=== PATIENT | female | born 1980 | race Caucasian/White ===

== ENCOUNTER → 2018-09-10 10:24 | Outpatient (CLI) | payer OTHER, SELFPAY ==
[2018-09-10 14:08] LABS: Basophils % 0.5 % (0.1-2.0); Eosinophils # 0.4 K/mm3 (0.0-0.4); Eosinophils % 4.1 % (0.1-12.0); Hematocrit 43.1 % (37.0-47.0); Hemoglobin 14.2 g/dL (12.2-16.2); Lymphocytes % 35.4 % (10-50); Mean Corpuscular Hemoglobin 29.2 pg (27.0-31.2); Mean Corpuscular Volume 88.3 fl (81-99); Mean Platelet Volume 8.9 fl (7.4-10.4); Monocytes # 0.5 K/mm3 (0.1-1.0); Neutrophils # 4.7 K/mm3 (1.8-7.8); Neutrophils % 54.1 % (37.0-80.0); Platelet Count 208 K/mm3 (142-424); Red Blood Count 4.88 M/mm3 (4.20-5.40); Red Cell Distribution Width 13.2 % (11.5-17.5); White Blood Count 8.6 K/mm3 (4.8-10.8)
[2018-09-10 14:33] LABS: Alanine Aminotransferase 47 U/L (12-78); Albumin Level 3.5 gm/dL (3.4-5.0); Alkaline Phosphatase 84 U/L (46-116); Anion Gap 13.3 mEq/L (5-15); Aspartate Amino Transferase 14 U/L (15-37); Bilirubin,Total 0.4 mg/dL (0.2-1.0); Blood Urea Nitrogen 12 mg/dL (7-18); Calcium 8.3 mg/dL (8.5-10.1); Carbon Dioxide 25 mmol/L (21.0-32.0); Chloride 105 mmol/L (98-107); Chol/HDL Ratio 3.5 (1-3.5); Cholesterol 181 mg/dL (140-200); Creatinine,Serum 0.66 mg/dL (0.55-1.02); Estimated Glomerular Filt Rate 100 ml/min (>60); GFR (African American) 121 ML/MIN (>60); Globulin 3.4 gm/dl (1.3-3.2); Glucose 101 mg/dL (74-106); HDL Cholesterol 52 mg/dL (29-89); LDL Cholesterol 108 mg/dL (0-130); Potassium 4.3 mmoL/L (3.5-5.1); Sodium 139 mmol/L (136-145); Thyroid Stimulating Hormone 3.19 uIU/ml (0.358-3.740); Total Protein,Serum 6.9 gm/dL (6.4-8.2); Triglycerides 103 mg/dL (30-200); VLDL Cholesterol 21 mg/dL (0-40)
[2018-09-10 15:50] LABS: Hemoglobin A1C 5.4 % (0.0-7.0)
[2018-09-13 18:56] LABS: Lamotrigine (Lamictal) None Detected ug/mL (2.0-20.0)
== END ==
PROVIDERS: Visit Provider Nurse Practitioner Family
DX: I10 Essential (primary) hypertension (principal)
CPT/HCPCS: 36415; 80053; 80061; 80168; 83036; 84443; 85025

== ENCOUNTER → 2018-11-04 11:13 | Outpatient (CLI) | payer OTHER, SELFPAY ==
[2018-11-04 11:16] LABS: Adenovirus,PCR Not Detected (NotDetected); Bordetella Pertussis Not Detected (NotDetected); Chlamydophila Pneumoniae, PCR Not Detected (NotDetected); Coronavirus 229E Not Detected (NotDetected); Coronavirus NL63 Not Detected (NotDetected); Coronovirus HKU1,PCR Not Detected (NotDetected); Human Metapneumovirus Not Detected (NotDetected); Influenza A, PCR Not Detected (NotDetected); Influenza AH1, 2009 Not Detected (NotDetected); Influenza AH1, PCR Not Detected (NotDetected); Influenza AH3,PCR Not Detected (NotDetected); Influenza B, PCR Not Detected (NotDetected); Mycoplasma Pneumoniae, PCR Not Detected (NotDetected); Parainfluenza 1, PCR Not Detected (NotDetected); Parainfluenza 2, PCR Not Detected (NotDetected); Parainfluenza 3, PCR Not Detected (NotDetected); Parainfluenza 4, PCR Not Detected (NotDetected); Respiratory Syncytial Virus Not Detected (NotDetected); Rhinovirus/Enterovirus Not Detected (NotDetected)
[2018-11-04 15:13] LABS: Coronavirus OC43 Detected (NotDetected)
== END ==
PROVIDERS: PCP Nurse Practitioner Family; Visit Provider Nurse Practitioner Family
DX: R50.9 Fever, unspecified (principal); R05 Cough
CPT/HCPCS: 87486; 87581; 87633; 87798

== ENCOUNTER 2018-12-05 13:00 | Outpatient (RCR) | payer OTHER, SELFPAY | END 2019-01-02 15:00 | disposition home or self-care (01) | LOC: PT.CARL 13:00 | PROVIDERS: Visit Provider Nurse Practitioner Family | DX: M54.5 Low back pain (principal); M54.6 Pain in thoracic spine | CPT/HCPCS: 97033; 97110; 97140; 97163 ==

== ENCOUNTER → 2019-05-19 09:00 | Outpatient (CLI) | payer OTHER, SELFPAY ==
--- NOTE | 2019-05-19 09:03 | XR_ITS ---
XR knee RT 4V HISTORY: ITS.REASON: knee pain ORDERING PHYSICIAN: Dacia Landaverde MD PATIENT AGE: 39 years COMPARISON: 04/23/2019 FINDINGS: There are mild osteoarthritic changes of all 3 compartments with slight decrease in the joint spaces and mild osteophyte formation. There is a small loose body in the anterior aspect of the joint medially measuring 3 mm. No fracture or dislocation. No lytic or blastic change. IMPRESSION: Mild tricompartmental osteoarthritis
== END ==
PROVIDERS: PCP Family Medicine; Visit Provider Orthopaedic Surgery
DX: M25.561 Pain in right knee (principal)
CPT/HCPCS: 73564

== ENCOUNTER → 2019-05-23 14:38 | Outpatient (CLI) | payer OTHER, SELFPAY ==
--- NOTE | 2019-05-23 14:40 | MR_ITS ---
MR knee RT wo con HISTORY: Right knee pain with grinding and swelling ITS.REASON: Rt knee pain ORDERING PHYSICIAN: Dacia Landaverde MD PATIENT AGE: 39 years Comparison: 05/19/2019 TECHNIQUE: Standard multiplanar multiecho sequences are performed without contrast. FINDINGS: The cruciate ligaments are intact. Collateral ligaments, patellar tendon, and quadriceps tendon are intact. No evidence of meniscal tear. There is mild thinning of the menisci but no evidence of meniscal tear There is irregularity with thinning of the posterior patellar cartilage consistent with chondromalacia patella. There are mild osteoarthritic changes involving all 3 compartments with small knee joint effusion. No fracture or dislocation. No bone bruise or bone marrow edema. IMPRESSION: 1. No internal derangement 2. Mild osteoarthritis of all 3 compartments with small knee joint effusion 3. Chondromalacia patella
== END ==
PROVIDERS: PCP Nurse Practitioner Family; Visit Provider Orthopaedic Surgery
DX: M25.461 Effusion, right knee (principal)
CPT/HCPCS: 73721

== ENCOUNTER 2021-07-11 15:23 | Emergency (ER) | payer OTHER, SELFPAY ==
[2021-07-11 15:33] VITALS: BP 170/98; PULSE 108; RESP 18; TEMP 36.9; O2SAT 95; BMI 36.3
--- NOTE | 2021-07-11 16:27 | HMH.EDUTC ---
[facility] Disposition Clinical Impression: Exposure to COVID-19 virus Pneumonia Qualifiers: Pneumonia type: due to unspecified organism Laterality: right Lung location: middle lobe of lung Qualified Code(s): J18.9 - Pneumonia, unspecified organism Disposition: Home, Self-Care Condition on Discharge: Good Instructions: DI for COVID-19 (Suspected or Confirmed ), Preventing the Spread of Coronavirus Discharge Instructions Additional Instructions: Keep the affected area clean and dry. Follow up with your regular doctor. Take the antibiotics as directed and apply the topical antibiotics as directed. Apply warm wet compresses to the affected area three or four times per day. GO TO THE ER FOR ANY WORSENING SYMPTOMS Prescriptions: Albuterol Sulfate [Albuterol Sulfate Hfa] 2 puffs IH Q6HP PRN 30 Days #1 each PRN Reason: Shortness Of Breath Transmission Status: Received by [facility] Promethazine/Dextromethorphan [Promethazine-Dm Syrup] 5 ml PO Q6HP PRN #240 ml PRN Reason: Cough Transmission Status: Received by [facility] Amoxicillin/Potassium Clav [Augmentin 875-125 Tablet] 1 tab PO Q12H 10 Days #20 tab Transmission Status: Received by [facility] methylPREDNISolone [Medrol] 4 mg PO DIRECTED 6 Days #21 packet Transmission Status: Received by [facility] Referrals: Adela Paul APRN [Primary Care Provider] - Forms: Work/School Release Time of Disposition: 17:26 Medical Decision Making - Medical Records Medical records reviewed: No: I reviewed the patient's medical records. - Raymundo Inquiry Pt receiving controlled substance: No Vital Signs: 07/11/21 15:33 07/11/21 17:51 Temperature 98.4 F 98.4 F Temperature Source Oral Oral Pulse Rate 108 H Pulse Rate [Apical] 108 H Respiratory Rate 18 18 Blood Pressure 170/98 H Blood Pressure [Right Arm] 170/98 H Blood Pressure Mean [Right Arm] 122 Blood Pressure Source Automatic Cuff Blood Pressure Source [Right Arm] Automatic Cuff Blood Pressure Position Sitting Blood Pressure Position [Right Arm] Sitting 02 Sat by Pulse Oximetry 95 Oxygen Delivery Method Room Air Room Air - Lab Data Lab Results 07/12/21 09:32: Strep Scn Rapid Clinic Negative Orders (Tests/Meds): ED MEDICATIONS Discontinued Medications Generic Name Dose Route Start Last Admin Trade Name Iker PRN Reason Stop Dose Admin Ceftriaxone Sodium 1 gm 07/11/21 17:13 07/11/21 17:25 Ceftriaxone 1gm Vial IM 07/11/21 17:14 1 gm ONCE ONE Administration Lidocaine HCl 0 ml 07/11/21 17:13 07/11/21 17:25 Lidocaine 1% 5ml Pf Vial IM 07/11/21 17:14 5 ml ONCE ONE Administration Methylprednisolone Sodium Succinate 125 mg 07/11/21 17:13 07/11/21 17:25 Methylprednisolone Sod Succ 125mg Vial IM 07/11/21 17:14 125 mg ONCE ONE Administration ORDERS Category Date Time Status Strep Screen Confirmation Stat Micro 07/12/21 09:32 Received - Radiology Data #1 Image(s): Chest Image Reviewed: Yes I reviewed the patient's radiology image, Yes I have reviewed radiologist's interpretation [facility] HPI - General Stated complaint: covid symptoms and test Time Seen by Provider: 07/11/21 16:27 Mode of Arrival: Ambulatory Source of Information: Patient Limitations: No Limitations Description of Symptoms (Recalled from Triage Doc. by RN): fever, cough, nausea, vomitting, chills HEENT Symptoms (Recalled from RN notes): No Resp Symptoms (Recalled from RN notes): Yes Skin Symptoms (Recalled from RN notes): No MS Symptoms (Recalled from RN notes): No Functional Status (Recalled from RN notes): na - History of Present Illness Provider Complaint: She states that for the past 1 day she has been having chest congstion, feeling bad. She has a history of asthma. - Related Data Home Medications Medication Instructions Recorded Confirmed Benzonatate [Benzonatate 100mg 1 tab * DIRECTED 11/15/1805/22
--- NOTE | 2021-07-11 16:32 | XR_ITS ---
PROCEDURE: XR CHEST 2V CLINICAL HISTORY: cough, congestion COMPARISON: CR CXR CHEST(2 VIEWS-NOT PORTABLE) from 06/06/2014 FINDINGS: The cardiomediastinal silhouette and pulmonary vascularity are within normal limits. Patchy infiltrate is present in the right middle lobe. The remaining lungs are clear. No effusions. No acute bony abnormalities. IMPRESSION: Right middle lobe infiltrate Dictated by: Floyd Segovia MD 07/11/2021 17:28 Floyd Segovia MD in [place] 07/11/2021 17:28
[2021-07-11 17:51] VITALS: BP 170/98; PULSE 108; RESP 18; TEMP 36.9; O2SAT 95
[2021-07-12 10:36] LABS: UTC Strep Screen (Rapid) Negative (Negative)
== END 2021-07-11 17:55 | disposition home or self-care (01) ==
PROVIDERS: Emergency Provider Nurse Practitioner Family; PCP Nurse Practitioner Family
DX: J18.9 Pneumonia, unspecified organism (principal); I10 Essential (primary) hypertension; F17.210 Nicotine dependence, cigarettes, uncomplicated
CPT/HCPCS: 71046; 87880; 96372; 99202; C9803; G0463; U0003; U0005

== ENCOUNTER 2021-09-04 14:54 | Emergency (ER) | payer OTHER, SELFPAY ==
[2021-09-04 15:00] VITALS: BP 148/93; PULSE 83; RESP 18; TEMP 36.8; O2SAT 96; BMI 35.5
--- NOTE | 2021-09-04 15:13 | XR_ITS ---
PROCEDURE INFORMATION: Exam: XR Left Hand Exam date and time: 09/04/2021 3:13 PM Age: 41 years old Clinical indication: Injury or trauma; Other: Smashed left hand between weights; Blunt trauma (contusions or hematomas); Additional info: Smashed it TECHNIQUE: Imaging protocol: XR Left hand. Views: 3 or more views. COMPARISON: No relevant prior studies available. FINDINGS: Bones/joints: There is no evidence of acute fracture. There is no evidence of joint malalignment or dislocation. Soft tissues: No focal soft tissue swelling. IMPRESSION: 1. No evidence of acute fracture. 2. No evidence of acute dislocation.
--- NOTE | 2021-09-04 15:46 | HMH.EDUTC ---
[place] Disposition Clinical Impression: Fingertip contusion Qualifiers: Encounter type: initial encounter Qualified Code(s): S60.00XA - Contusion of unspecified finger without damage to nail, initial encounter Disposition: Home, Self-Care Condition on Discharge: Good Instructions: How To Perform RICE (Rest, Ice, Compress, Elevate), How to Edgar Tape Additional Instructions: *RICE, Rest the extremity, Ice 15-20 minutes 3-4 times daily, Compress- wear the bhupinder wrap as discussed as much as possible to help reduce swelling and pain, Elevate the extremity when at rest *finger splint is for support and help control swelling, use it except in the shower. Be sure that is not to tight but not to loose either *Elevate when resting *Ibuprofen every 6-8 hours as needed for pain an inflammation as directed on package. If need something more can take Tylenol in between doses of Ibuprofen to help Immediately follow up with your family doctor for new or worsening of symptoms, or no noticeable improvement over the next 3-5 days Return if needed Straight to ER if any life threatening symptoms Referrals: Elizabeth Kerr PA [Primary Care Provider] - As needed Time of Disposition: 15:49 Medical Decision Making - Raymundo Inquiry Pt receiving controlled substance: No Raymundo was queried for this patient: No Vital Signs: 09/04/21 15:00 Temperature 98.2 F Temperature Source Oral Pulse Rate [Right Brachial] 83 Respiratory Rate 18 Blood Pressure [Right Arm] 148/93 H Blood Pressure Mean [Right Arm] 111 Blood Pressure Source [Right Arm] Automatic Cuff Blood Pressure Position [Right Arm] Sitting 02 Sat by Pulse Oximetry 96 Oxygen Delivery Method Room Air - Radiology Data #1 Image(s): Hand Image Reviewed: Yes I have reviewed radiologist's interpretation IMPRESSION: 1. No evidence of acute fracture. 2. No evidence of acute dislocation. [place] HPI - General Stated complaint: AO Left hand caught btwn weights Time Seen by Provider: 09/04/21 15:46 Mode of Arrival: Ambulatory Source of Information: Patient Limitations: No Limitations Description of Symptoms (Recalled from Triage Doc. by RN): PATIENT C/O PAIN AND BRUSING TO LEFT RING FINGER. REPORTS SHE SMASHED HER LEFT HAND BETWEEN WEIGHTS LAST NIGHT HEENT Symptoms (Recalled from RN notes): No Resp Symptoms (Recalled from RN notes): No Skin Symptoms (Recalled from RN notes): No MS Symptoms (Recalled from RN notes): Yes Functional Status (Recalled from RN notes): WNL - History of Present Illness Provider Complaint: Patient states that she was moving some weights last night when she accidently smashed the tips of her fingers between the weights Statse that she is having bruising and pain to the tip of her left ring finger and today was still having pain with movement and bruising so she came in to get it checked - Related Data Home Medications Medication Instructions Recorded Confirmed lisinopriL [Lisinopril 20mg Tab] 1 tab PO DIRECTED 11/15/18 09/04/21 Allergies Allergy/AdvReac Type Severity Reaction Status Date / Time carbamazepine [From Tegretol] Allergy Verified 09/04/21 15:37 quetiapine [From Seroquel] Allergy Verified 09/04/21 15:37 venlafaxine [From Effexor] Allergy Verified 09/04/21 15:37 ziprasidone [From Geodon] Allergy Verified 09/04/21 15:37 - Worker's Comp Is this a Worker's Comp case?: No [facility] History - Hepatitis A Screen Drug use history?: No High risk sexual behaviors?: No History of sexually transmitted infection?: No Currently employed?: No Childcare worker?: No Do you have indoor plumbing?: Yes Do you have electricity?: Yes Attestation statement:: This patient has been screened for Hepatitis A risk factors. I have reviewed the patient's past medical history: Yes Medical History: Reports:: Hypertension, Seizures Laterality Cases: Bilateral: Carpal Tunnel Release Other Surgeries: Yes: Appendectomy, Cholecystectomy - Social His
[2021-09-04 15:58] VITALS: BP 148/93; PULSE 83; RESP 18; TEMP 36.8; O2SAT 96
== END 2021-09-04 16:04 | disposition home or self-care (01) ==
PROVIDERS: Emergency Provider Nurse Practitioner; PCP Nurse Practitioner Family
DX: S60.042A Contusion of left ring finger without damage to nail, initial encounter (principal); W23.0XXA Caught, crushed, jammed, or pinched between moving objects, initial encounter; I10 Essential (primary) hypertension; F17.210 Nicotine dependence, cigarettes, uncomplicated
CPT/HCPCS: 73130; 99202; G0463

== ENCOUNTER → 2021-11-08 10:14 | Outpatient (CLI) | payer OTHER, SELFPAY | PROVIDERS: Visit Provider Nurse Practitioner | DX: Z20.822 Contact with and (suspected) exposure to COVID-19 (principal) | CPT/HCPCS: C9803; U0003; U0005 ==

== ENCOUNTER 2022-05-31 20:31 | Emergency (ER) | payer OTHER, SELFPAY ==
[2022-05-31 20:34] VITALS: BP 158/105; PULSE 79; RESP 16; TEMP 37.2; O2SAT 99; BMI 34.7
--- NOTE | 2022-05-31 20:54 | XR_ITS ---
PROCEDURE INFORMATION: Exam: XR Right Shoulder Exam date and time: 05/31/2022 8:50 PM Age: 42 years old Clinical indication: Patient HX: Pain in right shoulder. ; Additional info: Fall TECHNIQUE: Imaging protocol: Radiologic exam of the Right shoulder. Views: 2 or more views. COMPARISON: No relevant prior studies available. FINDINGS: Bones/joints: No acute fracture. No dislocation. Soft tissues: Unremarkable. IMPRESSION: No fracture. If pain persists, consider nonemergent MRI for further evaluation.
--- NOTE | 2022-05-31 21:02 | HMH.EDFALL ---
ED Disposition Clinical Impression: Shoulder injury Qualifiers: Encounter type: initial encounter Laterality: right Qualified Code(s): S49.91XA - Unspecified injury of right shoulder and upper arm, initial encounter Acromioclavicular joint injury Qualifiers: Encounter type: initial encounter Laterality: right Qualified Code(s): S49.91XA - Unspecified injury of right shoulder and upper arm, initial encounter Disposition: Home, Self-Care Condition on Discharge: Good Instructions: DI for Shoulder Pain, DI for AC Joint Separation Additional Instructions: use meds as needed - nsaif also and see orhto and wear sling as needed Referrals: John Hamilton [Primary Care Provider] - Raphael Owens MD [Staff Physician] - - Critical Care Critical Care Time: No Attestation: On 05/31/22, the high probability of a clinically significant, sudden or life threatening deterioration of the following system(s) required my full and direct attention, intervention and personal management. The time I documented below is in addition to time spent performing reported procedures but includes the following listed in this critical care notation. Medical Decision Making - Medical Records Medical records reviewed: Yes: I reviewed the patient's medical records. - Raymundo Inquiry Pt receiving controlled substance: No Vital Signs: 05/31/22 20:34 Temperature 98.9 F Temperature Source Oral Pulse Rate [Left Radial] 79 Respiratory Rate 16 Blood Pressure [Right Arm] 158/105 H Blood Pressure Mean [Right Arm] 122 Blood Pressure Source [Right Arm] Automatic Cuff Blood Pressure Position [Right Arm] Sitting 02 Sat by Pulse Oximetry 99 Oxygen Delivery Method Room Air - Lab Data Lab Results 05/31/22 20:11: Urine HCG, Qual Negative Orders (Tests/Meds): ED MEDICATIONS Discontinued Medications Generic Name Dose Route Start Last Admin Trade Name Freq PRN Reason Stop Dose Admin Acetaminophen 1,000 mg 05/31/22 20:55 05/31/22 20:58 Acetaminophen 500mg Tab PO 05/31/22 20:56 1,000 mg ONCE ONE Administration Ibuprofen 600 mg 05/31/22 20:55 05/31/22 20:58 Ibuprofen 600 Mg Tablet PO 05/31/22 20:56 600 mg ONCE ONE Administration - Radiology Data #1 Image(s): Shoulder Image Reviewed: Yes I have reviewed radiologist's interpretation Preliminary Findings: Abnormal, No Fracture Seen (possible ac jt ) Medical Decision Narrative: pt with acute rt shoulder injury with possible ac jt Fall HPI - General Chief Complaint: Fall Stated Complaint: AO 05/31 FELL pain R SHOULDER Time Seen by Provider: 05/31/22 21:03 Mode of Arrival: Ambulatory Source of Information: Patient, Medical Record Limitations: No Limitations Description of Symptoms (Recalled from ER Triage Doc. by RN): PT TRIPPED LEAVING GAS STATION AND FELL WITH RIGHT SHOULDER INTO HER CAR. PT REPORTS RIGHT SHOULDER PAIN AT THIS TIME - DULL ACHE- AND LIMITED MOVEMENT. - History of Present Illness HPI Narrative: tripped and fell into car with rt shoulder injury MD complaint: fall Onset (ago): hour(s) Fall from: other (slipped ) Place fall occurred: street Loss of consciousness: none Prolonged down time: no Symptoms prior to fall: none Context: tripped/slipped Location of injury - extremities: Right: shoulder Severity: moderate Quality: sharp Associated symptoms (after fall): other (dec rom ) - Related Data Home Medications Medication Instructions Recorded Confirmed lisinopriL [Lisinopril 20mg Tab] 1 tab PO DIRECTED 11/15/18 09/04/21 Allergies Allergy/AdvReac Type Severity Reaction Status Date / Time carbamazepine [From Tegretol] Allergy Verified 09/04/21 15:37 quetiapine [From Seroquel] Allergy Verified 09/04/21 15:37 venlafaxine [From Effexor] Allergy Verified 09/04/21 15:37 ziprasidone [From Geodon] Allergy Verified 09/04/21 15:37 [facility] History - Hepatitis A Screen Attestation statement:: This patie
[2022-05-31 21:03] LABS: Urine Pregnancy, HCG Qual. Negative (Negative)
[2022-05-31 21:43] VITALS: BP 155/89; PULSE 77; RESP 18; TEMP 36.6; O2SAT 99
== END 2022-05-31 21:55 | disposition home or self-care (01) ==
PROVIDERS: Emergency Provider Emergency Medicine; PCP Family Medicine
DX: S49.91XA Unspecified injury of right shoulder and upper arm, initial encounter (principal); M25.511 Pain in right shoulder; W01.0XXA Fall on same level from slipping, tripping and stumbling without subsequent striking against object, initial encounter
CPT/HCPCS: 73030; 81025; 99283

== ENCOUNTER 2022-10-26 16:00 | Outpatient (RCR) | payer OTHER, SELFPAY ==
--- NOTE | 2022-08-23 10:47 | HMH.PTOPEV ---
PT Outpatient Evaluation Rehab PT Outpatient Evaluation Start: 08/23/22 10:06 Freq: Status: Active Protocol: Document 08/23/22 10:08 SATYA (Rec: 08/23/22 10:47 SATYA [id number]) E-signed By Mayur Rich PT Outpatient Therapy Subjective History Subjective History This is the inital Physical Therapy evaluationfor Adriana Tran. Pt is a 42 y/o female referred to PT s/p fall . Pt reports she fell/slipped at a gas station. Pt reports as she fell she hit her shoulder on a car door, then the ground. Pt reports this happened on May 29. Pt went to ER and had Xray - no fx - dx of AC separation. Pt placed in sling and has been in sling since. Chief Complaint Pain,Stiff Symptom Type Ache,Sharp Symptoms Relieved By Rest/Positioning Symptoms Aggravated By Lifting Prior Functional Limitations None Current Functional Limitations Reaching,Lifting,Housework, Driving,Sleeping,Recreation Activity Symptom Description Intermittent Level of pain today (0-10) 0 Pain scale - at its best (0-10) 0 Pain scale - at its worst (0-10) 8 Shoulder/Elbow Eval Shoulder Objective Measurements Palpation Tenderness tenderness shoulder exam standard right tenderness over the bicipital tendon right shoulder exam standard Shoulder Palpation Findings Tenderness,Muscle Guarding Shoulder ROM Right Shoulder ROM Limitations Pain Shoulder Abduction Active Range of 90 Motion (degrees) Shoulder Flexion Active Range of Motion 135 (degrees) Query Text: pain with active ROM shoulder exam right standard pain with passive ROM shoulder exam right standard decreased ROM shoulder exam standard right full ROM shoulder exam standard left Shoulder Special Tests impingement sign present shoulder exam right standard Shoulder Cross-Over Impingement Test Positive Right Acromioclavicular Joint Compression Test Positive Right Acromioclavicular Joint Distraction Test Positive Right Shoulder Anterior Apprehension Test Negative Right Shoulder Posterior Apprehension Test Negative Right Shoulder Empty Can (Supraspinatus) Test Positive Right Shoulder Grind Test Positive Right Shoulder Gamble-Roderick Impingement Positive Right Test Shou
--- NOTE | 2022-10-18 11:00 | HMH.RHREAS ---
Rehab Reassessment Rehab OP Re-assessment Start: 09/21/22 11:08 Freq: Status: Active Protocol: Document 10/18/22 09:50 HERMINIALatosha (Rec: 10/18/22 10:59 SOLA [id number]) E-signed By Helena Joe PT Rehab Re-assessment Subjective Subjective Pt reports her shoulder feels a lot better since starting PT ; however, still has pain and difficulty with scaption/ abduction movements. Pt reports she is able to perform flexion without issues. Pt states even lifting a pot is difficult due to weakness. Pt reports pain at worse as 4/10 located at the lateral right shoulder and continues to notice swelling. Pt reports functionally she has trouble donning/doffing bra due to pain. Pt reports she had an EMG/NCV study without significant findings but has not had an MRI. Objective Objective Notes R seated shoulder AROM: 170 flex, 95 abd, ER 80, IR 70 R supine shoulder AROM: 120 abd R shoulder PROM: 180 flex, 180 abd (p!) RUE MMT: shoulder flex 4/5, shoulder abd 4/5, shoulder ER 4+/5, shoulder IR 4+/5, elbow flex 5/5, elbow ext 5/5 Special tests(R shoulder): - drop arm test, -weems matthias, -cross body, + empty can Assessment Progress Assessment Slower Than Expected Assessment Notes Pt has attended 11 PT visits consisting of aerobic exercise , UE stretching/strengthening, manual therapy and modalities with good tolerance. Pt demonstrated improved shoulder P/AROM this date compared to initial evaluation and responded well to shoulder mobilizations this date. Pt would continue to benefit from skilled PT to further improve
== END 2022-10-26 16:05 | disposition home or self-care (01) ==
LOC: PT 16:00
PROVIDERS: PCP Family Medicine; Visit Provider Orthopaedic Surgery
DX: M25.511 Pain in right shoulder (principal)
CPT/HCPCS: 97010; 97014; 97016; 97033; 97035; 97110; 97140; 97163; 97164; 97530; G0283

== ENCOUNTER → 2022-11-03 14:04 | Outpatient (CLI) | payer OTHER, SELFPAY ==
--- NOTE | 2022-11-03 15:23 | MR_ITS ---
PROCEDURE INFORMATION: Exam: MR Right Upper Extremity Joint Without Contrast; Shoulder Exam date and time: 11/03/2022 3:42 PM Age: 42 years old Clinical indication: Pain; Shoulder; Right; Additional info: Right shoulder pain TECHNIQUE: Imaging protocol: Magnetic resonance imaging of the Right upper extremity without contrast. Exam focused on the shoulder. COMPARISON: CR XR SHOULDER RT MIN 2V 05/31/2022 8:50 PM FINDINGS: Bones and cartilage: Acromioclavicular arthropathy is identified, with effacement of the underlying tissue planes. No dislocation of the glenohumeral joint. Joint spaces: Small glenohumeral joint effusion. A small effusion is identified within the acromioclavicular joint. Osseous cystic/edematous changes identified adjacent this joint, secondary to arthropathy. Glenoid labrum: Mild increased PD signal intensity is seen within the posterosuperior aspect of the labrum, suggestive of degenerative change or labral tear. Supraspinatus tendon: Full-thickness tear of the anterior fibers of the supraspinatus tendon. A small amount of fluid is seen within this defect. Minimal fluid is visualized within the subdeltoid/subacromial bursa. Infraspinatus tendon: Tendinosis of the infraspinatus tendon. No visualized tear. Subscapularis tendon: No evidence of tear. Teres minor tendon: No evidence of tear. Tendon of biceps brachii: Unremarkable. No evidence of tear. Glenohumeral ligaments: No evidence of tear of the inferior glenohumeral ligament. Muscles: No visualized acute abnormality. Soft tissues: Unremarkable. Lymph nodes: Nonspecific axillary lymph nodes are identified, a few which are enlarged. One of these lymph nodes measures 2.9 cm in length with a prominent fatty hilum. IMPRESSION: 1. Full-thickness tear of the anterior fibers of the supraspinatus tendon. A small amount of fluid is seen within this defect. Minimal fluid is visualized within the subdeltoid/subacromial bursa. 2. Tendinosis of the infraspinatus tendon. 3. 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 4. Small glenohumeral joint effusion. 5. Mild increased PD signal intensity is seen within the posterosuperior aspect of the labrum, suggestive of degenerative change or labral tear. 6. Additional findings described above.
== END ==
PROVIDERS: PCP Family Medicine; Visit Provider Orthopaedic Surgery
DX: M25.511 Pain in right shoulder (principal)
CPT/HCPCS: 73221

== ENCOUNTER → 2022-11-13 18:33 | Outpatient (CLI) | payer OTHER, SELFPAY ==
--- NOTE | 2022-11-13 18:49 | XR_ITS ---
PROCEDURE INFORMATION: Exam: XR Chest Exam date and time: 11/13/2022 6:48 PM Age: 42 years old Clinical indication: Screening exam; Other screening; Additional info: Covid testing TECHNIQUE: Imaging protocol: Radiologic exam of the chest. Views: 2 views. COMPARISON: CR XR CHEST 2V 07/11/2021 4:31 PM FINDINGS: Lungs: No other airspace consolidation or nodules are seen. Pleural spaces: No pleural effusion. No pneumothorax. Heart/Mediastinum: No abnormalities. No cardiomegaly. No pulmonary vascular congestion. Bones/joints: No fractures or bone lesions. Soft tissues: Ill-defined opacities present in the right middle lobe similar to previous chest x-ray. IMPRESSION: Ill-defined hazy opacity in the right middle lobe is similar to 07/11/2021 chest x-ray and may represent pneumonia or chronic scarring.
[2022-11-13 19:31] LABS: Chloride 106 mmol/L (98-107)
[2022-11-13 19:32] LABS: Potassium 3.6 mmoL/L (3.5-5.1); Sodium 140 mmol/L (136-145)
[2022-11-13 19:35] LABS: Anion Gap 10.6 mEq/L (5-15); Blood Urea Nitrogen 18 mg/dl (7-17); Calcium 8.7 mg/dl (8.4-10.2); Carbon Dioxide 27 mmol/L (22.0-30.0); Estimated Glomerular Filt Rate 91 ml/min (>60); GFR (African American) 111 ML/MIN (>60); Glucose 119 mg/dl (74-100)
[2022-11-13 20:20] LABS: Basophils # 0.2 K/mm3 (0-0.2); Basophils % 1.4 % (0.1-2.0); Eosinophils # 0.4 K/mm3 (0.0-0.4); Eosinophils % 3.4 % (0.1-12.0); Hematocrit 41.6 % (37.0-47.0); Hemoglobin 14.2 g/dL (12.2-16.2); Lymphocytes # 3.7 K/mm3 (0.7-4.5); Lymphocytes % 33.2 % (10-50); Mean Corpuscular HGB Conc 34.1 g/dL (31.8-35.4); Mean Corpuscular Hemoglobin 30.6 pg (27.0-31.2); Mean Corpuscular Volume 89.8 fl (81-99); Mean Platelet Volume 8.5 fl (7.4-10.4); Monocytes # 0.6 K/mm3 (0.1-1.0); Neutrophils # 6.3 K/mm3 (1.8-7.8); Neutrophils % 56.9 % (37.0-80.0); Platelet Count 269 K/mm3 (142-424); Red Blood Count 4.64 M/mm3 (4.20-5.40)
[2022-11-13 21:07] LABS: Hemoglobin A1C 5.3 % (4.0-6.0)
== END ==
PROVIDERS: PCP Nurse Practitioner Family; Visit Provider Orthopaedic Surgery
DX: Z01.818 Encounter for other preprocedural examination (principal); Z87.898 Personal history of other specified conditions; R73.09 Other abnormal glucose
CPT/HCPCS: 36415; 71046; 80048; 83036; 85025

== ENCOUNTER → 2022-11-14 11:00 | Outpatient (CLI) | payer OTHER, SELFPAY ==
--- NOTE | 2022-11-14 11:10 | ECG_ITS ---
APPROVED REPORT Exam: Resting ECG HR:82 bpm ECG Measurements Heart Rate 82 AXES SC 162 P 69 QRSd 97 QRS 57 QT 375 T 50 QTc 413 Conclusion SINUS RHYTHM POSSIBLE LEFT ATRIAL ENLARGEMENT [-0.1mV P-WAVE IN V1/V2] POSSIBLE RIGHT VENTRICULAR CONDUCTION DELAY [RSR (QR) IN V1/V2] BORDERLINE ECG UNCONFIRMED REPORT Electronically signed by : Masood Damon MD 11/14/2022 21:23:50
== END ==
PROVIDERS: PCP Nurse Practitioner Family; Visit Provider Orthopaedic Surgery
DX: Z01.810 Encounter for preprocedural cardiovascular examination (principal)
CPT/HCPCS: 93005

== ENCOUNTER → 2022-12-13 09:24 | Outpatient (CLI) | payer OTHER, SELFPAY ==
--- NOTE | 2022-12-13 09:25 | CA_ITS ---
APPROVED REPORT EXAM: Comprehensive 2D, Doppler, and color-flow Echocardiogram [employer] Instructor: Kika Mcclain RVT Ht: 5 ft 6 in Wt: 246lbs BSA: 2.18 BP: 144/85 mmHg Indications: PALPS,ABN EKG,SMOKER 2D Dimensions LVOT 2.08 cm (M/F) 1.5-2.5 LA Volume 22.60 mL LA Volume Index 10.32 mL/m2 (M/F) 16-34 M-Mode Dimensions RVDd 2.36 cm (0.9-2.6) LA Diam 3.92 cm (1.9-4.0) LVDd 4.52 cm (3.5-5.7) Ao Diam 2.86 cm (2.0-3.7) LVDs 2.74 cm (3.5-5.7) IVSd 0.80 cm (0.6-1.1) PWd 0.57 cm (0.6-1.1) EF (Teich) 70.00% FS 39.40% EDV (Teich) 93.40 mL TAPSE 2.91 (<1.7) ESV (Teich) 28.00 mL LV Diastology E Decel Time 150.00 (160-240 msec) E/A Ratio 1.4 MED E' 10.50 (< 7 cm/sec) E'/MED E' Ratio 11.30 (>14) LAT E' 11.50 (<10 cm/sec) E/LAT E' Ratio 10.32 (>14) Aortic Valve LVOT Max 138.00 (70-110 cm/s) LVOT VTI 28.94 cm AoV Peak Yang. 183.00 (50-130 cm/s) AO Peak GR. 13.50 mmHg AO Mean GR. 6.80 (<5 mmHg) AO VTI 37.95 (18-25 cm) CARLTON (VTI) 2.59 (2.5-4.5 cm2) Mitral Valve MV E Max Yang. 119.00 (40-130 cm/s) MV A Velocity 85.00 (40-130 cm/s) E/A Ratio 1.39 MV Decel. Time 150.00 (160-240 ms) MV PHT 44.00 ms Pulmonary Valve PV Peak Velocity 94.00 (50-150 cm/s) Tricuspid Valve TR P. Velocity 149.00 cm/s RAP Estimate 10.00 mmHg RVSP 18.90 mmHg Left Ventricle Left atrium is normal size left ventricle is normal size, estimated ejection fraction 55% with no regional wall motion abnormality, diastolic parameters are within normal range. Right Ventricle Right atrium and right ventricular normal size and contractility. Aortic Valve Aortic valve is grossly normal there is no aortic stenosis aortic insufficiency. Mitral Valve Mitral valve is grossly normal, there is trace mitral regurgitation. Tricuspid Valve Tricuspid valve grossly normal, there is trace tricuspid regurgitation, tricuspid regurgitation jet plasty is inadequate for calculation of the right ventricular systolic pressure. Pulmonic Valve Pulmonic valve is poorly visualized. Great Vessels Aortic root is normal size. Inferior vena cava is normal size with normal inspiratory collapse. Pericardium No significant pericardial effusion noted. Conclusion 1. Normal left ventricular size preserved left ventricular systolic function, estimated ejection fraction 55% with no regional wall motion abnormality, diastolic parameters are within normal range. 2. Trace mitral and tricuspid regurgitation. 3. No significant pericardial effusion noted. 4. Inferior vena cava is normal size with normal inspiratory collapse. Electronically signed by : Ankur Flor MD 12/14/2022 06:13:09
== END ==
PROVIDERS: PCP Nurse Practitioner Family; Visit Provider Physician Assistant
DX: Z01.810 Encounter for preprocedural cardiovascular examination (principal); R00.2 Palpitations; R07.89 Other chest pain
CPT/HCPCS: 93306

== ENCOUNTER 2022-12-25 08:26 | Day surgery (SDC) | payer OTHER, SELFPAY ==
[2022-12-22 11:13] VITALS: BMI 39.5
[2022-12-25] VITALS (10 sets, daily range): BP systolic 105–169; BP diastolic 44–89; PULSE 65–89; RESP 12–18; TEMP 36.6–36.9; O2SAT 92–97
--- NOTE | 2022-12-25 09:15 | SUR.PREOP ---
Pt assisted to BR and back to stretcher.
--- NOTE | 2022-12-25 09:28 | EXP.ANES.CKL ---
[facility] Disclaimer: The information contained in this section may have been updated after the patient was seen, as this information can be updated by other users. Medical History Asthma Dyspnea on exertion Endobronchial mass HTN (hypertension) Multiple lung nodules on CT Seizure Smoking greater than 30 pack years Solid nodule of lung greater than 8 mm in diameter Surgical History History of appendectomy History of carpal tunnel release of both wrists History of cholecystectomy History of rotator cuff surgery History of surgery of uterus History of tubal ligation Family History Other COPD (chronic obstructive pulmonary disease) Cancer Hypertension Social History Smoking Status: Current every day smoker tobacco type: cigarettes packs per day: 1 alcohol intake: former substance use type: marijuana current occupational status: employed Travel in the last 8 weeks: None [facility] Anesthesia Checklist Patient Identification Patient Identification: Arm Band and Verbal (Name & ) Structural Data Admitted From: Home Planned Operative Procedure/s: Bronchoscopy Consent for Planned Operative Procedure(s) Verified: Yes Verified Documents: Surgical Consent NPO Status Verified Time NPO: 00:00 Additional verifications Anesthesia Reactions: No Hx Blood Transfusions: No Blood Transfusion Reaction: No Airway Assessment C-Spine Mobility Assessed: Yes TMJ Mobility Assessed: Yes Dentition: Poor Dentition Neurological Assessment Level of Consciousness: Awake, Alert and Appropriate Anesthesia Plan ASA Class: III Anesthesia Type: General
--- NOTE | 2022-12-25 11:25 | XR_ITS ---
FINAL REPORT CLINICAL HISTORY: BRONCH IN OR, ft 3:45 FINDINGS: FLUORO TIME PROCEDURE: Fluoroscopy in the operating room. FINDINGS: Fluoroscopy time was provided by the radiology department for the clinical service. One image was obtained. Fluoroscopy exposure time: 3.45 minutes IMPRESSION: See operative report. Reviewed, Interpreted and Dictated by Silvestre Bashir III, MD Transcribed by Abiola Lyn Authenticated and [facility]
--- NOTE | 2022-12-25 11:38 | XR_ITS ---
FINAL REPORT CLINICAL HISTORY: Post bronchoscopy COMPARISON: 09/13/2023 FINDINGS: A single portable view of the chest was obtained. The heart size and pulmonary vascularity are within normal limits. The mediastinum is within normal limits. No acute pulmonary abnormality is identified. The bony thorax is intact. IMPRESSION: No pneumothorax post bronchoscopy. Reviewed, Interpreted and Dictated by Silvestre Bashir III, MD Transcribed by Abiola Lyn Authenticated and [facility]
--- NOTE | 2022-12-25 11:39 | P.PNANES_ITS ---
[facility] Anesthesia Record Part I Anesthesia Record I Intake, IV Amount: 1,400 Estimated blood loss (mL): 0 Urine output (mL): 0 Blood Pressure: 105/76 SaO2: 96 Pulse Rate: 89 Respiratory Rate: 12 Temperature: 97.8 F Patient is:: Awake and Stable Stable to PACU at:: 11:35
--- NOTE | 2022-12-25 11:39 | P.PCN_ITS ---
Procedure: Date: 12/25/22 Patient Date of :: 1980 Procedure Performed:: Bronchoscopy with airway examination, bronchoalveolar lavage, transbronchial endobronchial lung biopsy Indications:: Endobronchial lesion, lung nodule Performing Provider:: Fina Mejia MD Referring Provider:: Dr:Todd Griffin APRN Sedation:: General anesthesia Procedure:: Bronchoscopy airway examination, bronchoalveolar lavage, endobronchial biopsy and transbronchial lung biopsy: A clean DIAGNOSTIC bronchoscopy was advanced through the ET tube and airways were examined up to subsegmental bronchi. Airways appeared grossly normal, except for a small likely endobronchial noted in the right lower lobe lateral bronchi. A total of 4 endobronchial biopsies were performed and sent in formalin for cytopathologic examination. Rest of the airways appeared grossly normal. No evidence of mucoid secretions, mucous plugging active bleeding/old blood clots noted. Bronchoalveolar lavage was performed in the RIGHT LOWER LOBE with instillation of 60 cc normal saline with return of 25 cc back. BAL fluid was sent for cell count and differential along with cell count differential, bacterial culture a long with cytopathologic examination. Lavage fluid was not sent for AFB and fungal stain cultures. Transbronchial biopsy was performed in the RIGHT LOWER LOBEwith a total of 5 biopsies performed and were sent in formalin for cytopathologic examination. Special request was also made for the pathologist to evaluate for AFB and fungal organisms on the cytopathologic examination. Patient tolerated the procedure with no immediate acute complications. We will follow the patient in pulmonary clinic in 7 to 10 days. Findings:: Please see the procedure note Recommendations:: Follow in pulmonary clinic in 5 to 7 days Complications:: No acute immediate complications. Chest x-ray pending. Estimated blood obtained (mL): 10
--- NOTE | 2022-12-29 16:14 | EXP.ANES.II ---
[facility] Anesthesia Record Part II Anesthesia Record Part II Discharge Time: 11:55 Destination: Surgical Day Care (OP Surgery) PACU nurse assessment reviewed?: Yes Patient Condition:: Good Anesthesia Complications:: None Swallowing reflex intact?: Yes Cyanosis?: No Blood Pressure: 115/44 Pulse Rate: 89 Temperature: 97.8 F Mental Status: Alert & Oriented Pain level:: 0 Nausea and/or vomitting:: None Intake, IV Amount: 0
[2022-12-29 16:15] VITALS: BP 115/44; PULSE 89; TEMP 36.6
== END 2022-12-25 13:00 | disposition home or self-care (01) ==
PROVIDERS: PCP Nurse Practitioner Family; Visit Provider Internal Medicine Pulmonary Disease
PROC: (CPT 31628; principal; 2022-12-25 10:00)
DX: R06.02 Shortness of breath (principal); F17.210 Nicotine dependence, cigarettes, uncomplicated; I10 Essential (primary) hypertension; R91.1 Solitary pulmonary nodule; J45.909 Unspecified asthma, uncomplicated; Z79.899 Other long term (current) drug therapy
CPT/HCPCS: 31628; 31624; 71045; 76000; J2405

== ENCOUNTER 2023-03-27 14:00 | Outpatient (RCR) | payer OTHER, SELFPAY | END 2023-03-27 14:05 | disposition home or self-care (01) | LOC: OT 14:00 | PROVIDERS: PCP Nurse Practitioner Family; Visit Provider Orthopaedic Surgery | DX: M75.101 Unspecified rotator cuff tear or rupture of right shoulder, not specified as traumatic (principal) | CPT/HCPCS: 97010; 97014; 97110; 97140; 97164; 97165; 97530; G0283 ==

== ENCOUNTER → 2023-07-05 08:01 | Outpatient (CLI) | payer OTHER, SELFPAY ==
--- NOTE | 2023-07-05 08:56 | CT_ITS ---
FINAL REPORT TECHNIQUE: Axial CT images were performed from the lung apices through the upper abdomen. Coronal reformats were submitted. This study was performed with techniques to keep radiation doses as low as reasonably achievable (ALARA). Individualized dose reduction techniques using automated exposure control or adjustment of mA and/or kV according to the patient's size were employed. CLINICAL HISTORY: F/u lung nodule COMPARISON: 11/23/2021 FINDINGS: There is no axillary adenopathy. There are small mediastinal nodes without evidence of adenopathy. Heart size is normal. There is no pericardial or pleural effusion. There are multiple nodules in the right lower lobe, largest measures 13 mm, previously measured 13 mm. Multiple other smaller nodules are visually stable. Limited images of the upper abdomen show a 3 mm nonobstructing right renal stone. The patient is status post cholecystectomy. IMPRESSION: Stable nodules as detailed above. Recommend chest CT in 12 months to evaluate for continued stability. Reviewed, Interpreted and Dictated by Silvestre Bashir III, MD Transcribed by Yamilex Reese Authenticated and [facility]
== END ==
PROVIDERS: PCP Nurse Practitioner Family; Visit Provider Internal Medicine Pulmonary Disease
DX: R06.02 Shortness of breath (principal); R91.8 Other nonspecific abnormal finding of lung field
CPT/HCPCS: 71250; 94060; 94618; 94726; 94729

== ENCOUNTER 2024-04-25 08:00 | Outpatient (RCR) | payer OTHER, SELFPAY | END 2024-04-25 09:00 | disposition home or self-care (01) | LOC: OT 08:00 | PROVIDERS: Visit Provider Orthopaedic Surgery | DX: M25.511 Pain in right shoulder (principal); M75.101 Unspecified rotator cuff tear or rupture of right shoulder, not specified as traumatic; Z98.890 Other specified postprocedural states | CPT/HCPCS: 97010; 97014; 97110; 97140; 97164; 97166; G0283 ==

== ENCOUNTER 2024-04-27 13:30 | Emergency (ER) | payer OTHER, SELFPAY ==
--- NOTE | 2024-04-27 13:36 | XR_ITS ---
PROCEDURE INFORMATION: Exam: XR Right Foot Exam date and time: 04/27/2024 1:32 PM Age: 43 years old Clinical indication: Pain; Toes; Right; Additional info: Stubbed big toe, foot pain TECHNIQUE: Imaging protocol: Radiologic exam of the right foot. Views: 3 or more views. COMPARISON: FINDINGS: Bones/joints: No acute fracture. No dislocation. Soft tissues: Normal. IMPRESSION: No acute findings.
[2024-04-27 13:45] VITALS: BP 136/79; PULSE 88; RESP 18; TEMP 37.2; O2SAT 97; BMI 37.3
--- NOTE | 2024-04-27 13:57 | EXP.UTC ---
Discharge Plan Disposition Patient Disposition: Home, Self-Care Condition: Good Prescriptions Prescriptions: New cephalexin 500 mg capsule 500 mg PO QID 10 Days Qty: 40 0RF mupirocin 2 % ointment 1 applic topical TID 7 Days Qty: 15 0RF ibuprofen [IBU] 800 mg tablet 800 mg PO Q8HP PRN (Reason: Moderate Pain) Qty: 30 0RF No Action montelukast [Singulair] 10 mg tablet 10 mg PO DAILY Qty: 90 2RF meloxicam 15 mg tablet 15 mg PO DAILY omeprazole 20 mg capsule,delayed release(DR/EC) 20 mg PO DAILY lamotrigine 100 mg tablet 100 mg PO DAILY albuterol sulfate 90 mcg/actuation HFA aerosol inhaler 2 inh inhalation Q6H PRN (Reason: shortness of breath or wheezing) 90 Days Qty: 8.5 1RF losartan 50 mg tablet 50 mg PO DAILY celecoxib 200 mg capsule 200 mg PO DAILY cetirizine 10 mg tablet 10 mg PO DAILY fexofenadine 180 mg tablet 180 mg PO DAILY Referrals Follow up/Referrals: Nirali Fong DPM [Staff Physician] - See instructions Todd Kruse APRN [Primary Care Provider] - See instructions Activity Restrictions/Add. Instructions Additional Instructions/Restrictions: Rest the extremity, Elevate the extremity as tolerated while you are resting. Take ibuprofen for pain. I sent in a prescription to your pharmacy. Follow up with Dr. Fong (podiatry). I put in a referral but you need to call her office and schedule an appointment. Follow up with your regular doctor. GO TO THE ER FOR ANY WORSENING SYMPTOMS Clinical Impressions Clinical Impression: Contusion of great toe of right foot, Nail bed injury Stand Alone Forms Stand Alone Forms: Work/School Release Instructions Patient Instructions: DI for Nail Bed Injury Discharge ED Provider: Ford Stanford [facility] General Stated complaint: AO Right big toe damaged toenail/bleeding Time Seen by Provider: 04/27/24 13:56 History of Present Illness Provider Complaint: She states that (last night) she stubbed her right great toe on something. This caused the nail to partially pull of its bed. She has had right great toe pain since then. She denies any other injury or complaints. Related Data Home Medications Medication Instructions Recorded Confirmed lamotrigine 100 mg tablet 100 mg PO DAILY seizures 12/06/22 04/27/24 meloxicam 15 mg tablet 15 mg PO DAILY Pain 12/06/22 04/27/24 omeprazole 20 mg capsule,delayed 20 mg PO DAILY stomach 12/06/22 04/27/24 release celecoxib 200 mg capsule 200 mg PO DAILY 04/27/24 04/27/24 cetirizine 10 mg tablet 10 mg PO DAILY 04/27/24 04/27/24 fexofenadine 180 mg tablet 180 mg PO DAILY 04/27/24 04/27/24 losartan 50 mg tablet 50 mg PO DAILY 04/27/24 04/27/24 Previous Rx's Medication Instructions Recorded albuterol sulfate 90 mcg/actuation 2 inh inhalation Q6H PRN shortness 12/06/22 aerosol inhaler of breath or wheezing 90 days #8.5 grams montelukast 10 mg tablet 10 mg PO DAILY #90 tabs 07/10/23 (Singulair) cephalexin 500 mg capsule 500 mg PO QID 10 days #40 caps 04/27/24 ibuprofen 800 mg tablet (IBU) 800 mg PO Q8HP PRN Moderate Pain 04/27/24 #30 tabs mupirocin 2 % topical ointment 1 applic topical TID 7 days #15 04/27/24 grams Allergies Allergy/AdvReac Type Severity Reaction Status Date / Time carbamazepine [From Tegretol] Allergy Hives Verified 04/27/24 14:03 levofloxacin [From Levaquin] Allergy Other Verified 04/27/24 14:03 quetiapine [From Seroquel] Allergy Hives Verified 04/27/24 14:03 venlafaxine [From Effexor] Allergy Seizure Verified 04/27/24 14:03 ziprasidone [From Geodon] Allergy Other Verified 04/27/24 14:03 PFSH PFS Disclaimer: The information contained in this section may have been updated after the patient was seen, as this information can be updated by other users. Medical History (Updated 04/27/24 @ 14:28 by Ford Stanford APRN) Allergic rhinitis Seizure HTN (hypertension) Endobronchial mass Solid nodule of lung greater than 8 mm in diameter Multiple lung nodules on CT Smoking greater than 30 pack years Asthma Dyspnea on exertion Surgical History History of bronchoscopy History of surgery of uterus History of rotator cuff surgery History of carpal tunnel release of both wrists History of tubal ligation History of cholecystectomy History of appendectomy Family History Other COPD (chronic obstructive pulmonary disease) Cancer Hypertension Social History Smoking Status: Current every day smoker tobacco type: cigarettes packs per day: 1 alcohol intake: former substance use type: marijuana current occupational status: employed Travel in the last 8 weeks: None ROS Obtained: Yes All systems reviewed & no additional complaints except as documented Constitutional Constitutional: Denies chills and Denies fever(s) Eyes Eyes: Denies eye discharge ENT Ears, Nose, Mouth, and Throat: Denies dizziness, Denies otalgia and Denies sore throat Cardiovascular Cardiovascular: Denies chest pain Respiratory Respiratory: Denies shortness of breath, Denies chest congestion, Denies cough, Denies stridor and Denies wheezing Gastrointestinal Gastrointestingal: Denies nausea or vomiting Musculoskeletal Musculoskeletal: Reports as per HPI Integumentary/Breasts Skin/Breast: Reports as per HPI and Reports wounds Neurologic Neurologic: Denies dizziness and Denies paresthesias Allergic/Immunologic Allergic/Immunologic: Denies wheezing Physical Exam General General appearance: alert and in no apparent distress Head Head exam: atraumatic, normocephalic and normal inspection Eye Eye exam: Present normal appearance, PERRL and EOMI ENT ENT exam: Present normal exam, normal oropharynx, mucous membranes moist, TM's normal bilaterally and normal external ear exam Neck Neck exam: Present normal inspection, full ROM and trachea midline; Absent meningismus or lymphadenopathy Chest Chest inspection: Present normal inspection and symmetric chest wall rise; Absent tenderness Respiratory Respiratory exam: Present normal lung sounds bilaterally; Absent respiratory distress Cardiovascular Cardiovascular exam: Present regular rate and normal rhythm; Absent JVD Abdominal Exam Abdominal exam: Present soft and normal bowel sounds; Absent distention, tenderness or guarding Extremities Exam Extremities exam: Present normal capillary refill; Absent calf tenderness Expanded Lower Extremity Exam Right: Knee exam: Present normal inspection, full ROM and knee extension intact; Absent tenderness Lower leg exam: Present normal inspection, full ROM and Achilles tendon intact; Absent tenderness or Homans' sign Ankle exam: Present normal inspection and full ROM; Absent tenderness, tenderness over talofibular lig or anterior draw sign Foot/toe exam: Present full ROM, tenderness, swelling and nail avulsion; Absent abrasion, laceration, ecchymosis, deformity, crepitus, dislocation, erythema, amputation, puncture wound, foreign body, calcaneal tenderness, tenderness at base of 5th metatarsal or subungual hematoma Neurovascular/Tendon exam: Present normal capillary refill, pulse deficit, motor deficit, sensory deficit, tendon deficit, extremity cold to touch, normal 2-point discrimination and normal fine/light touch; Absent pallor Gait: observed and normal Back Exam Back exam: Present normal inspection; Absent tenderness Neurological Exam Neurological exam: Present alert and oriented X3 Psychiatric Psychiatric exam: Present normal affect and normal mood Skin Skin exam: Present warm, dry, intact and normal color Lymphatic Lymphatic Findings: no adenopathy Medical Decision Making Raymundo Inquiry Pt receiving controlled substance: No Orders (Tests/Meds): ORDERS Category Date Time Status Foot XR right minimum 3 views [XR foot RT min 3V] Stat Exams 04/27/24 13:36 Taken
[2024-04-27 14:31] VITALS: BP 136/79; PULSE 88; RESP 18; TEMP 37.2; O2SAT 97
--- NOTE | 2024-04-27 14:35 | PC.NURSE ---
POST-OP SHOE APPLIED TO RIGHT FOOT AT THIS TIME
== END 2024-04-27 14:37 | disposition home or self-care (01) ==
PROVIDERS: Emergency Provider Nurse Practitioner Family; PCP Nurse Practitioner Family
DX: S90.211A Contusion of right great toe with damage to nail, initial encounter (principal); M79.674 Pain in right toe(s); W22.8XXA Striking against or struck by other objects, initial encounter
CPT/HCPCS: 73630; 99212; 99214; G0463

== ENCOUNTER 2024-06-19 23:19 | Emergency (ER) | payer OTHER, SELFPAY ==
--- NOTE | 2024-06-19 23:20 | ECG_ITS ---
APPROVED REPORT Exam: Resting ECG HR:93 bpm ECG Measurements Heart Rate 93 AXES SC 177 P 63 QRSd 100 QRS 30 QT 348 T 55 QTc 398 Conclusion SINUS RHYTHM POSSIBLE LEFT ATRIAL ENLARGEMENT [-0.1mV P-WAVE IN V1/V2] POSSIBLE RIGHT VENTRICULAR CONDUCTION DELAY [RSR (QR) IN V1/V2] BORDERLINE ECG UNCONFIRMED REPORT Electronically signed by : IVAN YUSUF, 06/20/2024 06:55:32
--- NOTE | 2024-06-19 23:21 | XR_ITS ---
PROCEDURE INFORMATION: Exam: XR Chest Exam date and time: 06/19/2024 11:51 PM Age: 44 years old Clinical indication: Pain; Chest pressure; Additional info: Cp, SOA TECHNIQUE: Imaging protocol: Radiologic exam of the chest. Views: 1 view. COMPARISON: CT CHEST WO CON 07/05/2023 9:17 AM FINDINGS: Lungs: No evidence of acute pulmonary disease or infiltrates Pleural spaces: No large effusion or pneumothorax. Heart/Mediastinum: No evidence of mediastinal widening or cardiac silhouette enlargement; the mediastinum and heart appear within normal limits for contour and size. Bones/joints: No evidence of acute osseous abnormalities within the visualized portions of the thoracic spine and ribs. Osseous structures appear appropriate for patient age. IMPRESSION: No dense parenchymal consolidation, pleural effusion, or pneumothorax.
[2024-06-19 23:22] VITALS: BP 154/94; PULSE 95; RESP 20; TEMP 36.8; O2SAT 97; BMI 39.5
--- NOTE | 2024-06-19 23:23 | ED_ITS ---
Discharge Plan Disposition Patient Disposition: Home, Self-Care Prescriptions Prescriptions: No Action montelukast [Singulair] 10 mg tablet 10 mg PO DAILY Qty: 90 2RF meloxicam 15 mg tablet 15 mg PO DAILY omeprazole 20 mg capsule,delayed release(DR/EC) 20 mg PO DAILY lamotrigine 100 mg tablet 100 mg PO DAILY albuterol sulfate 90 mcg/actuation HFA aerosol inhaler 2 inh inhalation Q6H PRN (Reason: shortness of breath or wheezing) 90 Days Qty: 8.5 1RF losartan 50 mg tablet 50 mg PO DAILY celecoxib 200 mg capsule 200 mg PO DAILY cetirizine 10 mg tablet 10 mg PO DAILY fexofenadine 180 mg tablet 180 mg PO DAILY cephalexin 500 mg capsule 500 mg PO QID 10 Days Qty: 40 0RF mupirocin 2 % ointment 1 applic topical TID 7 Days Qty: 15 0RF ibuprofen [IBU] 800 mg tablet 800 mg PO Q8HP PRN (Reason: Moderate Pain) Qty: 30 0RF Referrals Follow up/Referrals: Provider,Referral, MD [Primary Care Provider] - See instructions Activity Restrictions/Add. Instructions Additional Instructions/Restrictions: Please follow-up with your primary care provider. Please return to the emergency department if you develop any new or worsening symptoms or become concerned for your health. Clinical Impressions Clinical Impression: Chest pain Qualifiers: Chest pain type: unspecified Qualified Code(s): R07.9 - Chest pain, unspecified Stand Alone Forms Stand Alone Forms: Work/School Release Print Language Print Language: [place] Discharge ED Provider: Duy Le General Adult HPI General Chief complaint: Chest Pain Stated complaint: Chest Pain Time Seen by Provider: 06/19/24 23:21 History of Present Illness HPI narrative: 44-year-old female with history of of seizures controlled on medications, history of smoking, hypertension presents for chest pain. She reports that she was getting ready for bed and watching of a bacteria when she had relatively sudden onset shortness of breath and chest tightness. She checked her blood pressure and it was 180/110. EMS reports that her blood pressure was approximate 170 systolic on their arrival as well as tachycardic to 125. Patient was mildly diaphoretic and uncomfortable appearing. They gave the patient full dose aspirin and 3 nitro's with resolution of patient's symptoms. They report no ischemic changes on their twelve-lead. Patient reports not having this happen before. She reports that she still has mild tightness in her chest but otherwise feels very well. Related Data Home Medications ?Medication ?Instructions ?Recorded ?Confirmed lamotrigine 100 mg tablet 100 mg PO DAILY seizures 12/06/22 04/27/24 meloxicam 15 mg tablet 15 mg PO DAILY Pain 12/06/22 04/27/24 omeprazole 20 mg capsule,delayed 20 mg PO DAILY stomach 12/06/22 04/27/24 release celecoxib 200 mg capsule 200 mg PO DAILY 04/27/24 04/27/24 cetirizine 10 mg tablet 10 mg PO DAILY 04/27/24 04/27/24 fexofenadine 180 mg tablet 180 mg PO DAILY 04/27/24 04/27/24 losartan 50 mg tablet 50 mg PO DAILY 04/27/24 04/27/24 Previous Rx's ?Medication ?Instructions ?Recorded albuterol sulfate 90 mcg/actuation 2 inh inhalation Q6H PRN shortness 12/06/22 aerosol inhaler of breath or wheezing 90 days #8.5 grams montelukast 10 mg tablet 10 mg PO DAILY #90 tabs 07/10/23 (Singulair) cephalexin 500 mg capsule 500 mg PO QID 10 days #40 caps 04/27/24 ibuprofen 800 mg tablet (IBU) 800 mg PO Q8HP PRN Moderate Pain 04/27/24 #30 tabs mupirocin 2 % topical ointment 1 applic topical TID 7 days #15 04/27/24 grams Allergies Allergy/AdvReac Type Severity Reaction Status Date / Time carbamazepine [From Tegretol] Allergy Hives Verified 04/27/24 14:03 levofloxacin [From Levaquin] Allergy Other Verified 04/27/24 14:03 quetiapine [From Seroquel] Allergy Hives Verified 04/27/24 14:03 venlafaxine [From Effexor] Allergy Seizure Verified 04/27/24 14:03 ziprasidone [From Geodon] Allergy Other Verified 04/27/24 14:03 [facility] Disclaimer: The information contained in this section may have been updated after the patient was seen, as this information can be updated by other users. Medical History (Updated 06/20/24 @ 03:16 by Duy Le MD) Allergic rhinitis Seizure HTN (hypertension) Endobronchial mass Solid nodule of lung greater than 8 mm in diameter Multiple lung nodules on CT Smoking greater than 30 pack years Asthma Dyspnea on exertion Surgical History History of bronchoscopy History of surgery of uterus History of rotator cuff surgery History of carpal tunnel release of both wrists History of tubal ligation History of cholecystectomy History of appendectomy Family History Other COPD (chronic obstructive pulmonary disease) Cancer Hypertension Social History Smoking Status: Current every day smoker tobacco type: cigarettes packs per day: 1 alcohol intake: former substance use type: marijuana current occupational status: employed Travel in the last 8 weeks: None ROS Obtained: Yes All systems reviewed & no additional complaints except as documented Physical Exam General General appearance: alert and in no apparent distress Head Head exam: atraumatic and normocephalic Eye Eye exam: Present normal appearance, PERRL and EOMI ENT ENT exam: Present normal oropharynx and normal external ear exam Neck Neck exam: Present normal inspection and full ROM Chest Chest inspection: Present normal inspection and symmetric chest wall rise; Absent tenderness Respiratory Respiratory exam: Present normal lung sounds bilaterally; Absent respiratory distress Cardiovascular Cardiovascular exam: Present regular rate and normal rhythm Abdominal Exam Abdominal exam: Present soft; Absent distention, tenderness or guarding Extremities Exam Extremities exam: Present normal inspection; Absent edema or joint swelling Back Exam Back exam: Present normal inspection; Absent tenderness Neurological Exam Neurological exam: Present alert and oriented X3; Absent motor sensory deficit Psychiatric Psychiatric exam: Present normal affect and normal mood Skin Skin exam: Present warm, dry and normal color Lymphatic Lymphatic Findings: no adenopathy Medical Decision Making Medical Records Medical records reviewed: Yes I reviewed the patient's medical records. Raymundo Inquiry Pt receiving controlled substance: No Raymundo was queried for this patient: No Vital Signs: 06/19/24 23:22 06/19/24 23:28 06/20/24 03:41 Temperature 98.2 F 98.2 F Temperature Source Oral Oral Pulse Rate 95 H 68 Pulse Rate [Right] 95 H Respiratory Rate 20 18 Blood Pressure 137/83 Blood Pressure [Right Arm] 154/94 H Blood Pressure Mean [Right Arm] 114 Blood Pressure Source Automatic Cuff Blood Pressure Source [Right Arm] Automatic Cuff Blood Pressure Position Sitting Blood Pressure Position [Right Arm] Sitting 02 Sat by Pulse Oximetry 97 Oxygen Delivery Method Room Air Room Air Lab Data Lab results reviewed: Yes I reviewed the patient's lab results. Lab Results 06/19/24 23:30: WBC 12.2 H, RBC 4.81, Hgb 14.9, Hct 45.0, MCV 93.6, MCH 31.0, MCHC 33.1, RDW 13.4, Plt Count 208, MPV 8.5, Neut % (Auto) 66.8, Lymph % (Auto) 25.9, [place] % (Auto) 6.2, Eos % (Auto) 0.8, Baso % (Auto) 0.4, Neut # (Auto) 8.1 H, Lymph # (Auto) 3.2, [place] # (Auto) 0.8, Eos # (Auto) 0.1, Baso # (Auto) 0.1, D-Dimer 0.32, Sodium 139, Potassium 3.4 L, Chloride 107, Carbon Dioxide 29, Anion Gap 6.4, BUN 19 H, Creatinine 0.60, Estimated Creat Clear 208, Estimated GFR 108, Est GFR ( Amer) 131, Glucose 136 H, Calcium 9.0, Total Bilirubin 0.5, AST 34, ALT 45, Alkaline Phosphatase 71, Troponin I < 0.01, Total Protein 7.5, Albumin 4.1, Globulin 3.4 H, Albumin/Globulin Ratio 1.2, Serum HCG, Qual Negative 06/20/24 02:15: Troponin I < 0.01 06/19/24 23:30 06/19/24 23:30 Orders (Tests/Meds): ORDERS Category Date Time Status CXR --portable [XR chest portable] Stat Exams 06/19/24 23:21 Completed CBC w/Auto Diff [Complete Blood Count Auto Diff] Stat Lab 06/19/24 23:30 Completed CMP [Comprehensive Metabolic Panel] Stat Lab 06/19/24 23:30 Completed D-Dimer Stat Lab 06/19/24 23:30 Completed HCG Qualitative, Serum Stat Lab 06/19/24 23:30 Completed Troponin I Q3H Lab 06/19/24 23:30 Completed Troponin I Q3H Lab 06/20/24 02:15 Completed ECG Data Tracing #1: I reviewed this ECG and interpreted as documented below: ECG initial impression date: 06/19/24 ECG initial impression time: 23:23 ECG normal with no acute: arrhythmias, ischemia, conduction abnormalities, chamber hypertrophy Normal Sinus Rhythm: Yes HEART Score History (anamnesis): Moderately suspicious ECG: Normal Age: 45-65 years Risk factors: 1-2 risk factors Troponin: </= normal limit HEART Score: 3 Medical Decision Narrative: 44-year-old female with history of hypertension, obesity, smoking, seizures presents for palpitations, chest pain and chest tightness. History was obtained via interactive discussion with patient, EMS, chart review. On arrival, patient is [afebrile, hemodynamically stable, satting appropriately, alert, oriented x4, GCS 15], moving all extremities spontaneously. Full physical exam performed and significant for no significant physical exam abnormalities. Patient given aspirin and nitro prior to arrival. Differential includes but is not limited to ACS, PE, arrhythmia, musculoskeletal chest pain, acute aortic syndrome, esophageal pathology, pneumothorax, anxiety, hypertensive emergency Workup initiated including CBC CMP EKG chest x-ray D-dimer troponin. On re-evaluation, patient [remains afebrile, HD stable.] Continues to be symptom-free. Laboratory workup independently interpreted by me and significant for negative D-dimer, negative initial troponin, unremarkable electrolytes. Imaging independently interpreted by me and significant for clear lungs bilaterally without focal opacity. See radiology read for full review of final results. Patient was placed in ED observation for cardiac monitoring and serial troponins. 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 Remains symptom-free. Repeat troponin returned undetectably low. Given this, the patient does not appear to be having acute cardiac pathology and was deemed appropriate for discharge with outpatient management. Interactive discussion was had with patient regarding her presentation and workup. Less than 30 minutes was utilized in preparing her discharge. Procedures Risk/Benefits of Procedure(s) Were Explained: Yes Critical Care Critical Care Time Critical Care Time: No
[2024-06-19 23:28] VITALS: PULSE 95
[2024-06-19 23:45] LABS: Alanine Aminotransferase 45 U/L (12-78); Albumin Level 4.1 g/dl (3.5-5.0); Albumin/Globulin Ratio 1.2 (1.1-1.8); Alkaline Phosphatase 71 U/L (38-126); Anion Gap 6.4 mEq/L (5-15); Aspartate Amino Transferase 34 U/L (14-36); Bilirubin,Total 0.5 mg/dl (0.2-1.3); Blood Urea Nitrogen 19 mg/dl (7-17); Carbon Dioxide 29 mmol/L (22.0-30.0); Chloride 107 mmol/L (98-107); Creatinine Clearance Estimated 208 mL/min (50-200); Estimated Glomerular Filt Rate 108 ml/min (>60); GFR (African American) 131 ML/MIN (>60); Globulin 3.4 g/dL (1.3-3.2); Glucose 136 mg/dl (74-100); Potassium 3.4 mmoL/L (3.5-5.1); Sodium 139 mmol/L (136-145); Total Protein,Serum 7.5 g/dl (6.3-8.2)
[2024-06-19 23:53] LABS: D-Dimer 0.32 ug/mL (0.0-0.5)
[2024-06-19 23:54] LABS: HCG Qualitative, Serum Negative (Negative)
[2024-06-19 23:55] LABS: Basophils # 0.1 K/mm3 (0-0.2); Basophils % 0.4 % (0.1-2.0); Eosinophils # 0.1 K/mm3 (0.0-0.4); Eosinophils % 0.8 % (0.1-12.0); Hemoglobin 14.9 g/dL (12.2-16.2); Lymphocytes # 3.2 K/mm3 (0.7-4.5); Lymphocytes % 25.9 % (10-50); Mean Corpuscular HGB Conc 33.1 g/dL (31.8-35.4); Mean Corpuscular Volume 93.6 fl (81-99); Mean Platelet Volume 8.5 fl (7.4-10.4); Monocytes # 0.8 K/mm3 (0.1-1.0); Monocytes % 6.2 % (1.7-9.3); Neutrophils # 8.1 K/mm3 (1.8-7.8); Neutrophils % 66.8 % (37.0-80.0); Platelet Count 208 K/mm3 (142-424); Red Blood Count 4.81 M/mm3 (4.20-5.40); Red Cell Distribution Width 13.4 % (11.5-17.5); White Blood Count 12.2 K/mm3 (4.8-10.8)
[2024-06-20 00:01] LABS: Troponin I < 0.01 ng/ml (0.00-0.034)
--- NOTE | 2024-06-20 00:43 | PC.NURSE ---
rounded on pt at this time. pt voices no needs.
[2024-06-20 02:59] LABS: Troponin I < 0.01 ng/ml (0.00-0.034)
[2024-06-20 03:41] VITALS: BP 137/83; PULSE 68; RESP 18; TEMP 36.8; O2SAT 98
== END 2024-06-20 03:42 | disposition home or self-care (01) ==
PROVIDERS: Emergency Provider Emergency Medicine
DX: R07.9 Chest pain, unspecified (principal); R06.02 Shortness of breath; I10 Essential (primary) hypertension; J45.909 Unspecified asthma, uncomplicated; F17.210 Nicotine dependence, cigarettes, uncomplicated
CPT/HCPCS: 71045; 80053; 84484; 84703; 85025; 85378; 93005; 99285

== ENCOUNTER 2024-06-26 09:01 | Outpatient (CLI) | payer OTHER, SELFPAY | END 2024-06-26 23:59 | disposition home or self-care (01) | LOC: RT 09:03 | PROVIDERS: PCP Nurse Practitioner Family; Visit Provider Nurse Practitioner Family | DX: R00.2 Palpitations (principal); I10 Essential (primary) hypertension; R07.9 Chest pain, unspecified; R94.31 Abnormal electrocardiogram [ECG] [EKG] | CPT/HCPCS: 93270 ==

== ENCOUNTER 2024-07-07 11:39 | Outpatient (CLI) | payer OTHER, SELFPAY ==
--- NOTE | 2024-07-07 | CA_ITS ---
APPROVED REPORT Exam: Exercise Treadmill Technologist: Sherin Tam, Ht: 5 ft 6 in Wt: 232 lbs BSA: 2.13 m2 HR: 90 bpm BP: 161/91 mmHg Rhythm: NSR Medical History Medications: Losartan,,,,, Albuterol,,,,, Montelukast,,,,, MeLOXICAM,,,,, Celecoxib,,,,, LaMotrigine,,,,, CetIRIZINE,,,,, Fexofenadine,,,,, Cardiac Risk Factors: HTN, Smoking Stress Test Details Test: Susan HR Resting HR: 102 bpm Max Heart Rate (APMHR): 175 bpm Max HR Achieved: 164 bpm Target HR (85% APMHR): 149 bpm % of APMHR: 94 Recovery HR: 135 bpm HR response to stress: Normal HR response to stress BP Resting BP: 145.0/86.0 mmHg Max BP: 212.0/95.0 mmHg Recovery BP: 212.0/95.0 mmHg BP response to stress: Abnormal hypertensive response to stress. ECG Resting ECG: NSR Stress EC.[address] depression Arrhythmia: PVCs Recovery ECG: Return to baseline within 3 minutes of recovery Recovery Arrhythmia: None Clinical Exercise duration: 06:31 min Highest Stage Achieved: Exercise capacity: 7.0 METs Overall Exercise Capacity for Age: Fair Stress ECG Conclusion The patient was able to exercise for a total of 6 minutes, 31 seconds. She achieved a total of 7.0 METS. She has fair exercise capacity compared to age and sex matched peers. She has normal HR, but exaggerated hypertensive BP, response to exercise. During susan protocol pt experinced SOA with exertion, stopped due to SOA. Dizziness at peak exercise. Ectopy: PVC noted at peak exercise. ST changes: 0.[address] depression Conclusion: Fair exercise capacity. Hypertensive BP response to exercise. BP control is recommended. No ischemic ECG changes at peak stress. GXT only (no Myoview). Test Summary REST . . . . . . . Sitting REST . . . . . . . Standing REST . . . . . . . Standing REST 20:16 0.0 0.0 102 . 145/ 86 . . Stage 1 01:00 10.0 1.7 112 . . . . Stage 1 02:00 10.0 1.7 120 . . . . Stage 1 03:00 10.0 1.7 128 . 161/ 84 . . Stage 2 01:00 12.0 2.5 134 . . . . Stage 2 02:00 12.0 2.5 145 . 176/ 98 . . Stage 2 03:00 12.0 2.5 150 . 176/ 98 . . Stage 3 00:31 14.0 3.4 163 . . . Stop exercise at 06:31 RECOVERY 01:00 0.0 0.0 136 . . . . RECOVERY 02:00 0.0 0.0 123 . 212/ 95 . . RECOVERY 03:00 0.0 0.0 109 . 174/ 84 . . RECOVERY 04:00 0.0 0.0 104 . 176/ 86 . . RECOVERY 04:30 0.0 0.0 108 . 163/ 82 . . Electronically signed by : Libra Singletary MD 07/10/2024 13:50:18
--- NOTE | 2024-07-07 11:41 | CA_ITS ---
APPROVED REPORT EXAM: Comprehensive 2D, Doppler, and color-flow Echocardiogram Loader: Missy Christensen RT(R) Ht: 5 ft 6 in Wt: 247lbs BSA: 2.19 BP: 152/88 mmHg Indications: CP, smoker, palpitations, fatigue, HTN, SOB, PEAR[place], family history of HD. 2D Dimensions LVEF (Kwong's) 66.20 % F: 54 - 74 LV Volume 100.90 mL F: 46 - 106 LV Volume Index 46.1 mL/m2 F: 29 - 61 LA Volume 25.60 mL LA Volume Index 11.69 mL/m2 (M/F) 16-34 EF AP4 65.30 % EF AP2 71.9 % EF BP 66.2 % GL Strain -24.0 % M-Mode Dimensions RVDd 1.89 cm (0.9-2.6) LA Diam 3.31 cm (1.9-4.0) LVDd 4.83 cm (3.5-5.7) LVDs 3.50 cm (3.5-5.7) IVSd 0.84 cm (0.6-1.1) PWd 0.84 cm (0.6-1.1) EF (Teich) 53.30% FS 27.50% EDV (Teich) 109.10 mL ESV (Teich) 50.90 mL LV Diastology E Decel Time 147 (160-240 msec) E/A Ratio 1.2 Mitral Valve MV E Max Yang. 104.0 (40-130 cm/s) MV A Velocity 90.0 (40-130 cm/s) E/A Ratio 1.15 MV PHT 43.0 ms Left Ventricle The left ventricle is normal size. The left ventricular systolic function is normal. The left ventricular ejection fraction is within the normal range. There is normal left ventricular wall thickness. There is normal LV segmental wall motion. The left ventricular diastolic function is normal. LVEF is 55%. Right Ventricle The right ventricle is normal size. The right ventricular systolic function is normal. Atria The left atrium size is normal. The right atrium size is normal. There is no Doppler evidence of interatrial shunt. Aortic Valve The aortic valve opens well. There is no aortic valvular stenosis. No aortic regurgitation is present. Mitral Valve The mitral valve is normal in structure. No evidence of mitral valve stenosis. There is no mitral valve regurgitation noted. Tricuspid Valve The tricuspid valve leaflets are thin and pliable. Trace tricuspid regurgitation. There is insufficient TR jet to estimate RVSP. Pulmonic Valve The pulmonary valve is normal in structure. Trace pulmonic regurgitation. Great Vessels The aortic root is normal in size. The ascending aorta is normal in size. IVC is normal in size and collapses >50% with inspiration. Pericardium There is no pericardial effusion. Other Information Study Quality: Fair Conclusion Normal biventricular systolic function. No significant valvular stenosis or regurgitation. Electronically signed by : Libra Singletary MD 07/11/2024 01:56:30
--- NOTE | 2024-07-07 12:28 | CT_ITS ---
FINAL REPORT TECHNIQUE: Thin section axial images were obtained from the lung apices through the upper abdomen without contrast. This study was performed with techniques to keep radiation doses as low as reasonably achievable (ALARA). Individualized dose reduction techniques using automated exposure control or adjustment of mA and/or kV according to the patient's size were employed. CLINICAL HISTORY: 1 year F/U nodules COMPARISON: 07/05/2023 FINDINGS: There is no mediastinal, hilar, or axillary lymphadenopathy. No pleural or pericardial effusion. There are multiple right lower lobe nodules, the largest measuring 13 mm in size, stable. There is a suggestion of a feeding vessel and a draining vessel originating from the largest nodule, that may represent an arteriovenous malformation.. A small nonobstructing left renal stone is unchanged in appearance, stable since November 2022.. There is no acute osseous abnormality. IMPRESSION: Multiple right lower lobe nodules, the largest measuring 13 mm in size, stable. There is the suggestion of a feeding vessel and draining vessel from the larger nodule, which may represent an arteriovenous malformation. Reviewed, Interpreted and Dictated by Meghana Leal MD Transcribed by Erika Grossman Authenticated and [facility]
== END 2024-07-07 23:59 | disposition home or self-care (01) ==
PROVIDERS: PCP Nurse Practitioner Family; Visit Provider Internal Medicine Pulmonary Disease
DX: I10 Essential (primary) hypertension (principal); R07.9 Chest pain, unspecified; R94.31 Abnormal electrocardiogram [ECG] [EKG]; R00.2 Palpitations; R91.8 Other nonspecific abnormal finding of lung field
CPT/HCPCS: 71250; 93017; 93018; 93306

== ENCOUNTER 2024-07-10 10:31 | Emergency (ER) | payer OTHER, SELFPAY ==
[2024-07-10] VITALS (10 sets, daily range): BP systolic 131–165; BP diastolic 74–98; PULSE 65–82; RESP 17–23; TEMP 36.7–36.8; O2SAT 95–98; BMI 37.3
--- NOTE | 2024-07-10 10:29 | ECG_ITS ---
APPROVED REPORT Exam: Resting ECG HR:85 bpm ECG Measurements Heart Rate 85 AXES AK 164 P 149 QRSd 95 QRS 120 QT 357 T 120 QTc 399 Conclusion SINUS RHYTHM ARM LEADS REVERSED [INVERTED P AND QRS IN I] NORMAL ECG UNCONFIRMED REPORT Electronically signed by : IVAN YUSUF, 07/11/2024 06:38:45
--- NOTE | 2024-07-10 10:34 | ED_ITS ---
Discharge Plan Disposition Patient Disposition: Home, Self-Care Condition: Good Prescriptions Prescriptions: No Action montelukast [Singulair] 10 mg tablet 10 mg PO DAILY Qty: 90 2RF losartan 100 mg tablet 100 mg PO DAILY Qty: 30 2RF meloxicam 15 mg tablet 15 mg PO DAILY omeprazole 20 mg capsule,delayed release(DR/EC) 20 mg PO DAILY lamotrigine 100 mg tablet 100 mg PO DAILY albuterol sulfate 90 mcg/actuation HFA aerosol inhaler 2 inh inhalation Q6H PRN (Reason: shortness of breath or wheezing) 90 Days Qty: 8.5 1RF celecoxib 200 mg capsule 200 mg PO DAILY cetirizine 10 mg tablet 10 mg PO DAILY fexofenadine 180 mg tablet 180 mg PO DAILY Referrals Follow up/Referrals: Todd Kruse APRN [Primary Care Provider] - See instructions Activity Restrictions/Add. Instructions Additional Instructions/Restrictions: As we discussed, it appeared on your chest x-ray that you have a pneumonia. Please take the previously prescribed antibiotics as directed. Please return with any new or worsening symptoms. Clinical Impressions Clinical Impression: Pneumonia Print Language Print Language: Iranian Discharge ED Provider: Jonathan Cardona General Adult HPI General Chief complaint: Recheck/Abnormal Lab/Rx Stated complaint: chest pain Time Seen by Provider: 07/10/24 10:34 History of Present Illness HPI narrative: The patient presents with a chief complaint of chest pain since yesterday, which gradually developed. The patient reports having been diagnosed with pneumonia last night at [facility] ED after experiencing shortness of breath. The patient has a history of recurrent pneumonia, with approximately 15 previous episodes, but does not feel like they currently have it. They report coughing up snot but no fever. The patient has been experiencing symptoms off and on for a month, including palpitations and a high resting heart rate. They recently had an echocardiogram and stress test done on Sunday. The patient also reports ringing in the ears for three days and a headache for two days. They received an alert from their blood pressure monitor, prompting them to seek medical attention. The patient describes feeling weak and not making sense at work, with difficulty remembering tasks and directions. This has been ongoing for about twelve hours, starting yesterday and continuing today. The patient reports constant chest pain that does not improve or worsen with deep breaths or with changes in position such as laying down, sitting up, or stretching. They also experience shortness of breath but feel like they can breathe, though they can't take a deep breath. The patient has a history of lung nodules, asthma, and high blood pressure. They report no leg pain but mention occasional leg swelling, particularly in the morning. The patient's heart rate has reached up to 136 bpm while sitting, and they have not had a blood clot in their lungs before. A recent CAT scan showed no growth in the lung nodules, with the largest measuring 13 millimeters. The patient mentions that the nodules possibly have a feeding vessel and a drainage vessel now. Please note that above description of symptoms, in this electronic medical record under categorization of recalled from ER triage doctor by RN are reflective of an initial nursing assessment, however, is not reflective of my full history and physical exam that was personally taken and clarified. Consequentially, this preceding description of symptoms, which may include the patient's categorized chief complaint in the EMR, do not reflect my personal clinical impression, and the ultimate description of history of present illness and patient stated complaints should be deferred to this section of the note. Unless stated otherwise or congruent with this section of the note, additional signs, symptoms, or incongruence should be interpreted as inaccurate with my clinical impression. Related Data Home Medications ?Medication ?Instructions ?Recorded ?Confirmed lamotrigine 100 mg tablet 100 mg PO DAILY seizures 12/06/22 07/10/24 meloxicam 15 mg tablet 15 mg PO DAILY Pain 12/06/22 07/10/24 omeprazole 20 mg capsule,delayed 20 mg PO DAILY stomach 12/06/22 07/10/24 release celecoxib 200 mg capsule 200 mg PO DAILY 04/27/24 07/10/24 cetirizine 10 mg tablet 10 mg PO DAILY 04/27/24 07/10/24 fexofenadine 180 mg tablet 180 mg PO DAILY 04/27/24 07/10/24 Previous Rx's ?Medication ?Instructions ?Recorded albuterol sulfate 90 mcg/actuation 2 inh inhalation Q6H PRN shortness 12/06/22 aerosol inhaler of breath or wheezing 90 days #8.5 grams montelukast 10 mg tablet 10 mg PO DAILY #90 tabs 07/10/23 (Singulair) losartan 100 mg tablet 100 mg PO DAILY #30 tabs 06/26/24 Allergies Allergy/AdvReac Type Severity Reaction Status Date / Time carbamazepine [From Tegretol] Allergy Hives Verified 07/10/24 08:51 levofloxacin [From Levaquin] Allergy Other Verified 07/10/24 08:51 quetiapine [From Seroquel] Allergy Hives Verified 07/10/24 08:51 venlafaxine [From Effexor] Allergy Seizure Verified 07/10/24 08:51 ziprasidone [From Geodon] Allergy Other Verified 07/10/24 08:51 PFSH [facility] Disclaimer: The information contained in this section may have been updated after the patient was seen, as this information can be updated by other users. Medical History Allergic rhinitis Seizure HTN (hypertension) Endobronchial mass Solid nodule of lung greater than 8 mm in diameter Multiple lung nodules on CT Smoking greater than 30 pack years Asthma Dyspnea on exertion Surgical History History of bronchoscopy History of surgery of uterus History of rotator cuff surgery History of carpal tunnel release of both wrists History of tubal ligation History of cholecystectomy History of appendectomy Family History Other COPD (chronic obstructive pulmonary disease) Cancer Hypertension Social History Smoking Status: Current every day smoker tobacco type: cigarettes packs per day: 1 alcohol intake: former substance use type: marijuana current occupational status: employed Travel in the last 8 weeks: None ROS Obtained: Yes other As per HPI Physical Exam General General appearance: alert and in no apparent distress Head Head exam: atraumatic and normocephalic Eye Eye exam: Present normal appearance Neck Neck exam: Present normal inspection Chest Chest inspection: Present normal inspection and symmetric chest wall rise Respiratory Respiratory exam: Present normal lung sounds bilaterally; Absent respiratory distress Cardiovascular Cardiovascular exam: Present regular rate and normal rhythm Abdominal Exam Abdominal exam: Present soft Neurological Exam Neurological exam: Present alert and oriented X3 Psychiatric Psychiatric exam: Present normal affect and normal mood Skin Skin exam: Present warm and dry Medical Decision Making Medical Records Medical records reviewed: Yes I reviewed the patient's medical records. Screening: Per USPSTF and CDC recommendations, given the prevalence of disease in our region, it is our hospital?s policy to screen for HIV and viral Hepatitis for all patients aged 18 and over and those with ongoing risk factors. Raymundo Inquiry Pt receiving controlled substance: No Vital Signs: 07/10/24 10:31 07/10/24 11:00 07/10/24 11:30 Temperature 98.2 F Temperature Source Oral Pulse Rate 82 80 Pulse Rate [Right] 82 Respiratory Rate 18 18 22 Blood Pressure 143/81 H 132/84 Blood Pressure [Right Arm] 165/98 H Blood Pressure Mean [Right Arm] 120 Blood Pressure Source Blood Pressure Position 02 Sat by Pulse Oximetry 98 96 95 Oxygen Delivery Method 07/10/24 12:00 07/10/24 12:30 07/10/24 12:54 Temperature Temperature Source Pulse Rate 76 71 Pulse Rate [Right] 73 Respiratory Rate 21 17 Blood Pressure 137/82 131/97 H Blood Pressure [Right Arm] Blood Pressure Mean [Right Arm] Blood Pressure Source Blood Pressure Position 02 Sat by Pulse Oximetry 96 97 Oxygen Delivery Method Room Air 07/10/24 13:00 07/10/24 13:30 07/10/24 14:00 Temperature Temperature Source Pulse Rate 67 69 65 Pulse Rate [Right] Respiratory Rate 21 23 22 Blood Pressure 136/81 140/74 140/85 Blood Pressure [Right Arm] Blood Pressure Mean [Right Arm] Blood Pressure Source Blood Pressure Position 02 Sat by Pulse Oximetry 96 97 97 Oxygen Delivery Method Room Air 07/10/24 14:24 Temperature 98.1 F Temperature Source Oral Pulse Rate 74 Pulse Rate [Right] Respiratory Rate 17 Blood Pressure 155/91 H Blood Pressure [Right Arm] Blood Pressure Mean [Right Arm] Blood Pressure Source Automatic Cuff Blood Pressure Position Sitting 02 Sat by Pulse Oximetry Oxygen Delivery Method Room Air Lab Data Lab Results 07/10/24 10:40: WBC 12.2 H, RBC 5.07, Hgb 15.7, Hct 46.6, MCV 92.0, MCH 30.9, MCHC 33.6, RDW 13.2, Plt Count 227, MPV 8.5, Neut % (Auto) 73.3, Lymph % (Auto) 18.8, [place] % (Auto) 6.3, Eos % (Auto) 1.0, Baso % (Auto) 0.7, Neut # (Auto) 9.0 H, Lymph # (Auto) 2.3, [place] # (Auto) 0.8, Eos # (Auto) 0.1, Baso # (Auto) 0.1, D-Dimer 0.39, Sodium 140, Potassium 3.6, Chloride 109 H, Carbon Dioxide 24, Anion Gap 10.6, BUN 16, Creatinine 0.60, Estimated Creat Clear 196, Estimated GFR 108, Est GFR ( Amer) 131, Glucose 161 H, Calcium 9.5, Total Bilirubin 0.8, AST 43 H, ALT 59, Alkaline Phosphatase 84, Troponin I < 0.01, NT-Pro-B Natriuret Pep < 20.0, Total Protein 7.8, Albumin 4.7, Globulin 3.1, Albumin/Globulin Ratio 1.5, Procalcitonin < 0.030, Hepatitis C Antibody Non reactive, Hep C Ab Comment Comment, HIV 1&2 Antibody Rapid Nonreactive 07/10/24 13:10: Troponin I < 0.01 07/10/24 10:40 07/10/24 10:40 Orders (Tests/Meds): ORDERS Category Date Time Status XR chest 2V Stat Exams 07/10/24 10:46 Completed BNP [NT Pro Brain Natriuretic Pep.] Stat Lab 07/10/24 10:40 Completed CBC w/Auto Diff [Complete Blood Count Auto Diff] Stat Lab 07/10/24 10:40 Completed CMP [Comprehensive Metabolic Panel] Stat Lab 07/10/24 10:40 Completed D-Dimer Stat Lab 07/10/24 10:40 Completed HIV (1&2) Antibody Rapid Stat Lab 07/10/24 10:40 Completed Hep C Ab with Reflex to RNA Stat Lab 07/10/24 10:40 Completed Procalcitonin Stat Lab 07/10/24 10:40 Completed Troponin I Q3H Lab 07/10/24 10:40 Completed Troponin I Q3H Lab 07/10/24 13:10 Completed HEART Score History (anamnesis): Slightly suspicious ECG: Non-specific disturbance Age: <45 years Risk factors: 1-2 risk factors Troponin: </= normal limit HEART Score: 2 Medical Decision Narrative: Patient with history and exam per above presenting for evaluation of chest pain, shortness of breath Diagnoses considered include ACS, PE, pneumonia, PUD, CHF, among others ED workup and treatment included: ORDERS Category Date Time Status XR chest 2V Stat Exams 07/10/24 10:46 Completed BNP [NT Pro Brain Natriuretic Pep.] Stat Lab 07/10/24 10:40 Completed CBC w/Auto Diff [Complete Blood Count Auto Diff] Stat Lab 07/10/24 10:40 Completed CMP [Comprehensive Metabolic Panel] Stat Lab 07/10/24 10:40 Completed D-Dimer Stat Lab 07/10/24 10:40 Completed HIV (1&2) Antibody Rapid Stat Lab 07/10/24 10:40 Completed Hep C Ab with Reflex to RNA Stat Lab 07/10/24 10:40 Completed Procalcitonin Stat Lab 07/10/24 10:40 Completed Troponin I Q3H Lab 07/10/24 10:40 Completed Troponin I Q3H Lab 07/10/24 13:10 Completed Labs were independently interpreted by me, significant for D-dimer within normal limits, leukocytosis, troponins within normal limits x 2. Imaging was independently visualized and interpreted by me, significant for findings concerning for pneumonia Please refer to radiology report for full details. My clinical impression at this time is most consistent with community-acquired pneumonia. I discussed my clinical impression with patient and answered all questions. At this time, the evidence for any other entities in the differential is insufficient to warrant any further testing or ED observation. This was explained to the patient. The patient was advised that persistent or worsening symptoms require further evaluation. Critical Care Critical Care Time Critical Care Time: No
--- NOTE | 2024-07-10 10:46 | XR_ITS ---
FINAL REPORT TECHNIQUE: Chest PA & Lateral CLINICAL HISTORY: Shortness of breath, chest pain COMPARISON: 06/19/2024 FINDINGS: 2 views of the chest were performed. The heart size is normal. The mediastinum is within normal limits. The lungs are underinflated. There is mild airspace opacity at the lung bases probably due to mild basilar pneumonia. There are no pleural effusions. There is no pneumothorax. The bony thorax appears intact. IMPRESSION: Probable basilar pneumonia. Recommend follow-up with better inflation of the lungs. Reviewed, Interpreted and Dictated by Brando Lala MD Transcribed by Kavitha Wolf Authenticated and [facility]
[2024-07-10 10:54] LABS: Basophils # 0.1 K/mm3 (0-0.2); Basophils % 0.7 % (0.1-2.0); Eosinophils # 0.1 K/mm3 (0.0-0.4); Hematocrit 46.6 % (37.0-47.0); Hemoglobin 15.7 g/dL (12.2-16.2); Lymphocytes # 2.3 K/mm3 (0.7-4.5); Lymphocytes % 18.8 % (10-50); Mean Corpuscular HGB Conc 33.6 g/dL (31.8-35.4); Mean Corpuscular Hemoglobin 30.9 pg (27.0-31.2); Mean Platelet Volume 8.5 fl (7.4-10.4); Monocytes # 0.8 K/mm3 (0.1-1.0); Monocytes % 6.3 % (1.7-9.3); Neutrophils % 73.3 % (37.0-80.0); Platelet Count 227 K/mm3 (142-424); Red Blood Count 5.07 M/mm3 (4.20-5.40); Red Cell Distribution Width 13.2 % (11.5-17.5); White Blood Count 12.2 K/mm3 (4.8-10.8)
[2024-07-10 11:06] LABS: D-Dimer 0.39 ug/mL (0.0-0.5)
[2024-07-10 11:15] LABS: NT Pro Brain Natriuretic Pep. < 20.0 pg/mL (0-125)
[2024-07-10 11:21] LABS: Procalcitonin < 0.030 ng/mL (0.0-2.0); Troponin I < 0.01 ng/ml (0.00-0.034)
[2024-07-10 12:14] LABS: Albumin Level 4.7 g/dl (3.5-5.0); Chloride 109 mmol/L (98-107); Sodium 140 mmol/L (136-145)
[2024-07-10 12:15] LABS: Potassium 3.6 mmoL/L (3.5-5.1)
[2024-07-10 12:17] LABS: Alanine Aminotransferase 59 U/L (12-78); Albumin/Globulin Ratio 1.5 (1.1-1.8); Alkaline Phosphatase 84 U/L (38-126); Anion Gap 10.6 mEq/L (5-15); Aspartate Amino Transferase 43 U/L (14-36); Bilirubin,Total 0.8 mg/dl (0.2-1.3); Blood Urea Nitrogen 16 mg/dl (7-17); Carbon Dioxide 24 mmol/L (22.0-30.0); Creatinine Clearance Estimated 196 mL/min (50-200); Estimated Glomerular Filt Rate 108 ml/min (>60); GFR (African American) 131 ML/MIN (>60); Globulin 3.1 g/dL (1.3-3.2); Total Protein,Serum 7.8 g/dl (6.3-8.2)
[2024-07-10 12:18] LABS: Calcium 9.5 mg/dl (8.4-10.2); Glucose 161 mg/dl (74-100)
[2024-07-10 12:39] LABS: HIV (1&2) Antibody Rapid NONREACTIVE (NONREACTIVE)
[2024-07-10 13:41] LABS: Troponin I < 0.01 ng/ml (0.00-0.034)
[2024-07-11 05:13] LABS: HCV Ab Non Reactive (Non Reactive)
== END 2024-07-10 14:25 | disposition home or self-care (01) ==
PROVIDERS: Emergency Provider Emergency Medicine; PCP Nurse Practitioner Family
DX: J18.9 Pneumonia, unspecified organism (principal); R07.9 Chest pain, unspecified; R05.9 Cough, unspecified
CPT/HCPCS: 71046; 80053; 83880; 84145; 84484; 85025; 85378; 86803; 87389; 93005; 99284

== ENCOUNTER 2024-08-29 07:58 | Outpatient (CLI) | payer OTHER, SELFPAY ==
--- NOTE | 2024-08-29 08:04 | CA_ITS ---
FINAL REPORT TECHNIQUE: Grayscale, color Doppler and duplex Doppler ultrasound of the kidneys, aorta and renal arteries was performed. Multiple velocities were measured. CLINICAL HISTORY: HTN,SMOKER,HX KIDNEY STONE COMPARISON: None FINDINGS: Aorta velocity: 138 cm/sec Right kidney: 13.9 cm. No evidence of hydronephrosis or mass. Right intrarenal RI: 0.57 Right renal artery velocity: 232 cm/sec. Right RAR (Renal artery-Aortic Ratio): 1.7 Left Kidney: 12.3 cm. No evidence of hydronephrosis or mass. Left intrarenal RI: 0.6 Left renal artery velocity: 205 cm/sec. Left RAR (Renal Artery-Aortic Ratio): 1.5 IMPRESSION: Less than 60% renal artery stenosis bilaterally. Recommend correlation with CT angiogram or catheter angiography. Reviewed, Interpreted and Dictated by Silvestre Bashir III, MD Transcribed by Erika Grossman Authenticated and [facility]
--- NOTE | 2024-08-29 08:46 | US_ITS ---
FINAL REPORT CLINICAL HISTORY: I15.0 - Renovascular hypertension COMPARISON: None FINDINGS: RENAL ULTRASOUND Ultrasound images of the kidneys were obtained. Incidental note is made of fatty infiltration of the liver. The right kidney measures 11.2 cm in length. It is normal echogenicity. There is no hydronephrosis. The left kidney measures 11.4 cm in length. It is normal echogenicity. There is no hydronephrosis. IMPRESSION: Normal renal ultrasound. Fatty liver. Reviewed, Interpreted and Dictated by Silvestre Bashir III, MD Transcribed by Ping Perdue Authenticated and [facility]
[2024-08-29 09:34] LABS: Alanine Aminotransferase 47 U/L (12-78); Albumin Level 4.4 g/dl (3.5-5.0); Alkaline Phosphatase 64 U/L (38-126); Anion Gap 12.2 mEq/L (5-15); Aspartate Amino Transferase 28 U/L (14-36); Bilirubin,Direct 0.2 mg/dl (0.0-0.4); Bilirubin,Indirect 0.7 mg/dL (0.0-0.9); Bilirubin,Total 0.9 mg/dl (0.2-1.3); Bilirubin,Unconjugated 0.7 mg/dL (0.0-1.1); Blood Urea Nitrogen 20 mg/dl (7-17); Carbon Dioxide 25 mmol/L (22.0-30.0); Chloride 104 mmol/L (98-107); Chol/HDL Ratio 3.7 (1-3.5); Cholesterol 175 mg/dl (140-200); Estimated Glomerular Filt Rate 133 ml/min (>60); GFR (African American) 161 ML/MIN (>60); Glucose 96 mg/dl (74-100); HDL Cholesterol 47 mg/dl (40-60); Potassium 4.2 mmoL/L (3.5-5.1); Sodium 137 mmol/L (136-145); Total Protein,Serum 7.1 g/dl (6.3-8.2); Triglycerides 104 mg/dl (30-150); VLDL Cholesterol 21 mg/dL (0-40)
[2024-08-29 09:45] LABS: Direct LDL Cholesterol 112.69 mg/dL (100-129)
== END 2024-08-29 23:59 | disposition home or self-care (01) ==
LOC: RT 07:59
PROVIDERS: PCP Nurse Practitioner Family; Visit Provider Nurse Practitioner Family
DX: I15.0 Renovascular hypertension (principal)
CPT/HCPCS: 36415; 76770; 80048; 80061; 80076; 93976

== ENCOUNTER 2024-09-26 11:28 | Emergency (ER) | payer OTHER, SELFPAY ==
[2024-09-26 12:25] VITALS: BP 117/80; PULSE 83; RESP 18; TEMP 36.8; O2SAT 97; BMI 41.8
--- NOTE | 2024-09-26 12:26 | ED_ITS ---
Discharge Plan Disposition Patient Disposition: Home, Self-Care Condition: Good Prescriptions Prescriptions: New benzonatate 100 mg capsule 100 mg PO TIDP PRN (Reason: Cough) Qty: 30 0RF methylprednisolone 4 mg Tablets,Dose Pack 4 mg PO DIRECTED 6 Days Qty: 21 0RF Rx Instructions: Take 1 pack as directed for 6 days cefdinir 300 mg capsule 300 mg PO BID Qty: 20 0RF No Action losartan 100 mg tablet 100 mg PO DAILY Qty: 30 2RF doxycycline hyclate 100 mg tablet 100 mg PO DAILY Breztri Aerosphere 160-9-4.8 mcg/actuation HFA aerosol inhaler 2 inh inhalation BID 90 Days Qty: 10.7 3RF nicotine 14 mg/24 hr patch 24 hour 1 patch transdermal DAILY Qty: 28 2RF nicotine (polacrilex) 2 mg mini lozenge 2 mg buccal Q4H PRN (Reason: nicotine cravings) Qty: 81 0RF meloxicam 15 mg tablet 15 mg PO DAILY omeprazole 20 mg capsule,delayed release(DR/EC) 20 mg PO DAILY lamotrigine 100 mg tablet 100 mg PO DAILY albuterol sulfate 90 mcg/actuation HFA aerosol inhaler 2 inh inhalation Q6H PRN (Reason: shortness of breath or wheezing) 90 Days Qty: 8.5 1RF hydrochlorothiazide 25 mg tablet 25 mg PO DAILY Qty: 30 2RF carvedilol 12.5 mg tablet 12.5 mg PO BID Qty: 180 2RF Rx Instructions: must administer with a meal/food montelukast [Singulair] 10 mg tablet 10 mg PO DAILY Qty: 90 2RF celecoxib 200 mg capsule 200 mg PO DAILY cetirizine 10 mg tablet 10 mg PO DAILY fexofenadine 180 mg tablet 180 mg PO DAILY Referrals Follow up/Referrals: Todd Kruse APRN [Primary Care Provider] - See instructions Activity Restrictions/Add. Instructions Additional Instructions/Restrictions: Drink plenty of fluids. Take tylenol or ibuprofen for pain or fever. Take the medications as directed. Follow up with your regular doctor. GO TO THE ER FOR ANY WORSENING SYMPTOMS Clinical Impressions Clinical Impression: Asthma exacerbation, Sinusitis Stand Alone Forms Stand Alone Forms: Work/School Release Instructions Patient Instructions: DI for Sinusitis Print Language Print Language: Mexican Discharge ED Provider: Ford Stanford [facility] General Stated complaint: congestion, soa, cough Time Seen by Provider: 09/26/24 12:26 Related Data Home Medications ?Medication ?Instructions ?Recorded ?Confirmed lamotrigine 100 mg tablet 100 mg PO DAILY seizures 12/06/22 09/26/24 meloxicam 15 mg tablet 15 mg PO DAILY Pain 12/06/22 09/26/24 omeprazole 20 mg capsule,delayed 20 mg PO DAILY stomach 12/06/22 09/26/24 release celecoxib 200 mg capsule 200 mg PO DAILY 04/27/24 09/16/24 cetirizine 10 mg tablet 10 mg PO DAILY 04/27/24 09/26/24 fexofenadine 180 mg tablet 180 mg PO DAILY 04/27/24 09/26/24 doxycycline hyclate 100 mg tablet 100 mg PO DAILY 07/16/24 09/16/24 Previous Rx's ?Medication ?Instructions ?Recorded albuterol sulfate 90 mcg/actuation 2 inh inhalation Q6H PRN shortness 12/06/22 aerosol inhaler of breath or wheezing 90 days #8.5 grams losartan 100 mg tablet 100 mg PO DAILY #30 tabs 06/26/24 budesonide 160 mcg-glycopyr 9 2 inh inhalation BID 90 days #10.7 08/07/24 mcg-formot 4.8 mcg/actuation HFA grams inhaler (Breztri Aerosphere) nicotine (polacrilex) 2 mg buccal 2 mg buccal Q4H PRN nicotine 08/07/24 mini lozenge cravings #81 ea nicotine 14 mg/24 hr daily 1 patch transdermal DAILY #28 ea 08/07/24 transdermal patch hydrochlorothiazide 25 mg tablet 25 mg PO DAILY #30 tabs 08/14/24 montelukast 10 mg tablet 10 mg PO DAILY #90 tabs 08/14/24 (Singulair) carvedilol 12.5 mg tablet 12.5 mg PO BID #180 tabs 09/16/24 benzonatate 100 mg capsule 100 mg PO TIDP PRN Cough #30 caps 09/26/24 cefdinir 300 mg capsule 300 mg PO BID #20 caps 09/26/24 methylprednisolone 4 mg tablets in 4 mg PO DIRECTED 6 days #21 tabs 09/26/24 a dose pack Allergies Allergy/AdvReac Type Severity Reaction Status Date / Time carbamazepine (From Tegretol) Allergy Hives Verified 09/16/24 11:16 levofloxacin (From Levaquin) Allergy Other Verified 09/16/24 11:16 quetiapine (From Seroquel) Allergy Hives Verified 09/16/24 11:16 venlafaxine (From Effexor) Allergy Seizure Verified 09/16/24 11:16 ziprasidone (From Geodon) Allergy Other Verified 09/16/24 11:16 [facility] Disclaimer: The information contained in this section may have been updated after the patient was seen, as this information can be updated by other users. Medical History Allergic rhinitis Seizure HTN (hypertension) Endobronchial mass Solid nodule of lung greater than 8 mm in diameter Multiple lung nodules on CT Smoking greater than 30 pack years Asthma Dyspnea on exertion Surgical History History of bronchoscopy History of surgery of uterus History of rotator cuff surgery History of carpal tunnel release of both wrists History of tubal ligation History of cholecystectomy History of appendectomy Family History Other COPD (chronic obstructive pulmonary disease) Cancer Hypertension Social History Smoking Status: Current every day smoker tobacco type: cigarettes packs per day: 1 alcohol intake: former substance use type: marijuana current occupational status: employed Travel in the last 8 weeks: None ROS Obtained: Yes All systems reviewed & no additional complaints except as documented Constitutional Constitutional: Reports poor appetite Eyes Eyes: Reports system reviewed and no additional complaints, except as documented ENT Ears, Nose, Mouth, and Throat: Reports as per HPI Cardiovascular Cardiovascular: Reports system reviewed and no additional complaints, except as documented and Denies chest pain Respiratory Respiratory: Denies shortness of breath, Reports chest congestion, Reports c ough, Denies stridor and Denies wheezing Gastrointestinal Gastrointestingal: Reports system reviewed and no additional complaints, except as documented; Denies abdominal pain, diarrhea or vomiting Musculoskeletal Musculoskeletal: Reports system reviewed and no additional complaints, except as documented and Denies arthralgias Integumentary/Breasts Skin/Breast: Reports system reviewed and no additional complaints, except as documented and Denies rash Neurologic Neurologic: Denies paresthesias Allergic/Immunologic Allergic/Immunologic: Denies wheezing Physical Exam General General appearance: alert and in no apparent distress Eye Eye exam: Present normal appearance, PERRL and EOMI ENT ENT exam: Present mucous membranes moist and normal external ear exam Expanded ENT Exam External ear exam: Present normal external inspection TM/Canal exam: Bilateral TM: erythema and bulging Nose exam: Absent sinus tenderness Nasal speculum exam: Bilateral: normal Mouth exam: Present normal external inspection; Absent drooling Teeth exam: Present normal inspection Throat exam: Present tonsillar erythema and tonsillomegaly Neck Neck exam: Present normal inspection, full ROM and trachea midline; Absent tenderness, lymphadenopathy or thyromegaly Chest Chest inspection: Present normal inspection and symmetric chest wall rise; Absent tenderness or rash Respiratory Respiratory exam: Present normal lung sounds bilaterally; Absent respiratory distress, wheezes, stridor or accessory muscle use Cardiovascular Cardiovascular exam: Present regular rate, normal rhythm and normal heart sounds Abdominal Exam Abdominal exam: Present soft; Absent distention, tenderness, guarding, rebound or rigidity Extremities Exam Extremities exam: Present normal inspection, full ROM and normal capillary refill; Absent tenderness or calf tenderness Back Exam Back exam: Present normal inspection and full ROM; Absent tenderness Neurological Exam Neurological exam: Present alert and oriented X3 Psychiatric Psychiatric exam: Present normal affect and normal mood Skin Skin exam: Present warm, dry, intact and normal color Lymphatic Lymphatic Findings: no adenopathy Medical Decision Making Medical Records Medical records reviewed: No I reviewed the patient's medical records. Screening: Per USPSTF and CDC recommendations, given the prevalence of disease in our region, it is our hospital?s policy to screen for HIV and viral Hepatitis for all patients aged 18 and over and those with ongoing risk factors. Raymundo Inquiry Pt receiving controlled substance: No
[2024-09-26 13:31] VITALS: BP 117/80; PULSE 83; RESP 18; TEMP 36.8
== END 2024-09-26 13:32 | disposition home or self-care (01) ==
PROVIDERS: Emergency Provider Nurse Practitioner Family; PCP Nurse Practitioner Family
DX: J45.901 Unspecified asthma with (acute) exacerbation (principal); J01.90 Acute sinusitis, unspecified; R05.9 Cough, unspecified; R09.81 Nasal congestion; R63.8 Other symptoms and signs concerning food and fluid intake
CPT/HCPCS: 99212; G0381

== ENCOUNTER 2024-12-17 14:00 | Outpatient (RCR) | payer OTHER, SELFPAY | END 2024-12-17 23:59 | disposition home or self-care (01) | LOC: OT 14:00 | PROVIDERS: Visit Provider Physician Assistant | DX: M25.511 Pain in right shoulder (principal); M75.101 Unspecified rotator cuff tear or rupture of right shoulder, not specified as traumatic | CPT/HCPCS: 97014; 97110; 97140; 97166; G0283 ==

== ENCOUNTER 2025-01-14 15:00 | Outpatient (RCR) | payer OTHER, SELFPAY | END 2025-01-14 23:59 | disposition home or self-care (01) | LOC: OT 15:00 | PROVIDERS: Visit Provider Physician Assistant | DX: M75.101 Unspecified rotator cuff tear or rupture of right shoulder, not specified as traumatic (principal) | CPT/HCPCS: 97014; 97110; 97140; 97168; G0283 ==

== ENCOUNTER 2025-01-21 13:55 | Outpatient (RCR) | payer OTHER, SELFPAY | END 2025-01-21 23:59 | disposition home or self-care (01) | LOC: OT 13:55 | PROVIDERS: Visit Provider Physician Assistant | DX: M75.101 Unspecified rotator cuff tear or rupture of right shoulder, not specified as traumatic (principal) | CPT/HCPCS: 97110; 97140; 97168 ==

== ENCOUNTER 2025-02-24 08:00 | Outpatient (CLI) | payer OTHER, SELFPAY ==
[2025-02-24] MEDS: ALBUTEROL 0.083% 2.5 MG/3 ML NEB IH (08:25)
--- NOTE | 2025-02-24 08:27 | PC.NURSE ---
Pre and Post Spirometry completed without incident. Albuterol 0.083% given via HHN, per written protocol, Pt tolerated tx well.
== END 2025-02-24 23:59 | disposition home or self-care (01) ==
LOC: RT 08:01
PROVIDERS: PCP Nurse Practitioner Family; Visit Provider Internal Medicine Pulmonary Disease
DX: J44.89 Other specified chronic obstructive pulmonary disease (principal)
CPT/HCPCS: 94060

== ENCOUNTER 2025-03-13 11:02 | Outpatient (CLI) | payer OTHER, SELFPAY ==
--- NOTE | 2025-03-13 11:22 | XR_ITS ---
FINAL REPORT CLINICAL HISTORY: Shortness of breath, prediabetic COMPARISON: 07/10/2024 FINDINGS: CHEST 2 VIEWS There is a vague opacity in the right lung base suspicious for mild right middle lobe pneumonia. The left lung is clear. There is no evidence of effusion or other pleural disease. The mediastinum has a normal appearance. The cardiac silhouette is unremarkable. IMPRESSION: Possible developing pneumonia right middle lobe. Reviewed, Interpreted and Dictated by Gifty Otto MD Transcribed by Kavitha Wolf Authenticated and [facility]
[2025-03-13 11:31] LABS: Basophils # 0.1 K/mm3 (0-0.2); Basophils % 0.4 % (0.1-2.0); Eosinophils # 0.1 Kmm3 (0.0-0.4); Hematocrit 41.1 % (37.0-47.0); Hemoglobin 14.7 g/dL (12.2-16.2); Immature Granulocytes # 0.04 10^3uL; Immature Granulocytes % 0.3 %; Lymphocytes # 2.9 K/mm3 (0.7-4.5); Mean Corpuscular HGB Conc 35.8 g/dL (31.8-35.4); Mean Corpuscular Hemoglobin 30.4 pg (27.0-31.2); Mean Corpuscular Volume 84.9 fl (81-99); Mean Platelet Volume 10.5 fl (7.4-10.4); Monocytes # 0.9 K/mm3 (0.1-1.0); Monocytes % 7.6 % (1.7-9.3); Neutrophils # 7.6 K/mm3 (1.8-7.8); Neutrophils % 65.7 % (37.0-80.0); Nucleated Red Blood Cells # 0 10^3/uL; Nucleated Red Blood Cells % 0 %; Platelet Count 238 K/mm3 (142-424); Red Blood Count 4.84 M/mm3 (4.20-5.40); Red Cell Distribution Width 12.1 % (11.5-17.5); Red Cell Distribution Width-SD 37.2 fL; White Blood Count 11.5 K/mm3 (4.8-10.8)
[2025-03-13 11:39] LABS: Chloride 102 mmol/L (98-107); Potassium 3.8 mmoL/L (3.5-5.1); Sodium 135 mmol/L (136-145)
[2025-03-13 11:42] LABS: Anion Gap 7.8 mEq/L (5-15); Blood Urea Nitrogen 18 mg/dl (7-17); Carbon Dioxide 29 mmol/L (22.0-30.0); Estimated Glomerular Filt Rate 108 ml/min (>60); GFR (African American) 131 ML/MIN (>60)
[2025-03-13 11:43] LABS: Calcium 9.3 mg/dl (8.4-10.2); Glucose 118 mg/dl (74-100)
[2025-03-13 11:47] LABS: Hemoglobin A1C 5.3 % (4.0-6.0)
== END 2025-03-13 23:59 | disposition home or self-care (01) ==
PROVIDERS: PCP Nurse Practitioner Family; Visit Provider Orthopaedic Surgery
DX: Z01.818 Encounter for other preprocedural examination (principal); R73.09 Other abnormal glucose; Z87.898 Personal history of other specified conditions
CPT/HCPCS: 36415; 71046; 80048; 83036; 85025

== ENCOUNTER 2025-03-20 13:51 | Outpatient (CLI) | payer OTHER, SELFPAY ==
--- NOTE | 2025-03-20 13:53 | XR_ITS ---
FINAL REPORT TECHNIQUE: Chest PA & Lateral CLINICAL HISTORY: pt stated she had a chest xray last week for pre-op & it showed she had right lower lobe pneumonia but she has had no symptoms of it. stated she has had pneumonia many times throughout her life. smoker x 31 yrs + asthma. COMPARISON: 03/13/2025 FINDINGS: 2 views of the chest were performed. The heart size is normal. The mediastinum is within normal limits. There is persistent mild opacity in the right middle lobe, probably due to scar. The left lung is clear. There are no pleural effusions. There is no pneumothorax. The bony thorax appears intact. IMPRESSION: Mild scar right middle lobe. Reviewed, Interpreted and Dictated by Brando Lala MD Transcribed by Ping Perdue Authenticated and [facility]
== END 2025-03-20 23:59 | disposition home or self-care (01) ==
LOC: RAD 13:52
PROVIDERS: PCP Nurse Practitioner Family; Visit Provider Internal Medicine Pulmonary Disease
DX: J98.4 Other disorders of lung (principal); R06.02 Shortness of breath
CPT/HCPCS: 71046

== ENCOUNTER 2025-03-25 10:20 | Outpatient (CLI) | payer OTHER, SELFPAY ==
--- NOTE | 2025-03-25 10:24 | XR_ITS ---
FINAL REPORT CLINICAL HISTORY: SOB COMPARISON: 03/20/[address] chest 07/07/2024 FINDINGS: PA and lateral views of the chest were obtained. The cardiac and mediastinal silhouettes are within normal limits. Right lower lobe nodular density appears similar to the prior exam and seen on CT of 2023. Otherwise, the lungs are clear. There is no infiltrate. There is no pleural effusion or pneumothorax. No acute osseous abnormality is identified. IMPRESSION: Stable right lower lobe nodular density. Reviewed, Interpreted and Dictated by Meghana Leal MD Transcribed by Ping Perdue Authenticated and [facility]
== END 2025-03-25 23:59 | disposition home or self-care (01) ==
LOC: RAD 10:20
PROVIDERS: PCP Nurse Practitioner Family; Visit Provider Internal Medicine Pulmonary Disease
DX: R91.1 Solitary pulmonary nodule (principal); R06.02 Shortness of breath
CPT/HCPCS: 71046

== ENCOUNTER 2025-03-26 22:52 | Emergency (ER) | payer OTHER, SELFPAY ==
[2025-03-26 22:56] VITALS: BP 162/93; PULSE 103; RESP 16; TEMP 36.9; O2SAT 95; BMI 35.9
--- NOTE | 2025-03-26 23:18 | ECG_ITS ---
APPROVED REPORT Exam: Resting ECG HR:92 bpm ECG Measurements Heart Rate 92 AXES NH 178 P 62 QRSd 95 QRS 25 QT 362 T 47 QTc 412 Conclusion SINUS RHYTHM NORMAL ECG Electronically signed by : FEROZ ANGEL, 03/27/2025 03:53:58
--- NOTE | 2025-03-26 23:30 | XR_ITS ---
PROCEDURE INFORMATION: Exam: XR Chest Exam date and time: 03/26/2025 11:32 PM Age: 44 years old Clinical indication: Shortness of breath; Additional info: SOA post op TECHNIQUE: Imaging protocol: Radiologic exam of the chest. Views: 1 view. Total images: 1 COMPARISON: CR XR CHEST 2V 03/25/2025 10:26 AM FINDINGS: Lungs: Moderate discoid and subsegmental right basilar atelectasis. Left lung is clear. No pulmonary vascular congestion or interstitial edema. Pleural spaces: Unremarkable. No pleural effusion. No pneumothorax. Heart/Mediastinum: Unremarkable. No cardiomegaly. No mediastinal widening or hilar enlargement. Bones/joints: Unremarkable. IMPRESSION: Moderate discoid and subsegmental right basilar atelectasis.
[2025-03-26 23:49] LABS: Basophils % 0.1 % (0.1-2.0); Hematocrit 42.6 % (37.0-47.0); Hemoglobin 14.8 g/dL (12.2-16.2); Immature Granulocytes # 0.08 10^3uL; Immature Granulocytes % 0.5 %; Lymphocytes # 1.1 K/mm3 (0.7-4.5); Lymphocytes % 6.4 % (10-50); Mean Corpuscular HGB Conc 34.7 g/dL (31.8-35.4); Mean Corpuscular Hemoglobin 29.9 pg (27.0-31.2); Mean Corpuscular Volume 86.1 fl (81-99); Mean Platelet Volume 10.7 fl (7.4-10.4); Monocytes # 0.5 K/mm3 (0.1-1.0); Monocytes % 3.1 % (1.7-9.3); Neutrophils # 15.5 K/mm3 (1.8-7.8); Neutrophils % 89.9 % (37.0-80.0); Nucleated Red Blood Cells # 0 10^3/uL; Nucleated Red Blood Cells % 0 %; Platelet Count 259 K/mm3 (142-424); Red Blood Count 4.95 M/mm3 (4.20-5.40); Red Cell Distribution Width 12.2 % (11.5-17.5); Red Cell Distribution Width-SD 38.3 fL; White Blood Count 17.2 K/mm3 (4.8-10.8)
[2025-03-26 23:53] LABS: VBG Base Excess 0.7 mmol/L (-2.4-2.3); VBG HCO3 24.7 mmol/L (23-30); VBG Oxygen Saturation 98.2 % (50-70); VBG PCO2 36.3 mmol/L (35-51); VBG PH 7.45 mmol/L (7.31-7.41); VBG PO2 117.5 mmol/L (28-40); VBG Total CO2 25.8 mmol/L (23-27)
[2025-03-26 23:56] LABS: Lactate Venous 2.2 mmol/L (0.4-2.0)
[2025-03-27 00:01] LABS: Alanine Aminotransferase 38 U/L (12-78); Albumin Level 4.6 g/dl (3.5-5.0); Albumin/Globulin Ratio 1.3 (1.1-1.8); Alkaline Phosphatase 64 U/L (38-126); Anion Gap 10.9 mEq/L (5-15); Aspartate Amino Transferase 32 U/L (14-36); Bilirubin,Total 0.8 mg/dl (0.2-1.3); Blood Urea Nitrogen 18 mg/dl (7-17); Calcium 9.1 mg/dl (8.4-10.2); Carbon Dioxide 27 mmol/L (22.0-30.0); Chloride 104 mmol/L (98-107); Creatinine Clearance Estimated 162 mL/min (50-200); Estimated Glomerular Filt Rate 90 ml/min (>60); GFR (African American) 109 ML/MIN (>60); Globulin 3.6 g/dL (1.3-3.2); Glucose 170 mg/dl (74-100); Potassium 3.9 mmoL/L (3.5-5.1); Sodium 138 mmol/L (136-145); Total Protein,Serum 8.2 g/dl (6.3-8.2)
[2025-03-27 00:07] LABS: D-Dimer 0.77 ug/mL (0.0-0.5)
[2025-03-27 00:16] LABS: NT Pro Brain Natriuretic Pep. 65.4 pg/mL (0-125)
[2025-03-27 00:17] LABS: Troponin I < 0.01 ng/ml (0.00-0.034)
[2025-03-27 00:30] VITALS: BP 125/69; PULSE 82; O2SAT 92
[2025-03-27 00:45] VITALS: PULSE 75; O2SAT 93
--- NOTE | 2025-03-27 00:47 | [facility].EDCP ---
Discharge Plan Disposition Patient Disposition: Home, Self-Care Condition: Good Prescriptions Prescriptions: No Action diclofenac sodium 75 mg tablet,delayed release (DR/EC) 75 mg PO BID PRN Patient Comments: TAKE 1 TABLET BY MOUTH TWICE DAILY NEEDED FOR PAIN carvedilol 12.5 mg tablet 12.5 mg PO BID Qty: 180 2RF Rx Instructions: must administer with a meal/food losartan 100 mg tablet 100 mg PO DAILY Qty: 90 2RF omeprazole 20 mg capsule,delayed release(DR/EC) 20 mg PO DAILY lamotrigine 100 mg tablet 100 mg PO DAILY albuterol sulfate 90 mcg/actuation HFA aerosol inhaler 2 inh inhalation Q6H PRN (Reason: shortness of breath or wheezing) 90 Days Qty: 8.5 1RF meloxicam 15 mg tablet 15 mg PO DAILY Dulera 200-5 mcg/actuation HFA aerosol inhaler 2 puff inhalation BID 90 Days Qty: 13 2RF tiotropium bromide [Spiriva with HandiHaler] 18 mcg capsule, w/inhalation device 1 cap inhalation DAILY Qty: 90 2RF Rx Instructions: puncture 1 cap using device; one dose = 2 inhalations montelukast [Singulair] 10 mg tablet 10 mg PO DAILY Qty: 90 2RF ipratropium-albuterol 0.5 mg-3 mg(2.5 mg base)/3 mL solution for nebulization 3 ml inhalation Q6H PRN (Reason: shortness of breath or wheezing) Qty: 180 3RF cefdinir 300 mg capsule 300 mg PO BID 5 Days Qty: 10 0RF benzonatate 100 mg capsule 100 mg PO TIDP PRN (Reason: Cough) Qty: 30 0RF celecoxib 200 mg capsule 200 mg PO DAILY cetirizine 10 mg tablet 10 mg PO DAILY fexofenadine 180 mg tablet 180 mg PO DAILY Referrals Follow up/Referrals: Todd Kruse APRN [Primary Care Provider, Medical] - See instructions Activity Restrictions/Add. Instructions Additional Instructions/Restrictions: You were evaluated in the ER and are believed to be appropriate for discharge at this time. Take Tylenol and ibuprofen if needed for pain, do not exceed the recommended dose on the bottle. Drink water and eat a small snack each time you take these medications to avoid side effects. Only take the prescribed Percocet if needed for uncontrolled or breakthrough pain. As discussed, be very careful with the Percocet and consider taking a lower dose (half a tablet) since you are concerned about side effects and dependence. You have been provided Narcan nasal spray. If concern for opioid overdose (unresponsive, no breathing, minimal breathing and hypoxia) spray the Narcan up to the nostril and call 911 Make an appointment with your primary care doctor for reevaluation in 2 to 3 days. Call your surgical office in the morning and tell them about the side effects of the medication. Return to the ER with any new, worsening, or otherwise concerning symptoms as discussed. Clinical Impressions Clinical Impression: Shortness of breath, Medication side effect Print Language Print Language: Honduran Discharge ED Provider: [facility] Chief Complaint: Shortness of Breath/Dyspnea Stated Complaint: Surgery [employer],right shoulder surgery,O2 low Time Seen by Provider: 03/26/25 23:08 Mode of Arrival: Ambulatory Source of Information: Patient and Significant Other Description of Symptoms (Recalled from ER Triage Doc. by RN): PT presents for evaluation for SOA and a low O2. PT had rotator cuff surgery at 1200. PT has not had any adverse reactions to previous surgeries. Pt was dx with pneumonia last week and was cleared for surgery on Sunday03/25/2025. Pt stated that when she sleeps she dropped down to 81% on a home pulse ox. History of Present Illness HPI narrative: 44-year-old female presents to the ER for concerns oflow oxygen. Patient had rotator cuff surgery earlier today. She had been previously diagnosed with pneumonia before surgery but was cleared for surgery on 03/25/[address] Mejia with pulmonology. Patient has family at bedside who reports that when she sleeps her pulse ox dropped down to 81% after just a few minutes of sleep. Patient is not stopping breathing but they were worried about her oxygen saturations so they called the surgery office who recommended she come to the ER for evaluation. Patient has been taking Percocet postoperatively, she has taken 2 doses since the operation. Patient reports she does not take any narcotics at baseline and does not have history of IV drug abuse. She came to the ER for further evaluation. She denies any chest pain or difficulty breathing. No fevers, chills, cough, or congestion. No vomiting or diarrhea. No swelling or pain in the legs. No other complaints or concerns. Related Data Home Medications ?Medication ?Instructions ?Recorded ?Confirmed lamotrigine 100 mg tablet 100 mg PO DAILY seizures 12/06/22 03/13/25 omeprazole 20 mg capsule,delayed 20 mg PO DAILY stomach 12/06/22 03/13/25 release celecoxib 200 mg capsule 200 mg PO DAILY 04/27/24 03/13/25 cetirizine 10 mg tablet 10 mg PO DAILY 04/27/24 03/13/25 fexofenadine 180 mg tablet 180 mg PO DAILY 04/27/24 03/13/25 diclofenac sodium 75 mg 75 mg PO BID PRN 11/10/24 03/13/25 tablet,delayed release meloxicam 15 mg tablet 15 mg PO DAILY 03/12/25 03/13/25 Previous Rx's ?Medication ?Instructions ?Recorded albuterol sulfate 90 mcg/actuation 2 inh inhalation Q6H PRN shortness 12/06/22 aerosol inhaler of breath or wheezing 90 days #8.5 grams montelukast 10 mg tablet 10 mg PO DAILY #90 tabs 08/14/24 (Singulair) benzonatate 100 mg capsule 100 mg PO TIDP PRN Cough #30 caps 09/26/24 carvedilol 12.5 mg tablet 12.5 mg PO BID #180 tabs 11/10/24 losartan 100 mg tablet 100 mg PO DAILY #90 tabs 11/10/24 ipratropium 0.5 mg-albuterol 3 mg 3 ml inhalation Q6H PRN shortness 12/05/24 (2.5 mg base)/3 mL nebulization of breath or wheezing #180 mL soln Spiriva with HandiHaler 18 mcg and 1 cap inhalation DAILY #90 puffs 03/13/25 inhalation capsules (tiotropium bromide) mometasone-formoterol HFA 200 2 puff inhalation BID 90 days #13 03/13/25 mcg-5 mcg/actuation aerosol grams inhaler (Dulera) cefdinir 300 mg capsule 300 mg PO BID 5 days #10 caps 03/20/25 Allergies Allergy/AdvReac Type Severity Reaction Status Date / Time carbamazepine (From Tegretol) Allergy Hives Verified 03/13/25 10:29 levofloxacin (From Levaquin) Allergy Other Verified 03/13/25 10:29 quetiapine (From Seroquel) Allergy Hives Verified 03/13/25 10:29 venlafaxine (From Effexor) Allergy Seizure Verified 03/13/25 10:29 ziprasidone (From Geodon) Allergy Other Verified 03/13/25 10:29 [facility] Disclaimer: The information contained in this section may have been updated after the patient was seen, as this information can be updated by other users. Medical History Allergic rhinitis Seizure HTN (hypertension) Endobronchial mass Solid nodule of lung greater than 8 mm in diameter Multiple lung nodules on CT Smoking greater than 30 pack years Asthma Dyspnea on exertion Surgical History History of bronchoscopy History of surgery of uterus History of rotator cuff surgery History of carpal tunnel release of both wrists History of tubal ligation History of cholecystectomy History of appendectomy Family History Other COPD (chronic obstructive pulmonary disease) Cancer Hypertension Social History Smoking Status: Current every day smoker tobacco type: cigarettes packs per day: 1 alcohol intake: former substance use type: marijuana current occupational status: employed Travel in the last 8 weeks?: None Have you lived/traveled outside [place] in past 30 days?: No Contact w/someone who lives/traveled outside US past 30 days?: No Exposure to someone with infectious disease in past 14 days?: No Do you have a fever (greater than 100.4 F or 38 C)?: No Have you tested positive for COVID-19?: No Exposed to someone with COVID-19 in past 14 days?: No Do you have a sore throat?: No Do you have a cough?: No Do you have any weakness?: No Do you have any diarrhea?: No Are you experiencing any unusual bleeding?: No Do you have any muscle aches/pain?: No Do you have any abdominal pain?: No Are you experiencing loss of taste or smell?: No Other Medical History Have you received the Flu Vaccine for this season: No Have you received the Pneumonia Vaccine: No ROS Obtained: Yes Systems reviewed as appropriate & no additional complaints except as documented Per HPI Physical Exam General General appearance: alert and in no apparent distress Head Head exam: atraumatic and normocephalic Eye Eye exam: Present PERRL and EOMI ENT ENT exam: Present mucous membranes moist Neck Neck exam: Present normal inspection and full ROM Chest Chest inspection: Present symmetric chest wall rise Respiratory Respiratory exam: Present normal lung sounds bilaterally; Absent respiratory distress, wheezes or stridor Cardiovascular Cardiovascular exam: Present regular rate and normal rhythm Abdominal Exam Abdominal exam: Present soft; Absent distention or tenderness Extremities Exam Extremities exam: Present full ROM; Absent edema or calf tenderness Neurological Exam Neurological exam: Present alert and oriented X3; Absent motor sensory deficit Psychiatric Psychiatric exam: Present normal affect and normal mood Skin Skin exam: Present warm and dry HEART Score HEART Score HEART Score assessment performed?: Yes History (anamnesis): Slightly suspicious ECG: Normal Age: 45-65 years Risk factors: 1-2 risk factors Troponin: </= normal limit HEART Score: 2 Critical Care Critical Care Time Critical Care Time: No Medical Decision Making Medical Records Medical records reviewed: Yes I reviewed the patient's medical records. Raymundo Inquiry Pt receiving controlled substance: No Vital Signs Vital Signs: 03/26/25 22:56 Temperature 98.5 F Temperature Source Oral Pulse Rate [Left] 103 H Respiratory Rate 16 Blood Pressure [Left Arm] 162/93 H Blood Pressure Mean [Left Arm] 116 02 Sat by Pulse Oximetry 95 Oxygen Delivery Method Room Air Lab Data Labs: Lab Results 03/26/25 23:42: WBC 17.2 H, RBC 4.95, Hgb 14.8, Hct 42.6, MCV 86.1, MCH 29.9, MCHC 34.7, RDW 12.2, Plt Count 259, MPV 10.7 H, Neut % (Auto) 89.9 H, Lymph % (Auto) 6.4 L, Russell % (Auto) 3.1, Eos % (Auto) 0.0 L, Baso % (Auto) 0.1, Neut # (Auto) 15.5 H, Lymph # (Auto) 1.1, Russell # (Auto) 0.5, Eos # (Auto) 0.0, Baso # (Auto) 0.0, D-Dimer 0.77 H, VBG pH 7.45 H, VBG pCO2 36.3, VBG pO2 117.5 H, VBG HCO3 24.7, VBG Total CO2 25.8, VBG O2 Saturation 98.2 H, VBG Base Excess 0.7, VBG Lactic Acid 2.2 H, Sodium 138, Potassium 3.9, Chloride 104, Carbon Dioxide 27, Anion Gap 10.9, BUN 18 H, Creatinine 0.70, Estimated Creat Clear 162, Estimated GFR 90, Est GFR ( Amer) 109, Glucose 170 H, Calcium 9.1, Total Bilirubin 0.8, AST 32, ALT 38, Alkaline Phosphatase 64, Troponin I < 0.01, NT-Pro-B Natriuret Pep 65.4, Total Protein 8.2, Albumin 4.6, Globulin 3.6 H, Albumin/Globulin Ratio 1.3 03/26/25 23:42 03/26/25 23:42 Response Orders (Tests/Meds): ORDERS Category Date Time Status CXR --portable [XR chest portable] Stat Exams 03/26/25 23:30 Completed BNP [NT Pro Brain Natriuretic Pep.] Stat Lab 03/26/25 23:42 Completed CBC w/Auto Diff [Complete Blood Count Auto Diff] Stat Lab 03/26/25 23:42 Completed CMP [Comprehensive Metabolic Panel] Stat Lab 03/26/25 23:42 Completed D-Dimer Stat Lab 03/26/25 23:42 Completed Trop I [Troponin I] Stat Lab 03/26/25 23:42 Completed Troponin I Q3H Lab 03/27/25 02:15 Ordered Troponin I Q3H Lab 03/27/25 05:15 Ordered VBG [Venous Blood Gas] Stat RT 03/26/25 23:42 Completed MDM Narrative Medical Decision Narrative: In summary, this 44-year-old female with comorbidities described in the HPI including history of atrial fibrillation not on blood thinners presents to the emergency department today with concerns of low oxygen when asleep postoperatively. On initial evaluation patient is hemodynamically stable, afebrile, GCS 15, saturating in the mid 90s on room air with normal cardiopulmonary exam, no peripheral edema, no calf pain, tenderness, or swelling, no clinical evidence of DVT. Differential diagnosis includes but is not limited to ACS, PE, arrhythmia, aspiration, pneumonia, I also considered the possibility of adverse effect of anesthesia, medication side effect from opioid narcotics. I believe this is most likely a result of commendation of recent anesthesia and opioid narcotics since patient does not typically take any sort of pain medication and is likely highly sensitive to it. Based on these concerns, I ordered serum labs, cardiac workup, D-dimer, chest x-ray. ECG personally interpreted demonstrates normal sinus rhythm, rate 92, normal axis, normal UT and QTc, no STEMI. Labs personally reviewed demonstrate leukocytosis WBC 17.2 but no anemia, leukocytosis could be from surgery today, platelets normal, VBG with pH 7.45, no hypercarbia, mild lactic acidosis, CMP with mild prerenal azotemia but patient is tolerating oral intake, I do not believe IV fluids are indicated at this time. Undetectably low troponin significantly reassuring since patient is not describing any chest pain or actual feelings of shortness of breath and has a nonischemic ECG. D-dimer 0.77, by years criteria PE is excluded, CTA PE not indicated. Chest x-ray personally interpreted demonstrates areas of atelectasis but no lobar infiltrate or other acute abnormalities, see radiology read for final interpretation. Patient has been on the pulse ox throughout her time in the ER. She has dozed off and falling asleep a few times without desaturation. She and family at bedside are comfortable with the workup and reassured by the findings. I spent extensive time counseling and educating on opioid side effects and potential risks. They would feel better going home if they had Narcan in case there is overdose or evidence of respiratory distress or apnea. Take-home naloxone kit was provided to the patient with instructions on use. I counseled the patient on careful use of medication as well as use of [id number] medications for pain management and only using narcotics if needed for severe or breakthrough pain, and to consider using lower doses. Patient is adamant she is not going to take any more Percocet at all. I told her if she needs to take it for pain management to do so only as discussed. She and family at bedside understand. Patient was given instructions on symptomatic monitoring and management, follow up instructions, and return precautions for the emergency department. Patient indicated understanding and was discharged in stable condition.
[2025-03-27] MEDS: NALOXONE HCL 4MG SPRAY 4 MG NS (00:50)
[2025-03-27 00:58] VITALS: BP 128/72; PULSE 74; RESP 16; TEMP 36.6; O2SAT 94
[2025-03-27 03:55] LABS: Reflex Lactic Add Lactic Reflex
== END 2025-03-27 00:59 | disposition home or self-care (01) ==
PROVIDERS: Emergency Provider Emergency Medicine; PCP Nurse Practitioner Family
DX: R06.02 Shortness of breath (principal)
CPT/HCPCS: 71045; 80053; 82803; 83880; 84484; 85025; 85378; 93005; 99284

== ENCOUNTER 2025-04-15 07:52 | Outpatient (RCR) | payer OTHER, SELFPAY | END 2025-04-15 23:59 | disposition home or self-care (01) | LOC: OT 07:52 | PROVIDERS: PCP Nurse Practitioner Family; Visit Provider Physician Assistant | DX: M75.101 Unspecified rotator cuff tear or rupture of right shoulder, not specified as traumatic (principal) | CPT/HCPCS: 97110; 97166 ==

== ENCOUNTER 2025-05-12 09:24 | Outpatient (CLI) | payer OTHER, SELFPAY ==
--- OUTSIDE RECORDS SUMMARY | 2025-04-29 01:11 | XMS_ITS | Encounter Summary ---
Author Organization [place] [address] Care Team Providers Care Wash Driller Name Role Phone Anh Kruse APRN Primary [...] EDT - 04/29/2025 2:34 AM EDT Emergency [facility] [place] [address] Alli Arana MD [address] [place] [address] [place] [address] Acute pain of right shoulder (Primary [...] 1:25 AM EDT Isis Tejeda RN * [place] Suicide Severity Rating Scale (Q shift for [...] new or worsening concerns. Tylenol or ibuprofen [id number] as directed. documented in this encounter Medications [...] Means Destination Comment s Home or Self Alf documented in this encounter ED Notes * [...] rotator cuff repair with Dr. Catherine in [place] on 03/26/2025. She denies any complications from [...] are given. Patient verbalizes understanding. I recommended [id number] Tylenol ibuprofen for pain control as directed. [...] EDT) Anatomical Region Laterality Modality Shoulder Radiographic Megna ging 04/29/2025 2:01 AM EDT Impressions 04/29/2025 [...] office of the ordering clinician. Kari Bright GALLERY OR MUSEUM ATTENDANT IMG DIAGNOSTIC IMAGING ORDERA BLES Final Result [...] RN) documented in this encounter Care Teams Wash Driller Relationship Specialty Start Date End Date Anh Kruse APRN [address] [address] PCP - General 07/09/24 documented as of this encounter
[2025-05-12 09:29] LABS: Microscopic, Urine URINE MICROSCOPIC (MICROSCOPIC)
--- OUTSIDE RECORDS SUMMARY | 2025-05-12 09:29 | XMS_ITS | Encounter Summary ---
Author Organization [employer] ([place], [place], [place], [place]) Address [address] [place] [address] Care Team Providers Care Hydration Plant Operator Name Role Phone Unavailable Primary Care Provider Unavailabl e Encounter Details Date Type Department Care Team (Late st Contact Info) Description 09/19/2021 Transcribed Document [facility] Family Medicine [facility] [place] [address] ProviderNaveen MD [facility] [place] [address] Social History Tobacco Use Types Packs/Day Years Used Date Smoking Tobacco: Never Assessed Comments Unknown Sex and Gender Information Value Date Recorded Sex Assigned at Female 04/18/2022 8:59 PM CDT Legal Sex Female 8:59 PM CDT Gender Identity Female 04/18/2022 8:59 PM CDT Sexual Orientation Not on file documented as of this encounter Miscellaneous Notes * [employer] Conversion Note - Historical ProviderMD - 09/19/2021 9:04 PM EDUCATION PROGRAM SPECIALIST ED Discharge Entered On: 09/19/2021 21:04 EST Performed On: 09/19/2021 21:04 EST by Zohra Paulino PARAMEDIC Discharge Process Patient Disposition : Discharge Personal Belongings With Patient : Yes Patient Education Completed : Yes Teaching Evaluation : Verbalizes understanding IV Discontinued : Yes Zohra Paulino PARAMEDIC - 09/19/2021 21:04 EST ED Discharge Discharge To : Home with ambulatory/outpatient follow-up Mode Of Departure : Ambulatory Accompanied By : Friend Discharge Instructions Reviewed With, Opportunity For Questions Given : Patient, Friend Prescriptions Given to Patient : Yes Number of Prescriptions Given : 1 Zohra Paulino PARAMEDIC - 09/19/2021 21:04 EST Electronically signed by [facility] Conversion Product Marketing Intern Cerner at 02/04/2023 10:00 AM CDT documented in this encounter Plan of Treatment Not on file documented as of this encounter Visit Diagnoses Not on filedocumented in this encounter
--- OUTSIDE RECORDS SUMMARY | 2025-05-12 09:29 | XMS_ITS | Encounter Summary ---
Author Organization [employer] ([place], [place], [place], [place]) Address [address] [place] [address] Care Team Providers Care Weight Loss Sales Consultant Name Role Phone Unavailable Primary Care Provider Unavailabl e Encounter Details Date Type Department Care Team (Late st Contact Info) Description 09/19/2021 Transcribed Document [facility] [place] [facility] [place] [address] ProviderNaveen MD [address] [place] [address] Social History Tobacco Use Types [...] Conversion Note - Historical ProviderMD - 09/19/2021 9:01 PM PROSECUTING ATTORNEY Electronically signed by [facility] Conversion Door Builder Cerner at 02/04/2023 9:58 AM CDT documented in this encounter Plan of Treatment Not on file documented as of this encounter Visit Diagnoses Not on filedocumented in this encounter
--- OUTSIDE RECORDS SUMMARY | 2025-05-12 09:29 | XMS_ITS | Clinical Summary ---
Author Organization [facility] Address [address] [facility] [address] [place] [address] Phone Care Team Providers Care Windows Mobile Developer Name Role Phone Anh Kruse APRN Primary Care Provider + Allergies Active Allergy Reactions Criticality Noted Date Comments Ziprasidone Hcl Hives 07/09/2024 Levofloxacin Other (See Comments) 07/09/2024 Ears ringing Medications losartan (COZAAR) 100 mg Oral Tablet Take 100 mg by mouth daily. Active meloxicam (MOBIC) 15 mg Oral Tablet Take 15 mg by mouth daily. Active montelukast (SINGULAIR) 10 mg Oral Tablet Take 10 mg by mouth every evening. Active omeprazole (PRILOSEC) 20 mg Oral Capsule, Delayed Release(E.C.) Take 20 mg by mouth daily. Active lamoTRIgine (LAMICTAL) 100 mg Oral Tablet Take 100 mg by mouth daily. Active fexofenadine (LULU) 180 mg Oral Tablet Take 180 mg by mouth daily. Active cetirizine (ZYRTEC) 10 mg Oral Tablet Take 10 mg by mouth daily. Active albuterol (PROVENTIL HFA;VENTOLIN HFA) 90 mcg/actuation Inhl HFA Aerosol Inhaler Inhale 2 Puffs into the lungs every 6 hours as needed for Wheezing. Active Encounters Date Type Department Care Team Description 04/29/2025 1:11 AM EDT - 04/29/2025 2:34 AM EDT Emergency [facility] [place] [address] Alli Arana MD Acute pain of right shoulder (Primary Dx) Discharge Disposition: Home or Self Care from Last 3 Months Medical History Medical History Date Comments Lung nodules Hypertension Social History Tobacco Use Types Packs/Day Years Used Date Smoking Tobacco: Every Day Cigarettes 2 33.6 Started: 1991 Smokeless Tobacco: Never Tobacco Cessation:Ready to Q uit: No; Counseling Given: Not Answered Alcohol Use Standard Drinks/Week Comments Not Currently 0 (1 standard drink = 0.6 oz pur e alcohol) Comments No Sex and Gender Information Value Date Recorded Sex Assigned at Not on file Legal Sex Female 7:55 PM EDT Gender Identity Not on file Sexual Orientation Not on file Obstetrics History Last Filed Vital Signs Vital Sign Reading [...] Mass Index 39.17 04/29/2025 12:10 AM EDT Plan of Treatment Health Maintenance Due Date Last Done Comments Annual Wellness Exam 1982 DTaP/TDaP/Td (1 - Tdap) 1998 Hepatitis B Vaccine (1 of 3 - 19+ 3-dose series) 1998 Pneumococcal Vaccine 0-49 (1 of 2 - PCV) 1998 Cervical Cancer Screening 2000 Pap Smear 2000 HPV/Pap Cotest 2009 Breast Cancer Screening 2019 Cologuard 2024 Colon Cancer Screening 2024 Colonoscopy 2024 FIT 2024 Sigmoidoscopy 2024 Virtual Colonography 2024 COVID-19 Vaccine ( season) 2024 02/17/2022, 02/27/2021, 01/30/2021 Influenza Vaccine (#1) 2025 3, 08/15/2022, 08/03/2021, Additional history exists Meningococcal B Vaccine Aged Out No l onger eligible based on patient's age to complete this topic Procedures Procedure Name Priority Date/Time Associated Diagnosis Comments XR SHOULDER RIGHT 3 VIEWS GABRIELA 04/29/2025 2:01 AM EDT from Last 3 Months Results * XR SHOULDER RIGHT 3 VIEWS [...] office of the ordering clinician. Kari Bright NP IMG DIAGNOSTIC IMAGING ORDERA BLES Final Result from Last 3 Months Insurance [facility] [id number] Care Teams Windows Mobile Developer Relationship Specialty Start Date End Date Anh Kruse APRN [address] [facility] [address] [place] [id number] PCP - General 07/09/24
--- OUTSIDE RECORDS SUMMARY | 2025-05-12 09:29 | XMS_ITS | Encounter Summary ---
Author Organization [address] [facility] ([place], [place], [place], [place]) Address [address] [place] [address] Care Team Providers Care Expediter Service Order Name Role Phone Unavailable Primary Care Provider Unavailabl e Encounter Details Date Type Department Care Team (Late st Contact Info) Description 09/19/2021 Transcribed Document [facility] [place] [facility] [place] [address] ProviderNaveen MD [address] [place] [id number] Social History Tobacco Use Types Packs/Day Years Used Date Smoking Tobacco: Never Assessed Comments Unknown Sex and Gender Information Value Date Recorded Sex Assigned at Female 04/18/2022 8:59 PM CDT Legal Sex Female 8:59 PM CDT Gender Identity Female 04/18/2022 8:59 PM CDT Sexual Orientation Not on file documented as of this encounter Miscellaneous Notes * Cerner Conversion Note - Naveen ProviderMD - 09/19/2021 6:47 PM 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 History source: Patient. Arrival mode: Private vehicle. History limitation: None. Additional information: Chief Complaint from Nursing Triage Note : Chief Complaint 09/19/2021 13:49 EST Chief Complaint L groin pain x 1 week, saw PCP, sched for US r/t inguinal hernia. Now L lower back pain, seen at [place] - c sciatica. No BM x 3 days, abdominal swelling, straining to pee. States now becoming numb from B/L feet up BLE. PCP advised to come to ED. . History of Present Illness The patient presents with lumbar pain. The onset was 4 days ago. The course/duration of symptoms is constant. Type of injury: none. Location: Left lumbar. Radiating pain: left lower extremity. The degree at onset was moderate. The degree at present is severe. There are exacerbating factors including movement, bending over and walking. There are relieving factors including none and has been taking ultram and toradol without relief . Prior episodes: none. Therapy today: none. Associated symptoms: bladder dysfunction, altered sensation (bilateral, lower extremity, LLE extending from toes to knee; RLE toes only ), denies bowel dysfunction, denies focal weakness, denies saddle numbness, denies abdominal pain, denies fever, denies chills, denies nausea, denies vomiting, denies dysuria and denies hematuria. Patient has known pulmonary nodules that she is following up with about tomorrow with pulmonology in [place], had an outpatient chest CT scan. . Review of Systems Constitutional symptoms: Negative except as documented in HPI. Skin symptoms: Negative except as documented in HPI. Eye symptoms: Negative except as documented in HPI. ENMT symptoms: Negative except as documented in HPI. Respiratory symptoms: Negative except as documented in HPI. Cardiovascular symptoms: Negative except as documented in HPI. Gastrointestinal symptoms: Negative except as documented in HPI. Genitourinary symptoms: Negative except as documented in HPI. Musculoskeletal symptoms: Negative except as documented in HPI. Neurologic symptoms: Negative except as documented in HPI. Health Status Allergies: Allergic Reactions (Selected) Severity Not Documented Effexor- No reactions were documented. Geodon- No reactions were documented. SEROquel- No reactions were documented. TEGretol- No reactions were documented.. Past Medical/ Family/ Social History Surgical history: No active procedure history items have been selected or recorded.. Family history: No family history items have been selected or recorded.. Social history: Social & Psychosocial Habits No Data Available . Problem list: No qualifying data available . Physical Examination Vital Signs Vital Signs/Vital Measures 09/19/2021 13:49 EST Systolic Blood Pressure 161 mmHg HI Diastolic Blood Pressure 83 mmHg Temperature Source Oral Temperature Mode Fahrenheit Temperature, Fahrenheit 98.8 Deg F Clinical Temperature, C 37.1 Deg C Peripheral Pulse Rate 75 bpm Respiratory Rate 16 Breaths/Min Oxygen Saturation 98 % Oxygen Therapy Mode Room air . Measurements 09/19/2021 13:49 EST Height Source Stated Height Entry Format [place] Height/Length, MAURITIAN (ft) 5 ft Height/Length MAURITIAN 6 Inch CLINICALHEIGHT 167.64 cm [place] Body Weight 58.88 kg Weight Source, ED Critical estimated dosing weight Weight Entry Format [place] Weight Japanese lb 225 lb CLINICALWEIGHT 102.27 kg Body Surface Area (BSA) 2.1 m2 Body Mass Index 36.4 kg/m2 HI . Oxygen Saturation 09/19/2021 13:49 EST Oxygen Saturation 98 % . General: Alert, no acute distress. Skin: Warm, dry. Head: Normocephalic. Ears, nose, mouth and throat: Oral mucosa moist. Cardiovascular: Regular rate and rhythm, No murmur. Respiratory: Lungs are clear to auscultation, respirations are non-labored, breath sounds are equal. Gastrointestinal: Soft, Nontender, Non distended, Normal bowel sounds. Back: Nontender, Normal alignment, no step-offs, restriected ROM of lumbar spine due to pain . Neurological: Motor strength: Right lower extremity 5 /5, left lower extremity 5 /5, Sensory: Right lower extremity, left lower extremity, diminished, Speech: Normal, Gait: Normal. Psychiatric: Cooperative, appropriate mood & affect. Medical Decision Making Documents reviewed: Emergency department nurses' notes. Results review: Lab results : Lab Results 09/19/2021 14:42 EST Sodium Level 136 mmol/L Potassium Level 4.4 mmol/L Chloride Level 104 mmol/L Carbon Dioxide Level 29 mmol/L Anion Gap 7 LOW Glucose Level 88 mg/dL Blood Urea Nitrogen 15 mg/dL Creatinine Level 0.70 mg/dL eGFR >60 mL/min/1.73m2 eGFR NonAfrican >60 mL/min/1.73m2 Bun/Creatinine 21.4 HI Calcium Level 9.4 mg/dL Protein Total 7.2 Gram/dL Albumin Level 3.7 Gram/dL Globulin 3.5 Gram/dL A/G Ratio 1.1 Bilirubin Total 0.5 mg/dL Alk Phos 61 Units/Liter AST 14 Units/Liter ALT 27 Units/Liter Lipase Level 43 Units/Liter LOW WBC 11.3 K/uL HI RBC 4.58 Million/uL Hgb 13.9 g/dL Hct 40.5 % MCV 88.4 fL MCH 30.3 pg MCHC 34.3 Gram/dL Platelet Count 255 K/uL MPV 10.4 fL RDW 11.9 % Neut % 62.0 % Neut # 7.02 K/uL HI Lymph % 27.9 % Lymph # 3.15 x10(3)/uL [place] % 7.5 % [place] # 0.85 K/uL Eos % 1.5 % Eos # 0.17 x10(3)/uL Baso % 0.7 % Baso # 0.08 x10(3)/uL Slide Review No IG# 0.04 x10(3)/uL IG% 0.40 % Urine Type. U CleanCatch Urine Color Yellow Urine Appearance Cloudy Urine Specific [place] 1.011 Urine pH Dipstick *8.0 Urine Leukocyte Esterase Negative Urine Nitrite Negative Urine Protein Dipstick Negative Urine Glucose Dipstick Negative Urine Ketones Dipstick Negative Urine Urobilinogen Dipstick 0.2 EU/dL Urine Bilirubin Dipstick Negative Urine Blood Dipstick Negative Ur WBC None Seen /HPF Ur Squamous Epithelial Cells 0-2 /HPF Urine Culture if Indicated Not Indicated HCG Urine Qualitative Negative , Interpretation Labs unremarkable. Radiology results: Radiology Results (Last 48 hours) [id number] -- 09/19/2021 13:11 CT Abdomen Pelvis W (09/19/2021 16:19) Result: CT SCAN OF THE ABDOMEN AND PELVIS WITH CONTRAST 09/19/2021 2:59 PM HISTORY:Low back pain, constipation, nausea.PROCEDURE:Axial CT images were obtained from the lung bases to the pubic symphysisfollowing IV contrast administration. Coronal and sagittal reformattedimages were generated from the axial data set and provided forinterpretation. This study was performed with techniques to keepradiation doses as low as reasonably achievable, (ALARA). Individualizeddose reduction techniques using automated exposure control or adjustmentof mA and/or kV according to the patient size were employed.COMPARISON:None.FINDINGS:LOWER CHEST:The heart is normal in size.Multiple right lower lobe solid noncalcified pulmonary nodules and righthilar/infrahilar lymph nodes.There is 12 mm right infrahilar lymph node (series 2, image 11) andadditional 12 mm right hilar lymph node medial to the previous one.These infarcts are showing central area of hypodensity withoutenhancement, concerning for necrosis. There is surrounding groundglassopacity (series 2, image 10). Additional view solid noncalcifiedpulmonary nodules. The largest one measuring up to 11 mm (series 2,image 16ABDOMEN/PELVIS:Liver, gallbladder and bile ducts:The liver enhances homogenously without suspicious focal hepatic lesion.Prior cholecystectomy. No significant biliary ductal dilatation. Adrenal glands:The adrenal glands are morphologically unremarkable without suspiciouslesion.Kidneys, ureters and urinary bladder:No suspicious renal lesions. No hydronephrosis. Unremarkable urinarybladder. Tiny nonobstructing renal stone in the left renal superiorpole.Spleen:The spleen is normal in size.Pancreas:The pancreas is unremarkable. Gastrointestinal system and mesentery:There is no evidence of bowel obstruction. The appendix is notwell-visualized but there is no significant inflammation in the rightlower quadrant. No significant mesenteric inflammation. Rectosigmoiddiverticulosis without evidence of acute diverticulitis.Lymph nodes:No pathologically enlarged abdominal or pelvic lymph nodes are present.Vessels:The abdominal aorta is normal in caliber. The celiac trunk, superiormesenteric artery, inferior mesenteric artery and their branch vesselsappear grossly patent. The superior mesenteric vein, splenic vein andmain portal veins are patent. The inferior vena cava and hepatic veinsare unremarkable.Peritoneum:No free intraperitoneal fluid or pneumoperitoneum.Pelvic viscera:No acute findings.Body wall:No acute findings. No significant body wall hernias.Bones:No acute fracture.IMPRESSION: Tiny left renal stone. No stones in the ureters or urinary bladder. Nohydronephrosis. Rectosigmoid diverticula without evidence of acutediverticulitis.Multiple right lower lobe pulmonary nodules. There is 12 mm rightinfrahilar pulmonary nodule surrounding groundglass opacity, and righthilar lymphadenopathy, which are partially imaged on this exam. Findingsare concerning for infectious/neoplastic process (primary pulmonaryversus metastatic disease). Recommended dedicated CT chest with contrastfor further evaluation.Images personally reviewed, interpreted and dictated by JOANA Cruz. MRI Spine Lumbar WO W (09/19/2021 19:45) Result: MRI LUMBAR SPINE WITHOUT AND WITH IV CONTRASTHISTORY: Low back pain.TECHNIQUE: Multiplanar and multisequence imaging of the lumbar spine was obtainedbefore and following IV gadolinium contrast administration. COMPARISON: Correlation made with CT of the abdomen and pelvis 09/19/2021.FINDINGS: There is normal alignment of the lumbar vertebral bodies. Vertebral bodyheights are preserved. The conus medullaris ends at the level of L1. There is normal signal intensity within the substance of the distalspinal cord. Bone marrow signal intensity is normal. No acute paraspinalabnormality is identified. No pathologic enhancement.Degenerative changes detailed below:T12-L1: The intervertebral disc is relatively preserved at this level.No significant spinal canal or neural foraminal stenosis.L1-L2: The intervertebral disc is relatively preserved at this level. Nosignificant spinal canal or neural foraminal stenosis.L2-L3: Disc desiccation with mild height loss. Shallow disc bulge. Nosignificant spinal canal or neural foraminal stenosis.L3-L4: Disc desiccation with mild height loss. Shallow disc bulge. Nosignificant spinal canal or neural foraminal stenosis.L4-L5: Disc desiccation with mild height loss. Shallow disc bulge. Mildfacet joint arthrosis. No significant spinal canal and neural foraminalstenosis.L5-S1: The intervertebral disc is relatively preserved at this level.Mild facet joint arthrosis. No significant spinal canal or neuralforaminal stenosis.IMPRESSION:Mild multilevel spondylosis and mild facet joint arthrosis withoutsignificant spinal canal or neural foraminal stenosis. No pathologicenhancement. No evidence of discitis osteomyelitis. No MRI findings toexplain cauda equina syndrome symptoms.Images personally reviewed, interpreted and dictated by Dodie Garcia.Richmond TaylorB.R. musculoskeletal radiologist . Impression and Plan Diagnosis Lumbar radiculopathy - Discharge, Emergency medicine, Medical Pulmonary nodule - Discharge, Emergency medicine, Medical Plan Condition: Stable. Disposition: Discharged Admit/Transfer/Discharge: Discharge (Order): Start: 09/19/2021 21:02 EST, Discharge to: Home. Prescriptions: Prescription Claim Agent Pharmacy: cyclobenzaprine 10 mg oral tablet (Prescribe): 1 Tab, Oral, TID, for 5 Day(s), PRN: as needed for spasm, 15 Tab, 0 Refill(s). Patient was given the following educational materials: Radicular Pain. Follow up with: UNKNOWN PHY Within 2 to 3 days Follow up with your workers' compensation claims supervisor as scheduled tomorrow. Take medications as prescribed along with your pain medication at home. Return to ED if symptoms worsen., UNKNOWN PHY Within 2 to 3 days Follow up with your workers' compensation claims supervisor as scheduled tomorrow. Take medications as prescribed along with your pain medication at home. Return to ED if symptoms worsen.. Counseled: Patient, Regarding diagnosis, Regarding diagnostic results, Regarding treatment plan, Patient indicated understanding of instructions. Notes: I certify that the Physician Marketing Communications Specialist performed the services as delegated. I agree with the assessment, treatment plan and disposition of the patient as recorded by the Physician Marketing Communications Specialist. This document was created with HAM-ITation software and unidentified bookkeeping machine operator errors may be present.. . documented in this encounter Plan of Treatment Not on file documented as of this encounter Visit Diagnoses Not on filedocumented in this encounter
--- OUTSIDE RECORDS SUMMARY | 2025-05-12 09:29 | XMS_ITS | Encounter Summary ---
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 Now L lower back pain, seen at [place] - dx c sciatica. No BM x 3 days, abdominal swelling, straining to pee. States now becoming numb from B/L feet up BLE. PCP advised to come to ED. Triage Date/Time : 09/19/2021 13:49 EST India Betancur RN - 09/19/2021 13:49 EST DCP GENERIC CODE Tracking Acuity : 3 - Urgent Tracking Group : [facility] ED India Betancur RN - 09/19/2021 13:49 EST Mode of Arrival : Ambulatory Transported to ED by : Private vehicle To Room Via : Ambulate Accompanied By : Friend ED Vital Signs : Document Height & Weight : Document ED Allergies : Document ED Reason for Visit : Document India Betancur RN - 09/19/2021 13:49 EST Infectious Disease History Does patient have symptoms of COVID-19? : No Has the Patient Been Tested for COVID-19 in the last 14 days? : No, Patient stated Does the Patient state known exposure to a COVID-19 positive case in the last 14 days? : No Patient Vaccinated for COVID-19 : Fully vaccinated India Betancur RN - 09/19/2021 13:49 EST Infectious Disease Risk Screening Grid Cough < 2 wks of unknown origin : NO Cough > 2 weeks : NO Blood in Sputum : NO Fever or self-reported Fever : NO Rash of unknown origin : NO Headache : NO Stiff neck : NO Night Sweats : NO Unexplained Weight Loss : NO Diarrhea (3 episode per day) : NO India Betancur RN - 09/19/2021 13:49 EST Physical contact outside [place] in the last 30 days : No Hospitalized in Foreign Country : No Infectious Disease History : Chicken pox/Shingles, Measles INF Disease TB Screening Calc : 0 INF Disease Recent Travel Calc : 0 India Betancur RN - 09/19/2021 13:49 EST Vital Signs ED Temperature Source : Oral Temperature Mode : Fahrenheit Temperature, Fahrenheit : 98.8 Deg F ED Pain : Yes Clinical Temperature, C : 37.1 Deg C Oxygen Therapy Mode : Room air Peripheral Pulse Rate : 75 bpm Respiratory Rate : 16 Breaths/Min Systolic Blood Pressure : 161 mmHg (HI) Diastolic Blood Pressure : 83 mmHg Oxygen Saturation : 98 % India Betancur RN - 09/19/2021 13:49 EST Allergy (As Of: 09/19/2021 13:55:40 EST) Allergies (Active) Effexor Estimated Onset Date: Unspecified ; Created By: India Betancur RN; Reaction Status: Active ; Category: Drug ; Substance: Effexor ; Type: Allergy ; Updated By: India Betancur RN; Reviewed Date: 09/19/2021 13:51 EST Geodon Estimated Onset Date: Unspecified ; Created By: India Betancur RN; Reaction Status: Active ; Category: Drug ; Substance: Geodon ; Type: Allergy ; Updated By: India Betancur RN; Reviewed Date: 09/19/2021 13:49 EST SEROquel Estimated Onset Date: Unspecified ; Created By: India Betancur RN; Reaction Status: Active ; Category: Drug ; Substance: SEROquel ; Type: Allergy ; Updated By: India Betancur RN; Reviewed Date: 09/19/2021 13:51 EST TEGretol Estimated Onset Date: Unspecified ; Created By: India Betancur RN; Reaction Status: Active ; Category: Drug ; Substance: TEGretol ; Type: Allergy ; Updated By: India Betancur RN; Reviewed Date: 09/19/2021 13:51 EST Diagnosis Control ED (As Of: 09/19/2021 13:55:40 EST) Diagnoses(Active) Back pain Date: 09/19/2021 ; Diagnosis Type: Reason For Visit ; Confirmation: Complaint of ; Clinical Dx: Back pain ; Classification: Medical ; Clinical Service: Non-Specified ; Code: PNED ; Probability: 0 ; Diagnosis Code: [id number] Dysuria Date: 09/19/2021 ; Diagnosis Type: Reason For Visit ; Confirmation: Complaint of ; Clinical Dx: Dysuria ; Classification: Medical ; Clinical Service: Non-Specified ; Code: PNED ; Probability: 0 ; Diagnosis Code: [id number] ED Height and Weight Height Source : Stated Height Entry Format : [place] Height, Feet : 5 ft(Converted to: 152 cm, 60 Inch) Height, Inches : 6 Inch(Converted to: 0 ft 6 Inch, 15.24 cm) Clinical Height : 167.64 cm Weight Source, ED : Critical estimated dosing weight Weight Entry Format : [place] Weight, Pounds : 225 lb Clinical Dosing Weight : 102.27 kg Body Surface Area (BSA) : 2.1 m2 Body Mass Index : 36.4 kg/m2 (HI) [place] Body Weight (IBW) : 58.88 kg India Betancur RN - 09/19/2021 13:49 EST Pain Assessment Pain Assessment : Initial assessment Pain Scale Used : 0-10 Scale India Betancur RN - 09/19/2021 13:49 EST Pain Scale Intensity : 10 India Betancur RN - 09/19/2021 13:49 EST Image 4 - Images currently included in the form version of this document have not been included in the text rendition version of the form. documented in this encounter Plan of Treatment Not on file documented as of this encounter Visit Diagnoses Not on filedocumented in this encounter
--- OUTSIDE RECORDS SUMMARY | 2025-05-12 09:29 | XMS_ITS | Clinical Summary ---
Author Organization [employer] ([place], [place], [place], [place]) Address [address] [place] [address] Care Team Providers Care Enterprise Engineer Name Role Phone Unavailable Primary Care Provider Unavailabl e Social History Tobacco Use Types Packs/Day Years Used Date Smoking Tobacco: Never Assessed Food Insecurity Answer Date Recorded Food run out past 12 months Not on file 10/22 Food did not last past 12 months Not on file 11/09/2023 Employment Answer Date Recorded Help finding and keeping a job Not on file 0 11/09/2023 Family and Community Support Answer Jalil e Recorded Help with Day to Day Activities Not on file 11/09/2023 Feeling Lonely or Isolated Not on file 11/09 Educational Attainment Answer Date Raymond rded Speak language other than [place] at home Not on file 11/09/2023 Want help with school or training Not on file 11/09/2023 Substance Use Answer Date Recorded Used prescription meds for non-medical reasons N ot on file 11/09/2023 Used illegal drugs past 12 months Not on file 11/09/2023 Comments Unknown Sex and Gender Information Value Date Recorded Sex Assigned at Female 04/18/2022 8:59 PM CDT Legal Sex Female 8:59 PM CDT Gender Identity Female 04/18/2022 8:59 PM CDT Sexual Orientation Not on file Plan of Treatment Health Maintenance Due Date Last Done Comments CT Colonography 1979 Colonoscopy 1979 Colorectal Cancer Screening 1979 FOBT/FIT 1979 Fit-DNA (Cologuard) 1979 Sigmoidoscopy 1979 Depression Screening (12+) 1991 Tobacco Cessation Counseling and Screening (12+) 1991 HIV Screening 1994 Hepatitis C Screening 1997 DTAP/TDAP/TD VACCINES (1 - Tdap) 1998 Pap Smear 2000 Breast Cancer Screening 2019 Lipid Panel 2024 COVID-19 VACCINE (4 - 2023-2 5 season) 2024 02/17/2022, 02/27/2021, 01/30/2021 Influenza Vaccine (#1) 2025 Pneumococcal Vaccine: 0-49 Years Aged Out No longer eligible b ased on patient's age to complete this topic
--- OUTSIDE RECORDS SUMMARY | 2025-05-12 09:29 | XMS_ITS | Encounter Summary ---
Author Organization [employer] ([place], [place], [place], [place]) Address [address] [place] [address] Care Team Providers Care Utility Clerk Name Role Phone Unavailable Primary Care Provider Unavailabl e Encounter Details Date Type Department Care Team (Late st Contact Info) Description 09/19/2021 Transcribed Document [facility] [address] [place] [address] ProviderNaveen MD [address] [place] [address] Social History Tobacco Use Types [...] - Historical ProviderMD - 09/19/2021 1:11 PM TARIFF PUBLISHING AGENT ED Assessment Entered On: 09/19/2021 16:17 EST Performed On: 09/19/2021 15:00 EST by India Betancur RN ED Quick Look Assessment Level of Consciousness : Alert, Awake Affect/Behavior : Appropriate, Calm, Cooperative Orientation : Oriented x 4 India Betancur RN - 09/19/2021 16:15 EST ED General-Functional Assess Communication Barrier : None Primary Language : Iraqi Any Spiritual/Cultural Needs or Requests : No Currently in Unsafe Situation : No India Betancur RN - 09/19/2021 16:15 EST Social Habits Smoking Status : Never (less than 100 in lifetime; none in last 30 days) Smokeless Tobacco Status : Never Desires Tobacco Cessation Calc : 0 Inida Betancur RN - 09/19/2021 16:15 EST Social History (As Of: 09/19/2021 16:17:18 EST) Cardiovascular ASMT, ED Cardiovascular Assessment WDL : WDL India Betancur RN - 09/19/2021 16:15 EST Respiratory Respiratory Assessment WDL : WDL India Betancur RN - 09/19/2021 16:15 EST Gastrointestinal ED Gastrointestinal Assessment WDL : WDL with exceptions (Comment: c/o abdominal swelling and L groin pain. States PMD to schedule US to r/o inguinal hernia. Denies n/v/d [India Betancur RN - 09/19/2021 16:15 EST] ) India Betancur RN 09/19/2021 16:15 EST Genitourinary Assessment, ED Genitourinary Assessment WDL : WDL with exceptions (Comment: L flank pain, dysuria. States straining to pee. [India Betancur RN - 09/19/2021 16:15 EST] ) India Betancur RN - 09/19/2021 16:15 EST Musculoskeletal Musculoskeletal Assessment WDL : WDL with exceptions Musculoskeletal Assessment Comment : L lower back pain - dx c sciatica previously. States not improving India Betancur RN - 09/19/2021 16:15 EST Neurologic ASMT, ED Neurologic Assessment WDL : WDL with exceptions (Comment: c/o numbness to BLE beginning in feet this a.m. and progressing upward to knees [India Betancur RN - 09/19/2021 16:15 EST] ) India Betancur RN - 09/19/2021 16:15 EST documented in this encounter Plan of Treatment Not on file documented as of this encounter Visit Diagnoses Not on filedocumented in this encounter
--- OUTSIDE RECORDS SUMMARY | 2025-05-12 09:29 | XMS_ITS | Referral Summary ---
Author Organization [employer] ([place], [place], [place], [place]) Address [address] [place] [address] Care Team Providers Care Security Operations Manager Name Role Phone Unavailable Primary Care Provider [...] Date Raymond rded Speak language other than Lao at home Not on file 11/09/2023 Want [...] Orientation Not on file Plan of Treatment Not on file
--- OUTSIDE RECORDS SUMMARY | 2025-05-12 09:30 | XMS_ITS | Encounter Summary ---
Author Organization [employer] ([place], [place], [place], [place]) Address [address] [place] [address] Care Team Providers Care Shift Mechanic Name Role Phone Unavailable Primary Care Provider Unavailabl e Encounter Details Date Type Department Care Team (Late st Contact Info) Description 09/19/2021 Transcribed Document [facility] [place] Family Medicine Formerly [facility] [place] [address] ProviderNaveen MD [address] [place] [address] Social History Tobacco Use Types Packs/Day Years Used Date Smoking Tobacco: Never Assessed Comments Unknown Sex and Gender Information Value Date Recorded Sex Assigned at Female 04/18/2022 8:59 PM CDT Legal Sex Female 8:59 PM CDT Gender Identity Female 04/18/2022 8:59 PM CDT Sexual Orientation Not on file documented as of this encounter Miscellaneous Notes * Cerner Conversion Note - Naveen Nixon MD - 09/19/2021 9:05 PM ANIMAL CONTROL OFFICER [facility] [place] [address] TRICE BARAHONA :1980 Visit Time:09/19/2021 Your Visit Summary Your Care Team Primary Provider: DARWIN ARVIZU PA-C Secondary Provider: Your Diagnosis Back pain, Back pain Dysuria Lumbar radiculopathy Pulmonary nodule Medical Information You may obtain a copy of your Emergency Department visit from Medical Records by calling the hospital phone number listed above and asking to be directed to the Medical Records Department. If you had special tests, such as EKG???s or X-rays, the interpretation of your tests given to you by the Emergency Department Physician is a preliminary report. Some fractures and illnesses fail to show up on preliminary tests. These will be reviewed again and we will call you if there are any new suggestions. If your symptoms continue notify your physician. After you leave, you should follow the instructions provided. What to do next Follow-Up Appointments Follow Up with UNKNOWN PHY When Within 2 to 3 days Comments Follow up with your director export as scheduled tomorrow. Take medications as prescribed along with your pain medication at home. Return to ED if symptoms worsen. Allergies Effexor Geodon SEROquel TEGretol Immunizations This Visit No Immunizations Found Medications What How Much When Instructions Next Dose cyclobenzaprine (cyclobenzaprine 10 mg oral tablet) 1 Tablet(s) Oral Three Times A Day as needed for as needed for spasm Duration: 5 Day(s) Pickup at [facility] Pharmacy Information [facility]: [address] [place] [address] [phone] The home medications listed are only as accurate as the information you provided. Please continue taking all of your medications prescribed by your Primary Care Provider unless specifically told to change or discontinue the medication. Please direct any questions regarding your home medications to your Primary Care Provider. Take your medications faithfully. Do NOT skip medication. Do NOT stop taking medications without the direction of a physician. Carry a list of your medications with you at all times, and take this medication list with you to your first follow up visit. Report any side effects. Avoid herbal remedies unless discussed with your physician. As part of your treatment plan, your physician may have prescribed a limited course of a controlled substance. This medication may be given to help people with moderate or severe pain or for other medical conditions, but there are risks involved with treatment. Common side effects may include nausea, constipation, drowsiness, sweating, itching, dry mouth, and rash. More serious side effects may include cognitive and motor impairment, like problems with thinking, concentrating, alertness, and movement (e.g. slowed reflexes), and driving and operating heavy machinery can be dangerous. It is important for you to talk to your physician if you have these side effects or questions. These controlled substances can produce physical dependence and be habit-forming if taken for an extended period of time, which means that the body has gotten used to them and may experience withdrawal symptoms if they are abruptly stopped. Withdrawal symptoms can include runny nose, sweating, goose bumps, diarrhea, abdominal cramping, rapid heartbeat, difficulty sleeping, and nervousness. Please dispose of unused and medications per pharmacy guidance. Test Results Laboratory or Other Results This Visit (last charted value for your 09/19/2021 visit) Hematology 09/19/2021 2:42 PM WBC: 11.3 K/uL -- Normal range between ( 4.5 and 10.5 ) RBC: 4.58 Million/uL -- Normal range between ( 3.93 and 5.22 ) Hct: 40.5 % -- Normal range between ( 34.1 and 44.9 ) Hgb: 13.9 g/dL -- Normal range between ( 11.2 and 15.7 ) Platelet Count: 255 K/uL -- Normal range between ( 163 and 369 ) MCH: 30.3 pg -- Normal range between ( 25.6 and 32.2 ) MCHC: 34.3 Gram/dL -- Normal range between ( 32.2 and 36.5 ) MCV: 88.4 fL -- Normal range between ( 79.0 and 94.8 ) Slide Review: No Eos %: 1.5 % -- Normal range between ( 0.0 and 7.0 ) Polk #: 0.85 K/uL -- Normal range between ( 0.16 and 1.00 ) Eos #: 0.17 x10(3)/uL -- Normal range between ( 0.00 and 0.80 ) Polk %: 7.5 % -- Normal range between ( 3.0 and 9.0 ) Baso %: 0.7 % -- Normal range between ( 0.0 and 1.5 ) Baso #: 0.08 x10(3)/uL -- Normal range between ( 0.00 and 0.20 ) RDW: 11.9 % -- Normal range between ( 11.7 and 14.9 ) Neut %: 62.0 % -- Normal range between ( 34.0 and 71.0 ) Neut #: 7.02 K/uL -- Normal range between ( 1.56 and 6.13 ) Lymph %: 27.9 % -- Normal range between ( 19.3 and 53.1 ) Lymph #: 3.15 x10(3)/uL -- Normal range between ( 1.00 and 3.90 ) MPV: 10.4 fL -- Normal range between ( 9.4 and 12.4 ) IG#: 0.04 x10(3)/uL -- Normal range between ( 0.00 and 0.05 ) IG%: 0.40 % -- Normal range between ( 0.00 and 0.60 ) Urinalysis 09/19/2021 2:42 PM Urine Nitrite: Negative Urine Leukocyte Esterase: Negative Urine Appearance: Cloudy Urine Glucose Dipstick: Negative Urine Blood Dipstick: Negative Urine Urobilinogen Dipstick: 0.2 EU/dL Urine Protein Dipstick: Negative Ur Squamous Epithelial Cells: 0-2 /HPF Urine Color: Yellow Ur WBC: None Seen /HPF Urine Ketones Dipstick: Negative Urine pH Dipstick: *8.0 -- Normal range between ( 6.0 and 8.0 ) Urine Bilirubin Dipstick: Negative Urine Specific [place]: 1.011 -- Normal range between ( 1.005 and 1.030 ) Urine Type.: U CleanCatch Urine Culture if Indicated: Not Indicated General Chemistry 09/19/2021 2:42 PM Creatinine Level: 0.70 mg/dL -- Normal range between ( 0.55 and 1.02 ) Sodium Level: 136 mmol/L -- Normal range between ( 136 and 146 ) Potassium Level: 4.4 mmol/L -- Normal range between ( 3.5 and 5.1 ) Chloride Level: 104 mmol/L -- Normal range between ( 102 and 112 ) Carbon Dioxide Level: 29 mmol/L -- Normal range between ( 21 and 32 ) Anion Gap: 7 -- Normal range between ( 9 and 20 ) Bilirubin Total: 0.5 mg/dL -- Normal range between ( 0.2 and 1.2 ) A/G Ratio: 1.1 -- Normal range between ( 1.1 and 2.5 ) ALT: 27 Units/Liter -- Normal range between ( 13 and 56 ) AST: 14 Units/Liter -- Normal range between ( 5 and 37 ) Globulin: 3.5 Gram/dL -- Normal range between ( 1.5 and 4.5 ) Alk Phos: 61 Units/Liter -- Normal range between ( 27 and 136 ) Bun/Creatinine: 21.4 -- Normal range between ( 8.0 and 20.0 ) Calcium Level: 9.4 mg/dL -- Normal range between ( 8.4 and 10.1 ) eGFR : >60 mL/min/1.73m2 eGFR NonAfrican: >60 mL/min/1.73m2 Glucose Level: 88 mg/dL -- Normal range between ( 74 and 106 ) Blood Urea Nitrogen: 15 mg/dL -- Normal range between ( 7 and 22 ) Protein Total: 7.2 Gram/dL -- Normal range between ( 6.4 and 8.2 ) Albumin Level: 3.7 Gram/dL -- Normal range between ( 3.4 and 5.0 ) Lipase Level: 43 Units/Liter -- Normal range between ( 73 and 393 ) Endocrinology 09/19/2021 2:42 PM HCG Urine Qualitative: Negative Computed Tomography 09/19/2021 4:[address] Abdomen Pelvis W: CT Abdomen Pelvis W Magnetic Resonance Imaging 09/19/2021 7:45 PM MRI Spine Lumbar WO W: MRI Spine Lumbar WO W Education Materials Radicular Pain Radicular pain is a type of pain that spreads from your back or neck along a spinal nerve. Spinal nerves are nerves that leave the spinal cord and go to the muscles. Radicular pain is sometimes called radiculopathy, radiculitis, or a pinched nerve. When you have this type of pain, you may also have weakness, numbness, or tingling in the area of your body that is supplied by the nerve. The pain may feel sharp and burning. Depending on which spinal nerve is affected, the pain may occur in the: ??? Neck area (cervical radicular pain). You may also feel pain, numbness, weakness, or tingling in the arms. ??? Mid-spine area (thoracic radicular pain). You would feel this pain in the back and chest. This type is rare. ??? Lower back area (lumbar radicular pain). You would feel this pain as low back pain. You may feel pain, numbness, weakness, or tingling in the buttocks or legs. Sciatica is a type of lumbar radicular pain that shoots down the back of the leg. Radicular pain occurs when one of the spinal nerves becomes irritated or squeezed (compressed). It is often caused by something pushing on a spinal nerve, such as one of the bones of the spine (vertebrae) or one of the round cushions between vertebrae (intervertebral disks). This can result from: ??? An injury. ??? Wear and tear or aging of a disk. ??? The growth of a bone spur that pushes on the nerve. Radicular pain often goes away when you follow instructions from your health care provider for relieving pain at home. Follow these instructions at home: Managing pain ??? If directed, put ice on the affected area: ? Put ice in a plastic bag. ? Place a towel between your skin and the bag. ? Leave the ice on for 20 minutes, 2???3 times a day. ??? If directed, apply heat to the affected area as often as told by your health care provider. Use the heat source that your health care provider recommends, such as a moist heat pack or a heating pad. ? Place a towel between your skin and the heat source. ? Leave the heat on for 20???30 minutes. ? Remove the heat if your skin turns bright red. This is especially important if you are unable to feel pain, heat, or cold. You may have a greater risk of getting burned. Activity ??? Do not sit or rest in bed for long periods of time. ??? Try to stay as active as possible. Ask your health care provider what type of exercise or activity is best for you. ??? Avoid activities that make your pain worse, such as bending and lifting. ??? Do not lift anything that is heavier than 10 lb (4.5 kg), or the limit that you are told, until your health care provider says that it is safe. ??? Practice using proper technique when lifting items. Proper lifting technique involves bending your knees and rising up. ??? Do strength and [id number] exercises only as told by your health care provider or physical therapist. General instructions ??? Take [id number] and prescription medicines only as told by your health care provider. ??? Pay attention to any changes in your symptoms. ??? Keep all follow-up visits as told by your health care provider. This is important. ? Your health care provider may send you to a physical therapist to help with this pain. Contact a health care provider if: ??? Your pain and other symptoms get worse. ??? Your pain medicine is not helping. ??? Your pain has not improved after a few weeks of home care. ??? You have a fever. Get help right away if: ??? You have severe pain, weakness, or numbness. ??? You have difficulty with bladder or bowel control. Summary ??? Radicular pain is a type of pain that spreads from your back or neck along a spinal nerve. ??? When you have radicular pain, you may also have weakness, numbness, or tingling in the area of your body that is supplied by the nerve. ??? The pain may feel sharp or burning. ??? Radicular pain may be treated with ice, heat, medicines, or physical therapy. This information is not intended to replace advice given to you by your health care provider. Make sure you discuss any questions you have with your health care provider. Document Revised: 04/22/2019 Document Reviewed: 04/22/2019 Secure Outcomes Patient Education ?? 2020 [employer]. Emergency Awareness and Preventative Care STROKE is an EMERGENCY Every Minute Counts Act FAST and Check for these signs: FACE Does the face look uneven? ARM Does one arm drift down? SPEECH Does their speech sound strange? TIME Call at any sign of stroke Stroke Risk Factors Atrial Fibrillation (irregular heartbeat) Diabetes Family history of stroke Heart Disease Heavy alcohol use High Blood Pressure High Cholesterol Physical inactivity and obesity Smoking Cigarette Smoking The facts are clear, cigarette smoking will shorten your life. Smoking can cause many illnesses along the way. As a healthcare provider, we recommend that you stop smoking. Assistance with quitting is available by contacting 8-599-PLCU-NOW. This is a free resource providing counseling, support, and referral. Or you may contact your personal physician. National Suicide Prevention Lifeline: The National Suicide Prevention Lifeline is a national network of local crisis centers that provides free and confidential emotional support to people in suicidal crisis or emotional distress 24 hours a day, 7 days a week. Don't Wait! Stop a Heart Attack Before it Starts What is a heart attack? A heart attack is damage or to a part of the heart from severely decreased or lack of blood flow to the heart. Over time, arteries can become narrow from the buildup of fat and cholesterol, which is called plaque. The plaque can rupture causing a blood clot to form. When the blood clot forms, the artery can become severely narrowed or completely blocked, causing a heart attack. Heart attack is the leading cause of in the [place]. 85% of muscle damage occurs within the first 2 hours. Delay in the recognition of heart attack symptoms increases the chances of . Know the early symptoms of a heart attack: Nausea Feeling of fullness in chest Jaw Pain Pain that travels down one or both arms Fatigue/being tired Anxiety Back Pain Chest pressure, squeezing, or discomfort Shortness of breath Sweating, or a cold sweat Feeling of impending doom There are unusual signs of a heart attack, too! Women, the elderly, and diabetics may present with atypical symptoms: Fainting/dizziness Weakness Confusion Risk Factors for a Heart Attack Some heart disease risk factors, such as age and family history, cannot be changed. Others, like smoking and lack of exercise, can be changed. Smoking High Cholesterol High Blood Pressure Family History Obesity Age Gender (Males are at higher risk) Lack of Exercise Diabetes Diet Stress Excessive Alcohol Intake If you or someone you know is experiencing the signs and symptoms of a heart attack, DON???T DELAY. Call immediately and seek help. If someone collapses, perform CPR! Do not attempt to drive if you are having symptoms of heart attack. Hands-Only CPR Why Hands-Only CPR? Hands-Only CPR has been shown to be as effective as conventional CPR for cardiac arrests that occur outside of a hospital. Survival depends on immediately receiving CPR from someone nearby. How do you perform Hands-Only CPR? There are two easy steps: Call if you see a teen or adult collapse Push hard and fast in the center of the chest at a beat of 100 beats per minute. Save a life! 4 WAYS TO GET AHEAD OF SEPSIS SEPSIS is a MEDICAL EMERGENCY. Time matters! Infections put you and your family at risk for a life-threatening condition called sepsis. Sepsis is the body's extreme response to an infection. It is life-threatening, and without timely treatment, sepsis can rapidly lead to tissue damage, organ failure, and . Sepsis happens when an infection you already have-in your skin, lungs, urinary tract or somewhere else-triggers a chain reaction throughout your body. 1 PREVENT INFECTIONS Take good care of chronic conditions. Talk to your doctor about getting the recommended vaccines. 2 PRACTICE GOOD HYGIENE Wash your hands frequently. Keep cuts or open sores clean and covered until they are healed. 3 KNOW THE SYMPTOMS Confusion or disorientation Shortness of breath High heart rate Fever, shivering, or feeling very cold Extreme pain or discomfort Clammy or sweaty skin 4 ACT FAST Get medical care IMMEDIATELY if you suspect sepsis or if you have an infection that is not getting better or is getting worse. To learn more about sepsis and how to prevent infections, visit www.cdc.gov/sepsis. The examination and treatment you have received in the Emergency Department has been done to provide an appropriate evaluation and stabilizing treatment on an emergency basis only. Given the limited resources, it is not meant to be a substitute for complete medical care. The follow-up doctor you named will receive a copy of your records and all test reports. IT IS IMPORTANT THAT YOU SCHEDULE A FOLLOW-UP APPOINTMENT AND ARE RE-EVALUATED. You should report any new complaints, symptoms, or remaining problems at that time. IT IS IMPOSSIBLE FOR THE EMERGENCY DEPARTMENT TO RECOGNIZE AND TREAT ALL ELEMENTS OF INJURY OR ILLNESS IN A SINGLE VISIT. If you have been referred to a specialist physician, it means that we believe you may have a condition that requires the expertise of a specialist. These physicians work in partnership with the hospital and have agreed to see referred patients in their office for further evaluation. KEEP IN MIND THAT THE SPECIALIST HAS HIS/HER OWN OFFICE POLICIES WHICH MAY REQUIRE PROPER INSURANCE OR PAYMENT UP FRONT BEFORE THE SPECIALIST WILL SEE YOU. It is your responsibility to call the specialist physician to make an appointment. We do not have the ability to refer patients to specialists/physicians that work with specific insurance companies. Please be advised that all financial charges or billing practices are determined by that practice, not the hospital. If your insurance company requires that you see a specialist from their approved list, it is your responsibility to contact your insurance company to make those arrangements. It is also your responsibility to follow any other requirements of your insurance company necessary to obtain coverage for claims submitted. We will bill your insurance; however, you are responsible today for any co-pay amounts. You will receive a separate bill for any services you may have received including: emergency, radiology, or pathology physicians. Patient Name:JUNTRICE I have received this information and was given the opportunity to ask questions. Patient/Port Cdl A Driver Name: Patient/Port Cdl A Driver Signature: Relationship to Patient: Clinician/Hospital Port Cdl A Driver Signature: Please Provide a Telephone Number Where You Can Be Reached: Is it Permissible To Leave a Message? Date: Electronically signed by Interface, [facility] Conversion Prop Attendant Ebenezer at 02/04/2023 9:44 AM CDT documented in this encounter Plan of Treatment Not on file documented as of this encounter Visit Diagnoses Not on filedocumented in this encounter
--- OUTSIDE RECORDS SUMMARY | 2025-05-12 09:30 | XMS_ITS | Encounter Summary ---
Author Organization [employer] ([place], [place], [place], [place]) Address [address] [place] [address] Care Team Providers Care Embalmer Assistant Name Role Phone Unavailable Primary Care Provider Unavailabl e Encounter Details Date Type Department Care Team (Late st Contact Info) Description 09/19/2021 Transcribed Document [facility] [place] [address] [place] [address] ProviderNaveen MD [address] [place] [address] Social History Tobacco Use Types [...] Conversion Note - Historical ProviderMD - 09/19/2021 2:59 PM BUNG REMOVER Pain Assessment Entered On: 09/19/2021 16:02 EST Performed On: 09/19/2021 16:01 EST by Zohra Paulino PARAMEDIC Intervention Information: morphine Performed by Zohra Paulino PARAMEDIC on 09/19/2021 15:30:00 EST morphine,4mg IV Push,Peripheral Line 1 Pain Assessment Pain Assessment : Follow-up assessment Pain Scale Used : 0-10 Scale Zohra Paulino PARAMEDIC - 09/19/2021 16:01 EST Pain Scale Intensity : 4 Zohra Paulino PARAMEDIC - 09/19/2021 16:01 EST Image 4 - Images currently included in the form version of this document have not been included in the text rendition version of the form. Electronically signed by Jordan, [facility] Conversion Network Professional Cerner at 02/04/2023 9:36 AM CDT documented in this encounter Plan of Treatment Not on file documented as of this encounter Visit Diagnoses Not on filedocumented in this encounter
--- OUTSIDE RECORDS SUMMARY | 2025-05-12 09:30 | XMS_ITS | Clinical Summary ---
Author Organization 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 Active lisinopril (PRINIVIL,ZESTR IL) 10 MG tablet Take 1 tablet by mouth Every Night. Active meloxicam (MOBIC) 15 MG tablet Take 1 tablet by mouth Every Night. Active omeprazole (priLOSEC) 20 MG capsule Take 1 capsule by mouth Every Night. Active albuterol sulfate HFA 108 (90 Base) MCG/ACT inhaler Inhale 2 puffs Every 4 (Four) Hours As Needed for Wheezing. Active mometasone-form oterol (DULERA 100) 100-5 MCG/ACT inhaler Inhale 2 puffs 2 (Two) Times a Day. Active ondansetron (Zofran) 4 MG tablet Take 1 tablet by mouth Every 8 (Eight) Hours As Needed for Nausea or Vomiting. 12 tablet 11/27/2023 9:44 AM EST 11/27/2023 Active docusate sodium (COLACE) 100 MG capsule Take 1 capsule by mouth 2 (Two) Times a Day. 20 capsule 11/27/2023 9:44 AM EST 11/27/2023 Active HYDROcodone-bhupinder taminophen (NORCO) 7.5-325 MG per tabletIndicatio ns:Incomplete rotator cuff tear or rupture of right shoulder, not specified as traumatic Take 1 tablet by mouth Every 4 (Four) Hours As Needed for Moderate Pain. 24 tablet 11/27/2023 9:44 AM EST 11/27/2023 Active docusate sodium (Colace) 100 MG capsule Take 1 capsule by mouth 2 (Two) Times a Day. 20 capsule 03/26/2025 2:57 PM EDT 03/26/2025 Active ondansetron (Zofran) 4 MG tablet Take 1 tablet by mouth Every 8 (Eight) Hours As Needed for Nausea or Vomiting. 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 24 tablet 03/26/2025 2:57 PM EDT 03/26/2025 Active Immunizations Immunization Administration Dates Next Due COVID-19 (MODERNA) 1st,2nd,3rd Dose Monovalent 0 02/27/2021,01/30/2021 COVID-19 (MODERNA) Monovalent Original Booster 0 02/17/2022 Fluzone (or Fluarix & Flulaval for VFC) >6mos ,08/09/2018 Social History Tobacco Use Types Packs/Day Years Used Date Smoking Tobacco: Every Day Cigarettes 2 32 Smokeless Tobacco: Never Alcohol Use Standard Drinks/Week Comments Not Currently 0 (1 standard drink = 0.6 oz pur e alcohol) Abuse Screen Answer Date Recorded Feels Unsafe at Home or Work/School no 11/27/2023 Feels Threatened by Someone no 03/2024 Does Anyone Try to Keep You From Having Contact with Others or Doing Things Outside Your Home? no 11/27/2023 Physical Signs of Abuse Present no 11/27/2023 Housing Stability Answer Date Recorded Current Living Arrangements home 03/2024 Potentially Unsafe Housing Conditions Not on dina e 11/27/2023 Family and Community Support Answer Jalil e Recorded Help with Day-to-Day Activities Not on file 11/15/2023 Lonely or Isolated Not on file 11/15/2023 Employment Answer Date Recorded Do you want help finding or keeping work or a ayo b? Not on file 11/15/2023 Disabilities Answer Date Recorded Difficulty Concentrating, Remembering or Making Decisions no 11/27/2023 Difficulty Managing Errands Independently no 11/27/2023 Education Answer Date Recorded Help with school or training? Not on file Preferred Language Maori 11/20/2023 Comments No Sex and Gender Information Value Date Recorded Sex Assigned at Not on file Legal Sex Female 2:50 PM EST Gender Identity Not on file Sexual Orientation Not on file Last Filed Vital Signs Vital Sign Reading Time Taken Comments Blood Pressure 125/68 11/27/2023 10:15 AM EST Pulse 76 11/27/2023 10:15 AM EST Temperature 36.6 C (97.8 F) 11/27/2023 10:15 AM EST Respiratory Rate 18 11/27/2023 10:15 AM EST Oxygen Saturation 96% 11/27/2023 10:15 AM EST Inhaled Oxygen Concentration - - Weight 107 kg (236 lb 15.9 oz) 11/20/2023 2:39 P M EST Height 167.6 cm (5' 6 ) 11/20/2023 2:39 PM EST Body Mass Index 38.25 11/20/2023 2:39 PM EST Plan of Treatment Health Maintenance Due Date Last Done Comments Annual Gynecologic Pelvic an d Breast Exam 1979 Pneumococcal Vaccine 0-49 (1 of 2 - PCV) 1998 TDAP/TD VACCINES (1 - Tdap) 1998 MAMMOGRAM 2019 ANNUAL PHYSICAL 11/20/2023 HEPATITIS C SCREENING 11/20/2023 COLOGUARD 2024 COLON CANCER SCREENING 5 YEA R SIGMOIDOSCOPY 2024 COLONOSCOPY 2024 COLORECTAL CANCER SCREENING [address]24 CT COLONOGRAPHY 2024 FECAL OCCULT BLOOD TEST 2024 FIT Testing (1 year) 2024 COVID-19 Vaccine (4 - 2023-2 5 season) 2024 02/17/2022, 02/27/2021, 01/30/2021 INFLUENZA VACCINE 07/22/2025 07/10/2023, , 08/03/2021, Additional history exists Medical Devices Implanted Type Area Brick Paver Device Identifier Shelf Expiration Date Model / Serial / Lot Anchr Tndn Regeneten Tiss/Sft Ea/8 - [id number] Implanted:Qty: 1 on 11/27/2023 by Clyde Galaviz Jr., MD at [facility] Implant Right: Shoulder SPENCER AND NEPHEW 03/01/2026 [id number] / / [id number] Sut/Anch Healixadvance Br Dynatape 4.5mm Blk - [id number] Implanted:Qty: 1 on 11/27/2023 by Clyde Galaviz Jr., MD at [facility] Implant Right: Shoulder DEPUY MITEK 11/21/2025 [id number] / / [id number] Tiss Synth Regeneten Bioinductive W/Del Dev Md - [id number] Implanted:Qty: 1 on 11/27/2023 by Clyde Galaviz Jr., MD at [facility] Implant Right: Shoulder SPENCER AND NEPHEW 04/21/2026 [id number] / / [id number] Anchr Bone Regeneten Adv W/Del Sys Ea/3 - [id number] Implanted:Qty: 1 on 11/27/2023 by Clyde Galaviz Jr., MD at [facility] Implant Right: Shoulder SPENCER AND NEPHEW 05/04/2026 [id number] / / [id number] Sut/Anch Knotlss Healicoil Regenesorb 5.5mm - [id number] Implanted:Qty: 1 on 11/27/2023 by Clyde Galaviz Jr., MD at [facility] Implant Right: Shoulder SPENCER AND NEPHEW 04/25/2026 [id number] / / [id number] Insurance [facility] Care Teams Training Generalist Relationship Specialty Start Date End Date Provider, No Known [facility] [place] [address] PCP - General 11/20/23
--- NOTE | 2025-05-12 09:34 | XR_ITS ---
FINAL REPORT CLINICAL HISTORY: SOB FINDINGS: There is a nodular density in the right lung base measuring 15 mm. There is no evidence of pneumonia or edema. There is no evidence of effusion or other pleural disease. The mediastinum has a normal appearance. The cardiac silhouette is unremarkable. IMPRESSION: No definite pneumonia. Probable right lung base nodular density. Correlation with chest CT is recommended. Reviewed, Interpreted and Dictated by Gifty Otto MD Transcribed by Yamilex Reese Authenticated and [facility] [place]
[2025-05-12 10:00] LABS: Bilirubin,Urine Negative (Negative); Color,Urine YELLOW (Yellow); Glucose,Urine (UA) Negative (Negative); Ketones,Urine Negative (Negative); Leukocyte Esterase,Urine Negative (Negative); PH,Urine 6.5 (5.0-8.5); Protein,Urine Negative (Negative); Specific Gravity, Urine <= 1.005 (1.005-1.030); Urobilinogen,Urine 0.2 EU/dl (0.2)
[2025-05-12 10:25] LABS: Bacteria,Urine Trace /lpf
== END 2025-05-12 23:59 | disposition home or self-care (01) ==
LOC: LAB 09:25
PROVIDERS: PCP Nurse Practitioner Family; Visit Provider Physician Assistant
DX: R82.998 Other abnormal findings in urine (principal); R94.31 Abnormal electrocardiogram [ECG] [EKG]; R60.0 Localized edema; R06.09 Other forms of dyspnea; I15.0 Renovascular hypertension
CPT/HCPCS: 71046; 81001

== ENCOUNTER 2025-05-19 08:58 | Outpatient (CLI) | payer OTHER, SELFPAY ==
--- OUTSIDE RECORDS SUMMARY | 2025-04-29 01:11 | XMS_ITS | Encounter Summary ---
Author Organization [place] [address] Care Team Providers Care Handbag Operator Name Role Phone Anh Kruse APRN Primary Care Provider + Reason for Visit * Reason Comments Shoulder Pain Pt had rotator cuff surgery on 03/26, was told by PT that she could start doing pendulum exercises tried it tonight and pt is now having increased pain. CPTA: none Encounter Details Date Type Department Care Team (Late st Contact Info) Description 04/29/2025 1:11 AM EDT - 04/29/2025 2:34 AM EDT Emergency [facility] [address] Alli Arana MD [address] [place] [address] [place] [address] Acute pain of right shoulder (Primary Dx) Discharge Disposition: Home or Self Care Social History Tobacco Use Types Packs/Day Years Used Date Smoking Tobacco: Every Day Cigarettes 2 33.6 Started: 1991 Smokeless Tobacco: Never Alcohol Use Standard Drinks/Week Comments Not Currently 0 (1 standard drink = 0.6 oz pur e alcohol) Comments No Sex and Gender Information Value Date Recorded Sex Assigned at Not on file Legal Sex Female 7:55 PM EDT Gender Identity Not on file Sexual Orientation Not on file documented as of this encounter Last Filed Vital Signs Vital Sign Reading Time Taken Comments Blood Pressure 136/73 04/29/2025 12:10 AM EDT Pulse 82 04/29/2025 12:10 AM EDT Temperature 36.6 C (97.8 F) 04/29/2025 12:10 AM EDT Respiratory Rate 20 04/29/2025 12:0 8 AM EDT Oxygen Saturation 96% 04/29/2025 12: 10 AM EDT Inhaled Oxygen Concentration - - Weight 110.1 kg (242 lb 11.2 oz) 2024 12:10 AM EDT Height 167.6 cm (5' 6 ) 04/29/2025 12:1 0 AM EDT Body Mass Index 39.17 04/29/2025 12:10 AM EDT documented in this encounter Functional Status * Suicide Severity Rating Answer Date of Assessment Author No Risk 04/29/2025 1:25 AM EDT Isis Tejeda RN * [place] Suicide Severity Rating Scale (Q shift for moderate and high) Question Answer Date of Assessment Author 1. In the past month, have y ou wished you were or wished you could go to sleep and not wake up? 0 04/29/2025 1:25 AM EDT Shan Alvarado RN 2. In the past month, have y ou actually had any thoughts of killing yourself? (If no, skip to question 6) 0 04/29/2025 1:25 AM EDT Shan Tejeda RN 6. Have you ever done anythi ng, started to do anything, or prepared to do anything to end your life? 0 04/29/2025 1:25 AM EDT Shan Herrera RN documented as of this encounter Discharge Instructions * Discharge Instructions* Kari Bright NP - 04/29/2025 2:27 AM EDT Follow-up with your orthopedic surgeon in the morning as previously arranged. Return for new or worsening concerns. Tylenol or ibuprofen [id number] as directed. documented in this encounter Medications at Time of Discharge albuterol (PROVENTIL HFA;VENTOLIN HFA) 90 mcg/actuation Inhl HFA Aerosol Inhaler Inhale 2 Puffs into the lungs every 6 hours as needed for Wheezing. cetirizine (ZYRTEC) 10 mg Oral Tablet Take 10 mg by mouth daily. fexofenadine (LULU) 180 mg Oral Tablet Take 180 mg by mouth daily. lamoTRIgine (LAMICTAL) 100 mg Oral Tablet Take 100 mg by mouth daily. losartan (COZAAR) 100 mg Oral Tablet Take 100 mg by mouth daily. meloxicam (MOBIC) 15 mg Oral Tablet Take 15 mg by mouth daily. montelukast (SINGULAIR) 10 mg Oral Tablet Take 10 mg by mouth every evening. omeprazole (PRILOSEC) 20 mg Oral Capsule, Delayed Release(E.C.) Take 20 mg by mouth daily. documented as of this encounter Discharge Disposition Disposition Code Departure Means Destination Comment s Home or Self Half-Way documented in this encounter ED Notes * Kari Bright, ELIAS - 04/29/2025 12:06 AM EDT Chief Complaint Patient presents with Shoulder Pain Pt had rotator cuff surgery on 03/26, was told by PT that she could start doing pendulum exercises tried it tonight and pt is now having increased pain. CPTA: none Adriana Tran is a 44 y.o. female with history of hypertension who presents emergency department for evaluation of shoulder pain. Patient underwent right rotator cuff repair with Dr. Catherine in [place] on 03/26/2025. She denies any complications from the surgery. States she has been healing well. She recently started physical therapy. At her appointment with physical therapy on 04/22/2025 she was told she could start doing pendulums. She attempted to do the pendulums at home and immediately felt a pull in her right shoulder. She has had another PT session since that time and they backed off on her exercise regimen secondaryto her pain. She has a follow-up appointment with her surgeon in the morning. She states tonight she was getting into the shower and after taking her arm out of her sling she tried to put her arm down and again had severe pulling pain in her right shoulder. She states her pain is currently a 10 outof 10. Any movement at all exacerbates her pain. She denies alleviating factors. She has tried ice with no relief. She has not taken any medications prior to arrival. She has had no fever. She deniesany significant mechanism of injury. Patient History Allergies Allergen Reactions Geodon [Ziprasidone Hcl] Hives Levaquin [Levofloxacin] Other (See Comments) Ears ringing Home Medications: Prior to Admission medications Medication Sig Start Date End Date Last Dose Authorizing Provider albuterol (PROVENTIL HFA;VENTOLIN HFA) 90 mcg/actuation Inhl HFA Aerosol Inhaler Inhale 2 Puffs into the lungs every 6 hours as needed for Wheezing. Provider, Historical cetirizine (ZYRTEC) 10 mg Oral Tablet Take 10 mg by mouth daily. Provider, Historical fexofenadine (LULU) 180 mg Oral Tablet Take 180 mg by mouth daily. Provider, Historical lamoTRIgine (LAMICTAL) 100 mg Oral Tablet Take 100 mg by mouth daily. Provider, Historical losartan (COZAAR) 100 mg Oral Tablet Take 100 mg by mouth daily. Provider, Historical meloxicam (MOBIC) 15 mg Oral Tablet Take 15 mg by mouth daily. Provider, Historical montelukast (SINGULAIR) 10 mg Oral Tablet Take 10 mg by mouth every evening. Provider, Historical omeprazole (PRILOSEC) 20 mg Oral Capsule, Delayed Release(E.C.) Take 20 mg by mouth daily. Provider, Historical Past Medical History: Past Medical History: Diagnosis Date Hypertension Lung nodules Social History: reports that she has been smoking cigarettes. She started smoking about 33 years ago. She has a 67 pack-year smoking history. She has never used smokeless tobacco. She reports that she does not currently use alcohol. She reports current drug use. Frequency: 42.00 times per week. Drug: Marijuana. E-Cigarettes (such as Vapes or Juul) E-Cigarette Use Current Some Day User Family History: No family history on file. Surgical History: History reviewed. No pertinent surgical history. Review of Systems Review of Systems Constitutional: Negative for chills and fever. HENT: Negative. Eyes: Negative. Respiratory: Negative for cough and shortness of breath. Cardiovascular: Negative for chest pain, palpitations and leg swelling. Gastrointestinal: Negative for abdominal pain, diarrhea, nausea and vomiting. Genitourinary: Negative for dysuria and frequency. Musculoskeletal: Positive for arthralgias. Skin: Negative for rash. Neurological: Negative. Psychiatric/Behavioral: Negative. All other systems reviewed and are negative. Physical Exam Blood pressure 136/73, pulse 82, temperature 97.8 ??F (36.6 ??C), temperature source Oral, resp. rate 20, height 5' 6 (1.676 m), weight 242 lb 11.2 oz (110.1 kg), SpO2 96%. Physical Exam Vitals and nursing note reviewed. Constitutional: General: She is not in acute distress. Appearance: Normal appearance. She is well-developed. She is not ill-appearing, toxic-appearing or diaphoretic. HENT: Head: Normocephalic and atraumatic. Eyes: Conjunctiva/sclera: Conjunctivae normal. Pupils: Pupils are equal, round, and reactive to light. Cardiovascular: Rate and Rhythm: Normal rate and regular rhythm. Pulses: Normal pulses. Heart sounds: Normal heart sounds. No murmur heard. No friction rub. No gallop. Pulmonary: Effort: Pulmonary effort is normal. No respiratory distress. Breath sounds: Normal breath sounds. No stridor. No wheezing, rhonchi or rales. Abdominal: General: Bowel sounds are normal. There is no distension. Palpations: Abdomen is soft. Tenderness: There is no abdominal tenderness. Musculoskeletal: Cervical back: Normal range of motion and neck supple. Comments: The right upper extremity is in a sling. Radial pulse 2+. Brisk capillary refill. Full sensation. All compartments are soft. No ecchymosis or edema. No erythema. Surgical incisions are healed. Tenderness to palpation to the entire shoulder joint. No deformity. Range of motion not tested due to postoperative state and pain. Lymphadenopathy: Cervical: No cervical adenopathy. Skin: General: Skin is warm and dry. Capillary Refill: Capillary refill takes less than 2 seconds. Findings: No rash. Neurological: Mental Status: She is alert and oriented to person, place, and time. Procedures Radiology/EKG/Labs: Results for orders placed or performed during the hospital encounter of 04/29/25 XR SHOULDER RIGHT 3 VIEWS Narrative XR SHOULDER RIGHT 3 VIEWS, 04/29/2025 2:01 AM CLINICAL HISTORY: -shoulder pain COMPARISON: None. PROCEDURE COMMENTS: Routine views. FINDINGS: The glenohumeral and acromioclavicular joints are congruent. There is no fracture. Joint spaces overall well-maintained for age. No periostitis. Impression No acute bony abnormality of the shoulder. - Note: Radiology results need to be interpreted within a comprehensive clinical context. If you have questions about the radiology report, please contact the office of the ordering clinician. ED Course: Appropriate laboratory and radiology studies reviewed Patient is well-appearing and in no distress upon arrival to the emergency department. She is hemodynamically stable and afebrile. Patient presents for evaluation of the above complaint. She has reproducible pain on exam. The right upper extremity is otherwise reassuring in appearance with soft compartments. No evidence of any infectious process. Given reproducibility of pain I have no concern for thromboembolic event. An x-ray is obtained and shows no acute osseous abnormality. Patient is given injection of Toradol, morphine, Zofran for symptomatic control. Patient has follow-up appointment with her orthopedic surgeon in the morning. At this time I have no concern for any emergent or life-threatening process. She is stable for discharge with outpatient management. Return precautions are given. Patient verbalizes understanding. I recommended [id number] Tylenol ibuprofen for pain control as directed. ED Clinical Impression: 1. Acute pain of right shoulder Critical Care time MDM Medical Decision Making Condition at Discharge/Transfer from Department: Stable This chart was completed using voice recognition technology and may contain unintended errors Kari Bright NP 04/29/25 0228 Cosigned by Alli Arana MD at 2025 5:34 AM EDT Associated attestation - Alli Arana MD - 2025 5:34 AM EDT Alli Arana MD Agree and Attest with JANEEN note I have provided medical decision making guidance while the patient was in the emergency department.I have reviewed [facility] diagnostic studies including lab data and imaging obtained while patient in theemergency department. I have discussed the treatment holliday with the JANEEN. I have been an active participant in the medical decision making of this patient. I have been present and available at all times while the patient was being evaluated in the ER his patient was seen in coordination with the JANEEN. No orders to display XR SHOULDER RIGHT 3 VIEWS Final Result XR SHOULDER RIGHT 3 VIEWS, 04/29/2025 2:01 AM CLINICAL HISTORY: -shoulder pain COMPARISON: None. PROCEDURE COMMENTS: Routine views. FINDINGS: The glenohumeral and acromioclavicular joints are congruent. There is no fracture. Joint spaces overall well-maintained for age. No periostitis. IMPRESSION: No acute bony abnormality of the shoulder. - Note: Radiology results need to be interpreted within a comprehensive clinical context. If you have questions about the radiology report, please contact the office of the ordering clinician. Labs Reviewed - No data to display Impression: 1. Acute pain of right shoulder This chart was completed using voice recognition technology and may contain unintended errors documented in this encounter Plan of Treatment Not on file documented as of this encounter Procedures Procedure Name Priority Date/Time Associated Diagnosis Comments XR SHOULDER RIGHT 3 VIEWS GABRIELA 04/29/2025 2:01 AM EDT documented in this encounter Results * XR SHOULDER RIGHT 3 VIEWS (04/29/2025 2:01 AM EDT) Anatomical Region Laterality Modality Shoulder Radiographic Megan ging 04/29/2025 2:01 AM EDT Impressions 04/29/2025 2:07 AM EDT No acute bony abnormality of the shoulder. - Note: Radiology results need to be interpreted within a comprehensive clinical context. If you have questions about the radiology report, please contact the office of the ordering clinician. Narrative 04/29/2025 2:07 AM EDT XR SHOULDER RIGHT 3 VIEWS, 04/29/2025 2:01 AM CLINICAL HISTORY: -shoulder pain COMPARISON: None. PROCEDURE COMMENTS: Routine views. FINDINGS: The glenohumeral and acromioclavicular joints are congruent. There is no fracture. Joint spaces overall well-maintained for age. No periostitis. Procedure Note Ti Davis MD - 04/29/2025 XR SHOULDER RIGHT 3 VIEWS, 04/29/2025 2:01 AM CLINICAL HISTORY: -shoulder pain COMPARISON: None. PROCEDURE COMMENTS: Routine views. FINDINGS: The glenohumeral and acromioclavicular joints are congruent.There is no fracture. Joint spaces overall well-maintained for age. No periostitis. IMPRESSION: No acute bony abnormality of the shoulder. - Note: Radiology results need to be interpreted within a comprehensiveclinical context. If you have questions about the radiology report, please contactthe office of the ordering clinician. Kari Bright CLIENT ACCOUNT REPRESENTATIVE IMG DIAGNOSTIC IMAGING ORDERA BLES Final Result documented in this encounter Visit Diagnoses Diagnosis Acute pain of right shoulder- Primary documented in this encounter Administered Medications Inactive Administered Medications - up to 1 most recent administrations Medication Order MAR Action Action Date Dose Rate Site ketorolac (TORADOL) injection 60 mg 60 mg, Intramuscular, ONCE, 1 dose, On Sun04/29/25 at 0200, For IM Administration: Give undiluted, slowly and deeply into the muscle. Given 04/29/2025 2:02 AM EDT 60 mg Left upper gluteus morphine injection 8 mg 8 mg, Intramuscular, ONCE, 1 dose, On Sun04/29/25 at 0200 Given 04/29/2025 2:01 AM EDT 8 mg Left Arm ondansetron (ZOFRAN) injection 4 mg 4 mg, Intramuscular, ONCE, 1 dose, On Sun04/29/25 at 0200 Given 04/29/2025 2:02 AM EDT 4 mg Right upper gluteus documented in this encounter Active and Recently Administered Medications Times are shown in EDT. Scheduled Medication Order 04/27/2025 04/28/2025 04/29/2025 ketorolac (TORADOL) injection 60 mg (COMPLETED) 60 mg, Intramuscular, ONCE, 1 dose, On Sun04/29/25 at 0200, For IM Administration: Give undiluted, slowly and deeply into the muscle. 020 (Given - Provid er: Shan Tejeda RN) morphine injection 8 mg (COMPLETED) 8 mg, Intramuscular, ONCE, 1 dose, On Sun04/29/25 at 0200 0201 (Given - Provid er: Shan Tejeda RN) ondansetron (ZOFRAN) injection 4 mg (COMPLETED) 4 mg, Intramuscular, ONCE, 1 dose, On Sun04/29/25 at 0200 0202 (Given - Provid er: Shan Tejeda RN) documented in this encounter Care Teams Handbag Operator Relationship Specialty Start Date End Date Anh Kruse APRN [address] [address] PCP - General 07/09/24 documented as of this encounter
--- OUTSIDE RECORDS SUMMARY | 2025-05-19 09:01 | XMS_ITS | Encounter Summary ---
Author Organization [employer] ([place], [place], [place], [place]) Address [address] [place] [address] Care Team Providers Care Steel Hanger Name Role Phone Unavailable Primary Care Provider Unavailabl e Encounter Details Date Type Department Care Team (Late st Contact Info) Description 09/19/2021 Transcribed Document [facility] [place] Medicine [facility] [place] [address] ProviderNaveen MD [address] [place] [address] Social History Tobacco Use Types [...] - Historical ProviderMD - 09/19/2021 1:11 PM MECHANICAL ENGINEERING INTERN ED Triage Entered On: 09/19/2021 13:55 EST Performed On: 09/19/2021 13:49 EST by India Betancur RN ED Triage Across the Room Chief Complaint : L groin pain x 1 week, saw PCP, sched for US r/t inguinal hernia. Now L lower back pain, seen at [place] - dx c sciatica. No BM x 3 days, abdominal swelling, straining to pee. States now becoming numb from B/L feet up BLE. PCP advised to come to ED. Triage Date/Time : 09/19/2021 13:49 EST India Betancur RN - 09/19/2021 13:49 EST DCP GENERIC CODE Tracking Acuity : 3 - Urgent Tracking Group : [facility] ED India Betancur RN - 09/19/2021 13:49 [...] PNED ; Probability: 0 ; Diagnosis Code: [id number] Dysuria Date: 09/19/2021 ; Diagnosis Type: Reason For Visit ; Confirmation: Complaint of ; Clinical Dx: Dysuria ; Classification: Medical ; Clinical Service: Non-Specified ; Code: PNED ; Probability: 0 ; Diagnosis Code: [id number] ED Height and Weight Height Source : Stated Height Entry Format : [place] Height, Feet : 5 ft(Converted to: 152 cm, 60 Inch) Height, Inches : 6 Inch(Converted to: 0 ft 6 Inch, 15.24 cm) Clinical Height : 167.64 cm Weight Source, ED : Critical estimated dosing weight Weight Entry Format : [place] Weight, Pounds : 225 lb Clinical Dosing Weight : 102.27 kg Body Surface Area (BSA) : 2.1 m2 Body Mass Index : 36.4 kg/m2 (HI) [place] Body Weight (IBW) : 58.88 kg [place] [...] version of the form. Electronically signed by Bettie Ortega Conversion Robotics Application Engineer Cerner at 02/04/2023 9:51 AM CDT documented in this encounter Plan of Treatment Not on file documented as of this encounter Visit Diagnoses Not on filedocumented in this encounter
--- OUTSIDE RECORDS SUMMARY | 2025-05-19 09:01 | XMS_ITS | Encounter Summary ---
Author Organization [employer] ([place], [place], [place], [place]) Address [address] [place] [address] Care Team Providers Care Addiction Specialist Name Role Phone Unavailable Primary Care Provider Unavailabl e Encounter Details Date Type Department Care Team (Late st Contact Info) Description 09/19/2021 Transcribed Document [facility] [place] [facility] [place] [address] ProviderNaveen MD [address] [place] [address] Social History Tobacco Use Types Packs/Day [...] - Naveen ProviderMD - 09/19/2021 6:47 PM CLAIMS SUPPORT SPECIALIST Patient: TRICE TRAN Age: 41 years Sex: [...] Now L lower back pain, seen at [place] - c sciatica. No BM x 3 [...] up with about tomorrow with pulmonology in [place], had an outpatient chest CT scan. . [...] EST Height Source Stated Height Entry Format [place] Height/Length, WALLISIAN (ft) 5 ft Height/Length WALLISIAN 6 Inch CLINICALHEIGHT 167.64 cm [place] Body Weight 58.88 kg Weight Source, ED Critical estimated dosing weight Weight Entry Format [place] Weight Nigerian lb 225 lb CLINICALWEIGHT 102.27 kg Body [...] % 27.9 % Lymph # 3.15 x10(3)/uL [place] % 7.5 % [place] # 0.85 K/uL Eos % 1.5 % Eos # 0.17 x10(3)/uL Baso % 0.7 % Baso # 0.08 x10(3)/uL Slide Review No IG# 0.04 x10(3)/uL IG% 0.40 % Urine Type. U CleanCatch Urine Color Yellow Urine Appearance Cloudy Urine Specific [place] 1.011 Urine pH Dipstick *8.0 Urine Leukocyte [...] Radiology results: Radiology Results (Last 48 hours) [id number] -- 09/19/2021 13:11 CT Abdomen Pelvis W [...] 21:02 EST, Discharge to: Home. Prescriptions: Prescription [facility]: cyclobenzaprine 10 mg oral tablet (Prescribe): 1 Tab, Oral, TID, for 5 Day(s), PRN: as needed for spasm, 15 Tab, 0 Refill(s). Patient was given the following educational materials: Radicular Pain. Follow up with: UNKNOWN PHY Within 2 to 3 days Follow up with your branch billing payroll clerk as scheduled tomorrow. Take medications as prescribed along with your pain medication at home. Return to ED if symptoms worsen., UNKNOWN PHY Within 2 to 3 days Follow up with your branch billing payroll clerk as scheduled tomorrow. Take medications as prescribed along with your pain medication at home. Return to ED if symptoms worsen.. Counseled: Patient, Regarding diagnosis, Regarding diagnostic results, Regarding treatment plan, Patient indicated understanding of instructions. Notes: I certify that the Physician Print Line Operator performed the services as delegated. I agree with the assessment, treatment plan and disposition of the patient as recorded by the Physician Print Line Operator. This document was created with arGEN-Xation software and unidentified licensing court magistrate errors may be present.. . documented in this encounter Plan of Treatment Not on file documented as of this encounter Visit Diagnoses Not on filedocumented in this encounter
--- OUTSIDE RECORDS SUMMARY | 2025-05-19 09:01 | XMS_ITS | Encounter Summary ---
Author Organization [facility] ([place], [place], [place], [place]) Address [address] [place] [address] Care Team Providers Care Head Of English Name Role Phone Unavailable Primary Care Provider Unavailabl e Encounter Details Date Type Department Care Team (Late st Contact Info) Description 09/19/2021 Transcribed Document [facility] [place] [address] [place] [address] ProviderNaveen MD [address] [place] [address] Social History Tobacco Use Types [...] - Historical ProviderMD - 09/19/2021 1:11 PM PRODUCT ARCHITECT ED Assessment Entered On: 09/19/2021 16:17 EST Performed On: 09/19/2021 15:00 EST by India Betancur RN ED Quick Look Assessment Level of Consciousness : Alert, Awake Affect/Behavior : Appropriate, Calm, Cooperative Orientation : Oriented x 4 India Betancur RN - 09/19/2021 16:15 EST ED General-Functional Assess Communication Barrier : None Primary Language : Mexican Any Spiritual/Cultural Needs or Requests : No Currently in Unsafe Situation : No India Betancur RN - 09/19/2021 16:15 EST Social Habits Smoking Status : Never (less than 100 in lifetime; none in last 30 days) Smokeless Tobacco Status : Never Desires Tobacco Cessation Calc : 0 India Betancur RN - 09/19/2021 16:15 EST [...] Betancur RN - 09/19/2021 16:15 EST] ) Indai Betancur RN - 09/19/2021 16:15 EST Musculoskeletal [...]
--- OUTSIDE RECORDS SUMMARY | 2025-05-19 09:01 | XMS_ITS | Encounter Summary ---
Author Organization [employer] ([place], [place], [place], [place]) Address [address] [place] [address] Care Team Providers Care Hand Molder Name Role Phone Unavailable Primary Care Provider Unavailabl e Encounter Details Date Type Department Care Team (Late st Contact Info) Description 09/19/2021 Transcribed Document [facility] [facility] [place] [facility] [place] [address] ProviderNaveen MD [facility] [place] [address] Social History Tobacco Use Types [...] - Historical ProviderMD - 09/19/2021 9:04 PM TECHNICAL PROGRAMS MANAGER ED Discharge Entered On: 09/19/2021 21:04 EST [...] - 09/19/2021 21:04 EST Electronically signed by [facility] Conversion Ship Joiner Cerner at 02/04/2023 10:00 AM CDT documented in this encounter Plan of Treatment Not on file documented as of this encounter Visit Diagnoses Not on filedocumented in this encounter
--- OUTSIDE RECORDS SUMMARY | 2025-05-19 09:01 | XMS_ITS | Encounter Summary ---
Author Organization [employer] ([place], [place], [place], [place]) Address [address] [place] [address] Care Team Providers Care Professor Of Early Childhood Education Name Role Phone Unavailable Primary Care Provider Unavailabl e Encounter Details Date Type Department Care Team (Late st Contact Info) Description 09/19/2021 Transcribed Document [facility] [place] [facility] [place] [address] ProviderNaveen MD [address] [place] [address] Social History Tobacco Use Types [...] - Historical ProviderMD - 09/19/2021 9:01 PM CREDIT COUNSELOR Electronically signed by [facility] Conversion Family Readiness Support Assistant Cerner at 02/04/2023 9:58 AM CDT documented in this encounter Plan of Treatment Not on file documented as of this encounter Visit Diagnoses Not on filedocumented in this encounter
--- OUTSIDE RECORDS SUMMARY | 2025-05-19 09:02 | XMS_ITS | Clinical Summary ---
Author Organization [employer] ([place], [place], [place], [place]) Address [address] [place] [address] Care Team Providers Care Vice President Payment Name Role Phone Unavailable Primary Care Provider [...] Date Raymond rded Speak language other than Congolese at home Not on file 11/09/2023 Want [...]
--- OUTSIDE RECORDS SUMMARY | 2025-05-19 09:02 | XMS_ITS | Clinical Summary ---
Author Organization [facility] Address [address] [facility] [address] [place] [address] Phone Care Team Providers Care Counter Manager Name Role Phone Anh Kruse APRN Primary [...] EDT - 04/29/2025 2:34 AM EDT Emergency [place] [facility] [place] [address] Alli Arana MD Acute pain of [...] Final Result from Last 3 Months Insurance [facility] [id number] Care Teams Counter Manager Relationship Specialty Start Date End Date Anh Kruse APRN [address] [facility] [address] [place] [phone] PCP - General 07/09/24
--- OUTSIDE RECORDS SUMMARY | 2025-05-19 09:02 | XMS_ITS | Referral Summary ---
Author Organization [employer] ([place], [place], [place], [place]) Address [address] [place] [address] Care Team Providers Care Business Trainer Name Role Phone Unavailable Primary Care Provider [...] Date Raymond rded Speak language other than Hungarian at home Not on file 11/09/2023 Want [...]
--- OUTSIDE RECORDS SUMMARY | 2025-05-19 09:02 | XMS_ITS | Data Portability ---
Author Organization [place] [facility] [place] [facility] ADMIN Address [address] [place] [id number] Care Team Providers Care Home Appliance Technician Name Role Phone SANDRINE DILLARD Primary Care Provider Assessment Encounter Date Assessment Date Assessment LastModified by Organization Details LastModified Time 05/05/2024 05/05/2024 Ms. Tran was referred by Dr. Dillard for management of chronic low back pain. The patient denies DM, history of infection, or anti-coagulant use. The patient has history of alcohol/drug abuse. Based on the patient's history and physical exam, it appears her pain is likely associated with lumbar stenosis/DDD and myofascial pain. I discussed performing a LEI L5-S1, but the patient wishes to hold off as her pain is manageable at this time and has resolved other than persistent muscle spasms. I have reviewed the patient's lumbar x-ray showing mild diffuse DDD with endplate spurring. As the patient's pain is manageable at this time, I will hold off on LEI. In the meantime, I will start the patient on Cyclobenzaprine 10mg once daily for 2 weeks. I advised the patient that if her pain is to return, she can make an appointment to discuss treatment. The plan will be to proceed with LEI L5-S1 at that time. -- I have discussed in great detail our potential treatment options which would include a rehabilitative approach to care. This program would include medication management, Physical Therapy, consideration for interventional procedures as appropriate, and lifestyle modification (diet, weight loss, exercise, smoking/tobacco cessation, holistic approach including meditation and yoga). The patient understands and agrees prior to proceeding with this plan. _ __ __ __ __ __ __ __ __ __ __ __ __ __ __ __ __ __ __ __ __ __ __ __ __ __ __ __ _ RECORDS REVIEW: As per clinic policy, we will have the patient sign a release to obtain previous imaging and clinical notes. - PROCEDURE: I counseled the patient extensively and informed of the risks of the procedure, including the risk of paralysis, nerve damage, respiratory arrest, arrhythmias, stroke, weakness, and infection, which although very low, could result in or disability. The patient acknowledged to me that they understand and accept these risks. RN EDUCATION Extensive coordination of care provided by RN to educate patient on upcoming procedure and to coordinate obtaining extensive incoming medical records. _ __ __ __ __ __ __ __ __ __ __ __ __ __ __ __ __ __ __ __ __ __ __ __ __ __ __ __ _ PSYCH: Pain affecting Neuro-psych behavior was discussed. Discussed about pain psychological counseling as a part of the multimodal approach to pain treatment. _ __ __ __ __ __ __ __ __ __ __ __ __ __ __ __ __ __ __ __ __ __ __ __ __ __ __ __ _ REHABILITATION: Discussed with the patient the importance of diet, daily physical activity and PT. Discussed with the patient the need to be scheduled for physical therapy since physical therapy will prolong the benefits of the procedure and interventions. _ __ __ __ __ __ __ __ __ __ __ __ __ __ __ __ __ __ __ __ __ __ __ __ __ __ __ __ _ FABI: [id number] I have reviewed patient's FABI report prior to prescribing Schedule II, III, and IV medications that require review by law. [email or web address] Not available 05/06/2024 07:48:15 Plan of Treatment Reminders Order Date Submit Date Provider Last Modified By Organization Details Last Modified Time Details Appointments None maya adams Lab TSH + free T4, serum [email or web address] (Laboratory), [address], [place], [address], 5 07:43:34 noninva sive colorec rubin cancer DNA + occult blood screeni ng, QL, stool 2024 025 [email or web address] (Cologuard Orders Only), [address], [address], [place], [address], 5 07:43:34 hemoglo bin A1c + average glucose , QN, blood 2024 025 [facility] (Laboratory), [address], [place], [address], 5 07:48:04 CBC w/ auto diff 2024 025 [facility] (Laboratory), [address], [place], [address], 5 16:31:28 rf (rheuma toid factor) + anti-cc p abs, serum 2024 025 [facility] (Laboratory), [address] [place], [address], 5 07:48:04 MARYANN (antinu clear antibod ies) titer + pattern , ifa, serum 2024 [facility] (Laboratory), [address] [place], [address], 5 07:48:04 uric acid, serum or plasma 2024 025 [facility] (Laboratory), [address] [place], [address], 5 16:44:38 ESR (erythr ocyte sedimen tation rate), blood 2024 025 [facility] (Laboratory), [address] [place], [address], 5 17:28:09 C reactiv e protein , QN, serum or plasma 2024 025 [facility] (Laboratory), [address] [place], [address], 5 07:48:04 CBC w/ auto diff 2024 025 [facility] (Laboratory), [address] [place], [address], 5 13:52:27 C-react maddie protein , quantit ative, serum or plasma 2024 025 [facility] (Laboratory), [address] [place], [address], 5 14:22:38 ESR (erythr ocyte sedimen tation rate), blood 2024 025 [facility] (Laboratory), [address] [place], [address], 5 15:13:23 CMP, serum or plasma 2024 025 [facility] (Laboratory), [address] [place], [address], 5 14:22:36 lactic acid, venous [email or web address] [place] [address] (Laboratory), [address] [place], [address], 5 07:48:40 D-dimer , quant, plasma 2024 025 [facility] (Laboratory), [address] [place], [address], 5 14:03:39 Referral pain managem ent referra l 2023 024 LOUISE Adriel Hsu, [address], [place], [address], 4 08:37:32 Procedures None recorde d. Surgeries None recorde d. Imaging MAMMO, screeni ng, digital , bilater al 2024 025 [facility] (Scheduling), [address] [place], [address], 5 11:19:17 CT, angiogr am, chest, w/ contras t 2024 025 [id number] [facility] (Scheduling), [address] [place], [address], 5 13:48:39 CT, chest, w/ contras t [email or web address] [place] [address] (Scheduling), [address] [place], [address], 5 08:31:54 home sleep study 2024 025 [facility] (Scheduling), [address] , [place], [address], 5 13:51:19 XR, lumbar spine 2023 024 [email or web address] [facility] (Scheduling), [address] [place], [address], 4 11:13:22 Medication Orders Trelegy Ellipta 100 mcg-62. 5 mcg-25 mcg powder for inhalat ion 2024 025 [facility], [address], [address], 5 14:33:39 Wegovy 0.25 mg/0.5 mL subcuta neous pen injecto r 2024 025 [facility], [address], [address], 5 14:33:39 cyclobe nzaprin e 10 mg tablet 2023 025 [facility], [address], [address], 5 11:39:08 dexamet hasone sodium phospha te 4 mg/mL injecti on solutio n 2023 024 [email or web address] Not available 5 11:31:41 triamci nolone acetoni de 40 mg/mL suspens ion for injecti on 2023 024 [email or web address] Not available 5 11:32:26 meloxic am 15 mg tablet 2023 [facility] [address], [address], 4 12:41:47 Patient TargetsNo targets recorded. Patient InstructionsNo instructions recorded. Reason for Referral Pain Management Referral for Lumbar radiculopathy Referring Physician: Sandrine Dillard, Family Medicine, Encounter Date: 04/21/2024 Results Created Date Observation Date Name Description Value Unit Range Abnormal Flag Note LastModifiedBy Organization Detail LastModifiedTime 04/01/2004/01/2025 LACTI C ACID lactic acid 1.3 mmole /L 0.4-2. 0 SPECI MEN WAS NOT DELIV ERED ON ICE Not Available [facility] (Lab Registration) [address], [place], [address], 04/01/2025 13:41:39 04/01/20 25 04/01/2025 LACTI C ACID note Unles s other perez noted testi ng perfo rmed at: [facility] [address] [place] [place] [address] [phone] 00 Todd red MD CLIA: [id number] Not Available [facility] (Lab Registration) [address], [place], [address], 04/01/2025 13:41:39 04/01/20 25 04/01/2025 CBC AUTO W DIFF WBC 14.7 10 4.5-11 .5 high Not Available [facility] (Lab Registration) [address] [place], [address], 04/01/2025 13:52:27 04/01/20 25 04/01/2025 CBC AUTO W DIFF RBC 5.06 10 4.25-5 .57 Not Available [facility] (Lab Registration) [address] [place], [address], 04/01/2025 13:52:27 04/01/20 25 04/01/2025 CBC AUTO W DIFF HGB 15.4 g/dL 12.0-1 5.7 Not Available [facility] (Lab Registration) [address] [place], [address], 04/01/2025 13:52:27 04/01/20 25 04/01/2025 CBC AUTO W DIFF HCT 43.6 % 36.0-4 7.0 Not Available [facility] (Lab Registration) [address] [place], [address], 04/01/2025 13:52:27 04/01/20 25 04/01/2025 CBC AUTO W DIFF MCV 86.2 fL 80-95 Not Available [facility] (Lab Registration) [address] [place], [address], 04/01/2025 13:52:27 04/01/20 25 04/01/2025 CBC AUTO W DIFF MCH 30.4 pg 27.0-3 4.0 Not Available [facility] (Lab Registration) [address] [place], [address], 04/01/2025 13:52:27 04/01/20 25 04/01/2025 CBC AUTO W DIFF MCHC 35.3 g/dL 32.0-3 6.0 Not Available [facility] (Lab Registration) [address] [place], [address], 04/01/2025 13:52:27 04/01/20 25 04/01/2025 CBC AUTO W DIFF platelet count 235 10 150-45 0 Not Available [facility] (Lab Registration) [address] [place], [address], 04/01/2025 13:52:27 04/01/20 25 04/01/2025 CBC AUTO W DIFF RDW 12.2 % 12.3-1 5.1 low Not Available [facility] (Lab Registration) [address] [place], [address], 04/01/2025 13:52:27 04/01/20 25 04/01/2025 CBC AUTO W DIFF MPV 11.0 fL 7.4-10 .4 high Not Available [facility] (Lab Registration) [address] [place], [address], 04/01/2025 13:52:27 04/01/20 25 04/01/2025 CBC AUTO W DIFF granulocyte% 68.0 % 40-75 Not Available [facility] (Lab Registration) [address] [place], [address], 04/01/2025 13:52:27 04/01/20 25 04/01/2025 CBC AUTO W DIFF lymphocyte% 22.0 % 15-57 Not Available [facility] (Lab Registration) [address] [place], [address], 04/01/2025 13:52:27 04/01/20 25 04/01/2025 CBC AUTO W DIFF monocyte% 8.3 % 4.0-12 .0 Not Available [facility] (Lab Registration) [address] [place], [address], 04/01/2025 13:52:27 04/01/20 25 04/01/2025 CBC AUTO W DIFF eosinophil% 1.2 % 0.0-4. 0 Not Available [facility] (Lab Registration) [address] [place], [address], 04/01/2025 13:52:27 04/01/20 25 04/01/2025 CBC AUTO W DIFF basophil% 0.4 % 0.0-1. 0 Not Available [facility] (Lab Registration) [address] [place], [address], 04/01/2025 13:52:27 04/01/20 25 04/01/2025 CBC AUTO W DIFF immature granulocytes % 0.1 % 0.0-0. 8 Not Available [facility] (Lab Registration) [address] [place], [address], 04/01/2025 13:52:27 04/01/20 25 04/01/2025 CBC AUTO W DIFF granulocyte# 9.96 10 Not Available [facility] (Lab Registration) [address] [place], [address], 04/01/2025 13:52:27 04/01/20 25 04/01/2025 CBC AUTO W DIFF lymphocyte# 3.23 10 Not Available [facility] (Lab Registration) [address], [place], [address], 04/01/2025 13:52:27 04/01/20 25 04/01/2025 CBC AUTO W DIFF monocyte# 1.22 10 Not Available [facility] (Lab Registration) [address] [place], [address], 04/01/2025 13:52:27 04/01/20 25 04/01/2025 CBC AUTO W DIFF eosinophil# 0.17 10 Not Available [facility] (Lab Registration) [address] [place], [address], 04/01/2025 13:52:27 04/01/20 25 04/01/2025 CBC AUTO W DIFF basophil# 0.06 10 Not Available [facility] (Lab Registration) [address], [place], [address], 04/01/2025 13:52:27 04/01/20 25 04/01/2025 CBC AUTO W DIFF immature granulocytes # 0.01 10 Not Available [facility] (Lab Registration) [address], [place], [address], 04/01/2025 13:52:27 04/01/20 25 04/01/2025 CBC AUTO W DIFF manual differential NO Not Available [facility] (Lab Registration) [address] [place], [address], 04/01/2025 13:52:27 04/01/20 25 04/01/2025 CBC AUTO W DIFF note Unles s other perez noted testi ng perfo rmed at: [facility] [address] [place] [address] [phone] 00 Todd red MD CLIA: [id number] Not Available [facility] (Lab Registration) [address] [place], [address], 04/01/2025 13:52:27 04/01/20 25 04/01/2025 D-DIM ER QUANT ITATI VE D-dimer quantitative 443 NG/mL 0-500 Not Available [facility] (Lab Registration) [address] [place], [address], 04/01/2025 14:03:38 04/01/20 25 04/01/2025 D-DIM ER QUANT ITATI VE note Unles s other perez noted testi ng perfo rmed at: [facility] [address] [place] [address] [phone] 00 Todd red MD CLIA: [id number] Not Available [facility] (Lab Registration) [address] [place], [address], 04/01/2025 14:03:38 04/01/20 25 04/01/2025 COMP METAB OLIC PANEL sodium 138 mmol/ L 136-14 5 Not Available [facility] (Lab Registration) [address] [place], [address], 04/01/2025 14:22:36 04/01/20 25 04/01/2025 COMP METAB OLIC PANEL potassium 4.3 mmol/ L 3.5-5. 1 Not Available [facility] (Lab Registration) [address] [place], [address], 04/01/2025 14:22:36 04/01/20 25 04/01/2025 COMP METAB OLIC PANEL chloride 101 mmol/ L 98-107 Not Available [facility] (Lab Registration) [address] [place], [address], 04/01/2025 14:22:36 04/01/20 25 04/01/2025 COMP METAB OLIC PANEL carbon dioxide 29 mmol/ L 21-32 Not Available [facility] (Lab Registration) [address] [place], [address], 04/01/2025 14:22:36 04/01/20 25 04/01/2025 COMP METAB OLIC PANEL anion gap 8.0 Not Available [facility] (Lab Registration) [address], [place], [address], 04/01/2025 14:22:36 04/01/20 25 04/01/2025 COMP METAB OLIC PANEL glucose 123 mg/dL 70-110 high Not Available [facility] (Lab Registration) [address], [place], [address], 04/01/2025 14:22:36 04/01/20 25 04/01/2025 COMP METAB OLIC PANEL blood urea nitrogen 14 mg/dL 7-18 Not Available [facility] (Lab Registration) [address], [place], [address], 04/01/2025 14:22:36 04/01/20 25 04/01/2025 COMP METAB OLIC PANEL creatinine 0.6 mg/dL 0.6-1. 0 Not Available [facility] (Lab Registration) [address], [place], [address], 04/01/2025 14:22:36 04/01/20 25 04/01/2025 COMP METAB OLIC PANEL BUN/creatini ne ratio 23.3 9-21 high Not Available [facility] (Lab Registration) [address], [place], [address], 04/01/2025 14:22:36 04/01/20 25 04/01/2025 COMP METAB OLIC PANEL estimated glom filtration rate 113 mL/mi n >60- GFR LIMIT ATION : The eGFR equat ion CKD-E PI 2020 is not appli cable for pedia tric patie nts or great er than 90 years of age. The follo wing condi tions may alter the GFR resul t: extre mes in body size, malnu triti on or obesi ty, skele rubin muscl e disea se, parap legia or quadr ipleg ia, veget bryce diet or rapid ly greenwood ing kiney funct ion. Not Available [facility] (Lab Registration) [address], [place], [address], 04/01/2025 14:22:36 04/01/20 25 04/01/2025 COMP METAB OLIC PANEL osmolality (calculated) 289 mOsm/ kg 275-30 1 OSMOL ALITY IS A CALCU LATIO N UTILI ZING THE SERUM /PLAS MA SODIU M, GLUCO SE AND UREA NITRO GEN (BUN) LEVEL S. FOR THE MOST ACCUR ATE RESUL T A MEASU RED SERUM OSMOL ALITY IS SUGGE STED. Not Available [facility] (Lab Registration) [address], [place], [address], 04/01/2025 14:22:36 04/01/20 25 04/01/2025 COMP METAB OLIC PANEL total protein 7.8 g/dL 6.4-8. 2 Not Available [facility] (Lab Registration) [address], [place], [address], 04/01/2025 14:22:36 04/01/20 25 04/01/2025 COMP METAB OLIC PANEL albumin 3.9 g/dL 3.4-5. 0 Not Available [facility] (Lab Registration) [address], [place], [address], 04/01/2025 14:22:36 04/01/20 25 04/01/2025 COMP METAB OLIC PANEL calcium 9.4 mg/dL 8.5-10 .1 Not Available [facility] (Lab Registration) [address] [place], [address], 04/01/2025 14:22:36 04/01/20 25 04/01/2025 COMP METAB OLIC PANEL corrected calcium 9.5 mg/dL 8.5-10 .1 Not Available [facility] (Lab Registration) [address] [place], [address], 04/01/2025 14:22:36 04/01/20 25 04/01/2025 COMP METAB OLIC PANEL bilirubin total 0.5 mg/dL 0.4-1. 5 Not Available [facility] (Lab Registration) [address] [place], [address], 04/01/2025 14:22:36 04/01/20 25 04/01/2025 COMP METAB OLIC PANEL AST (SGOT) 22 U/L 15-37 Not Available [facility] (Lab Registration) [address] [place], [address], 04/01/2025 14:22:36 04/01/20 25 04/01/2025 COMP METAB OLIC PANEL ALT (SGPT) 26 U/L 12-78 Not Available [facility] (Lab Registration) [address] [place], [address], 04/01/2025 14:22:36 04/01/20 25 04/01/2025 COMP METAB OLIC PANEL alk phosphatase 94 U/L 50-120 Not Available [facility] (Lab Registration) [address] [place], [address], 04/01/2025 14:22:36 04/01/20 25 04/01/2025 COMP METAB OLIC PANEL note Unles s other perez noted testi ng perfo rmed at: [facility] [address] [place] [address] [phone] 00 Todd red MD CLIA: [id number] Not Available [facility] (Lab Registration) [address] [place], [address], 04/01/2025 14:22:36 04/01/20 25 04/01/2025 C-CONNIE CTIVE PROTE IN C-reactive protein, quant 2.40 mg/dL 0.05-0 .300 high Not Available [facility] (Lab Registration) [address] [place], [address], 04/01/2025 14:22:38 04/01/20 25 04/01/2025 C-CONNIE CTIVE PROTE IN note Unles s other perez noted testi ng perfo rmed at: [facility] [address] [place] [address] [phone] 00 Todd red MD CLIA: [id number] Not Available [facility] (Lab Registration) [address] [place], [address], 04/01/2025 14:22:38 04/01/20 25 04/01/2025 SEDIM ENTAT ION RATE sedimentatio n rate 23 mm/HR 0-20 high Not Available [facility] (Lab Registration) [address] [place], [address], 04/01/2025 15:13:23 04/01/20 25 04/01/2025 SEDIM ENTAT ION RATE note Unles s other perez noted testi ng perfo rmed at: [facility] [address] [place] [address] [phone] 00 Todd red MD CLIA: [id number] Not Available [facility] (Lab Registration) [address] [place], [address], 04/01/2025 15:13:23 04/06/20 25 04/06/2025 CBC AUTO W DIFF WBC 11.1 10 4.5-11 .5 Not Available [facility] (Lab Registration) [address] [place], [address], 04/06/2025 16:31:28 04/06/20 25 04/06/2025 CBC AUTO W DIFF RBC 4.91 10 4.25-5 .57 Not Available [facility] (Lab Registration) [address] [place], [address], 04/06/2025 16:31:28 04/06/20 25 04/06/2025 CBC AUTO W DIFF HGB 15.0 g/dL 12.0-1 5.7 Not Available [facility] (Lab Registration) [address] [place], [address], 04/06/2025 16:31:28 04/06/20 25 04/06/2025 CBC AUTO W DIFF HCT 42.1 % 36.0-4 7.0 Not Available [facility] (Lab Registration) [address] [place], [address], 04/06/2025 16:31:28 04/06/20 25 04/06/2025 CBC AUTO W DIFF MCV 85.7 fL 80-95 Not Available [facility] (Lab Registration) [address] [place], [address], 04/06/2025 16:31:28 04/06/20 25 04/06/2025 CBC AUTO W DIFF MCH 30.5 pg 27.0-3 4.0 Not Available [facility] (Lab Registration) [address] [place], [address], 04/06/2025 16:31:28 04/06/20 25 04/06/2025 CBC AUTO W DIFF MCHC 35.6 g/dL 32.0-3 6.0 Not Available [facility] (Lab Registration) [address] [place], [address], 04/06/2025 16:31:28 04/06/20 25 04/06/2025 CBC AUTO W DIFF platelet count 240 10 150-45 0 Not Available [facility] (Lab Registration) [address] [place], [address], 04/06/2025 16:31:28 04/06/20 25 04/06/2025 CBC AUTO W DIFF RDW 12.4 % 12.3-1 5.1 Not Available [facility] (Lab Registration) [address] [place], [address], 04/06/2025 16:31:28 04/06/20 25 04/06/2025 CBC AUTO W DIFF MPV 10.8 fL 7.4-10 .4 high Not Available [facility] (Lab Registration) [address] [place], [address], 04/06/2025 16:31:28 04/06/20 25 04/06/2025 CBC AUTO W DIFF granulocyte% 66.1 % 40-75 Not Available [facility] (Lab Registration) [address] [place], [address], 04/06/2025 16:31:28 04/06/20 25 04/06/2025 CBC AUTO W DIFF lymphocyte% 24.1 % 15-57 Not Available [facility] (Lab Registration) [address] [place], [address], 04/06/2025 16:31:28 04/06/20 25 04/06/2025 CBC AUTO W DIFF monocyte% 7.6 % 4.0-12 .0 Not Available [facility] (Lab Registration) [address] [place], [address], 04/06/2025 16:31:28 04/06/20 25 04/06/2025 CBC AUTO W DIFF eosinophil% 1.6 % 0.0-4. 0 Not Available [facility] (Lab Registration) [address] [place], [address], 04/06/2025 16:31:28 04/06/20 25 04/06/2025 CBC AUTO W DIFF basophil% 0.5 % 0.0-1. 0 Not Available [facility] (Lab Registration) [address] [place], [address], 04/06/2025 16:31:28 04/06/20 25 04/06/2025 CBC AUTO W DIFF immature granulocytes % 0.1 % 0.0-0. 8 Not Available [facility] (Lab Registration) [address] [place], [address], 04/06/2025 16:31:28 04/06/20 25 04/06/2025 CBC AUTO W DIFF granulocyte# 7.35 10 Not Available [facility] (Lab Registration) [address] [place], [address], 04/06/2025 16:31:28 04/06/20 25 04/06/2025 CBC AUTO W DIFF lymphocyte# 2.68 10 Not Available [facility] (Lab Registration) [address] [place], [address], 04/06/2025 16:31:28 04/06/20 25 04/06/2025 CBC AUTO W DIFF monocyte# 0.84 10 Not Available [facility] (Lab Registration) [address] [place], [address], 04/06/2025 16:31:28 04/06/20 25 04/06/2025 CBC AUTO W DIFF eosinophil# 0.18 10 Not Available [facility] (Lab Registration) [address] [place], [address], 04/06/2025 16:31:28 04/06/20 25 04/06/2025 CBC AUTO W DIFF basophil# 0.05 10 Not Available [facility] (Lab Registration) [address] [place], [address], 04/06/2025 16:31:28 04/06/20 25 04/06/2025 CBC AUTO W DIFF immature granulocytes # 0.01 10 Not Available [facility] (Lab Registration) [address] [place], [address], 04/06/2025 16:31:28 04/06/20 25 04/06/2025 CBC AUTO W DIFF manual differential NO Not Available [facility] (Lab Registration) [address] [place], [address], 04/06/2025 16:31:28 04/06/20 25 04/06/2025 CBC AUTO W DIFF note Unles s other perez noted testi ng perfo rmed at: [facility] [address] [place] [address] [phone] 00 Todd red MD CLIA: [id number] Not Available [facility] (Lab Registration) [address], [place], [address], 04/06/2025 16:31:28 04/06/20 25 04/06/2025 C-CONNIE CTIVE PROTE IN C-reactive protein, quant 0.40 mg/dL 0.05-0 .300 high Not Available [facility] (Lab Registration) [address], [place], [address], 04/06/2025 16:44:37 04/06/20 25 04/06/2025 C-CONNIE CTIVE PROTE IN note Unles s other perez noted testi ng perfo rmed at: [facility] [address] [place] [address] [phone] Todd red MD CLIA: [id number] Not Available [facility] (Lab Registration) [address], [place], [address], 04/06/2025 16:44:37 04/06/20 25 04/06/2025 URIC ACID uric acid 4.3 mg/dL 2.2-7. 7 Not Available [facility] (Lab Registration) [address] [place], [address], 04/06/2025 16:44:38 04/06/20 25 04/06/2025 URIC ACID note Unles s other perez noted testi ng perfo rmed at: [facility] [address] [place] [address] [phone] Todd red MD CLIA: [id number] Not Available [facility] (Lab Registration) [address] [place], [address], 04/06/2025 16:44:38 04/06/20 25 04/06/2025 SEDIM ENTAT ION RATE sedimentatio n rate 14 mm/HR 0-20 Not Available [facility] (Lab Registration) [address] [place], [address], 04/06/2025 17:28:09 04/06/20 25 04/06/2025 SEDIM ENTAT ION RATE note Unles s other perez noted testi ng perfo rmed at: [facility] [place] [address] [phone] Todd red MD CLIA: [id number] Not Available [facility] (Lab Registration) [address] [place], [address], 04/06/2025 17:28:09 04/06/20 25 04/06/2025 HEMOG LOBIN A1C glycosylated hemoglobin A1C 5.5 % 4.5-6. 2 Not Available [facility] (Lab Registration) [address] [place], [address], 04/06/2025 17:38:13 04/06/20 25 04/06/2025 HEMOG LOBIN A1C estimated average glucose 111 mg/dL 82-131 Not Available [facility] (Lab Registration) [address] [place], [address], 04/06/2025 17:38:13 04/06/20 25 04/06/2025 HEMOG LOBIN A1C note Unles s other perez noted testi ng perfo rmed at: [facility] [place] [address] [phone] Todd red MD CLIA: [id number] Not Available [facility] (Lab Registration) [address] [place], [address], 04/06/2025 17:38:13 04/06/20 25 04/06/2025 RHEUM ATOID FACTO R QUAL note Unles s other perez noted testi ng perfo rmed at: [facility] [place] [address] [phone] Todd red MD CLIA: [id number] Not Available [facility] (Lab Registration) [address] [place], [address], 04/07/2025 12:11:58 04/06/20 25 04/07/2025 RHEUM ATOID FACTO R QUAL RA latex turbid. <10.0 IU/mL -<14.0 Perfo rmed at: [facility] [address] [employer] [facility], [place], [place] [id number] Lab Direc tor: Eugene dempsey PhD, Phone : [phone] Not Available [facility] (Lab Registration) [address] [place], [address], 04/07/2025 12:11:58 04/06/20 25 04/06/2025 CCP AB note Unles s other perez noted testi ng perfo rmed at: [facility] [address] [place] [address] [phone] Todd red MD CLIA: [id number] Not Available [facility] (Lab Registration) [address] [place], [address], 04/07/2025 15:11:39 04/06/20 25 04/07/2025 CCP AB ccp antibodies IgG/IgA 13 units 0-19 Negat maddie <20 Weak posit maddie 20 - 39 Moder ate posit maddie 40 - 59 Stron g posit maddie >59 Perfo rmed at: [facility] [address], [place] [address] Lab Direc tor: Eugene dempsey PhD, Phone : [phone] Not Available [facility] (Lab Registration) [address] [place], [address], 04/07/2025 15:11:39 04/06/20 04/06/2025 MARYANN TITER BY IFA note Unles s other perez noted testi ng perfo rmed at: [facility] [place], [place] [id number] [phone] Todd red MD CLIA: [id number] Not Available [facility] (Lab Registration) [address] [place], [address], 04/08/2025 12:13:44 04/06/20 25 04/08/2025 MARYANN TITER BY IFA MARYANN titer Negati ve Negat maddie <1:80 Borde rline 1:80 Posit maddie >1:80 ICAP nomen karen re: AC-0 For more infor ashvin patterson about Hep-2 cell patte rns use ANApa ttern s.org , the offic ial websi te for the Inter natio nal Conse nsus on Antin uclea r Antib derrick (MARYANN) Patte rns (ICAP ). Perfo rmed at: [facility] [address] [id number] Lab Direc tor: Eugene dempsey PhD, Phone : [phone] Not Available [facility] (Lab Registration) [address] [place], [address], 04/08/2025 12:13:44 04/21/20 25 04/21/2025 THYRO ID STIMU LATIN G HORMO NE thyroid stimulating hormone 1.82 mIU/m L 0.34-4 .80 Not Available [facility] (Lab Registration) [address] [place], [address], 04/21/2025 16:59:23 04/21/20 25 04/21/2025 THYRO ID STIMU LATIN G HORMO NE note Unles s other perez noted testi ng perfo rmed at: [facility] [place], [place] [address] [phone] Todd red MD CLIA: [id number] Not Available [facility] (Lab Registration) [address] [place], [address], 04/21/2025 16:59:23 04/21/20 25 04/21/2025 T4 FREE T4,free 1.20 NG/dL 0.76-1 .46 Effec tive today 013 new Refer ence Range . Not Available [facility] (Lab Registration) [address] [place], [address], 04/21/2025 16:59:24 04/21/20 25 04/21/2025 T4 FREE note Unles s other perez noted testi ng perfo rmed at: [facility] [address] [place] [address] [phone] Todd red MD CLIA: [id number] Not Available [facility] (Lab Registration) [address] [place], [address], 04/21/2025 16:59:24 04/21/20 24 04/21/2024 XR, lumbo sacra l spine , 2 or 3 view [facility] 9 [facility] [place] [address] Phone: Fax: Name: TRICE GRAYSON Exam Date: 04/21/20 : [birth year] Age 43 years Gender : F Access ion: [id number] Physic bradly: AMBURG EY, TAFFAN Y Facili ty: [facility] Facili ty HSV: Outpat ient Exam: LUMBAR 2 TO 3V LUMBAR SPINE, 3 views HISTOR Y: Back pain FINDIN GS: No fractu re is identi fied. Mild diffus e degene rative disc diseas e with endpla te spurri ng is presen t. Alignm ent is normal . IMPRES SHANNON: Mild degene rative change s Dictat ed By: JOSH PINEDO Transc ribed By: JOSH PINEDO Transc ribed On: 7/1/20 24 4:37 PM Electr onical ly signed by: JOSH PINEDO 04/21/20 [facility] Legall y authen ticate d by KHRIS REYNA MD 04-21 16:37: 15 CC'ed Logic: Orderi ng Provid er: AMBURG EY TAFFAN Y CC Provid er: AMBURG EY TAFFAN Y Attend ing Provid er: AMBURG EY TAFFAN Y Referr ing Provid er: AMBURG EY TAFFAN Y Admitt ing Provid er: AMBURG EY TAFFAN Y [email or web address] [facility] (Radiology) [address] , [place], [address], 04/22/2024 11:47:40 04/27/20 24 04/27/2024 XR, foot No observ ation record ed. [facility] [address], [place], [address], 04/29/2024 12:09:15 07/10/20 24 07/10/2024 imagi ng inter preta tion No observ ation record ed. [address], [place], [place], [address], 07/11/2024 08:11:35 07/10/20 24 07/07/2024 imagi ng inter preta tion No observ ation record ed. [address], [place], [place], [address], 07/11/2024 08:11:27 07/11/20 24 07/07/2024 imagi ng inter preta tion No observ ation record ed. [address], [place], [address], 07/11/2024 08:11:11 07/11/20 24 07/10/2024 imagi ng inter preta tion No observ ation record ed. [address], [place], [address], 07/11/2024 08:11:07 08/29/20 24 08/29/2024 US, abdom en No observ ation record ed. [facility] [address], [place], [address], 08/29/2024 13:03:39 08/29/20 24 08/29/2024 imagi ng inter preta tion No observ ation record ed. [facility] [address], [place], [address], 09/01/2024 09:00:54 03/13/20 25 03/13/2025 XR, chest , 2 view No observ ation record ed. [facility] [address], [place], [address], 03/13/2025 16:17:57 03/20/20 25 03/20/2025 XR, chest , 2 view No observ ation record ed. [facility] [address], [place], [address], 03/22/2025 20:20:21 03/25/20 25 03/25/2025 XR, chest , 2 view No observ ation record ed. [facility] [address], [place], [address], 03/25/2025 14:08:15 03/27/20 25 03/26/2025 imagi ng inter preta tion No observ ation record ed. [address], [place], [address], 03/27/2025 10:59:48 03/27/20 25 03/26/2025 imagi ng inter preta tion No observ ation record ed. [email or web address], [place], [address], 03/27/2025 10:59:28 04/07/20 25 04/06/2025 XR, chest , 2 view [facility] [address] [place], [place] [address] Phone: Fax: Name: DONNIE SAINI TRICE Exam Date: : [birth year] Age 44 years Gender : F Access ion: [id number] Physic bradly: AMBURG EY, TAFFAN Y [facility]ili [facility] Facili ty HSV: Outpat ient Exam: CHEST PA ^ LAT EXAM DESCRI PTION: XR CHEST 2 VIEWS CLINIC AL INDICA TION: SOA COMPAR BERYL: February 07, 2021 Radiog raph Chest 2 Views. TECHNI QUE: Two view radiog raph of the chest was obtain ed. FINDIN GS: The heart size is normal . The pulmon wes vascul ature is normal . Right basila r infilt rate. No pneumo thorax or pleura l effusi on. No acute osseou s or soft tissue abnorm ality. IMPRES SHANNON: Right basila r infilt rate concer heriberto for pneumo renay. Electr onical ly signed by: Ross prado MD 2024 02:46 PM EDT RP Workst ation: [id number] Dictat ed By: Ross Pat Transc ribed By: Transc ribed On: 3:35 PM Electr onical ly signed by: Ross Pat Thank you for referr ing TRICE GRAYSON to [facility]. Legall y authen ticate d by NANCY REILLY MD 2024-04-06 15:35: 14 CC'ed Logic: Orderi ng Provid er: AMBURG EY TAFFAN Y CC Provid er: AMBURG EY TAFFAN Y Attend ing Provid er: AMBURG EY TAFFAN Y Referr ing Provid er: AMBURG EY TAFFAN Y Admitt ing Provid er: AMBURG EY TAFFAN Y [email or web address] [facility] (Radiology) [address] [place], [address], 04/08/2025 10:36:29 04/20/20 25 04/13/2025 CT, chest , w/ contr ast [facility] 9 [facility] [place] [address] Phone: Fax: Name: TRICE GRAYSON Exam Date: 025 : [birth year] Age 44 years Gender : F Access ion: [id number] Physic bradly: CESAR GARRISON Facili ty: [facility] Facili ty HSV: Outpat ient Exam: CT CHEST WITH CONTRA ST CT examin ation of the chest perfor med obtain ed transa xially from the thorac ic inlet throug h to the upper abdome n follow ing the admini strati on of intrav enous contra st. Automa omid exposu re contro l, adjust ment of the mA and/or kV accord ing to patien t size, and/or iterat maddie recons tructi on. Unless otherw ise specif ied, incide ntal findin gs do not requir e dedica omid imagin g follow -up. [id number] . CLINIC AL INDICA TION: Female , 44 years old. Shortn ess of breat COMPAR BERYL: Chest x-ray dated April 06, 2025, CT chest dated ry 2022 and Octobe r 2020 Findin gs: Thorac ic inlet: Intact . Medias tinum, prisca, and axilla : There is no signif icant adenop athy. Aorta: There is no aneury sm or dissec tion. Pulmon wes arteri es: There is no centra l pulmon wes embolu s. Heart: Normal size. There is no perica rdial effusi on. There are no sizabl e yarbrough ry calcif icatio ns identi fied. Pleura : There is no pleura l effusi on. Lung parenc hyma: There are severa l stable scatte red nodule s includ ing a 1.3 cm partia lly calcif ied subple ural right lower lung nodule . Other smalle r stable right lower lung nodule s are also presen t. There is no new lung nodule . Osseou s struct ures: There is no visibl e lytic or blasti c lesion . Visual ized portio ns of the upper abdome n: Unrema rkable . Impres shannon: No acute cardio pulmon wes proces s. Stable benign pulmon wes nodule s. No furthe r workup is requir ed. Electr onical ly signed by: Nancy Thompson MD 2024 02:20 PM EDT RP Workst ation: [id number] Dictat ed By: NANCY THOMPSON Transc ribed By: Transc ribed On: 025 11:08 AM Electr onical ly signed by: NANCY THOMPSNO Y 025 Thank you [facility] Legall y authen ticate d by SAHARA Mcfadden MD 2024-04-13 11:08: 00 CC'ed Logic: Orderi ng Provid er: AMBURG EY TAFMORENA Y CC Provid er: AMBURG DYLON GREEN Y Attend ing Provid er: AMBURG EY TAFFAN Y Referr ing Provid er: YESSENIA Rutledge Admitt ing Provid er: AMBURG DYLON GREEN Y [email or web address] [facility] (Radiology) [address] [place], [address], 04/21/2025 10:40:34 04/28/20 25 04/13/2025 home sleep study No observ ation record ed. [facility] (Sleep Lab) [address] [place], [address], 04/30/2025 09:25:02 05/06/20 25 05/06/2025 MAMMO pamela, neno al, bilat eral [facility] 9 [facility] [place] [address] Phone: Fax: Name: TRICE GRAYSON Exam Date: 025 : [birth year] Age 45 years Gender : F Access ion: [id number] Physic bradly: MAGGY EY, TAFMORENA Y Facili ty: [place] Facili ty HSV: Outpat ient Exam: NATIVIDAD SCREEN MAMMO W CAD BILAT Exam: 3-D screen ing mammog praveen includ ing tomosy nthesi s and CAD (Compu ter Assist ed Detect ion). Clinic al indica tion: Asympt omatic screen ing exam Compar beryl: Exams to 2019 TECHNI QUE: Routin e bilate ral 2D screen ing mammog raman with CC and MLO views obtain ed. 3-D tomosy nthesi s and Comput er assist ed detect ion were utiliz ed for this exam. BREAST DENSIT Y: There are scatte red areas of fibrog landul ar densit y FINDIN GS: No suspic ious mass, mckenna ectura l distor tion, or suspic ious calcif icatio ns are presen t. IMPRES SHANNON: No eviden ce of malign scooby in either breast Recomm endati on: Annual screen ing mammog praveen recomm ended in one year The result s of this report will be commun icated to the patien t by letter in layman 's terms. ACR BI-RAD S: BI-RAD S assess ment catego ry 1: Negati ve mammog raman Mammog praveen does not detect approx imatel y 10-15% of breast cancer s. A normal mammog raman does not exclud e breast cancer in a patien t with palpab le mass or abnorm al findin gs on physic al examin ation. These patien ts may need biopsi es and when clinic ally indica omid a biopsy should not be postpo sidney becaus e of a normal mammog raman. If the patien t has breast surger y or biopsy , FDA/MQ SA Regula tory Guidel virgie mandat e that this facili ty receiv e pathol ogic result s for follow -up correl ation. Electr onical ly signed by: Gee Fry MD 2024 11:13 AM EDT RP Workst ation: [id number] Dictat ed By: Gee Fry Transc ribed By: Transc ribed On: 025 11:02 AM Electr onical ly signed by: Gee Fry 025 Thank you for referr TRICE Mcgee to [facility]. Legall y authen ticate d by AIME SAL MD 05-06 11:02: 10 CC'ed Logic: Orderi ng Provid er: AMBURG EY TAFFAN Y CC Provid er: AMBURG EY TAFFAN Y Attend ing Provid er: AMBURG EY TAFFAN Y Referr ing Provid er: AMBURG EY TAFFAN Y Admitt ing Provid er: AMBURG EY TAFFAN Y [email or web address] [facility] (Radiology) [address] [place] [address] [place], [address], 05/07/2025 12:12:31 05/12/20 25 05/12/2025 XR, chest , 2 view No observ ation record ed. [facility] [address], [place], [address], 05/12/2025 17:00:06 Result Notes Documentation Provider Name and Address Organization Details Recorded Time Xr, Lumbosacral Spine, 2 Or 3 View : [address] [place] [address] Name: TRICE TRAN Exam Date: 04/21/2024 : 1980 Age 43 years Gender: F Physician: SANDRINE DILLARD Facility: [facility] Facility HSV: Outpatient Exam: LUMBAR 2 TO 3V LUMBAR SPINE, 3 views HISTORY: Back pain FINDINGS: No fracture is identified. Mild diffuse degenerative disc disease with endplate spurring is present. Alignment is normal . IMPRESSION: Mild degenerative changes Dictated By: JOSH PINEDO Transcribed By: JOSH PINEDO Transcribed On: 04/21/2024 4:37 PM Electronically signed by: JOSH PINEDO 04/21/2024 Thank you for referring TRICE TRAN to [facility]. Legally authenticated by KHRIS REYNA MD 2024-04-21 16:37:15 CC'ed Logic: Ordering Provider: GILMA DELUCA CC Provider: GILMA DELUCA Attending Provider: GILMA DELUCA Referring Provider: GILMA DELUCA Admitting Provider: DASHA Tang [facility] [place] 04/22/2024 11:47:40 Xr, Chest, 2 View : [address] [place] [address] Name: TRICE TRAN Exam Date: 04/06/2025 : 1980 Age 44 years Gender: F Physician: SANDRINE DILLARD Facility: [facility] Facility HSV: Outpatient Exam: CHEST PA ^ LAT EXAM DESCRIPTION: XR CHEST 2 VIEWS CLINICAL INDICATION: SOA COMPARISON: February 07, 2021 Radiograph Chest 2 Views. TECHNIQUE: Two view radiograph of the chest was obtained. FINDINGS: The heart size is normal. The pulmonary vasculature is normal. Right basilar infiltrate. No pneumothorax or pleural effusion. No acute osseous or soft tissue abnormality. IMPRESSION: Right basilar infiltrate concerning for pneumonia. Electronically signed by: Ross Rendon MD 04/07/2025 02:46 PM EDT Dictated By: Ross Rendon Transcribed By: Transcribed On: 04/06/2025 3:35 PM Electronically signed by: Ross Rendon 04/06/2025 Thank you for referring TRICE TRAN to [facility]. Legally authenticated by YELITZA REILLY MD 2025-04-06 15:35:14 CC'ed Logic: Ordering Provider: GILMA DELUCA CC Provider: GILMA DELUCA Attending Provider: GILMA DELUCA Referring Provider: GILMA DELUCA Admitting Provider: DASHA Tang [facility] [place] 04/08/2025 10:36:29 Ct, Chest, W/ Contrast : [address] [place] [address] Name: TRICE TRAN Exam Date: 04/13/2025 : 1980 Age 44 years Gender: F Physician: MONICA WHITTEN Facility: [facility] Facility HSV: Outpatient Exam: CT CHEST WITH CONTRAST CT examination of the chest performed obtained transaxially from the thoracic inlet through to the upper abdomen following the administration of intravenous contrast. Automated exposure control, adjustment of the mA and/or kV according to patient size, and/or iterative reconstruction. Unless otherwise specified, incidental findings do not require dedicated imaging follow-up. [id number]. CLINICAL INDICATION: Female, 44 years old. Shortness of breat COMPARISON: Chest x-ray dated April 06, 2025, CT chest dated November 23, 2022 and August 11, 2021 Findings: Thoracic inlet: Intact. Mediastinum, prisca, and axilla: There is no significant adenopathy. Aorta: There is no aneurysm or dissection. Pulmonary arteries: There is no central pulmonary embolus. Heart: Normal size. There is no pericardial effusion. There are no sizable coronary calcifications identified. Pleura: There is no pleural effusion. Lung parenchyma: There are several stable scattered nodules including a 1.3 cm partially calcified subpleural right lower lung nodule. Other smaller stable right lower lung nodules are also present. There is no new lung nodule. Osseous structures: There is no visible lytic or blastic lesion. Visualized portions of the upper abdomen: Unremarkable. Impression: No acute cardiopulmonary process. Stable benign pulmonary nodules. No further workup is required. Electronically signed by: Mitra Thompson MD 04/20/2025 02:20 PM EDT RP Dictated By: MITRA THOMPSON Transcribed By: Transcribed On: 04/13/2025 11:08 AM Electronically signed by: MITRA THOMPSON 04/13/2025 Thank you for referring TRICE TRAN to [facility]. Legally authenticated by SAHARA CHI MD 2025-04-13 11:08:00 CC'ed Logic: Ordering Provider: GILMA DELUCA CC Provider: GILMA DELUCA Attending Provider: GILMA DELUCA Referring Provider: MARIA DOLORES ANDERSON Admitting Provider: GILMA Mock [facility] 04/21/2025 10:40:34 Mammo, Screening, Digital, Bilateral : [address] [place] [address] Name: TRICE TRAN Exam Date: 05/06/2025 : 1980 Age 45 years Gender: F Physician: SANDRINE DILLARD Facility: [facility] Facility HSV: Outpatient Exam: NATIVIDAD SCREEN MAMMO W CAD BILAT Exam: 3-D screening mammography including tomosynthesis and CAD (Computer Assisted Detection). Clinical indication: Asymptomatic screening exam Comparison: Exams to 2018 TECHNIQUE: Routine bilateral 2D screening mammogram with CC and MLO views obtained. 3-D tomosynthesis and Computer assisted detection were utilized for this exam. BREAST DENSITY: There are scattered areas of fibroglandular density FINDINGS: No suspicious mass, architectural distortion, or suspicious calcifications are present. IMPRESSION: No evidence of malignancy in either breast Recommendation: Annual screening mammography recommended in one year The results of this report will be communicated to the patient by letter in layman's terms. ACR BI-RADS: BI-RADS assessment category 1: Negative mammogram Mammography does not detect approximately 10-15% of breast cancers. A normal mammogram does not exclude breast cancer in a patient with palpable mass or abnormal findings on physical examination. These patients may need biopsies and when clinically indicated a biopsy should not be postponed because of a normal mammogram. If the patient has breast surgery or biopsy, FDA/MQSA Regulatory Guidelines mandate that this facility receive pathologic results for follow-up correlation. Electronically signed by: Zain Fry MD 05/06/2025 11:13 AM EDT Dictated By: Zain Fry Transcribed By: Transcribed On: 05/06/2025 11:02 AM Electronically signed by: Zain Fry 05/06/2025 Thank you for referring TRICE TRAN to [facility]. Legally authenticated by AIME MARION MD 2025-05-06 11:02:10 CC'ed Logic: Ordering Provider: GILMA DELUCA CC Provider: GILMA DELUCA Attending Provider: GILMA DELUCA Referring Provider: GILMA DELUCA Admitting Provider: GILMA DELUCA Sriram Mock null, [place] - [facility] - [facility] [place] 05/07/2025 12:12:31 Problems Name Problem SNOMED Code Status Onset Date Resolution Date Notes Provider Name and Address Organization Details Recorded Time Obesity 385276756 Active Sriram Mock null, [place] - [facility] - [facility] [place] 5 11:34:03 Excessive thirst 76661234 Active Sriram Mock null, [place] - [facility] - [facility] [place] 5 11:34:11 Infection of skin and/or subcutaneou s tissue 35965876 Active Sriram Mock null, [place] - [facility] - [facility] [place] 5 11:33:23 Sialoadenit is 28091596 Active Sriram Mock null, [place] - [facility] - [facility] [place] 5 11:32:44 Chronic pain 20705239 Active Sriram Mock null, [place] - [facility] - [facility] [place] 5 11:34:56 Generalized epilepsy 29047105 Active Sriram Mock null, [place] - [facility] - [facility] [place] 5 11:33:28 Dizziness 833393720 Active Sriram Mock null, [place] - [facility] - [facility] [place] 5 11:34:24 Allergic rhinitis caused by pollen 11321530 Active Sriram Mock null, [place] - [facility] - [facility] [place] 5 11:34:47 Disorder of skin and/or subcutaneou s tissue 60227982 Active Sriram Mock null, [place] - [facility] - [facility] [place] 5 11:34:28 Acute back pain with sciatica 850089192 Active Sriram Mock null, [place] - [facility] - [facility] [place] 5 11:34:54 Dysplastic nevus of trunk 3651471969478 08 Active Sriram Mock null, [place] - [facility] - [facility] [place] 5 11:34:22 Diarrhea of presumed infectious origin 26366280 Active Sriram Mock null, [place] Corrigan [facility] - [facility] & [place] 5 11:34:31 Postoperati ve visit 906452797 Active Sriram Mock null, [place] Corrigan [facility] - [facility] & [place] 5 11:32:58 Lumbar spondylolis thesis 2452932605605 02 Active Sriram Mock null, [place] - [facility] - & [place] 5 11:33:16 Loss of taste 17649527 Active Sriram Mock null, DASHA - [facility] - [facility] & [place] 5 11:33:42 Moderate asthma 703648131 Active Sriram Mock null, [place] - [place] - & [place] 5 11:33:11 Liver enzymes level above reference range 421255359 Active Sriram Mock null, [place]AS[place] - [facility] - & [place] 5 11:33:20 Nicotine dependence 45940917 Active Sriram Mock null, [place] - [facility] - & [place] 5 11:33:04 Lumbago with sciatica 371545998 Active Sriram Mock null, [place] - [place] - & [place] 5 11:33:45 Submandibul ar sialolithia sis 496172316 Active Sriram Mock null, [place] - [facility] - & [place] 5 11:32:39 Essential hypertensio n 26471141 Active SANDRINE DILLARD NP [address] [place] [address], [phone] [facility] [place] - [facility] - [facility] & [place] 5 14:34:25 Moderate persistent asthma 151495029 Active Sriram Mock null, [place] - [facility] - [facility] & [place] 5 11:33:09 Allergic rhinitis 62899557 Active Sriram Mock null, [place] - [facility] - [facility] & [place] 5 11:34:49 Surgical follow-up 254052750 Active Sriram Mock null, [place] - [facility] & [place] 5 11:32:37 Acute exacerbatio n of moderate persistent asthma Active DASHA Monterroso [facility] & [place] 5 11:34:51 Non-alcohol ic fatty liver 933597226 Active Sriram Abdullahiles nullDASHA [facility] & [place] 5 11:34:00 Seizure disorder 512321179 Active Sriram Mock nullDASHA [facility] & [place] 5 11:32:47 Chronic obstructive pulmonary disease 89146649 Active Sriram Abdullahiles nullDASHA [facility] & [place] 5 11:34:44 Cauda equina syndrome 611967882 Active Sriram Abdullahiles nullDASHA [facility] & [place] 5 11:34:37 History of endocrine disorder 044070060 Active DASHA Monterroso [facility] & [place] 5 11:33:36 Fatigue 21312669 Active Sriram Abdullahiles DASHA anthony [facility] & [place] 5 11:34:09 Gastroesoph ageal reflux disease 771671786 Active Sriram Abdullahiles nullDASHA RITESH [facility] & [place] 5 11:35:14 Loss of sense of smell 67671162 Active Sriram Abdullahiles nullDASHA [facility] & [place] 5 11:33:39 Plantar wart of left foot 8128229207959 9102 Active Sriram Abdullahiles nullDASHA [facility] & [place] 5 11:33:00 Cobalamin deficiency 664002102 Active Sriram Abdullahiles nullDASHA [facility] & [place] 5 11:35:05 Sebaceous cyst of skin 209607698 Active Sriram Abdullahiles nullDASHA [facility] & [place] 5 11:32:50 Mild intermitten t asthma 144736011 Active Sriram Mock nullDASHA [facility] & [place] 5 11:33:13 Constipatio n 02358497 Active Sriram Mock null, [place] - [place] - [place] & [place] 5 11:35:01 Dyspnea on exertion 78869392 Active 2021 Sriram Mock null[place] - [place] & [place] 5 11:35:11 Nicotine dependence with current use 331247978 Active 2021 Sriram Mock null[place] & [place] 5 11:33:55 Nodule of lung 934091442 Active 2021 Sriram Mock null, [place] & [place] 5 11:33:58 Overweight 401004345 Active 2021 Sriram Mock null, [place] & [place] 5 11:34:07 Asthma 751484441 Active 2023 Sriram Mock null[place] & [place] 5 11:34:39 Heart disease 00148113 Active 2023 Sriram Mock null[place] & [place] 5 11:33:30 Spinal cord disease 67937266 Active 2023 Sriram Mock null, [place] - [place] & [place] 5 11:32:41 Lumbar discogenic pain 256983227 Active 2023 Sriram Mock null[place] - [place] & [place] 5 11:33:49 Degeneratio n of lumbar interverteb ral disc 91737446 Active 2023 Sriram Mock null[place] & [place] 5 11:35:08 Myofascial pain 948429665 Active 2023 Sriram Mock null[place] & [place] 5 11:33:07 Radicular pain 76989450 Active 2023 Sriram Mock null, [place] - [place] & [place] 5 11:32:52 Severe persistent asthma 791286187 Active 2024 SANDRINE DILLARD NP [address] [facility] [place], [address], [place] - [place] - [place] & [place] 14:34:23 Body mass index 30+ - obesity 539244825 Active 2024 SANDRINE DILLARD NP [address] [facility] [place], [address], [place] - [place] & [place] 14:36:49 At increased risk of cardiovascu lar disease 0344176127328 9108 Active 2024 SANDRINE DILLARD NP [address] [facility] [place], [address], [place] - [place] & [place] 14:36:51 Notes:Some problems listed i n Document: #[id number] could not be added to this patient's chart. Please review this document and add these problems to the patient's chart manually as needed. Problem Notes None recorded. Procedures Surgical History Date Name Laterality Status Provider Name and Address Organization Details Recorded Time 10/22/19 24 Other completed Carmen Ramos [place] - [place] - [place] & [place] 04/08/2024 10:14:33 10/22/19 23 Other completed Juju Mckeon [place] - [place] & [place] 03/02/2023 11:03:02 06/22/20 20 removal of foreign body completed Patricia Gonzalez [place] - [place] - [place] & [place] 08/15/2022 08:30:49 07/22/20 18 excision of submandibular gland completed Patricia Gonzalez [place] - [place] & [place] 08/15/2022 08:29:56 10/22/18 95 Appendectomy completed Juju Mckeon [place] - [place] & [place] 03/02/2023 11:03:02 cholecystectomy completed Henrietta Liang [place] - [place] - [place] & [place] 07/24/2024 10:33:32 Cholecystectomy completed Patricia Gonzalez [place] - [place] - [place] & [place] 08/15/2022 08:28:49 Carpal tunnel surgery completed Patricia LOU - [facility] - [place] & [place] 08/15/2022 08:28:58 [place] [facility] [place] 08/15/2022 08:29:05 ligation of fallopian tube completed [facility] [place] 08/15/2022 08:29:15 operation on uterus completed [facility] [place] 08/15/2022 08:29:26 Exc excessive skin arm completed [facility] [place] 08/15/2022 08:30:28 Imaging Results None recorded. Procedure Notes None recorded. Medical Equipment None Reported. Allergies Allergen ID Allergen Name Allergen Category Reaction Reaction Severity Criticality Documentation Date Start Date Code Code System Note Provider Name and Address Organization Details Recorded Time 328403 Effexor medicatio n seizure Not available Not available 07/24/2024 51270 2 RxNorm Henrietta Garth null, [facility] & [place] 4 10:09:50 101053 Levaquin medicatio n dizziness Not available Not available 07/24/2024 22526 2 RxNorm Ears ringi ng Bailey Colon null, [facility] & [place] 5 16:49:41 386279 venlafaxi ne medicatio n Not available Not available Not available 04/07/2025 64948 RxNorm Other react ions and sever ities : 'Adve rse react ion to subst ance' . SANDRINE DILLARD NP [address] [place] [address], [phone] & [place] 5 19:23:34 182997 levofloxa chris medicatio n Not available Not available Not available 04/07/2025 88382 RxNorm Other react ions and sever ities : 'Adve rse react ion to subst ance' . As[facility] & [place] 5 14:09:12 021687 Geodon medicatio n Not available Not available Not available 04/15/2025 88518 4 RxNorm Bailey Colon null, [facility] & [place] 5 10:45:27 985645 Seroquel medicatio n other Not available Not available 04/15/2025 61663 RxNorm Depre ssion Bailey Colon null, [place] - [facility] & [place] 5 10:45:53 675503 Tegretol medicatio n hives Not available Not available 04/15/2025 46825 9 RxNorm Bailey Colon null, [place] - [place] [facility] & [place] 5 10:46:10 9947 carbamaze pine medicatio n hives Not available Not available 07/03/20222001 RxNorm Gerard Troncoso null, [place] - [place] [facility] & [place] 2 14:47:51 9948 ziprasido ne Not available hives Not available Not available 07/03/2022 53608 8 RxNorm Gerard Troncoso null, [place] - [place] [facility] & [place] 2 14:47:51 9949 quetiapin e medicatio n Not available Not available Not available 07/03/2022 99341 RxNorm Other react ions and sever ities : 'Adve rse react ion to subst ance' . SANDRINE DILLARD NP [address] [place] [address], [phone] [place] [address] & [place] 5 19:23:34 Medications Name Sig Start Date Stop Date Status Note LastModified by Organization Details LastModified Time losartan 50 mg tablet Take 1 tablet every day by oral route for 90 days. 04/01 completed Not Available Not Available Not Available celecoxib 200 mg capsule 04/01 completed Not Available Not Available Not Available cyclobenzap rine 10 mg tablet Take 1 tablet every day by oral route as needed for 15 days. 04/01 completed Not Available Not Available Not Available promethazin e-DM 6.25 mg-15 mg/5 mL oral syrup TAKE 5 ML BY MOUTH EVERY 4 TO 6 HOURS NEEDED FOR COUGH 01/01 completed Not Available Not Available Not Available carvedilol 6.25 mg tablet 04/01 completed Not Available Not Available Not Available prednisone 10 mg tablet 04/21 completed Not Available Not Available Not Available doxycycline hyclate 100 mg capsule TAKE 1 CAPSULE BY MOUTH TWICE DAILY FOR 10 DAYS 04/21 completed Not Available Not Available Not Available carvedilol 12.5 mg tablet TAKE 1 TABLET BY MOUTH TWICE DAILY WITH MEALS active Not Available Not Available No t Available nicotine 14 mg/24 hr daily transdermal patch 04/01 completed Not Available Not Available Not Available ipratropium 0.5 mg-albutero l 3 mg (2.5 mg base)/3 mL nebulizatio n soln USE 1 AMPULE IN NEBULIZER EVERY 6 HOURS NEEDED FOR SHORTNESS OF BREATH active Not Available Not Available No t Available albuterol sulfate 2.5 mg/3 mL (0.083 %) solution for nebulizatio n Inhale 3 {ml_as_ne eded}s 4 times a day by inhalatio n route. 11/20 completed Not Available Not Available Not Available cetirizine 10 mg tablet 04/01 completed Not Available Not Available Not Available azithromyci n 250 mg tablet 12/04 completed Not Available Not Available Not Available ibuprofen 800 mg tablet 04/01 completed Not Available Not Available Not Available nicotine (polacrilex ) 2 mg gum WEEKS 1-6: CHEW 1 PIECE EVERY 2 HOURS NEEDED. WEEKS 7-9: CHEW 1 PIECE EVERY 4 HOURS NEEDED. WEEKS 10-12: CHEW 1 PIECE EVERY 8 HOURS NEEDED 04/01 completed Not Available Not Available Not Available tizanidine 4 mg tablet TAKE 1 TABLET BY MOUTH TWICE DAILY NEEDED 11/18 completed Not Available Not Available Not Available clarithromy chris 500 mg tablet TAKE 1 TABLET BY MOUTH TWICE DAILY 12/04 completed Not Available Not Available Not Available meloxicam 15 mg tablet TAKE 1 TABLET BY MOUTH ONCE DAILY active Not Available Not Available No t Available lisinopril 20 mg tablet 04/21 completed Not Available Not Available Not Available ondansetron HCl 4 mg tablet 01/01 completed Not Available Not Available Not Available prednisone 20 mg tablet 04/07 completed Not Available Not Available Not Available fexofenadin e 180 mg tablet TAKE 1 TABLET BY MOUTH ONCE DAILY active Not Available Not Available No t Available sulfamethox azole 800 mg-trimetho prim 160 mg tablet Take 1 tablet every 12 hours by oral route for 10 days. 01/01 completed Not Available Not Available Not Available tramadol 50 mg tablet TAKE 1 TABLET BY MOUTH EVERY 6 HOURS NEEDED 11/18 completed Not Available Not Available Not Available triamcinolo ne acetonide 0.1 % topical cream 04/01 completed Not Available Not Available Not Available famotidine 20 mg tablet TAKE 1 TABLET BY MOUTH TWICE DAILY 12/03 completed Not Available Not Available Not Available methocarbam ol 750 mg tablet 1 {tablet} by oral route. 11/18 completed Not Available Not Available Not Available benzonatate 100 mg capsule TAKE 1 CAPSULE BY MOUTH THREE TIMES DAILY NEEDED FOR COUGH 04/01 completed Not Available Not Available Not Available triamcinolo ne acetonide 40 mg/mL suspension for injection Take 1 mL by injection route. 04/01 completed Not Available Not Available Not Available hydrocodone 7.5 mg-acetamin ophen 325 mg tablet 04/03 completed Not Available Not Available Not Available cephalexin 500 mg capsule 04/01 completed Not Available Not Available Not Available lisinopril 10 mg tablet TAKE 1 TABLET BY MOUTH ONCE DAILY FOR 90 DAYS 08/15 completed Not Available Not Available Not Available nicotine 21 mg/24 hr daily transdermal patch Apply 1 patch every day by transderm al route for 30 days. 02/05 completed Not Available Not Available Not Available docusate sodium 100 mg capsule TAKE 1 CAPSULE BY MOUTH TWICE A DAY 12/03 completed Not Available Not Available Not Available omeprazole 20 mg capsule,del ayed release TAKE 1 CAPSULE BY MOUTH ONCE DAILY 30 MINUTES BEFORE MORNING MEAL active Not Available Not Available No t Available diclofenac sodium 75 mg tablet,josephine yed release TAKE 1 TABLET BY MOUTH TWICE DAILY NEEDED FOR PAIN 04/01 completed Not Available Not Available Not Available montelukast 10 mg tablet TAKE 1 TABLET BY MOUTH ONCE DAILY active Not Available Not Available No t Available hydroxyzine HCl 25 mg tablet 04/01 completed Not Available Not Available Not Available hydrochloro thiazide 25 mg tablet TAKE 1 TABLET BY MOUTH ONCE DAILY active Not Available Not Available No t Available mupirocin 2 % topical ointment 04/21 completed Not Available Not Available Not Available dexamethaso ne sodium phosphate 4 mg/mL injection solution Inject 1 mL by intramusc ular route. 04/01 completed Not Available Not Available Not Available azelastine 137 mcg (0.1 %) nasal spray USE 2 SPRAY(S) IN EACH NOSTRIL AT BEDTIME NIGHTLY 04/01 completed Not Available Not Available Not Available cefuroxime axetil 500 mg tablet TAKE 1 TABLET BY MOUTH TWICE DAILY 12/04 completed Not Available Not Available Not Available methylpredn isolone 4 mg tablets in a dose pack TAKE BY MOUTH DIRECTED ON INSIDE OF PACKAGE active Not Available Not Available No t Available ondansetron 4 mg disintegrat ing tablet 04/21 completed Not Available Not Available Not Available cefdinir 300 mg capsule TAKE 1 CAPSULE BY MOUTH TWICE DAILY FOR 5 DAYS 04/01 completed Not Available Not Available Not Available losartan 100 mg tablet TAKE 1 TABLET BY MOUTH ONCE DAILY active Not Available Not Available No t Available fluticasone propionate 50 mcg/actuati on nasal spray,suspe nsion USE 2 SPRAY(S) IN EACH NOSTRIL ONCE DAILY 12/03 completed Not Available Not Available Not Available doxycycline hyclate 100 mg tablet 04/01 completed Not Available Not Available Not Available lamotrigine 100 mg tablet Take 1 tablet by mouth twice daily 2024 active Not Available Not Available Not Avai lable loratadine 10 mg tablet TAKE 1 TABLET BY MOUTH TWICE DAILY 12/03 completed Not Available Not Available Not Available amoxicillin 875 mg-potassiu m clavulanate 125 mg tablet Take 1 {tablet} twice a day by oral route. 04/01 completed Not Available Not Available Not Available Ventolin HFA 90 mcg/actuati on aerosol inhaler INHALE 2 PUFFS BY MOUTH 4 TIMES DAILY NEEDED 2024 active Not Available Not Available Not Avai lable oxycodone 5 mg tablet TAKE 1 TABLET BY MOUTH EVERY 6 HOURS NEEDED . DO NOT EXCEED 4 PER 24 HOURS active Not Available Not Available No t Available Mucinex 600 mg tablet, extended release 1 {tablet_a s_needed} twice a day by oral route. 11/18 completed Not Available Not Available Not Available Spiriva with HandiHaler 18 mcg and inhalation capsules USE DEVICE TO PUNCTURE 1 CAPSULE AND INHALE 1 DOSE (2 PUFFS) BY MOUTH ONCE DAILY 04/21 completed Not Available Not Available Not Available Dulera 200 mcg-5 mcg/actuati on HFA aerosol inhaler INHALE 2 PUFFS BY MOUTH TWICE DAILY 04/21 completed Not Available Not Available Not Available Breo Ellipta 100 mcg-25 mcg/dose powder for inhalation Inhale 1 puff every day by inhalatio n route. 11/20 completed Not Available Not Available Not Available Trelegy Ellipta 100 mcg-62.5 mcg-25 mcg powder for inhalation Inhale 1 puff every day by inhalatio n route for 90 days, for rinse mouth after use. 2024 active Not Available Not Available Not Avai lable Wegovy 0.25 mg/0.5 mL subcutaneou s pen injector Inject by subcutane ous route for 28 days. 2024 active Not Available Not Available Not Avai lable Vitals Date Recorded Body height Body mass index (BMI) Body weight Body temperature Oxygen saturation Oxygen saturation in Arterial blood by Pulse oximetry Heart rate Respiratory rate Systolic And Diastolic Provider Name and Address Organization Details Last Updated DateTime 5 167.64 cm 36.6 kg/m2 223416. 47 g 98.6 [degF] 96 % 96 % 84 /min 18 /min 128/87 mm[Hg] Sriram Mock [facility] & [place] 5 11:30:45 Date Recorded Body height Body mass index (BMI) Body weight Body temperature Oxygen saturation Oxygen saturation in Arterial blood by Pulse oximetry Heart rate Systolic And Diastolic Provider Name and Address Organization Details Last Updated DateTime 4 167.64 cm 38.3 kg/m2 275766. 39 g 98.1 [degF] 97 % 97 % 90 /min 139/67 mm[Hg] Asif patterson [facility] & [place] 4 15:42:27 Date Recorded Body height Body mass index (BMI) Body weight Body temperature Oxygen saturation Oxygen saturation in Arterial blood by Pulse oximetry Heart rate Systolic And Diastolic Provider Name and Address Organization Details Last Updated DateTime 5 167.64 cm 38.6 kg/m2 017280. 58 g 98.1 [degF] 95 % 95 % 76 /min 124/78 mm[Hg] Asif patterson [facility] & [place] 5 14:08:59 Date Recorded Body height Body mass index (BMI) Body weight Body temperature Oxygen saturation Oxygen saturation in Arterial blood by Pulse oximetry Heart rate Systolic And Diastolic Provider Name and Address Organization Details Last Updated DateTime 4 167.64 cm 38.2 kg/m2 878796. 24 g 97.8 [degF] 94 % 94 % 73 /min 134/88 mm[Hg] Ela Urena [place] [facility] & [place] 4 12:47:07 Social History Question Answer Notes LastModified by Organizat ion Details LastModified Time Tobacco Smoking Status Current Every Day Smoker Patricia anthony, [facility] & [place] 08/15/2022 08:28:40 Do You Have An Advance Directive? No Information not available 03/02/2023 Do You Wear A Helmet When Biking? Yes Information not available 04/01/2025 Are You Blind Or Do You Have Difficulty Seeing? No Information not available 03/02/2023 What Is Your Level Of Caffeine Consumption? Occasional [email or web address] Information not available 12/04/2023 In The 14 Days Before Symptom Onset, Have You Had Close Contact With A Laboratory-confir med COVID-19 While That Case Was Ill? No [email or web address] Information not available 04/01/2025 In The 14 Days Before Symptom Onset, Have You Had Close Contact With A Person Who Is Under Investigation For COVID-19 While That Person Was Ill? No [email or web address] Information not available 04/01/2025 Have You Been To An Area Known To Be High Risk For COVID-19? No [email or web address] Information not available 04/01/2025 Are You Deaf Or Do You Have Serious Difficulty Hearing? No [email or web address] Information not available 04/01/2025 What Type Of Diet Are You Following? REGULAR [email or web address] Information not available 04/01/2025 Have You Processed Blood Or Body Fluids From An Ebola Virus Disease Patient Without Appropriate PPE? No [email or web address] Information not available 04/01/2025 Do You Reside In Or Have You Traveled To An Area Where Ebola Virus Transmission Is Active? No [email or web address] Information not available 04/01/2025 Have There Been Any Changes To Your Family Or Social Situation? No [email or web address] Information no t available 04/01/2025 What Is The Fluoride Status Of Your Home? Unknown [email or web address] Information not available 04/01/2025 Are There Any Guns Present In Your Home? No [email or web address] Information not available 04/01/2025 Have You Recently Or Are You Planning To Travel To An Area With Zika Virus? No Information not available 04/01/2025 Do You Use Insect Repellent Routinely? Yes [email or web address] Information not available 04/01/2025 Do You Feel Safe At Home? Yes [email or web address] Information not available 04/01/2025 Do You Have A Medical Power Of Crtt? No [email or web address] Information not available 04/01/2025 What Was The Date Of Your Most Recent Tobacco Screening? 04/21/2025 [email or web address] Information not available 04/21/2025 What Is Your Current Pack Years? 30ormorepackye ars [email or web address] Information not available 12/04/2023 Do You Have Any Pets? No [email or web address] Information not available 04/01/2025 Do You Use Your Seat Belt Or Car Seat Routinely? Yes [email or web address] Information not available 04/01/2025 Do You Have Smoke And Carbon Monoxide Detectors In Your Home? Yes [email or web address] Information not available 04/01/2025 At What Age Did You Start Smoking Tobacco? 12 [email or web address] Information not available 12/04/2023 Are You Passively Exposed To Smoke? Yes Information no t available 03/02/2023 How Much Tobacco Do You Smoke? 2 PPD [email or web address] Information not available 08/15/2022 Has Tobacco Cessation Counseling Been Provided? Yes [email or web address] Information not available 04/01/2025 On What Date Was Tobacco Cessation Counseling Provided? 04/21/2025 [email or web address] Information not available 04/21/2025 How Many Years Have You Smoked Tobacco? 30 [email or web address] Information not available 08/15/2022 Do You Have Difficulty Walking Or Climbing Stairs? No [email or web address] Information not available 04/01/2025 Are You Currently In School? No [email or web address] Information not available 04/01/2025 Sex: Unknown Functional Status Question Answer Note LastModified by Organizat ion Details LastModified Time Do you use any illicit or recreational drugs? No [email or web address] Information not available 08/15/2022 Do you or have you ever used any other forms of tobacco or nicotine? No Information not available 04/01/2025 What is your level of alcohol consumption? Moderate Information not available 03/02/2023 Do you or have you ever used smokeless tobacco? [id number] Information n ot available 03/02/2023 Are you currently employed? Yes [email or web address] Information not available 04/01/2025 Are you able to walk? YESWOREST [email or web address] Information not available 04/01/2025 Do you have difficulty doing errands alone? No [email or web address] Information not available 04/01/2025 Are you able to care for yourself independently? Yes [email or web address] Information not available 04/01/2025 Do you have difficulty dressing, bathing, grooming, or toileting? No [email or web address] Information not available 04/01/2025 What is your exercise level? Occasional Information not available 03/02/2023 Mental Status Question Answer Note LastModified by Organizat ion Details LastModified Time Do you feel stressed (tense, restless, nervous, or anxious, or unable to sleep at night)? [id number] Information not available 03/02/2023 Do you have difficulty concentrating, remembering or making decisions? No [email or web address] Information no t available 04/01/2025 Family History Relationship Description Onset Age of this Age Resolved Age Notes LastModified by Organization Details LastModified Time Mother Infectious cirrhosis 55 Not available 2024 14:00:50 Mother Chronic obstructive pulmonary disease 55 [email or web address] Not available 2021 08:27:27 Mother Family member 55 [email or web address] Not available 2024 14:00:50 Mother Disease of liver pt. added direct ly (03/05) [email or web address] Not available 03/05/2023 12:49:48 Mother Malignant neoplasm of prostate [email or web address] Not available 2024 14:00:50 Father Malignant neoplasm of prostate 57 [email or web address] Not available 2024 14:00:50 Father Family member 57 [email or web address] Not available 2024 14:00:50 Sister Malignant tumor of pharynx 3 [email or web address] Not available 2024 14:00:50 Sister Malignant tumor of pharynx 2 [email or web address] Not available 2024 14:00:50 Medical History Condition Response Allergies/Hayfever Y Obesity Y Seizures/Epilepsy Y Acid Reflux (GERD) Y Cancer Y Back Problems Y Hypertension Y Asthma Y Gynecological History Statement/Question Response Menses Monthly N Abnormal Pap N Current Control Method Other Sexually Active? Y Obstetrics History GPAL:G 0 P 0 0 0 0 Immunizations Vaccine Type Date Status Note Provider Nam e and Address Organization Details Recorded Time COVID-19, mRNA, LNP-S, PF, 100 mcg/0.5mL dose or 50 mcg/0.25mL dose 01/30/2021 completed Carmen anthony, [place] - LPNT [facility] & [place] 04/08/2024 10:08:00 COVID-19, mRNA, LNP-S, PF, 100 mcg/0.5mL dose or 50 mcg/0.25mL dose 02/17/2022 completed Carmen anthony, [place] - LPNT [facility] & [place] 04/08/2024 10:08:00 COVID-19, mRNA, LNP-S, PF, 100 mcg/0.5mL dose or 50 mcg/0.25mL dose 02/27/2021 tj anthony, [place] - LPNT [facility] & [place] 04/08/2024 10:08:00 Influenza, split virus, quadrivalent, PF 08/09/2018 completed Carmen anthony, [place] - LPNT - [place] & [place] 04/08/2024 10:08:00 Influenza, split virus, quadrivalent, PF 08/03/2021 completed SANDRINE DILLARD NP [address] [place] [address], [address], [place] - LPNT - [place] & [place] 12/04/2023 15:25:29 Influenza, MDCK, quadrivalent, PF 08/15/2022 completed SANDRINE DILLARD NP [address] [place], [address], [facility] - LPNT [facility] & [place] 12/04/2023 15:25:29 Influenza, split virus, quadrivalent, PF 07/10/2023 completed Carmen anthony [place] - LPNT - [place] & [place] 04/08/2024 10:08:28 Past Encounters Encounter ID Performer Location Encounter Start Date Encounter Closed Date Diagnosis/Indication Diagnosis SNOMED-CT Code Diagnosis ICD10 Code Diagnosis Note [id number] Dolly Tyler MD [facility] [address] [facility] [place] [address] 08/15/2022 14:52:16 08/15/2022 15:21:22 Administration of influenza vaccine 06173379 Z23 Will administer flu vaccine in the office today. Chronic ob structive pulmonary disease 19941511 J44.9 patient instructed to continue with the use of Breo regularly. Patient to use her Bridget on a p.r.n. basis and more liberally. Patient to call if there is any new symptoms. Dyspnea on exertion 6084 5006 R06.09 patient recommende d to exercise regularly and use her Bridget on a p.r.n. basis more liberally. Nicotine d ependence with current use 733523570 F17.200 Patient counseled extensivel y to quit smoking and will continue follow this up.Patient currently more motivated to proceed with that and given informatio n regarding smoking cessation classes. Nodule of lung 893540073 R91.1 Patient had history of lung nodule and will repeat CT of the chest in October to assure stability/ resolution . Overweight 061693848 E66 .3 Patient recommende d to diet and exercise in order to lose weight. [id number] SANDRINE DILLARD NP [facility] [address] [place] [address] 11/20/2022 11:40:33 11/20/2022 12:27:01 Axillary lymphadenopathy 827672113 R59.0 MRI abnormal from shoulderas ymptomatic Screening mammography of bilateral breasts 9013242555 48287 Z12.31 Bipolar disorder 3877279 4 F31.9 denies SI/HImedic ation compliance discussed Essential hypertension 91352833 I10 educated on goal of less than 130/90advi sed low sodium diet, healthy lifestyle including exercise as ablecontin ue current medication regimenER if any symptoms such as chest pain, shortness of breath Arthritis 6331850 M19.90 stay hydratedav oid other nsaids with meloxicam, take with food Gastroesop hageal reflux disease without esophagitis 094861538 K21.9 Avoid spicy foods, carbonated beverages, lying down 30 minutes to 1 hour after eatingEat smaller portion sizesTake medication s as prescribed Weight management Chronic ob structive pulmonary disease 48803626 J44.9 not currently using inhalersel evated WBC tx for exacerbati onreturn to see pulmonary as recommende dsmoking cessationr escue vs maintenanc e inhaler educationu se of inhalers Thyroid nodule 140148471 E04.1 awaiting lab work and US Palpitations 01071646 R0 0.2 return to cardiology for checkin, as has been several yearsER if any urgent signs or symptoms arise Dysuria 40006303 R30.0 [id number] Dolly Tyler MD [facility] [address] [facility] [place] [address] 11/22/2022 09:57:33 11/22/2022 10:19:21 Chronic obstructive pulmonary disease 82661266 J44.9 Given worsening patient's symptoms then will escalate treatment from Breo in to Trelegy 100.Patien t to use her Bridget on a p.r.n. basis and more liberally. Patient to call if there is any new symptoms. Dyspnea on exertion 6084 5006 R06.09 patient recommende d to exercise regularly and use her Bridget on a p.r.n. basis more liberally. Nicotine d ependence with current use 397231216 F17.210 Patient counseled extensivel y to quit smoking and will continue follow this up.Will arrange for her to have nicotine supplement to help her in this process. Nodule of lung 941575762 R91.1 Patient had history of lung nodule and will repeat CT of the chest to assure stability/ resolution . Overweight 479247964 E66 .3 Patient recommende d to diet and exercise in order to lose weight. [id number] SANDRINE DILLARD NP zgR[facility] [address] [place] [address] 02/05/2023 14:58:59 02/10/2023 09:28:48 Hoarse 01564208 R49.0 worsening without improvemen t for the past 4 monthsENT referral placed Goiter 9965484 E04.9 US with unspecific thyromegal yworsening with difficulty swallowing ER if urgent signs or symptoms arise Localized infection of skin AND/OR subcutaneous tissue 063787969 L08.9 right axilla, cyst without drainage; indurated and tenderkeep clean and drywash with antibacter ial soaptake antibiotic s as prescribed Dysphagia 27886744 R13.1 0 discussed chewing food thoroughly ENT referral [id number] SANDRINE DILLARD NP [address] [place] [address] 12/04/2023 15:03:05 12/04/2023 16:41:52 Long-term drug therapy 892156419 Z79.899 awaiting blood level to rule out problem there Acute urticaria 48908880 9 L50.9 keep skin clean and drystop all otc treatments discussed use of hydroxyzin esuspect lisinopril reaction, stop lisinopril and start losartanEr if any changes or urgent signs or symptoms arise Essential hypertension 10033255 I10 suspect lisinopril reaction, stop lisinopril and start losartan [id number] SANDRINE DILLARD NP [address] [place] [address] 04/11/2024 11:04:04 04/14/2024 09:20:58 Essential hypertension 66998195 I10 educated on goal of less than 130/90advi sed low sodium diet, healthy lifestyle including exercise as ablecontin ue current medication regimenER if any symptoms such as chest pain, shortness of breath Acute left otitis media 747757557 H66.92 medication as prescribed f/u if symptoms persist or worsen Acute sero us otitis media of bilateral ears 3292649876 633677 H65.03 medication as prescribed f/u if symptoms persist or worsen [id number] SANDRINE DILLARD NP [address] [place] [address] 04/21/2024 15:34:19 04/21/2024 16:03:45 Lumbar radiculopathy 036069646 M54.16 awaiting MRI4/40 given in clinic todayswitc h back to meloxicam; stop celebrexsy mptomatic managaemen t, massage, heatreferr al to Dr. Spencer Osteoarthritis 888421555 M19.90 [id number] DAYAMI CHAN PA-C [facility] [address] [place] [address] 05/05/2024 12:31:51 05/05/2024 13:18:55 Lumbar discogenic pain 858810046 M51.26 Degenerati on of lumbar intervertebral disc 02446018 M51.36 Radicular pain 62833726 M54.10 Myofascial pain 32641894 9 M79.18 [id number] SANDRINE DILLARD NP [facility] [address] [place], [place] [address] 04/01/2025 11:15:07 04/01/2025 12:40:10 Dyspnea 149107826 R06.02 R79.89 reviewed ER records. X-ray showed moderate right basilar atelectasi svenous blood gas, lactic acidosis was 2.2, elevatedD- dimer was 0.77white blood cell count was 17have given stat records in orders for stat CTs; patient understand s risk versus benefit of completing outpatient workup versus inpatient workup. Vital signs are currently stable oxygen 96%, heart rate 84, blood pressure 128/87, advised to go to ER if any urgent signs or symptoms arise or any changes Leukocytosis 343732715 D 72.829 elevated in ER at 17, could have been related to recent surgery earlier that day but in addition to elevated lactic acidosis and D-dimer needs further workup, repeat, denies any fever, chills, continues to have shortness of breath, denies any cough Lactic aci d level above reference range 9803541 R79.89 D-dimer ab ove reference range 321271216 R79.89 recheck lab work today Hypoxia 943878618 G47.34 oxygen dropping into the 80s with sleeping, needs home sleep study, order placed Plain X-ra y of chest abnormal 8116316015 R93.89 chest x-ray from [facility] shows moderate right basilar atelectasi s [id number] SANDRINE DILLARD NP [address] [place] [address] 04/06/2025 14:41:15 04/08/2025 03:57:33 Leukocytosis 091603689 D72.829 Erythrocyt e sedimentation rate above reference range 087343789 R70.0 C-reactive protein above reference range 7333094847 06430 R79.82 Hyperglycemia 45913844 R 73.9 [id number] SANDRINE DILLARD NP [address] [place] [address] 04/21/2025 14:00:44 04/23/2025 09:17:15 Screening mammography of bilateral breasts 2778173855 59324 Z12.31 Screening for malignant neoplasm of colon 980504725 Z12.11 Thyroid di sorder screening 372047330 Z13.29 Body mass index 30+ - obesity 647014680 Z68.38 At [facility] risk of cardiovascular disease 6713770551 9452039 Z91.89 Z68.38 would greatly benefit from weight loss to help with multiple comorbidit ies, asthma, hypertensi on, denies any family or personal history of thyroid carcinoma, understand s risk versus benefit, importance of daily bowel movements, will titrate up understand s side effects, decrease portion sizes, Mediterran dorene diet Essential hypertension 47553065 I10 educated on goal of less than 130/90advi sed low sodium diet, healthy lifestyle including exercise as ablecontin ue current medication regimen; follow-up with cardiology as advised currently taking losartan, HCTZ, carvedilol ER if any symptoms such as chest pain, shortness of breath Severe per sistent asthma 691605683 J45.50 needs triple therapy, not controlled with current regimen, tried and failed several different regimens, needs new nebulizer machine, given in clinic today hers is no longer working, she does have aperture opium albuterol, continue follow-up with Pulmonary as recommende d, CT shows stable lung nodules Health Concerns Section Related Observation LastModified by Organization Detai ls LastModified Time None Recorded Concern Status LastModified by Organization Details LastModified Time None Recorded Advance Directives Directive N: Payers Insurance Date Sequence Insurance Name Policy Number Policy Rios Covered Member ID Rios Member ID Guarantor Name 04/21/2025 1 [employer] [facility] (MEDICAID HMO) Trice Tran [id number] Trice Tran 04/01/2025 2 [employer] Trice Tran [id number] Trice Tran OBGyn Episode No OBEpisode recorded.
--- OUTSIDE RECORDS SUMMARY | 2025-05-19 09:03 | XMS_ITS | Encounter Summary ---
Author Organization [employer] ([place], [place], [place], [place]) Address [address] [place] [address] Care Team Providers Care Environmental Services Floor Tech Name Role Phone Unavailable Primary Care Provider Unavailabl e Encounter Details Date Type Department Care Team (Late st Contact Info) Description 09/19/2021 Transcribed Document 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 Take medications as prescribed [...] for spasm Duration: 5 Day(s) Pickup at [facility] Pharmacy Information [facility]: [address] [place] [address] [phone] The home medications listed are only as [...] range between ( 0.0 and 7.0 ) Holmes #: 0.85 K/uL -- Normal range between ( 0.16 and 1.00 ) Eos #: 0.17 x10(3)/uL -- Normal range between ( 0.00 and 0.80 ) [place] %: 7.5 % -- Normal range between [...] ) Urine Bilirubin Dipstick: Negative Urine Specific [place]: 1.011 -- Normal range between ( 1.005 [...] and rising up. ??? Do strength and pnglg-bh-gdurhw exercises only as told by your health care provider or physical therapist. General instructions ??? Take jthn-nsi-cjrguzp and prescription medicines only as told by [...] provider. Document Revised: 04/22/2019 Document Reviewed: 04/22/2019 [employer] Patient Education ?? 2020 [employer]. Emergency Awareness and Preventative Care STROKE is [...] Assistance with quitting is available by contacting 6-282-YASD-NOW. This is a free resource providing counseling, [...] was given the opportunity to ask questions. Patient/Head Bellhop Captain Name: Patient/Head Bellhop Captain Signature: Relationship to Patient: Clinician/Hospital Head Bellhop Captain Signature: Please Provide a Telephone Number Where You Can Be Reached: Is it Permissible To Leave a Message? Date: Electronically signed by Interface, [facility] Conversion Water Meter Reader Ebenezer at 02/04/2023 9:44 AM CDT documented in this encounter Plan of Treatment Not on file documented as of this encounter Visit Diagnoses Not on filedocumented in this encounter
--- OUTSIDE RECORDS SUMMARY | 2025-05-19 09:03 | XMS_ITS | Continuity of Care Document ---
Author Organization 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 Plan of Treatment Reminders Order Date Submit Date Provider Last Modified By Organization Details Last Modified Time Details Appointments None recorded. Lab hemoglobin A1c + average glucose, QN, blood 2024 [facility] (Laboratory), [address] [place], [address], 5 07:48:04 CBC w/ auto diff 2024 [facility] (Laboratory), [address] [place], [address], 5 16:31:28 rf (rheumatoid factor) + anti-ccp abs, serum 2024 [facility] (Laboratory), [address] [place], [address], 5 07:48:04 MARYANN (antinuclea r antibodies) titer + pattern, ifa, serum 2024 [facility] (Laboratory), [address] [place], [address], 5 07:48:04 uric acid, serum or plasma 2024 025 [facility] (Laboratory), [address] [place], [address], 5 16:44:38 ESR (erythrocyt e sedimentati on rate), blood 2024 025 [facility] (Laboratory), [address] [place], [address], 5 17:28:09 C reactive protein, QN, serum or plasma 2024 025 [facility] (Laboratory), [address] [place], [address], 5 07:48:04 Referral None recorded. Procedures None recorded. Surgeries None recorded. Imaging None recorded. Medication Orders None recorded. Patient TargetsNo targets recorded. Patient InstructionsNo instructions recorded. Reason for Referral None Reported. Results Created Date Observation Date Name Description Value Unit Range Abnormal Flag Note LastModifiedBy Organization Detail LastModifiedTime 04/01/20 25 04/01/2025 LACTI C ACID lactic acid 1.3 mmole /L 0.4-2. 0 SPECI MEN WAS NOT DELIV ERED ON ICE Not Available [facility] (Lab Registration) [address] [place], [address], 04/01/2025 13:41:39 04/01/20 25 04/01/2025 LACTI C ACID note Unles s other perez noted testi ng perfo rmed at: [facility] [address] [address] [phone] Todd red MD CLIA: [id number] Not Available [facility] (Lab Registration) [place], [address], 04/01/2025 13:41:39 04/01/20 25 04/01/2025 CBC AUTO W DIFF WBC 14.7 10 4.5-11 .5 high Not Available [facility] (Lab Registration) [address] [place], [address], 04/01/2025 13:52:27 04/01/20 25 04/01/2025 CBC AUTO W DIFF RBC 5.06 10 4.25-5 .57 Not Available [facility] (Lab Registration) [address] [place], [address], 04/01/2025 13:52:27 04/01/20 25 04/01/2025 CBC AUTO W DIFF HGB 15.4 g/dL 12.0-1 5.7 Not Available [facility] (Lab Registration) [address] [place], [address], 04/01/2025 13:52:27 04/01/20 25 04/01/2025 CBC AUTO W DIFF HCT 43.6 % 36.0-4 7.0 Not Available [facility] (Lab Registration) [address] [place], [address], 04/01/2025 13:52:27 04/01/20 25 04/01/2025 CBC AUTO W DIFF MCV 86.2 fL 80-95 Not Available [facility] (Lab Registration) [address] [place], [address], 04/01/2025 13:52:27 04/01/20 25 04/01/2025 CBC AUTO W DIFF MCH 30.4 pg 27.0-3 4.0 Not Available [facility] (Lab Registration) [address] [place], [address], 04/01/2025 13:52:27 04/01/20 25 04/01/2025 CBC AUTO W DIFF MCHC 35.3 g/dL 32.0-3 6.0 Not Available [facility] (Lab Registration) [address] [place], [address], 04/01/2025 13:52:27 04/01/20 25 04/01/2025 CBC AUTO W DIFF platelet count 235 10 150-45 0 Not Available [facility] (Lab Registration) [address] [place], [address], 04/01/2025 13:52:27 04/01/20 25 04/01/2025 CBC AUTO W DIFF RDW 12.2 % 12.3-1 5.1 low Not Available [facility] (Lab Registration) [address] [place], [address], 04/01/2025 13:52:27 04/01/20 25 04/01/2025 CBC AUTO W DIFF MPV 11.0 fL 7.4-10 .4 high Not Available [facility] (Lab Registration) [address] [place], [address], 04/01/2025 13:52:27 04/01/20 25 04/01/2025 CBC AUTO W DIFF granulocyte% 68.0 % 40-75 Not Available [facility] (Lab Registration) [address] [place], [address], 04/01/2025 13:52:27 04/01/20 25 04/01/2025 CBC AUTO W DIFF lymphocyte% 22.0 % 15-57 Not Available [facility] (Lab Registration) [address] [place], [address], 04/01/2025 13:52:27 04/01/20 25 04/01/2025 CBC AUTO W DIFF monocyte% 8.3 % 4.0-12 .0 Not Available [facility] (Lab Registration) [address] [place], [address], 04/01/2025 13:52:27 04/01/20 25 04/01/2025 CBC AUTO W DIFF eosinophil% 1.2 % 0.0-4. 0 Not Available [facility] (Lab Registration) [address] [place], [address], 04/01/2025 13:52:27 04/01/20 25 04/01/2025 CBC AUTO W DIFF basophil% 0.4 % 0.0-1. 0 Not Available [facility] (Lab Registration) [address] [place], [address], 04/01/2025 13:52:27 04/01/20 25 04/01/2025 CBC AUTO W DIFF immature granulocytes % 0.1 % 0.0-0. 8 Not Available [facility] (Lab Registration) [address] [place], [address], 04/01/2025 13:52:27 04/01/20 25 04/01/2025 CBC AUTO W DIFF granulocyte# 9.96 10 Not Available [facility] (Lab Registration) [address] [place], [address], 04/01/2025 13:52:27 04/01/20 25 04/01/2025 CBC AUTO W DIFF lymphocyte# 3.23 10 Not Available [facility] (Lab Registration) [address] [place], [address], 04/01/2025 13:52:27 04/01/20 25 04/01/2025 CBC AUTO W DIFF monocyte# 1.22 10 Not Available [facility] (Lab Registration) [address] [place], [address], 04/01/2025 13:52:27 04/01/20 25 04/01/2025 CBC AUTO W DIFF eosinophil# 0.17 10 Not Available [facility] (Lab Registration) [address] [place], [address], 04/01/2025 13:52:27 04/01/20 25 04/01/2025 CBC AUTO W DIFF basophil# 0.06 10 Not Available [facility] (Lab Registration) [address] [place], [address], 04/01/2025 13:52:27 04/01/20 25 04/01/2025 CBC AUTO W DIFF immature granulocytes # 0.01 10 Not Available [facility] (Lab Registration) [address] [place], [address], 04/01/2025 13:52:27 04/01/20 25 04/01/2025 CBC AUTO W DIFF manual differential NO Not Available [facility] (Lab Registration) [address] [place], [address], 04/01/2025 13:52:27 04/01/20 25 04/01/2025 CBC AUTO W DIFF note Unles s other perez noted testi ng perfo rmed at: [facility] [address] [place] [address] [phone] 00 Todd red MD CLIA: [id number] Not Available [facility] (Lab Registration) [address] [place], [address], 04/01/2025 13:52:27 04/01/20 25 04/01/2025 D-DIM ER QUANT ITATI VE D-dimer quantitative 443 NG/mL 0-500 Not Available [facility] (Lab Registration) [address] [place], [address], 04/01/2025 14:03:38 04/01/20 25 04/01/2025 D-DIM ER QUANT ITATI VE note Unles s other perez noted testi ng perfo rmed at: [facility] [address] [place] [address] [phone] 00 Todd red MD CLIA: [id number] Not Available [facility] (Lab Registration) [address] [place], [address], 04/01/2025 14:03:38 04/01/20 25 04/01/2025 COMP METAB OLIC PANEL sodium 138 mmol/ L 136-14 5 Not Available [facility] (Lab Registration) [address] [place], [address], 04/01/2025 14:22:36 04/01/20 25 04/01/2025 COMP METAB OLIC PANEL potassium 4.3 mmol/ L 3.5-5. 1 Not Available [facility] (Lab Registration) [address] [place], [address], 04/01/2025 14:22:36 04/01/20 25 04/01/2025 COMP METAB OLIC PANEL chloride 101 mmol/ L 98-107 Not Available [facility] (Lab Registration) [address] [place], [address], 04/01/2025 14:22:36 04/01/20 25 04/01/2025 COMP METAB OLIC PANEL carbon dioxide 29 mmol/ L 21-32 Not Available [facility] (Lab Registration) [address] [place], [address], 04/01/2025 14:22:36 04/01/20 25 04/01/2025 COMP METAB OLIC PANEL anion gap 8.0 Not Available [facility] (Lab Registration) [address] [place], [address], 04/01/2025 14:22:36 04/01/20 25 04/01/2025 COMP METAB OLIC PANEL glucose 123 mg/dL 70-110 high Not Available [facility] (Lab Registration) [address] [place], [address], 04/01/2025 14:22:36 04/01/20 25 04/01/2025 COMP METAB OLIC PANEL blood urea nitrogen 14 mg/dL 7-18 Not Available [facility] (Lab Registration) [address] [place], [address], 04/01/2025 14:22:36 04/01/20 25 04/01/2025 COMP METAB OLIC PANEL creatinine 0.6 mg/dL 0.6-1. 0 Not Available [facility] (Lab Registration) [address] [place], [address], 04/01/2025 14:22:36 04/01/20 25 04/01/2025 COMP METAB OLIC PANEL BUN/creatini ne ratio 23.3 9-21 high Not Available [facility] (Lab Registration) [address], [place], [address], 04/01/2025 14:22:36 04/01/20 25 04/01/2025 COMP METAB [...] greenwood ing kiney funct ion. Not Available [facility] (Lab Registration) [address] [place], [address], 04/01/2025 14:22:36 04/01/20 25 04/01/2025 COMP METAB OLIC PANEL osmolality (calculated) 289 mOsm/ kg 275-30 1 OSMOL ALITY IS A CALCU LATIO N UTILI ZING THE SERUM /PLAS MA SODIU M, GLUCO SE AND UREA NITRO GEN (BUN) LEVEL S. FOR THE MOST ACCUR ATE RESUL T A MEASU RED SERUM OSMOL ALITY IS SUGGE STED. Not Available [facility] (Lab Registration) [address] [place], [address], 04/01/2025 14:22:36 04/01/20 25 04/01/2025 COMP METAB OLIC PANEL total protein 7.8 g/dL 6.4-8. 2 Not Available [facility] (Lab Registration) [address] [place], [address], 04/01/2025 14:22:36 04/01/20 25 04/01/2025 COMP METAB OLIC PANEL albumin 3.9 g/dL 3.4-5. 0 Not Available [facility] (Lab Registration) [address] [place], [address], 04/01/2025 14:22:36 04/01/20 25 04/01/2025 COMP METAB OLIC PANEL calcium 9.4 mg/dL 8.5-10 .1 Not Available [facility] (Lab Registration) [address] [place], [address], 04/01/2025 14:22:36 04/01/20 25 04/01/2025 COMP METAB OLIC PANEL corrected calcium 9.5 mg/dL 8.5-10 .1 Not Available [facility] (Lab Registration) [address] [place], [address], 04/01/2025 14:22:36 04/01/20 25 04/01/2025 COMP METAB OLIC PANEL bilirubin total 0.5 mg/dL 0.4-1. 5 Not Available [facility] (Lab Registration) [address] [place], [address], 04/01/2025 14:22:36 04/01/20 25 04/01/2025 COMP METAB OLIC PANEL AST (SGOT) 22 U/L 15-37 Not Available [facility] (Lab Registration) [address] [place], [address], 04/01/2025 14:22:36 04/01/20 25 04/01/2025 COMP METAB OLIC PANEL ALT (SGPT) 26 U/L 12-78 Not Available [facility] (Lab Registration) [address] [place], [address], 04/01/2025 14:22:36 04/01/20 25 04/01/2025 COMP METAB OLIC PANEL alk phosphatase 94 U/L 50-120 Not Available [facility] (Lab Registration) [address] [place], [address], 04/01/2025 14:22:36 04/01/20 25 04/01/2025 COMP METAB OLIC PANEL note Unles s other perez noted testi ng perfo rmed at: [facility] [address] [place] [address] [phone] 00 Todd red MD CLIA: [id number] Not Available [facility] (Lab Registration) [address] [place], [address], 04/01/2025 14:22:36 04/01/20 25 04/01/2025 C-CONNIE CTIVE PROTE IN C-reactive protein, quant 2.40 mg/dL 0.05-0 .300 high Not Available [facility] (Lab Registration) [address], [place], [address], 04/01/2025 14:22:38 04/01/20 25 04/01/2025 C-CONNIE CTIVE PROTE IN note Unles s other perez noted testi ng perfo rmed at: [facility] [address] [place] [address] [phone] 00 Todd red MD CLIA: [id number] Not Available [facility] (Lab Registration) [address], [place], [address], 04/01/2025 14:22:38 04/01/20 25 04/01/2025 SEDIM ENTAT ION RATE sedimentatio n rate 23 mm/HR 0-20 high Not Available [facility] (Lab Registration) [address] [place], [address], 04/01/2025 15:13:23 04/01/20 25 04/01/2025 SEDIM ENTAT ION RATE note Unles s other perez noted testi ng perfo rmed at: [facility] [address] [place] [address] [phone] 00 Todd red MD CLIA: [id number] Not Available [facility] (Lab Registration) [address] [place], [address], 04/01/2025 15:13:23 04/06/20 25 04/06/2025 CBC AUTO W DIFF WBC 11.1 10 4.5-11 .5 Not Available [facility] (Lab Registration) [address] [place], [address], 04/06/2025 16:31:28 04/06/20 25 04/06/2025 CBC AUTO W DIFF RBC 4.91 10 4.25-5 .57 Not Available [facility] (Lab Registration) [address] [place], [address], 04/06/2025 16:31:28 04/06/20 25 04/06/2025 CBC AUTO W DIFF HGB 15.0 g/dL 12.0-1 5.7 Not Available [facility] (Lab Registration) [address] [place], [address], 04/06/2025 16:31:28 04/06/20 25 04/06/2025 CBC AUTO W DIFF HCT 42.1 % 36.0-4 7.0 Not Available [facility] (Lab Registration) [address] [place], [address], 04/06/2025 16:31:28 04/06/20 25 04/06/2025 CBC AUTO W DIFF MCV 85.7 fL 80-95 Not Available [facility] (Lab Registration) [address] [place], [address], 04/06/2025 16:31:28 04/06/20 25 04/06/2025 CBC AUTO W DIFF MCH 30.5 pg 27.0-3 4.0 Not Available [facility] (Lab Registration) [address] [place], [address], 04/06/2025 16:31:28 04/06/20 25 04/06/2025 CBC AUTO W DIFF MCHC 35.6 g/dL 32.0-3 6.0 Not Available [facility] (Lab Registration) [address] [place], [address], 04/06/2025 16:31:28 04/06/20 25 04/06/2025 CBC AUTO W DIFF platelet count 240 10 150-45 0 Not Available [facility] (Lab Registration) [address] [place], [address], 04/06/2025 16:31:28 04/06/20 25 04/06/2025 CBC AUTO W DIFF RDW 12.4 % 12.3-1 5.1 Not Available [facility] (Lab Registration) [address] [place], [address], 04/06/2025 16:31:28 04/06/20 25 04/06/2025 CBC AUTO W DIFF MPV 10.8 fL 7.4-10 .4 high Not Available [facility] (Lab Registration) [address] [place], [address], 04/06/2025 16:31:28 04/06/20 25 04/06/2025 CBC AUTO W DIFF granulocyte% 66.1 % 40-75 Not Available [facility] (Lab Registration) [address] [place], [address], 04/06/2025 16:31:28 04/06/20 25 04/06/2025 CBC AUTO W DIFF lymphocyte% 24.1 % 15-57 Not Available [facility] (Lab Registration) [address] [place], [address], 04/06/2025 16:31:28 04/06/20 25 04/06/2025 CBC AUTO W DIFF monocyte% 7.6 % 4.0-12 .0 Not Available [facility] (Lab Registration) [address] [place], [address], 04/06/2025 16:31:28 04/06/20 25 04/06/2025 CBC AUTO W DIFF eosinophil% 1.6 % 0.0-4. 0 Not Available [facility] (Lab Registration) [address] [place], [address], 04/06/2025 16:31:28 04/06/20 25 04/06/2025 CBC AUTO W DIFF basophil% 0.5 % 0.0-1. 0 Not Available [facility] (Lab Registration) [address] [place], [address], 04/06/2025 16:31:28 04/06/20 25 04/06/2025 CBC AUTO W DIFF immature granulocytes % 0.1 % 0.0-0. 8 Not Available [facility] (Lab Registration) [address] [place], [address], 04/06/2025 16:31:28 04/06/20 25 04/06/2025 CBC AUTO W DIFF granulocyte# 7.35 10 Not Available [facility] (Lab Registration) [address] [place], [address], 04/06/2025 16:31:28 04/06/20 25 04/06/2025 CBC AUTO W DIFF lymphocyte# 2.68 10 Not Available [facility] (Lab Registration) [address] [place], [address], 04/06/2025 16:31:28 04/06/20 25 04/06/2025 CBC AUTO W DIFF monocyte# 0.84 10 Not Available [facility] (Lab Registration) [address] [place], [address], 04/06/2025 16:31:28 04/06/20 25 04/06/2025 CBC AUTO W DIFF eosinophil# 0.18 10 Not Available [facility] (Lab Registration) [address] [place], [address], 04/06/2025 16:31:28 04/06/20 25 04/06/2025 CBC AUTO W DIFF basophil# 0.05 10 Not Available [facility] (Lab Registration) [address] [place], [address], 04/06/2025 16:31:28 04/06/20 25 04/06/2025 CBC AUTO W DIFF immature granulocytes # 0.01 10 Not Available [facility] (Lab Registration) [address] [place], [address], 04/06/2025 16:31:28 04/06/20 25 04/06/2025 CBC AUTO W DIFF manual differential NO Not Available [facility] (Lab Registration) [address] [place], [address], 04/06/2025 16:31:28 04/06/20 25 04/06/2025 CBC AUTO W DIFF note Unles s other perez noted testi ng perfo rmed at: [facility] [address] [place] [phone] 87-36 00 Todd red MD CLIA: [id number] Not Available [facility] (Lab Registration) [address] [place], [address], 04/06/2025 16:31:28 04/06/20 25 04/06/2025 C-CONNIE CTIVE PROTE IN C-reactive protein, quant 0.40 mg/dL 0.05-0 .300 high Not Available [facility] (Lab Registration) [address] [place], [address], 04/06/2025 16:44:37 04/06/20 25 04/06/2025 C-CONNIE CTIVE PROTE IN note Unles s other perez noted testi ng perfo rmed at: [facility] [address] [place] [address] 54[address] 87-36 00 Todd red MD CLIA: [id number] Not Available [facility] (Lab Registration) [address] [place], [address], 04/06/2025 16:44:37 04/06/20 25 04/06/2025 URIC ACID uric acid 4.3 mg/dL 2.2-7. 7 Not Available [facility] (Lab Registration) [address] [place], [address], 04/06/2025 16:44:38 04/06/20 25 04/06/2025 URIC ACID note Unles s other perez noted testi ng perfo rmed at: [facility] [address] [place] [address] [phone] 00 Todd red MD CLIA: [id number] Not Available [facility] (Lab Registration) [address] [place], [address], 04/06/2025 16:44:38 04/06/20 25 04/06/2025 SEDIM ENTAT ION RATE sedimentatio n rate 14 mm/HR 0-20 Not Available [facility] (Lab Registration) [address] [place], [address], 04/06/2025 17:28:09 04/06/20 25 04/06/2025 SEDIM ENTAT ION RATE note Unles s other perez noted testi ng perfo rmed at: [facility] [address] [place] [address] [phone] 87-36 00 Todd red MD CLIA: [id number] Not Available [facility] (Lab Registration) [address] [place], [address], 04/06/2025 17:28:09 04/06/20 25 04/06/2025 HEMOG LOBIN A1C glycosylated hemoglobin A1C 5.5 % 4.5-6. 2 Not Available [facility] (Lab Registration) [address] [place], [address], 04/06/2025 17:38:13 04/06/20 25 04/06/2025 HEMOG LOBIN A1C estimated average glucose 111 mg/dL 82-131 Not Available [facility] (Lab Registration) [address] [place], [address], 04/06/2025 17:38:13 04/06/20 25 04/06/2025 HEMOG LOBIN A1C note Unles s other perez noted testi ng perfo rmed at: [facility] [address] [place] [address] 8599 87-36 00 Todd red MD CLIA: [id number] Not Available [facility] (Lab Registration) [address], [place], [address], 04/06/2025 17:38:13 04/06/20 25 04/06/2025 RHEUM ATOID FACTO R QUAL note Unles s other perez noted testi ng perfo rmed at: [facility] [address] [place], [place] [address] [phone] 19-36 00 Todd red MD CLIA: [id number] Not Available [facility] (Lab Registration) [address] [place], [address], 04/07/2025 12:11:58 04/06/20 25 04/07/2025 RHEUM ATOID FACTO R QUAL RA latex turbid. <10.0 IU/mL -<14.0 Perfo rmed at: [facility]3] [address] [place] [address] Lab Direc tor: Eugene dempsey PhD, Phone : [phone] Not Available [facility] (Lab Registration) [address] [place], [address], 04/07/2025 12:11:58 04/06/20 25 04/06/2025 CCP AB note Unles s other perez noted testi ng perfo rmed at: [facility] [address] [place], [place] [address]381 [phone] 00 Todd red MD CLIA: [id number] Not Available [facility] (Lab Registration) [address] [place], [address], 04/07/2025 15:11:39 04/06/20 25 04/07/2025 CCP AB ccp antibodies IgG/IgA 13 units 0-19 Negat maddie <20 Weak posit maddie 20 - 39 Moder ate posit maddie 40 - 59 Stron g posit maddie >59 [facility] [address] [facility], [place] [address] Lab Direc tor: Eugene dempsey PhD, Phone : [phone] Not Available [facility] (Lab Registration) [address] , [place], [address], 04/07/2025 15:11:39 04/06/20 25 04/06/2025 MARYANN TITER BY IFA note Unles s other perez noted testi ng perfo rmed at: [facility] [address] [place] [address] [phone] 00 Todd red MD CLIA: [id number] Not Available [facility] (Lab Registration) [address] , [place], [address], 04/08/2025 12:13:44 04/06/20 25 04/08/2025 MARYANN TITER BY IFA MARYANN titer Negati ve Negat maddie <1:80 Borde rline 1:80 Posit maddie >1:80 ICAP marylin jones re: AC-0 For more infor ashvin patterson about Hep-2 cell patte rns use ANApa ttern s.org , the offic ial geetha te for the Inter natio nal Conse nsus on Antin uclea r Antib derrick (MARYANN) Patte rns (ICAP ). [facility] [address] [facility], [place] [address] Lab Direc tor: Eugene dempsey PhD, Phone : [phone] Not Available [facility] (Lab Registration) [address] , [place], [address], 04/08/2025 12:13:44 03/13/20 25 03/13/2025 XR, chest , 2 view No observ ation record ed. [facility] [address], [place], [address], 03/13/2025 16:17:57 03/20/20 25 03/20/2025 XR, chest , 2 view No observ ation record ed. [facility] [address], [place], [place], [address], 03/22/2025 20:20:21 03/25/20 25 03/25/2025 XR, chest , 2 view No observ ation record ed. [facility] [address], [place], [place], [address], 03/25/2025 14:08:15 03/27/20 25 03/26/2025 imagi ng inter preta tion No observ ation record ed. [address], [place], [place], [address], 03/27/2025 10:59:48 03/27/20 25 03/26/2025 imagi ng inter preta tion No observ ation record ed. [address], [place], [address], 03/27/2025 10:59:28 04/07/20 25 04/06/2025 XR, chest , 2 view [facility] [address] [place] [address] Phone: Fax: Name: TRICE GRAYSON Exam Date: 025 : [birth year] Age 44 years Gender : F Access ion: [id number] Physic bradly: MAGGY EY, PETER Y Facili ty: [facility] Facili ty HSV: Outpat ient Exam: CHEST PA ^ LAT EXAM DESCRI PTION: XR CHEST 2 VIEWS CLINIC AL INDICA TION: SOA COMPAR LEONARDO: February 07, 2021 Radiog raph Chest 2 Views. TECHNI QUE: Two view radiog raph of the chest was obtain ed. FINDIN GS: The heart size is normal . The pulmon wes vascul ature is normal . Right basila r infilt rate. No pneumo thorax or pleura l effusi on. No acute osseou s or soft tissue abnorm ality. IMPRES SANDRITA: Right basila r infilt rate concer heriberto for pneumo renay. Electr onical ly signed by: Ross prado MD 2024 02:46 PM EDT RP Workst ation: [id number] Dictat ed By: Ross Pat Transc ribed By: Transc ribed On: 025 3:35 PM Electr onical ly signed by: Ross Pat 025 Thank you for referr ing TR[facility] to [facility]. Legall y authen ticate d by NANCY REILLY MD 04-06 15:35: 14 CC'ed Logic: Orderi ng Provid er: [facility] EY TAFFAN Y CC Provid er: [facility] Y Attend ing Provid er: [facility] E[facility]FFAN Y Referr ing Provid er: [facility] E[facility] TAFFAN Y Admitt ing Provid er: [facility] EY TAFFAN Y [email or web address] [facility] (Radiology) [address] [place], [address], 04/08/2025 10:36:29 04/20/20 25 04/13/2025 CT, chest , w/ contr ast [facility] [address] [place] [address] Phone: Fax: Name: TRICE GRAYSON Exam Date: 025 : [birth year] Age 44 years Gender : F Access ion: [id number] Physic bradly: ANNANG I, SRINAD H Facili ty: [facility] Facili ty HSV: Outpat ient Exam: CT CHEST WITH CONTRA ST CT examin ation of the chest perfor med obtain ed transa stephane from the thorac ic inlet throug h [...] e dedica omid imagin g follow -up. [id number] . CLINIC AL INDICA TION: Female , 44 years old. Shortn ess of breat COMPAR LEONARDO: Chest x-ray dated April 06, 2025, CT [...] upper abdome n: Unrema rkable . Impres sandrita: No acute cardio pulmon wes proces s. Stable benign pulmon wes nodule s. No furthe r workup is requir ed. Electr onical ly signed by: Nancy Thompson MD 2024 02:20 PM EDT RP Workst ation: ARHWRS 15PRR Dictat ed By: BATH, NANCY Y Transc ribed By: Transc ribed On: 11:08 AM Electr onical ly signed by: NANCY THOMPSON Y Thank you for referr ing TRICE GRAYSON to [facility]. Legall y authen ticate d by SAHARA Mcfadden MD 04-13 11:08: 00 CC'ed Logic: Orderi ng Provid er: AMBURG EY TAFFAN Y CC Provid er: AMBURG EY TAFFAN Y Attend ing Provid er: AMBURG EY TAFFAN Y Referr ing Provid er: YESSENIA GUERRERO H Admitt ing Provid er: AMBURG EY TAFFAN Y [email or web address] [facility] (Radiology) [address] [place], [address], 04/21/2025 10:40:34 04/28/20 25 04/13/2025 home sleep study No observ ation record ed. LOUISE [facility] (Sleep Lab) [address] [place], [address], 04/30/2025 09:25:02 05/06/20 25 05/06/2025 MAMMO , scree heriberto, digit al, bilat eral [facility] [address] [place] [address] Phone: Fax: Name: DONNIE SAINI TRICE Exam Date: : 979 Age 45 years Gender : F Access ion: [id number] Physic bradly: AMBURG EY, TAFFAN Y Facili ty: [facility] Facili ty HSV: Outpat ient Exam: [place] SCREEN MAMMO W CAD BILAT Exam: 3-D screen ing mammog praveen includ ing tomosy nthesi s and CAD (Compu ter Assist ed Detect ion). Clinic al indica tion: Asympt omatic screen ing exam Compar leonardo: Exams to 2019 TECHNI QUE: Routin e [...] calcif icatio ns are presen t. IMPRES SANDRITA: No eviden ce of malign scooby in [...] Gee Fry 025 Thank you for referr ing [facility] Legall y authen ticate d by AIME SAL MD 0 05-06 11:02: 10 CC'ed Logic: Orderi ng Provid er: AMBURG EY TAFFAN Y CC Provid er: AMBURG EY TAFFAN Y Attend ing Provid er: AMBURG EY TAFFAN Y Referr ing Provid er: AMBURG EY TAFFAN Y Admitt ing Provid er: AMBURG EY TAFFAN Y [email or web address] [facility] (Radiology) [address] , [place], [address], 05/07/2025 12:12:31 05/12/20 25 05/12/2025 XR, chest , 2 view No observ ation record ed. [facility] [address], [place], [address], 05/12/2025 17:00:06 Result Notes None recorded. Problems Name Problem SNOMED Code Status Onset Date Resolution Date Notes Provider Name and Address Organization Details Recorded Time Obesity 553812657 Active Sriram Mock null, [place] - [place] - [facility] & [place] 5 11:34:03 Excessive thirst 42187069 Active Sriram Mock null, [place] - [facility] & [place] 5 11:34:11 Infection of skin and/or subcutaneou s tissue 12689535 Active Sriram Mock null, [place] - [facility] & [place] 5 11:33:23 Sialoadenit is 03666303 Active Sriram Mock null, [place] - [facility] & [place] 5 11:32:44 Chronic pain 70153462 Active Sriram Mock null, [place] - [facility] & [place] 5 11:34:56 Generalized epilepsy 62075104 Active Sriram Mock null, [place] - [facility] & [place] 5 11:33:28 Dizziness 094199694 Active Sriram Mock null, [place] - [facility] & [place] 5 11:34:24 Allergic rhinitis caused by pollen 11975492 Active Sriram Mock null, [place] - [facility] & [place] 5 11:34:47 Disorder of skin and/or subcutaneou s tissue 97364616 Active Sriram Mock null, [place] [facility] [facility] & [place] 5 11:34:28 Acute back pain with sciatica 416047618 Active Sriram Mock null, [place] - [facility] & [place] 5 11:34:54 Dysplastic nevus of trunk 1715668136576 08 Active Sriram anthony, [place] LPNT - [facility] & [place] 5 11:34:22 Diarrhea of presumed infectious origin 53708413 Active Sriram anthony, [place] [facility] - [facility] & [place] 5 11:34:31 Postoperati ve visit 320576794 Active Sriram anthony, [place] LPNT [facility] & [place] 5 11:32:58 Lumbar spondylolis thesis 9797112669610 02 Active Sriram Mock null, [place] [facility] - [facility] & [place] 5 11:33:16 Loss of taste 89748101 Active Sriram anthony, [place] Corrigan LPNT - [facility] & 5 11:33:42 Moderate asthma 722803351 Active Sriram anthony, [place] Corr[place] LPNT - [facility] & [place] 5 11:33:11 Liver enzymes level above reference range 049937763 Active Sriram Mock null, [place] LP[facility] - [facility] & [place] 5 11:33:20 Nicotine dependence 40909806 Active Sriram anthony, [place] Corrigan LPNT - [facility] & 5 11:33:04 Lumbago with sciatica 092035008 Active Sriram anthony, [place] Corrigan LPNT - [place] & [place] 5 11:33:45 Submandibul ar sialolithia sis 091317608 Active Sriram anthony, [place] Corrigan LPNT - [facility] & [place] 5 11:32:39 Essential hypertensio n 59066525 Active SANDRINE DILLARD, ELIAS [address] [facility], [place], [address] [facility] [place] - [facility] - [facility] & [place] 5 14:34:25 Moderate persistent asthma 822397335 Active Sriram anthony, [place] Corrigan LPNT - [facility] & [place] 5 11:33:09 Allergic rhinitis 70145335 Active Sriram Mock null, [place] LP[facility] - [facility] & [place] 5 11:34:49 Surgical follow-up 083585117 Active DASHA [place] & [place] 5 11:32:37 Acute exacerbatio n of moderate persistent asthma Active DASHA [place] & [place] 5 11:34:51 Non-alcohol ic fatty liver 432051179 Active DASHA [place] [facility] & [place] 5 11:34:00 Seizure disorder 413322188 Active Sriram Mock nullDASHA [place] & [place] 5 11:32:47 Chronic obstructive pulmonary disease 86133548 Active DASHA [place] & [place] 5 11:34:44 Cauda equina syndrome 208287566 Active DASHA [place] [facility] & [place] 5 11:34:37 History of endocrine disorder 281155574 Active DASHA [place] [facility] & [place] 5 11:33:36 Fatigue 10975956 Active DASHA [place] [facility] & [place] 5 11:34:09 Gastroesoph ageal reflux disease 644978638 Active [place]ASHA [place] [facility] & [place] 5 11:35:14 Loss of sense of smell 75786643 Active Sriram Mock nullDASHA [facility] & [place] 5 11:33:39 Plantar wart of left foot 0593002993127 9102 Active Sriram Mock nullDASHA [place] & [place] 5 11:33:00 Cobalamin deficiency 548762251 Active Sriram Mock nullDASHA [place] & [place] 5 11:35:05 Sebaceous cyst of skin 674190902 Active Sriram Mock nullDASHA [place] & [place] 5 11:32:50 Mild intermitten t asthma 762404569 Active Sriram Mock nullDASHA [place] & [place] 5 11:33:13 Constipatio n 69846594 Active Sriram Mock null, [place] & [place] 5 11:35:01 Dyspnea on exertion 92640137 Active 2021 Sriram Mock [place] & [place] 5 11:35:11 Nicotine dependence with current use 477347012 Active 2021 Sriram Mock [place] & [place] 5 11:33:55 Nodule of lung 461420412 Active 2021 Sriram Mock [place] & [place] 5 11:33:58 Overweight 567710875 Active 2021 Sriram Mock [place] & [place] 5 11:34:07 Asthma 046577164 Active 2023 Sriram Mock null[place] & [place] 5 11:34:39 Heart disease 03467095 Active 2023 Sriram Mock null, [place] & [place] 5 11:33:30 Spinal cord disease 18373854 Active 2023 Sriram Mock [place] & [place] 5 11:32:41 Lumbar discogenic pain 394158516 Active 2023 Sriram Mock null[place] & [place] 5 11:33:49 Degeneratio n of lumbar interverteb ral disc 39431687 Active 2023 Sriram Mock [place] & [place] 5 11:35:08 Myofascial pain 573019057 Active 2023 Sriram Mock [place] & [place] 5 11:33:07 Radicular pain 90212148 Active 2023 Sriram Mock null, [place] & [place] 5 11:32:52 Severe persistent asthma 531844118 Active 2024 SANDRINE DILLARD NP [address], [place], [address], [place] - [place] & [place] 14:34:23 Body mass index 30+ - obesity 590803119 Active 2024 SANDRINE DILLARD NP [address], [place], [address], [place] - [place] - [place] & [place] 14:36:49 At increased risk of cardiovascu lar disease 5897597913853 9108 Active 2024 SANDRINE DILLARD NP [address], [place], [address], [place] - [place] & [place] 14:36:51 Notes:Some problems listed i n Document: #[id number] could not be added to this patient's chart. Please review this document and add these problems to the patient's chart manually as needed. Problem Notes None recorded. Procedures Surgical History Date Name Laterality Status Provider Name and Address Organization Details Recorded Time 10/22/19 24 Other completed Carmen LOU - [place] - [place] & [place] 04/08/2024 10:14:33 10/22/19 23 Other completed Juju Mckeon [place] - [place] - [place] & [place] 03/02/2023 11:03:02 06/22/20 20 removal of foreign body completed Patricia LOU - [facility] - [place] & [place] 08/15/2022 08:30:49 07/22/20 18 excision of submandibular gland completed Patricia LOU - [facility] - [place] & [place] 08/15/2022 08:29:56 10/22/18 95 Appendectomy completed Juju LOU - [facility] - [place] & [place] 03/02/2023 11:03:02 cholecystectomy completed Henrietta LOU - [facility] - [place] & [place] 07/24/2024 10:33:32 Cholecystectomy completed Patricia LOU - [facility] - [place] & [place] 08/15/2022 08:28:49 Carpal tunnel surgery [facility] [place] 08/15/2022 08:28:58 Appendectomy completed Patricia [facility] & [place] 08/15/2022 08:29:05 ligation of fallopian tube completed [facility] & [place] 08/15/2022 08:29:15 operation on uterus completed [facility] [place] 08/15/2022 08:29:26 Exc excessive skin arm completed [facility] & [place] 08/15/2022 08:30:28 Imaging Results None recorded. Procedure Notes None recorded. Medical Equipment None Reported. Allergies Allergen ID Allergen Name Allergen Category Reaction Reaction Severity Criticality Documentation Date Start Date Code Code System Note Provider Name and Address Organization Details Recorded Time 928376 Effexor medicatio n seizure Not available Not available 07/24/2024 73520 2 RxNorm Henrietta Garth null, [facility] & [place] 4 10:09:50 113901 Levaquin medicatio n dizziness Not available Not available 07/24/2024 26335 2 RxNorm Ears ringi ng Bailey Colon null, [facility] & [place] 5 16:49:41 843239 venlafaxi ne medicatio n Not available Not available Not available 04/07/2025 12511 RxNorm Other react ions and sever ities : 'Adve rse react ion to subst ance' . SANDRINE DILLARD NP [address] [place] [address], [address] [place] [address] & [place] 5 19:23:34 318471 levofloxa chris medicatio n Not available Not available Not available 04/07/2025 32481 RxNorm Other react ions and sever ities : 'Adve rse react ion to subst ance' . Asif [facility]erioso n null[facility] & [place] 5 14:09:12 058210 Geodon medicatio n Not available Not available Not available 04/15/2025 13188 4 RxNorm Bailey Colon null, [facility] & [place] 5 10:45:27 641071 Seroquel medicatio n other Not available Not available 04/15/2025 14974 RxNorm Depre ssion Bailey Colon null, [place] - NT [facility] & [place] 5 10:45:53 929377 Tegretol medicatio n hives Not available Not available 04/15/202520292 9 RxNorm Bailey Colon null, [place] - LP[facility] & [place] 5 10:46:10 9947 carbamaze pine medicatio n hives Not available Not available 07/03/20222001 RxNorm Gerard Troncoso null, [place] - [facility] & [place] 2 14:47:51 9948 ziprasido ne Not available hives Not available Not available 07/03/2022 29734 8 RxNorm Gerard Troncoso null, [facility] & [place] 2 14:47:51 9949 quetiapin e medicatio n Not available Not available Not available 07/03/2022 19911 RxNorm Other react ions and sever ities : 'Adve rse react ion to subst ance' . SANDRINE DILLARD NP [address] [place] [address], [address] [place] [address] & [place] 5 19:23:34 Medications Name Sig Start Date [...] Available Not Available Not Avai lable Vitals None Recorded Social History Question Answer Notes LastModified by Organizat ion Details LastModified Time Tobacco Smoking Status Current [facility]22 08:28:40 Do You Have An Advance Directive? No Information not available 03/02/2023 Do You Wear A Helmet When Biking? Yes [email or web address] Information not available 04/01/2025 Are You Blind Or Do You Have Difficulty Seeing? No Information not available 03/02/2023 What Is Your Level Of Caffeine Consumption? Occasional [email or web address] Information not available 12/04/2023 In The 14 Days Before Symptom Onset, Have You Had Close Contact With A Laboratory-confir med COVID-19 While That Case Was Ill? No [email or web address] Information not available 04/01/2025 In The 14 Days Before Symptom Onset, Have You Had Close Contact With A Person Who Is Under Investigation For COVID-19 While That Person Was Ill? No [email or web address] Information not available 04/01/2025 Have You Been To An Area Known To Be High Risk For COVID-19? No [email or web address] Information not available 04/01/2025 Are You Deaf Or Do You Have Serious Difficulty Hearing? No [email or web address] Information not available 04/01/2025 What Type Of Diet Are You Following? REGULAR [email or web address] Information not available 04/01/2025 Have You Processed Blood Or Body Fluids From An Ebola Virus Disease Patient Without Appropriate PPE? No [email or web address] Information not available 04/01/2025 Do You Reside In Or Have You Traveled To An Area Where Ebola Virus Transmission Is Active? No [email or web address] Information not available 04/01/2025 Have There Been Any Changes To Your Family Or Social Situation? No [email or web address] Information no t available 04/01/2025 What Is The Fluoride Status Of Your Home? Unknown [email or web address] Information not available 04/01/2025 Are There Any Guns Present In Your Home? No [email or web address] Information not available 04/01/2025 Have You Recently Or Are You Planning To Travel To An Area With Zika Virus? No [email or web address] Information not available 04/01/2025 Do You Use Insect Repellent Routinely? Yes [email or web address] Information not available 04/01/2025 Do You Feel Safe At Home? Yes [email or web address] Information not available 04/01/2025 Do You Have A Medical Power Of Picking Crew Supervisor? No [email or web address] Information not available 04/01/2025 What Was The Date Of Your Most Recent Tobacco Screening? 04/21/2025 [email or web address] Information not available 04/21/2025 What Is Your Current Pack Years? 30ormorepackye ars qankknu72 Information not available 12/04/2023 Do You Have Any Pets? No Information not available 04/01/2025 Do You Use Your Seat Belt Or Car Seat Routinely? Yes [email or web address] Information not available 04/01/2025 Do You Have Smoke And Carbon Monoxide Detectors In Your Home? Yes [email or web address] Information not available 04/01/2025 At What Age Did You Start Smoking Tobacco? 12 elhkdiu84 Information not available 12/04/2023 Are You Passively Exposed To Smoke? Yes Information no t available 03/02/2023 How Much Tobacco Do You Smoke? 2 PPD dlsjifd26 Information not available 08/15/2022 Has Tobacco Cessation Counseling Been Provided? Yes [email or web address] Information not available 04/01/2025 On What Date Was Tobacco Cessation Counseling Provided? 04/21/2025 [email or web address] Information not available 04/21/2025 How Many Years Have You Smoked Tobacco? 30 glyzcee63 Information not available 08/15/2022 Do You Have Difficulty Walking Or Climbing Stairs? No [email or web address] Information not available 04/01/2025 Are You Currently In School? No [email or web address] Information not available 04/01/2025 Sex: Unknown Functional Status Question Answer Note LastModified by Organizat ion Details LastModified Time Do you use any illicit or recreational drugs? No [email or web address] Information not available 08/15/2022 Do you or have you ever used any other forms of tobacco or nicotine? No Information not available 04/01/2025 What is your level of alcohol consumption? Moderate Information not available 03/02/2023 Do you or have you ever used smokeless tobacco? [id number] Information n ot available 03/02/2023 Are you currently employed? Yes [email or web address] Information not available 04/01/2025 Are you able to walk? YESWOREST szjzdfed72 Information not available 04/01/2025 Do you have difficulty doing errands alone? No qwzefdwk30 Information not available 04/01/2025 Are you able to care for yourself independently? Yes pozjfvin28 Information not available 04/01/2025 Do you have difficulty dressing, bathing, grooming, or toileting? No ivkgstmw39 Information not available 04/01/2025 What is your exercise level? Occasional Information not available 03/02/2023 Mental Status Question Answer Note LastModified by Organizat ion Details LastModified Time Do you feel stressed (tense, restless, nervous, or anxious, or unable to sleep at night)? [email or web address] Information not available 03/02/2023 Do you have difficulty concentrating, remembering or making decisions? No [email or web address] Information no t available 04/01/2025 Family History Relationship Description Onset Age of this Age Resolved Age Notes LastModified by Organization Details LastModified Time Mother Infectious cirrhosis 55 [email or web address] Not available 2024 14:00:50 Mother Chronic obstructive pulmonary disease 55 [email or web address] Not available 2021 08:27:27 Mother Family member 55 Not available 2024 14:00:50 Mother Disease of liver pt. added direct ly (03/05) API-13 Not available 03/05/2023 12:49:48 Mother Malignant neoplasm of prostate dzrxenr83 Not available 2024 14:00:50 Father Malignant neoplasm of prostate 57 ufzjson41 Not available 2024 14:00:50 Father Family member 57 [email or web address] Not available 2024 14:00:50 Sister Malignant tumor of pharynx 3 [email or web address] Not available 2024 14:00:50 Sister Malignant tumor of pharynx 2 [email or web address] Not available 2024 14:00:50 Medical History Condition [...] mcg/0.5mL dose or 50 mcg/0.25mL dose 01/30/2021 tj anthony [place] - [facility] [facility] 04/08/2024 10:08:00 COVID-19, mRNA, LNP-S, PF, 100 mcg/0.5mL dose or 50 mcg/0.25mL dose 02/17/2022 tj anthony [place] - LPNT [facility] & [place] 04/08/2024 10:08:00 COVID-19, mRNA, LNP-S, PF, 100 mcg/0.5mL dose or 50 mcg/0.25mL dose 02/27/2021 tj anthony [place] - [place] [facility] & [place] 04/08/2024 10:08:00 Influenza, split virus, quadrivalent, PF 08/09/2018 tj anthony [place] - [place] [facility] & [place] 04/08/2024 10:08:00 Influenza, split virus, quadrivalent, PF 08/03/2021 completed SANDRINE DILLARD NP [address] [facility], [place], [address], [place] [facility] & [place] 12/04/2023 15:25:29 Influenza, MDCK, quadrivalent, PF 08/15/2022 completed SANDRINE DILLARD NP [address] [facility], [place], [address], [place] - LPNT [facility] & [place] 12/04/2023 15:25:29 Influenza, split virus, quadrivalent, PF 07/10/2023 completed Carmen anthony, [place] - LP[place] [facility] & [place] 04/08/2024 10:08:28 Past Encounters Encounter ID Performer Location Encounter Start Date Encounter Closed Date Diagnosis/Indication Diagnosis SNOMED-CT Code Diagnosis ICD10 Code Diagnosis Note [id number] SANDRINE DILLARD NP [facility] [address] [facility] [place] [address] 04/01/2025 11:15:07 04/01/2025 12:40:10 Dyspnea 182377105 R06.02 R79.89 reviewed ER records. X-ray showed [...] or symptoms arise or any changes Leukocytosis 616757409 D 72.829 elevated in ER at 17, could have been related to recent surgery earlier that day but in addition to elevated lactic acidosis and D-dimer needs further workup, repeat, denies any fever, chills, continues to have shortness of breath, denies any cough Lactic aci d level above reference range 1583107 R79.89 D-dimer ab ove reference range 436587802 R79.89 recheck lab work today Hypoxia 499677796 G47.34 oxygen dropping into the 80s with sleeping, needs home sleep study, order placed Plain X-ra y of chest abnormal 0623780135 R93.89 chest x-ray from [facility] shows moderate right basilar atelectasi s [id number] SANDRINE DILLARD NP [facility] [address] [place] [address] 04/06/2025 14:41:15 04/08/2025 03:57:33 Leukocytosis 903316347 D72.829 Erythrocyt e sedimentation rate above reference range 643834749 R70.0 C-reactive protein above reference range 9641493052 37153 R79.82 Hyperglycemia 50797813 R 73.9 Health Concerns Section Related Observation LastModified by Organization Detai ls LastModified Time None Recorded Concern Status LastModified by Organization Details LastModified Time None Recorded Payers Encounter Date Sequence Insurance Name Policy Number Policy Rios Covered Member ID Rios Member ID Guarantor Name 04/06/2025 1 [employer] [facility] (MEDICAID HMO) Trice Tran [id number] Trice [place] OBG[facility] Episode No OBEpisode recorded.
--- OUTSIDE RECORDS SUMMARY | 2025-05-19 09:03 | XMS_ITS | Encounter Summary ---
Author Organization [employer] ([place], [place], [place], [place]) Address [address] [place] [address] Care Team Providers Care Manager Solution Name Role Phone Unavailable Primary Care Provider Unavailabl e Encounter Details Date Type Department Care Team (Late st Contact Info) Description 09/19/2021 Transcribed Document [facility] Family Medicine [address] [place] [address] ProviderNaveen MD [address] [place] [address] Social History Tobacco Use Types [...] - Historical ProviderMD - 09/19/2021 2:59 PM MARKETING DATABASE ANALYST Pain Assessment Entered On: 09/19/2021 16:02 EST [...] of the form. Electronically signed by Jordan, [facility] Conversion Recycling Worker Cerner at 02/04/2023 9:36 AM CDT documented in this encounter Plan of Treatment Not on file documented as of this encounter Visit Diagnoses Not on filedocumented in this encounter
--- OUTSIDE RECORDS SUMMARY | 2025-05-19 09:03 | XMS_ITS | Continuity of Care Document ---
Author Organization [facility] & 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 Plan of Treatment Reminders Order Date Submit Date Provider Last Modified By Organization Details Last Modified Time Details Appointments None recorded. Lab TSH + free T4, serum 2024 025 [email or web address] 0 [facility] (Laboratory), [address] [place], [address], 5 07:43:34 noninvasive colorectal cancer DNA + occult blood screening, QL, stool 2024 025 [email or web address] 0 [employer] (Cologuard Orders Only), [address], [address], [place], [address], 5 07:43:34 Referral None recorded. Procedures None recorded. Surgeries None recorded. Imaging MAMMO, screening, digital, bilateral 2024 025 [facility] (Scheduling), [address] [place], [address], 5 11:19:17 Medication Orders Trelegy Ellipta 100 mcg-62.5 mcg-25 mcg powder for inhalation 2024 025 [facility] 848, [address], [address], 14:33:39 Wegovy 0.25 mg/0.5 mL subcutaneou s pen injector 2024 025 [facility], [address], [address], 14:33:39 Patient TargetsNo targets recorded. Patient InstructionsNo instructions recorded. Reason for Referral None Reported. Results Created Date Observation Date Name Description Value Unit Range Abnormal Flag Note LastModifiedBy Organization Detail LastModifiedTime 04/01/2004/01/2025 LACTI C ACID lactic acid 1.3 mmole /L 0.4-2. 0 SPECI MEN WAS NOT DELIV ERED ON ICE Not Available [facility] (Lab Registration) [address] , [place], [address], 04/01/2025 13:41:39 04/01/2004/01/2025 LACTI C ACID note Unles s other perez noted testi ng perfo rmed at: [facility] [address] [place] [address] [phone] 00 Todd red MD CLIA: [id number] Not Available [facility] (Lab Registration) [address] , [place], [address], 04/01/2025 13:41:39 04/01/20 25 04/01/2025 CBC AUTO W DIFF WBC 14.7 10 4.5-11 .5 high Not Available [facility] (Lab Registration) [address] [place], [address], 04/01/2025 13:52:27 04/01/20 25 04/01/2025 CBC AUTO W DIFF RBC 5.06 10 4.25-5 .57 Not Available [facility] (Lab Registration) [address], [place], [address], 04/01/2025 13:52:27 04/01/20 25 04/01/2025 CBC AUTO W DIFF HGB 15.4 g/dL 12.0-1 5.7 Not Available [facility] (Lab Registration) [address] [place], [address], 04/01/2025 13:52:27 04/01/20 25 04/01/2025 CBC AUTO W DIFF HCT 43.6 % 36.0-4 7.0 Not Available [facility] (Lab Registration) [address] [place], [address], 04/01/2025 13:52:27 04/01/20 25 04/01/2025 CBC AUTO W DIFF MCV 86.2 fL 80-95 Not Available [facility] (Lab Registration) [address] [place], [address], 04/01/2025 13:52:27 04/01/20 25 04/01/2025 CBC AUTO W DIFF MCH 30.4 pg 27.0-3 4.0 Not Available [facility] (Lab Registration) [address] [place], [address], 04/01/2025 13:52:27 04/01/20 25 04/01/2025 CBC AUTO W DIFF MCHC 35.3 g/dL 32.0-3 6.0 Not Available [facility] (Lab Registration) [address] [place], [address], 04/01/2025 13:52:27 04/01/20 25 04/01/2025 CBC AUTO W DIFF platelet count 235 10 150-45 0 Not Available [facility] (Lab Registration) [address] [place], [address], 04/01/2025 13:52:27 04/01/20 25 04/01/2025 CBC AUTO W DIFF RDW 12.2 % 12.3-1 5.1 low Not Available [facility] (Lab Registration) [address] [place], [address], 04/01/2025 13:52:27 06/11/20 25 04/01/2025 CBC AUTO W DIFF MPV 11.0 fL 7.4-10 .4 high Not Available [facility] (Lab Registration) [address] [place], [address], 04/01/2025 13:52:27 04/01/20 25 04/01/2025 CBC AUTO W DIFF granulocyte% 68.0 % 40-75 Not Available [facility] (Lab Registration) [address] [place], [address], 04/01/2025 13:52:27 04/01/20 25 04/01/2025 CBC AUTO W DIFF lymphocyte% 22.0 % 15-57 Not Available [facility] (Lab Registration) [address] [place], [address], 04/01/2025 13:52:27 04/01/20 25 04/01/2025 CBC AUTO W DIFF monocyte% 8.3 % 4.0-12 .0 Not Available [facility] (Lab Registration) [address] [place], [address], 04/01/2025 13:52:27 04/01/20 25 04/01/2025 CBC AUTO W DIFF eosinophil% 1.2 % 0.0-4. 0 Not Available [facility] (Lab Registration) [address] [place], [address], 04/01/2025 13:52:27 04/01/20 25 04/01/2025 CBC AUTO W DIFF basophil% 0.4 % 0.0-1. 0 Not Available [facility] (Lab Registration) [address] [place], [address], 04/01/2025 13:52:27 04/01/20 25 04/01/2025 CBC AUTO W DIFF immature granulocytes % 0.1 % 0.0-0. 8 Not Available [facility] (Lab Registration) [address] [place], [address], 04/01/2025 13:52:27 04/01/20 25 04/01/2025 CBC AUTO W DIFF granulocyte# 9.96 10 Not Available [facility] (Lab Registration) [address] [place], [address], 04/01/2025 13:52:27 04/01/20 25 04/01/2025 CBC AUTO W DIFF lymphocyte# 3.23 10 Not Available [facility] (Lab Registration) [address] [place], [address], 04/01/2025 13:52:27 04/01/20 25 04/01/2025 CBC AUTO W DIFF monocyte# 1.22 10 Not Available [facility] (Lab Registration) [address] [place], [address], 04/01/2025 13:52:27 04/01/20 25 04/01/2025 CBC AUTO W DIFF eosinophil# 0.17 10 Not Available [facility] (Lab Registration) [address] [place], [address], 04/01/2025 13:52:27 04/01/20 25 04/01/2025 CBC AUTO W DIFF basophil# 0.06 10 Not Available [facility] (Lab Registration) [address] [place], [address], 04/01/2025 13:52:27 04/01/20 25 04/01/2025 CBC AUTO W DIFF immature granulocytes # 0.01 10 Not Available [facility] (Lab Registration) [address] [place], [address], 04/01/2025 13:52:27 04/01/20 25 04/01/2025 CBC AUTO W DIFF manual differential NO Not Available [facility] (Lab Registration) [address] [place], [address], 04/01/2025 13:52:27 04/01/20 25 04/01/2025 CBC AUTO W DIFF note Unles s other perez noted testi ng perfo rmed at: [facility] [address] [place] [address] [phone] 00 Todd red MD CLIA: [id number] Not Available [facility] (Lab Registration) [address] [place], [address], 04/01/2025 13:52:27 04/01/20 25 04/01/2025 D-DIM ER QUANT ITATI VE D-dimer quantitative 443 NG/mL 0-500 Not Available [facility] (Lab Registration) [address] [place], [address], 04/01/2025 14:03:38 04/01/20 25 04/01/2025 D-DIM ER QUANT ITATI VE note Unles s other perez noted testi ng perfo rmed at: [facility] [address] [place] [address] [phone] 00 Todd red MD CLIA: [id number] Not Available [facility] (Lab Registration) [address] [place], [address], 04/01/2025 14:03:38 04/01/20 25 04/01/2025 COMP METAB OLIC PANEL sodium 138 mmol/ L 136-14 5 Not Available [facility] (Lab Registration) [address] [place], [address], 04/01/2025 14:22:36 04/01/20 25 04/01/2025 COMP METAB OLIC PANEL potassium 4.3 mmol/ L 3.5-5. 1 Not Available [facility] (Lab Registration) [address] [place], [address], 04/01/2025 14:22:36 04/01/20 25 04/01/2025 COMP METAB OLIC PANEL chloride 101 mmol/ L 98-107 Not Available [facility] (Lab Registration) [address] [place], [address], 04/01/2025 14:22:36 04/01/20 25 04/01/2025 COMP METAB OLIC PANEL carbon dioxide 29 mmol/ L 21-32 Not Available [facility] (Lab Registration) [address] [place], [address], 04/01/2025 14:22:36 04/01/20 25 04/01/2025 COMP METAB OLIC PANEL anion gap 8.0 Not Available [facility] (Lab Registration) [address] [place], [address], 04/01/2025 14:22:36 04/01/20 25 04/01/2025 COMP METAB OLIC PANEL glucose 123 mg/dL 70-110 high Not Available [facility] (Lab Registration) [address] [place], [address], 04/01/2025 14:22:36 04/01/20 25 04/01/2025 COMP METAB OLIC PANEL blood urea nitrogen 14 mg/dL 7-18 Not Available [facility] (Lab Registration) [address] [place], [address], 04/01/2025 14:22:36 04/01/20 25 04/01/2025 COMP METAB OLIC PANEL creatinine 0.6 mg/dL 0.6-1. 0 Not Available [facility] (Lab Registration) [address] [place], [address], 04/01/2025 14:22:36 04/01/20 25 04/01/2025 COMP METAB OLIC PANEL BUN/creatini ne ratio 23.3 9-21 high Not Available [facility] (Lab Registration) [address] [place], [address], 04/01/2025 14:22:36 04/01/20 25 04/01/2025 COMP METAB [...] greenwood ing kiney funct ion. Not Available [facility] (Lab Registration) [address], [place], [address], 04/01/2025 14:22:36 04/01/20 25 04/01/2025 COMP METAB OLIC PANEL osmolality (calculated) 289 mOsm/ kg 275-30 1 OSMOL ALITY IS A CALCU LATIO N UTILI ZING THE SERUM /PLAS MA SODIU M, GLUCO SE AND UREA NITRO GEN (BUN) LEVEL S. FOR THE MOST ACCUR ATE RESUL T A MEASU RED SERUM OSMOL ALITY IS SUGGE STED. Not Available [facility] (Lab Registration) [address], [place], [address], 04/01/2025 14:22:36 04/01/20 25 04/01/2025 COMP METAB OLIC PANEL total protein 7.8 g/dL 6.4-8. 2 Not Available [facility] (Lab Registration) [address], [place], [address], 04/01/2025 14:22:36 04/01/20 25 04/01/2025 COMP METAB OLIC PANEL albumin 3.9 g/dL 3.4-5. 0 Not Available [facility] (Lab Registration) [address], [place], [address], 04/01/2025 14:22:36 04/01/20 25 04/01/2025 COMP METAB OLIC PANEL calcium 9.4 mg/dL 8.5-10 .1 Not Available [facility] (Lab Registration) [address], [place], [address], 04/01/2025 14:22:36 04/01/20 25 04/01/2025 COMP METAB OLIC PANEL corrected calcium 9.5 mg/dL 8.5-10 .1 Not Available [facility] (Lab Registration) [address] [place], [address], 04/01/2025 14:22:36 04/01/20 25 04/01/2025 COMP METAB OLIC PANEL bilirubin total 0.5 mg/dL 0.4-1. 5 Not Available [facility] (Lab Registration) [address] [place], [address], 04/01/2025 14:22:36 04/01/20 25 04/01/2025 COMP METAB OLIC PANEL AST (SGOT) 22 U/L 15-37 Not Available [facility] (Lab Registration) [address] [place], [address], 04/01/2025 14:22:36 04/01/20 25 04/01/2025 COMP METAB OLIC PANEL ALT (SGPT) 26 U/L 12-78 Not Available [facility] (Lab Registration) [address] [place], [address], 04/01/2025 14:22:36 04/01/20 25 04/01/2025 COMP METAB OLIC PANEL alk phosphatase 94 U/L 50-120 Not Available [facility] (Lab Registration) [address] [place], [address], 04/01/2025 14:22:36 04/01/20 25 04/01/2025 COMP METAB OLIC PANEL note Unles s other perez noted testi ng perfo rmed at: [facility] [address] [place] [address] [phone] 00 Todd red MD CLIA: [id number] Not Available [facility] (Lab Registration) [address] [place], [address], 04/01/2025 14:22:36 04/01/20 25 04/01/2025 C-CONNIE CTIVE PROTE IN C-reactive protein, quant 2.40 mg/dL 0.05-0 .300 high Not Available [facility] (Lab Registration) [address], [place], [address], 04/01/2025 14:22:38 04/01/20 25 04/01/2025 C-CONNIE CTIVE PROTE IN note Unles s other perez noted testi ng perfo rmed at: [facility] [address] [place] [address] [phone] 00 Todd red MD CLIA: [id number] Not Available [facility] (Lab Registration) [address] [place] [place], [address], 04/01/2025 14:22:38 04/01/20 25 04/01/2025 SEDIM ENTAT ION RATE sedimentatio n rate 23 mm/HR 0-20 high Not Available [facility] (Lab Registration) [address] [place], [address], 04/01/2025 15:13:23 04/01/20 25 04/01/2025 SEDIM ENTAT ION RATE note Unles s other perez noted testi ng perfo rmed at: [facility] [address] [place] [address] [phone] 00 Todd red MD CLIA: [id number] Not Available [facility] (Lab Registration) [address] [place], [address], 04/01/2025 15:13:23 04/06/20 25 04/06/2025 CBC AUTO W DIFF WBC 11.1 10 4.5-11 .5 Not Available [facility] (Lab Registration) [address] [place], [address], 04/06/2025 16:31:28 04/06/20 25 04/06/2025 CBC AUTO W DIFF RBC 4.91 10 4.25-5 .57 Not Available [facility] (Lab Registration) [address] [place], [address], 04/06/2025 16:31:28 04/06/20 25 04/06/2025 CBC AUTO W DIFF HGB 15.0 g/dL 12.0-1 5.7 Not Available [facility] (Lab Registration) [address] [place], [address], 04/06/2025 16:31:28 04/06/20 25 04/06/2025 CBC AUTO W DIFF HCT 42.1 % 36.0-4 7.0 Not Available [facility] (Lab Registration) [address] [place], [address], 04/06/2025 16:31:28 04/06/20 25 04/06/2025 CBC AUTO W DIFF MCV 85.7 fL 80-95 Not Available [facility] (Lab Registration) [address] [place], [address], 04/06/2025 16:31:28 04/06/20 25 04/06/2025 CBC AUTO W DIFF MCH 30.5 pg 27.0-3 4.0 Not Available [facility] (Lab Registration) [address] [place], [address], 04/06/2025 16:31:28 04/06/20 25 04/06/2025 CBC AUTO W DIFF MCHC 35.6 g/dL 32.0-3 6.0 Not Available [facility] (Lab Registration) [address] [place], [address], 04/06/2025 16:31:28 04/06/20 25 04/06/2025 CBC AUTO W DIFF platelet count 240 10 150-45 0 Not Available [facility] (Lab Registration) [address] [place], [address], 04/06/2025 16:31:28 04/06/20 25 04/06/2025 CBC AUTO W DIFF RDW 12.4 % 12.3-1 5.1 Not Available [facility] (Lab Registration) [address] [place], [address], 04/06/2025 16:31:28 04/06/20 25 04/06/2025 CBC AUTO W DIFF MPV 10.8 fL 7.4-10 .4 high Not Available [facility] (Lab Registration) [address] [place], [address], 04/06/2025 16:31:28 04/06/20 25 04/06/2025 CBC AUTO W DIFF granulocyte% 66.1 % 40-75 Not Available [facility] (Lab Registration) [address] [place], [address], 04/06/2025 16:31:28 04/06/20 25 04/06/2025 CBC AUTO W DIFF lymphocyte% 24.1 % 15-57 Not Available [facility] (Lab Registration) [address] [place], [address], 04/06/2025 16:31:28 04/06/20 25 04/06/2025 CBC AUTO W DIFF monocyte% 7.6 % 4.0-12 .0 Not Available [facility] (Lab Registration) [address] [place], [address], 04/06/2025 16:31:28 04/06/20 25 04/06/2025 CBC AUTO W DIFF eosinophil% 1.6 % 0.0-4. 0 Not Available [facility] (Lab Registration) [address] [place], [address], 04/06/2025 16:31:28 04/06/20 25 04/06/2025 CBC AUTO W DIFF basophil% 0.5 % 0.0-1. 0 Not Available [facility] (Lab Registration) [address] [place], [address], 04/06/2025 16:31:28 04/06/20 25 04/06/2025 CBC AUTO W DIFF immature granulocytes % 0.1 % 0.0-0. 8 Not Available [facility] (Lab Registration) [address] [place], [address], 04/06/2025 16:31:28 04/06/20 25 04/06/2025 CBC AUTO W DIFF granulocyte# 7.35 10 Not Available [facility] (Lab Registration) [address] [place], [address], 04/06/2025 16:31:28 04/06/20 25 04/06/2025 CBC AUTO W DIFF lymphocyte# 2.68 10 Not Available [facility] (Lab Registration) [address] [place], [address], 04/06/2025 16:31:28 04/06/20 25 04/06/2025 CBC AUTO W DIFF monocyte# 0.84 10 Not Available [facility] (Lab Registration) [address] [place], [address], 04/06/2025 16:31:28 04/06/20 25 04/06/2025 CBC AUTO W DIFF eosinophil# 0.18 10 Not Available [facility] (Lab Registration) [address] [place], [address], 04/06/2025 16:31:28 04/06/20 25 04/06/2025 CBC AUTO W DIFF basophil# 0.05 10 Not Available [facility] (Lab Registration) [address] [place], [address], 04/06/2025 16:31:28 04/06/20 25 04/06/2025 CBC AUTO W DIFF immature granulocytes # 0.01 10 Not Available [facility] (Lab Registration) [address] [place], [address], 04/06/2025 16:31:28 04/06/20 25 04/06/2025 CBC AUTO W DIFF manual differential NO Not Available [facility] (Lab Registration) [address], [place], [address], 04/06/2025 16:31:28 04/06/20 25 04/06/2025 CBC AUTO W DIFF note Unles s other perez noted testi ng perfo rmed at: [facility] [address] [place] [address] [phone] 87-36 00 Todd red MD CLIA: [id number] Not Available [facility] (Lab Registration) [address] [place], [address], 04/06/2025 16:31:28 04/06/20 25 04/06/2025 C-CONNIE CTIVE PROTE IN C-reactive protein, quant 0.40 mg/dL 0.05-0 .300 high Not Available [facility] (Lab Registration) [address] [place], [address], 04/06/2025 16:44:37 04/06/20 25 04/06/2025 C-CONNIE CTIVE PROTE IN note Unles s other perez noted testi ng perfo rmed at: [facility] [address] [place] [address] [phone] [phone] 00 Todd red MD CLIA: [id number] Not Available [facility] (Lab Registration) [address] [place], [address], 04/06/2025 16:44:37 04/06/20 25 04/06/2025 URIC ACID uric acid 4.3 mg/dL 2.2-7. 7 Not Available [facility] (Lab Registration) [address] [place], [address], 04/06/2025 16:44:38 04/06/20 25 04/06/2025 URIC ACID note Unles s other perez noted testi ng perfo rmed at: [facility] [address] [place] [address] [phone] 00 Todd red MD CLIA: [id number] Not Available [facility] (Lab Registration) [address] [place] [place], [address], 04/06/2025 16:44:38 04/06/20 25 04/06/2025 SEDIM ENTAT ION RATE sedimentatio n rate 14 mm/HR 0-20 Not Available [facility] (Lab Registration) [address] [place], [address], 04/06/2025 17:28:09 04/06/20 25 04/06/2025 SEDIM ENTAT ION RATE note Unles teofilo other perez noted testi ng perfo rmed at: [facility] [address] [place] [address] [phone] [phone] 00 Todd red MD CLIA: [id number] Not Available [facility] (Lab Registration) [address] [place], [address], 04/06/2025 17:28:09 04/06/20 25 04/06/2025 HEMOG LOBIN A1C glycosylated hemoglobin A1C 5.5 % 4.5-6. 2 Not Available [facility] (Lab Registration) [address] [place] [place], [address], 04/06/2025 17:38:13 04/06/20 25 04/06/2025 HEMOG LOBIN A1C estimated average glucose 111 mg/dL 82-131 Not Available [facility] (Lab Registration) [address], [address], 04/06/2025 17:38:13 04/06/20 25 04/06/2025 HEMOG LOBIN A1C note Itzeles teofilo other perez noted testi ng perfo rmed at: [facility] [address] [place] [address] 87-36 00 Todd red MD CLIA: [id number] Not Available [facility] (Lab Registration) [address] [place], [address], 04/06/2025 17:38:13 04/06/20 25 04/06/2025 RHEUM ATOID FACTO R QUAL note Unles s other perez noted testi ng perfo rmed at: [facility] [address] [place] [address] [phone] [phone] 00 Todd red MD CLIA: [id number] Not Available [facility] (Lab Registration) [address] [place], [address], 04/07/2025 12:11:58 04/06/2004/07/2025 RHEUM ATOID FACTO R QUAL RA latex turbid. <10.0 IU/mL -<14.0 Perfo rmed at: [facility] [address] [employer] [facility], [place] [address] 12[address] Lab Direc tor: Eugene dempsey PhD, Phone : [phone] Not Available [facility] (Lab Registration) [address] [place], [address], 04/07/2025 12:11:58 04/06/20 25 04/06/2025 CCP AB note Unles s other perez noted testi ng perfo rmed at: [facility] [address] [place] [address] [phone] 87-36 00 Todd red MD CLIA: [id number] Not Available [facility] (Lab Registration) [address] [place], [address], 04/07/2025 15:11:39 04/06/20 25 04/07/2025 CCP AB ccp antibodies IgG/IgA 13 units 0-19 Negat maddie <20 Weak posit maddie 20 - 39 Moder ate posit maddie 40 - 59 Stron g posit maddie >59 Perfo rmed at: [facility] [address] [employer] [facility], [place] [address] Lab Direc tor: Eugene dempsey PhD, Phone : [phone] Not Available [facility] (Lab Registration) [address], [place], [address], 04/07/2025 15:11:39 04/06/20 25 04/06/2025 MARYANN TITER BY IFA note Unles s other perez noted testi ng perfo rmed at: [facility] [address] [facility] [place] [address] [phone] 00 Todd red MD CLIA: [id number] Not Available [facility] (Lab Registration) [address], [place], [address], 04/08/2025 12:13:44 04/06/20 25 04/08/2025 MARYANN TITER [...] Patte rns (ICAP ). Perfo rmed at: [address], [place] [address] Lab Direc tor: Eugene dempsey PhD, Phone : [phone] Not Available [facility] (Lab Registration) [address], [place], [address], 04/08/2025 12:13:44 04/21/20 25 04/21/2025 THYRO ID STIMU LATIN G HORMO NE thyroid stimulating hormone 1.82 mIU/m L 0.34-4 .80 Not Available [facility] (Lab Registration) [address] [place], [address], 04/21/2025 16:59:23 04/21/20 25 04/21/2025 THYRO ID STIMU LATIN G HORMO NE note Samara red other perez noted testi ng perfo rmed at: [facility] [address] [place] [address] [phone] 00 Todd red MD CLIA: [id number] Not Available [facility] (Lab Registration) [address] [place], [address], 04/21/2025 16:59:23 04/21/20 25 04/21/2025 T4 FREE T4,free 1.20 NG/dL 0.76-1 .46 Effec tive today 013 new Refer ence Range . Not Available [facility] (Lab Registration) [address] [place], [address], 04/21/2025 16:59:24 04/21/20 25 04/21/2025 T4 FREE note Samara perez noted testi ng perfo rmed at: [facility] [address] [place] [address] [phone] [phone] 00 Todd red MD CLIA: [id number] Not Available [facility] (Lab Registration) [address] [place], [address], 04/21/2025 16:59:24 03/25/20 25 03/25/2025 XR, chest , 2 view No observ ation record ed. [id number] [facility] [address], [place], [address], 03/25/2025 14:08:15 03/27/20 25 03/26/2025 imagi ng inter preta tion No observ ation record ed. [address], [place], [address], 03/27/2025 10:59:48 03/27/20 25 03/26/2025 imagi ng inter preta tion No observ ation record ed. [address], [place], [place], [address], 03/27/2025 10:59:28 04/07/20 25 04/06/2025 XR, chest , 2 view [facility] [address] [place] [address] Phone: Fax: Name: DONNIE SAINIYASMANILE Exam Date: : [birth year] Age 44 years Gender : F Access ion: [id number] Physic bradly: AMBURG EY, TAFFAN Y Facili ty: [facility] Facili ty HSV: Outpat ient Exam: CHEST [...] you for [facility]err ing [facility] Legall y authen ticate d by NANCY REILLY MD 2024-0 04-06 15:35: 14 CC'ed Logic: Orderi ng Provid er: AMBURG EY TAFFAN Y CC Provid er: AMBURG EY TAFFAN Y Attend ing Provid er: AMBURG EY TAFFAN Y Referr ing Provid er: AMBURG EY TAFFAN Y Admitt ing Provid er: [facility] Y [id number] [facility] (Radiology) [address] [place], [address], 04/08/2025 10:36:29 04/20/20 25 04/13/2025 CT, chest , w/ contr [facility] [address] [place] [address] Phone: Fax: Name: TRICE GRAYSON Exam Date: 025 : 979 Age 44 years Gender : F Access ion: [id number] Physic bradly: CESAR GARRISON Facili ty: [facility] Facili ty HSV: Outpat ient Exam: [...] e dedica omid imagin g follow -up. [id number] . CLINIC AL INDICA TION: Female , 44 years old. Shortn ess of breat COMPAR BERYL: Chest x-ray dated April 06, 2025, CT chest dated 2022 and Octobe r 2020 Findin gs: [...] onical ly signed by: NANCY THOMPSON Y 025 Thank you for referr ing TRICE GRAYSON to [facility]. Legall y authen ticate d by SAHARA Mcfadden MD 2024-0 04-13 11:08: 00 CC'ed Logic: Orderi ng Provid er: AMBURG DYLON GREEN Y CC Provid er: AMBURG DYLON GREEN Y Attend ing Provid er: AMBURG EY TAFMORENA Y Referr ing Provid er: YESSENIA Rutledge Admitt ing Provid er: MAGGY GREEN Y [email or web address] [facility] (Radiology) [address] [place], [address], 04/21/2025 10:40:34 04/28/20 25 04/13/2025 home sleep study No observ ation record ed. [facility] (Sleep Lab) [address] [place], [address], 04/30/2025 09:25:02 05/06/20 25 05/06/2025 MAMMO , scree heriberto, digit al, bilat eral [facility] [address] [place] [address] [address] Phone: Fax: Name: TRICE GRAYSON Exam Date: 025 : 979 Age 45 years Gender : F Access ion: [id number] Physic bradly: GAYEURG EY, TAFFAN Y Facili ty: [facility] Facili ty HSV: Outpat ient Exam: NATIVIDAD [...] has breast surger y or biopsy , FDA/ [place] Regula tory Guidel virgie mandat e [...] you for referr ing TRICE GRAYSON to [facility] Hospit [facility]. Legall y authen ticate d by AIME SAL MD 05-06 11:02: 10 CC'ed Logic: Orderi ng Provid er: AMBURG EY TAFFAN Y CC Provid er: AMBURG EY TAFFAN Y Attend ing Provid er: AMBURG EY TAFFAN Y Referr ing Provid er: AMBURG EY TAFFAN Y Admitt ing Provid er: AMBURG EY TAFFAN Y [email or web address] [facility] (Radiology) [address] , [place], [address], 05/07/2025 12:12:31 05/12/20 25 05/12/2025 XR, chest , 2 view No observ ation record ed. [facility] [address], [place], [address], 05/12/2025 17:00:06 Result Notes None recorded. Problems Name Problem SNOMED Code Status Onset Date Resolution Date Notes Provider Name and Address Organization Details Recorded Time Obesity 339524623 Active Sriram Mock null, [place] [facility] [place] & [place] 11:34:03 Excessive thirst 55500417 Active Sriram Mock [place] [facility] [place] 11:34:11 Infection of skin and/or subcutaneou s tissue 52158756 Active Sriram Mock [place] 11:33:23 Sialoadenit is 60738414 Active Sriram Mock [place] 5 11:32:44 Chronic pain 34659501 Active Sriram Mock null[place] 5 11:34:56 Generalized epilepsy 85511246 Active DASHA Monterroso [place] & [place] 5 11:33:28 Dizziness 848863026 Active DASHA Monterroso [facility] & [place] 5 11:34:24 Allergic rhinitis caused by pollen 73268332 Active DASHA Monterroso [facility] & [place] 5 11:34:47 Disorder of skin and/or subcutaneou s tissue 20817447 Active DASHA Monterroso [facility] & [place] 5 11:34:28 Acute back pain with sciatica 798437995 Active DASHA Monterroso [facility] & [place] 5 11:34:54 Dysplastic nevus of trunk 3054511495281 08 Active DASHA Monterroso [facility] & [place] 5 11:34:22 Diarrhea of presumed infectious origin 96115493 Active DASHA Monterroso [facility] & [place] 5 11:34:31 Postoperati ve visit 245852118 Active DASHA Monterroso [place] & [place] 5 11:32:58 Lumbar spondylolis thesis 6935769193271 02 Active DASHA Monterroso [facility] & [place] 5 11:33:16 Loss of taste 84951310 Active DASHA Monterroso [facility] & [place] 5 11:33:42 Moderate asthma 921458613 Active Sriram Mock nullDASHA [facility] & [place] 5 11:33:11 Liver enzymes level above reference range 785916143 Active DASHA Monterroso [place] & [place] 5 11:33:20 Nicotine dependence 27985160 [facility] [place] 5 11:33:04 Lumbago with sciatica 701058939 Active Sriram Mock nullDASHA [facility] & [place] 5 11:33:45 Submandibul ar sialolithia sis 288417964 Active Sriram anthony, DAS[place] RENE [facility] & [place] 5 11:32:39 Essential hypertensio n 87847681 Active SANDRINE DILLARD NP [address] [facility], [place], [address] [place], [place] [address]RITESH [facility] & [place] 5 14:34:25 Moderate persistent asthma 822365103 Active Sriram Mock null, DAS[place] RENE [facility] & [place] 5 11:33:09 Allergic rhinitis 80709323 Active Sriram Mock null, DAS[place] RENE [facility] & [place] 5 11:34:49 Surgical follow-up 446405563 Active Sriram anthony, DAS[place] RENE [facility] & [place] 5 11:32:37 Acute exacerbatio n of moderate persistent asthma Active Sriram Mock null, DAS[place] RENE [facility] & [place] 5 11:34:51 Non-alcohol ic fatty liver 178843357 Active Sriram Mock null, DAS[place] RENE [facility] & [place] 5 11:34:00 Seizure disorder 298799454 Active Sriram Mock null, DASHA Corrigan RITESH [facility] & [place] 5 11:32:47 Chronic obstructive pulmonary disease 22723501 Active Sriram Mock null, DASHA Corrigan RITESH [facility] & [place] 5 11:34:44 Cauda equina syndrome 865633036 Active Sriram Abdullahiles null, D[place] RENE [facility] & [place] 5 11:34:37 History of endocrine disorder 151707151 Active Sriram Abdullahiles null, DAS[place] RENE [facility] & [place] 5 11:33:36 Fatigue 58061437 Active Sriram Abdullahiles null, D[place] Corr[place] & [place] 5 11:34:09 Gastroesoph ageal reflux disease 696220355 Active Sriram Mock null, DASHA Corrigan LPNT [facility] & [place] 5 11:35:14 Loss of sense of smell 30258065 Active Sriram Mock null, [place] - [facility] - & [place] 5 11:33:39 Plantar wart of left foot 2119556811426 9102 Active Sriram [place] [facility] [place] & [place] 5 11:33:00 Cobalamin deficiency 906814691 Active Sriram [place] 5 11:35:05 Sebaceous cyst of skin 576920229 Active Sr[place] 5 11:32:50 Mild intermitten t asthma 258512072 Active Sr[place] 5 11:33:13 Constipatio n 89757336 Active Sriram Mock null, [place] - [facility] - & [place] 5 11:35:01 Dyspnea on exertion 88234255 Active 2021 Sriram [place] & [place] 5 11:35:11 Nicotine dependence with current use 240228554 Active 2021 Sriram [place] 5 11:33:55 Nodule of lung 954709341 Active 2021 Sriram [place] [facility] & [place] 5 11:33:58 Overweight 612821764 Active 2021 Sr[place]am [place] 5 11:34:07 Asthma 848437195 Active 2023 Sriram Mock null[place] & [place] 5 11:34:39 Heart disease 37944523 Active 2023 Sriram Mock [place] [facility] [facility] & [place] 5 11:33:30 Spinal cord disease 38193356 Active 2023 Sriram Mock [place] & [place] 5 11:32:41 Lumbar discogenic pain 110967022 Active 2023 Sriram Mock null[place] [facility] & [place] 5 11:33:49 Degeneratio n of lumbar interverteb ral disc 61891764 Active 2023 Sriram Mock [place] [facility] & [place] 5 11:35:08 Myofascial pain 839709795 Active 2023 Sriram [place] 5 11:33:07 Radicular pain 78392988 Active 2023 Sr[place]am [place] 5 11:32:52 Severe persistent asthma 211673093 Active 2024 SANDRINE DILLARD NP [address] [place], [address], [place] [facility] [place] & [place] 5 14:34:23 Body mass index 30+ - obesity 883894899 Active 2024 SANDRINE DILLARD NP [address] [place], [address], [place] [facility] [place] & [place] 5 14:36:49 At increased risk of cardiovascu lar disease 2817420449645 9108 Active 2024 SANDRIEN DILLARD NP [address] [place], [address], [place] [facility] [place] & [place] 5 14:36:51 Notes:Some problems listed i n Document: #[id number] could not be added to this patient's chart. Please review this document and add these problems to the patient's chart manually as needed. Problem Notes None recorded. Procedures Surgical History Date Name Laterality Status Provider Name and Address Organization Details Recorded Time 10/22/19 24 Other completed Carmen Ramos [place] [facility] [place] 04/08/2024 10:14:33 10/22/19 23 Other completed Juju Mckeon [place] [facility] [place] 03/02/2023 11:03:02 06/22/20 20 removal of foreign body [facility] & [place] 08/15/2022 08:30:49 07/22/20 18 excision of submandibular gland completed Patricia LOU [facility] & [place] 08/15/2022 08:29:56 10/22/18 95 [facility]end[facility] & [place] 03/02/2023 11:03:02 cholecystectomy completed [facility] & [place] 07/24/2024 10:33:32 Cholecystectomy completed Patricia Corrigan NT [facility] & [place] 08/15/2022 08:28:49 Carpal tunnel surgery completed Patricia LOU [facility] & [place] 08/15/2022 08:28:58 Appendectomy completed Patricia LOU [facility] & [place] 08/15/2022 08:29:05 ligation of fallopian tube completed Patricia LOU [facility] & [place] 08/15/2022 08:29:15 operation on uterus completed Patricia LOU [facility] & [place] 08/15/2022 08:29:26 Exc excessive skin arm completed Patricia LOU [facility] & [place] 08/15/2022 08:30:28 Imaging Results None recorded. Procedure Notes None recorded. Medical Equipment None Reported. Allergies Allergen ID Allergen Name Allergen Category Reaction Reaction Severity Criticality Documentation Date Start Date Code Code System Note Provider Name and Address Organization Details Recorded Time 138214 Effexor medicatio n seizure Not available Not available 07/24/2024 99367 2 RxNorm Henrietta Liang [facility], [facility] & [place] 4 10:09:50 383318 Levaquin medicatio n dizziness Not available Not available 07/24/2024 85474 2 RxNorm Ears ringi ng Bailey anthony, [facility] & [place] 5 16:49:41 835105 venlafaxi ne medicatio n Not available Not available Not available 04/07/2025 25860 RxNorm Other react ions and sever ities : 'Adve rse react ion to subst ance' . SANDRINE DILLARD NP 22 [facility], [place], [address], [place] [facility] [place] & [place] 5 19:23:34 307483 levofloxa chris medicatio n Not available Not available Not available 04/07/2025 87592 RxNorm Other react ions and sever ities : 'Adve rse react ion to subst ance' . Asif Josechinso n null, [place] [facility] [place] & [place] 5 14:09:12 401361 Geodon medicatio n Not available Not available Not available 04/15/2025 14376 4 RxNorm Bailey Colon null, [place] [facility] & [place] 5 10:45:27 964736 Seroquel medicatio n other Not available Not available 04/15/2025 00765 RxNorm Depre ssion Bailey Colon null, [place] [facility] & [place] 5 10:45:53 698189 Tegretol medicatio n hives Not available Not available 04/15/2025 9 RxNorm Bailey Colon null, [place] [facility] & [place] 5 10:46:10 9947 carbamaze pine medicatio n hives Not available Not available 07/03/20222001 RxNorm Gerard Aba null[place] & [place] 2 14:47:51 9948 ziprasido ne Not available hives Not available Not available 07/03/2022 63036 8 RxNorm Gerard Everidge null, [place] [facility] & [place] 2 14:47:51 9949 quetiapin e medicatio n Not available Not available Not available 07/03/2022 58524 RxNorm Other react ions and sever ities : 'Adve rse react ion to subst ance' . SANDRINE DILLARD NP [address], [place], [address], [place] & [place] 5 19:23:34 Medications Name Sig Start Date [...] by transderm al route for 30 days. 04/17 /2023 completed Not Available Not Available Not Available [...] Available Not Available Not Available amoxicillin 875 mg-ana jimenez clavulanate 125 mg tablet Take 1 {tablet} [...] and Address Organization Details Last Updated DateTime 167.64 cm 38.6 kg/m2 597150. 58 g 98.1 [degF] 95 % 95 % 76 /min 124/78 mm[Hg] Asif RENE [facility] & [place] 14:08:59 Social History Question Answer Notes LastModified by Organizat ion Details LastModified Time Tobacco Smoking Status Current Every Day Smoker Patricia Carlos gabrielle, DASHA RENE [facility] & [place] 08/15/2022 08:28:40 Do You Have An Advance Directive? No Information not available 03/02/2023 Do You Wear A Helmet When Biking? Yes [email or web address] Information not available 04/01/2025 Are You Blind Or Do You Have Difficulty Seeing? No Information not available 03/02/2023 What Is Your Level Of Caffeine Consumption? Occasional [email or web address] Information not available 12/04/2023 In The 14 Days Before Symptom Onset, Have You Had Close Contact With A Laboratory-confir med COVID-19 While That Case Was Ill? No [email or web address] Information not available 04/01/2025 In The 14 Days Before Symptom Onset, Have You Had Close Contact With A Person Who Is Under Investigation For COVID-19 While That Person Was Ill? No [email or web address] Information not available 04/01/2025 Have You Been To An Area Known To Be High Risk For COVID-19? No [email or web address] Information not available 04/01/2025 Are You Deaf Or Do You Have Serious Difficulty Hearing? No [email or web address] Information not available 04/01/2025 What Type Of Diet Are You Following? REGULAR Information not available 04/01/2025 Have You Processed Blood Or Body Fluids From An Ebola Virus Disease Patient Without Appropriate PPE? No [email or web address] Information not available 04/01/2025 Do You Reside In Or Have You Traveled To An Area Where Ebola Virus Transmission Is Active? No [email or web address] Information not available 04/01/2025 Have There Been Any Changes To Your Family Or Social Situation? No [email or web address] Information no t available 04/01/2025 What Is The Fluoride Status Of Your Home? Unknown [email or web address] Information not available 04/01/2025 Are There Any Guns Present In Your Home? No [email or web address] Information not available 04/01/2025 Have You Recently Or Are You Planning To Travel To An Area With Zika Virus? No [email or web address] Information not available 04/01/2025 Do You Use Insect Repellent Routinely? Yes [email or web address] Information not available 04/01/2025 Do You Feel Safe At Home? Yes [email or web address] Information not available 04/01/2025 Do You Have A Medical Power Of Power Saw Mechanic? No [email or web address] Information not available 04/01/2025 What Was The Date Of Your Most Recent Tobacco Screening? 04/21/2025 [email or web address] Information not available 04/21/2025 What Is Your Current Pack Years? 30ormorepackye ars [email or web address] Information not available 12/04/2023 Do You Have Any Pets? No [email or web address] Information not available 04/01/2025 Do You Use Your Seat Belt Or Car Seat Routinely? Yes [email or web address] Information not available 04/01/2025 Do You Have Smoke And Carbon Monoxide Detectors In Your Home? Yes [email or web address] Information not available 04/01/2025 At What Age Did You Start Smoking Tobacco? 12 Information not available 12/04/2023 Are You Passively Exposed To Smoke? Yes Information no t available 03/02/2023 How Much Tobacco Do You Smoke? 2 PPD [email or web address] Information not available 08/15/2022 Has Tobacco Cessation Counseling Been Provided? Yes [email or web address] Information not available 04/01/2025 On What Date Was Tobacco Cessation Counseling Provided? 04/21/2025 Information not available 04/21/2025 How Many Years Have You Smoked Tobacco? 30 [email or web address] Information not available 08/15/2022 Do You Have Difficulty Walking Or Climbing Stairs? No [email or web address] Information not available 04/01/2025 Are You Currently In School? No [email or web address] Information not available 04/01/2025 Sex: Unknown Functional Status Question Answer Note LastModified by Organizat ion Details LastModified Time Do you use any illicit or recreational drugs? No [email or web address] Information not available 08/15/2022 Do you or have you ever used any other forms of tobacco or nicotine? No [email or web address] Information not available 04/01/2025 What is your level of alcohol consumption? Moderate Information not available 03/02/2023 Do you or have you ever used smokeless tobacco? [id number] Information n ot available 03/02/2023 Are you currently employed? Yes [email or web address] Information not available 04/01/2025 Are you able to walk? YESWOREST [email or web address] Information not available 04/01/2025 Do you have difficulty doing errands alone? No [email or web address] Information not available 04/01/2025 Are you able to care for yourself independently? Yes [email or web address] Information not available 04/01/2025 Do you have difficulty dressing, bathing, grooming, or toileting? No [email or web address] Information not available 04/01/2025 What is your exercise level? Occasional Information not available 03/02/2023 Mental Status Question Answer Note LastModified by Organizat ion Details LastModified Time Do you feel stressed (tense, restless, nervous, or anxious, or unable to sleep at night)? [id number] Information not available 03/02/2023 Do you have difficulty concentrating, remembering or making decisions? No [email or web address] Information no t available 04/01/2025 Family History Relationship Description Onset Age of this Age Resolved Age Notes LastModified by Organization Details LastModified Time Mother Infectious cirrhosis 55 [email or web address] Not available 2024 14:00:50 Mother Chronic obstructive pulmonary disease 55 [email or web address] Not available 2021 08:27:27 Mother Family member 55 [email or web address] Not available 2024 14:00:50 Mother Disease of liver pt. added direct ly (03/05) API-13 Not available 03/05/2023 12:49:48 Mother Malignant neoplasm of prostate Not available 2024 14:00:50 Father Malignant neoplasm of prostate 57 Not available 2024 14:00:50 Father Family member 57 [email or web address] Not available 2024 14:00:50 Sister Malignant tumor of pharynx 3 [email or web address] Not available 2024 14:00:50 Sister Malignant tumor of pharynx 2 [email or web address] Not available 2024 14:00:50 Medical History Condition [...] or 50 mcg/0.25mL dose 01/30/2021 completed Carmen [place] 04/08/2024 10:08:00 COVID-19, mRNA, LNP-S, PF, 100 mcg/0.5mL dose or 50 mcg/0.25mL dose 02/17/2022 completed Carmen [place] 04/08/2024 10:08:00 COVID-19, mRNA, LNP-S, PF, 100 mcg/0.5mL dose or 50 mcg/0.25mL dose 02/27/2021 completed Carmen anthony[place] 04/08/2024 10:08:00 Influenza, split virus, quadrivalent, PF 08/09/2018 completed Carmen [place]ony[place] 04/08/2024 10:08:00 Influenza, split virus, quadrivalent, PF 08/03/2021 tj DILLARD NP [address] [place] [address], [address], [place] & [place] 12/04/2023 15:25:29 Influenza, MDCK, quadrivalent, PF 08/15/2022 completed SANDRINE DILLARD NP [address] [place] [address], [address], [place] [facility] & [place] 12/04/2023 15:25:29 Influenza, split virus, quadrivalent, PF 07/10/2023 tj anthony, [place] 04/08/2024 10:08:28 Past Encounters Encounter ID Performer Location Encounter Start Date Encounter Closed Date Diagnosis/Indication Diagnosis SNOMED-CT Code Diagnosis ICD10 Code Diagnosis Note [id number] SANDRINE DILLARD NP [address] [place] [address] 04/01/2025 11:15:07 04/01/2025 12:40:10 Dyspnea 366807688 R06.02 R79.89 reviewed ER records. X-ray showed [...] or symptoms arise or any changes Leukocytosis 814924811 D 72.829 elevated in ER at 17, could have been related to recent surgery earlier that day but in addition to elevated lactic acidosis and D-dimer needs further workup, repeat, denies any fever, chills, continues to have shortness of breath, denies any cough Lactic aci d level above reference range 9086577 R79.89 D-dimer ab ove reference range 946684097 R79.89 recheck lab work today Hypoxia 468417497 G47.34 oxygen dropping into the 80s with sleeping, needs home sleep study, order placed Plain X-ra y of chest abnormal 8614019062 R93.89 chest x-ray from [facility] shows moderate right basilar atelectasi s [id number] SANDRINE DILLARD NP [place] [address] [facility] [place] [address] 04/06/2025 14:41:15 04/08/2025 03:57:33 Leukocytosis 547316869 D72.829 Erythrocyt e sedimentation rate above reference range 090270204 R70.0 C-reactive protein above reference range 0823336626 40358 R79.82 Hyperglycemia 49894581 R 73.9 [id number] SANDRINE DILLARD NP [facility] [address] [place] [address] 04/21/2025 14:00:44 04/23/2025 09:17:15 Screening mammography of bilateral breasts 8597230742 34842 Z12.31 Screening for malignant neoplasm of colon 362509456 Z12.11 Thyroid di sorder screening 635137041 Z13.29 Body mass index 30+ - obesity 038657029 Z68.38 At [facility] risk of cardiovascular disease 1229532092 6422879 Z91.89 Z68.38 would greatly benefit from weight loss to help with multiple comorbidit ies, asthma, hypertensi on, denies any family or personal history of thyroid carcinoma, understand s risk versus benefit, importance of daily bowel movements, will titrate up understand s side effects, decrease portion sizes, Mediterran dorene diet Essential hypertension 86404551 I10 educated on goal of less than 130/90advi sed low sodium diet, healthy lifestyle including exercise as ablecontin ue current medication regimen; follow-up with cardiology as advised currently taking losartan, HCTZ, carvedilol ER if any symptoms such as chest pain, shortness of breath Severe per sistent asthma 462730469 J45.50 needs triple therapy, not controlled with [...] Policy Number Policy Rios Covered Member ID Iros Member ID Guarantor Name 04/21/2025 1 [employer] [facility] (MEDICAID HMO) Trice Tran [id number] Trice Tran OBGyn Episode No OBEpisode recorded.
--- OUTSIDE RECORDS SUMMARY | 2025-05-19 09:03 | XMS_ITS | Continuity of Care Document ---
Author Organization [facility] & [facility] Address [address] [address] Care Team Providers Care Epilepsy Physician Name Role Phone SANDRINE DILLARD Primary Care Provider [phone] Assessment No assessment recorded. Plan of Treatment Reminders Order Date Submit Date Provider Last Modified By Organization Details Last Modified Time Details Appointments None recorded. Lab CBC w/ auto diff 2024 025 [facility] (Laboratory), [address] [place], [address], 5 13:52:27 C-reactive protein, quantitativ e, serum or plasma 2024 025 [facility] (Laboratory), [address] [place], [address], 5 14:22:38 ESR (erythrocyt e sedimentati on rate), blood 2024 025 [facility] (Laboratory), [address] [place], [address], 5 15:13:23 CMP, serum or plasma 2024 025 [facility] (Laboratory), [address] [place], [address], 5 14:22:36 lactic acid, venous 2024 025 [email or web address] [facility] (Laboratory), [address] [place], [address], 5 07:48:40 D-dimer, quant, plasma 2024 025 [facility] (Laboratory), [address] [place], [address], 5 14:03:39 Referral None recorded. Procedures None recorded. Surgeries None recorded. Imaging CT, angiogram, chest, w/ contrast 2024 025 [id number] [facility] (Scheduling), [address] [place], [address], 5 13:48:39 CT, chest, w/ contrast 2024 025 [email or web address] [facility] (Scheduling), [address] [place], [address], 5 08:31:54 home sleep study 2024 025 [facility] (Scheduling), [address] [place], [address], 13:51:19 Medication Orders None recorded. Patient TargetsNo targets recorded. Patient InstructionsNo instructions recorded. Reason for Referral None Reported. Results Created Date Observation Date Name Description Value Unit Range Abnormal Flag Note LastModifiedBy Organization Detail LastModifiedTime 04/01/2004/01/2025 LACTI C ACID lactic acid 1.3 mmole /L 0.4-2. 0 SPECI MEN WAS NOT DELIV ERED ON ICE Not Available [facility] (Lab Registration) [address] [place], [address], 04/01/2025 13:41:39 04/01/2004/01/2025 LACTI C ACID note Unles s other perez noted testi ng perfo rmed at: [facility] [address] [place] [address] [phone] 87-36 00 Todd red MD CLIA: [id number] Not Available [facility] (Lab Registration) [address] [place], [address], 04/01/2025 13:41:39 04/01/20 25 04/01/2025 CBC AUTO W DIFF WBC 14.7 10 4.5-11 .5 high Not Available [facility] (Lab Registration) [address] [place], [address], 04/01/2025 13:52:27 04/01/20 25 04/01/2025 CBC AUTO W DIFF RBC 5.06 10 4.25-5 .57 Not Available [facility] (Lab Registration) [address] [place], [address], 04/01/2025 13:52:27 04/01/20 25 04/01/2025 CBC AUTO W DIFF HGB 15.4 g/dL 12.0-1 5.7 Not Available [facility] (Lab Registration) [address] [place], [address], 04/01/2025 13:52:27 04/01/20 25 04/01/2025 CBC AUTO W DIFF HCT 43.6 % 36.0-4 7.0 Not Available [facility] (Lab Registration) [address] [place], [address], 04/01/2025 13:52:27 04/01/20 25 04/01/2025 CBC AUTO W DIFF MCV 86.2 fL 80-95 Not Available [facility] (Lab Registration) [address] [place], [address], 04/01/2025 13:52:27 04/01/20 25 04/01/2025 CBC AUTO W DIFF MCH 30.4 pg 27.0-3 4.0 Not Available [facility] (Lab Registration) [address] [place], [address], 04/01/2025 13:52:27 04/01/20 25 04/01/2025 CBC AUTO W DIFF MCHC 35.3 g/dL 32.0-3 6.0 Not Available [facility] (Lab Registration) [address] [place], [address], 04/01/2025 13:52:27 04/01/20 25 04/01/2025 CBC AUTO W DIFF platelet count 235 10 150-45 0 Not Available [facility] (Lab Registration) [address] [place], [address], 04/01/2025 13:52:27 04/01/20 25 04/01/2025 CBC AUTO W DIFF RDW 12.2 % 12.3-1 5.1 low Not Available [facility] (Lab Registration) [address] [place], [address], 04/01/2025 13:52:27 04/01/20 25 04/01/2025 CBC AUTO W DIFF MPV 11.0 fL 7.4-10 .4 high Not Available [facility] (Lab Registration) [address] [place], [address], 04/01/2025 13:52:27 04/01/20 25 04/01/2025 CBC AUTO W DIFF granulocyte% 68.0 % 40-75 Not Available [facility] (Lab Registration) [address] [place], [address], 04/01/2025 13:52:27 04/01/20 25 04/01/2025 CBC AUTO W DIFF lymphocyte% 22.0 % 15-57 Not Available [facility] (Lab Registration) [address] [place], [address], 04/01/2025 13:52:27 04/01/20 25 04/01/2025 CBC AUTO W DIFF monocyte% 8.3 % 4.0-12 .0 Not Available [facility] (Lab Registration) [address] [place], [address], 04/01/2025 13:52:27 04/01/20 25 04/01/2025 CBC AUTO W DIFF eosinophil% 1.2 % 0.0-4. 0 Not Available [facility] (Lab Registration) [address] [place], [address], 04/01/2025 13:52:27 04/01/20 25 04/01/2025 CBC AUTO W DIFF basophil% 0.4 % 0.0-1. 0 Not Available [facility] (Lab Registration) [address] [place], [address], 04/01/2025 13:52:27 04/01/20 25 04/01/2025 CBC AUTO W DIFF immature granulocytes % 0.1 % 0.0-0. 8 Not Available [facility] (Lab Registration) [address] [place], [address], 04/01/2025 13:52:27 04/01/20 25 04/01/2025 CBC AUTO W DIFF granulocyte# 9.96 10 Not Available [facility] (Lab Registration) [address] [place], [address], 04/01/2025 13:52:27 04/01/20 25 04/01/2025 CBC AUTO W DIFF lymphocyte# 3.23 10 Not Available [facility] (Lab Registration) [address] [place], [address], 04/01/2025 13:52:27 04/01/20 25 04/01/2025 CBC AUTO W DIFF monocyte# 1.22 10 Not Available [facility] (Lab Registration) [address] [place], [address], 04/01/2025 13:52:27 04/01/20 25 04/01/2025 CBC AUTO W DIFF eosinophil# 0.17 10 Not Available [facility] (Lab Registration) [address] [place], [address], 04/01/2025 13:52:27 04/01/20 25 04/01/2025 CBC AUTO W DIFF basophil# 0.06 10 Not Available [facility] (Lab Registration) [address] [place], [address], 04/01/2025 13:52:27 04/01/20 25 04/01/2025 CBC AUTO W DIFF immature granulocytes # 0.01 10 Not Available [facility] (Lab Registration) [address] [place], [address], 04/01/2025 13:52:27 04/01/20 25 04/01/2025 CBC AUTO W DIFF manual differential NO Not Available [facility] (Lab Registration) [address] [place], [address], 04/01/2025 13:52:27 04/01/20 25 04/01/2025 CBC AUTO W DIFF note Unles s other perez noted testi ng perfo rmed at: [facility] [address] [place] [address] [phone] 87-36 00 Todd red MD CLIA: [id number] Not Available [facility] (Lab Registration) [address] [place], [address], 04/01/2025 13:52:27 04/01/20 25 04/01/2025 D-DIM ER QUANT ITATI VE D-dimer quantitative 443 NG/mL 0-500 Not Available [facility] (Lab Registration) [address] [place], [address], 04/01/2025 14:03:38 04/01/20 25 04/01/2025 D-DIM ER QUANT ITATI VE note Unles s other perez noted testi ng perfo rmed at: [facility] [address] [place] [address] [phone] 87-36 00 Todd red MD CLIA: [id number] Not Available [facility] (Lab Registration) [address] [place], [address], 04/01/2025 14:03:38 04/01/20 25 04/01/2025 COMP METAB OLIC PANEL sodium 138 mmol/ L 136-14 5 Not Available [facility] (Lab Registration) [address] [place], [address], 04/01/2025 14:22:36 04/01/20 25 04/01/2025 COMP METAB OLIC PANEL potassium 4.3 mmol/ L 3.5-5. 1 Not Available [facility] (Lab Registration) [address] [place], [address], 04/01/2025 14:22:36 04/01/20 25 04/01/2025 COMP METAB OLIC PANEL chloride 101 mmol/ L 98-107 Not Available [facility] (Lab Registration) [address] [place], [address], 04/01/2025 14:22:36 04/01/20 25 04/01/2025 COMP METAB OLIC PANEL carbon dioxide 29 mmol/ L 21-32 Not Available [facility] (Lab Registration) [address] [place], [address], 04/01/2025 14:22:36 04/01/20 25 04/01/2025 COMP METAB OLIC PANEL anion gap 8.0 Not Available [facility] (Lab Registration) [address] [place], [address], 04/01/2025 14:22:36 04/01/20 25 04/01/2025 COMP METAB OLIC PANEL glucose 123 mg/dL 70-110 high Not Available [facility] (Lab Registration) [address] [place], [address], 04/01/2025 14:22:36 04/01/20 25 04/01/2025 COMP METAB OLIC PANEL blood urea nitrogen 14 mg/dL 7-18 Not Available [facility] (Lab Registration) [address] [place], [address], 04/01/2025 14:22:36 04/01/20 25 04/01/2025 COMP METAB OLIC PANEL creatinine 0.6 mg/dL 0.6-1. 0 Not Available [facility] (Lab Registration) [address], [place], [address], 04/01/2025 14:22:36 04/01/20 25 04/01/2025 COMP METAB OLIC PANEL BUN/creatini ne ratio 23.3 9-21 high Not Available [facility] (Lab Registration) [address], [place], [address], 04/01/2025 14:22:36 04/01/20 25 04/01/2025 COMP METAB [...] greenwood ing kiney funct ion. Not Available [facility] (Lab Registration) [address], [place], [address], 04/01/2025 14:22:36 04/01/20 25 04/01/2025 COMP METAB OLIC PANEL osmolality (calculated) 289 mOsm/ kg 275-30 1 OSMOL ALITY IS A CALCU LATIO N UTILI ZING THE SERUM /PLAS MA SODIU M, GLUCO SE AND UREA NITRO GEN (BUN) LEVEL S. FOR THE MOST ACCUR ATE RESUL T A MEASU RED SERUM OSMOL ALITY IS SUGGE STED. Not Available [facility] (Lab Registration) [address], [place], [address], 04/01/2025 14:22:36 04/01/20 25 04/01/2025 COMP METAB OLIC PANEL total protein 7.8 g/dL 6.4-8. 2 Not Available [facility] (Lab Registration) [address] [place], [address], 04/01/2025 14:22:36 04/01/20 25 04/01/2025 COMP METAB OLIC PANEL albumin 3.9 g/dL 3.4-5. 0 Not Available [facility] (Lab Registration) [address] [place], [address], 04/01/2025 14:22:36 04/01/20 25 04/01/2025 COMP METAB OLIC PANEL calcium 9.4 mg/dL 8.5-10 .1 Not Available [facility] (Lab Registration) [address] [place], [address], 04/01/2025 14:22:36 04/01/20 25 04/01/2025 COMP METAB OLIC PANEL corrected calcium 9.5 mg/dL 8.5-10 .1 Not Available [facility] (Lab Registration) [address] [place], [address], 04/01/2025 14:22:36 04/01/20 25 04/01/2025 COMP METAB OLIC PANEL bilirubin total 0.5 mg/dL 0.4-1. 5 Not Available [facility] (Lab Registration) [address] [place], [address], 04/01/2025 14:22:36 04/01/20 25 04/01/2025 COMP METAB OLIC PANEL AST (SGOT) 22 U/L 15-37 Not Available [facility] (Lab Registration) [address] [place], [address], 04/01/2025 14:22:36 04/01/20 25 04/01/2025 COMP METAB OLIC PANEL ALT (SGPT) 26 U/L 12-78 Not Available [facility] (Lab Registration) [address] [place], [address], 04/01/2025 14:22:36 04/01/20 25 04/01/2025 COMP METAB OLIC PANEL alk phosphatase 94 U/L 50-120 Not Available [facility] (Lab Registration) [address] [place], [address], 04/01/2025 14:22:36 04/01/20 25 04/01/2025 COMP METAB OLIC PANEL note Unles s other perez noted testi ng perfo rmed at: [facility] [address] [place] [address] [phone] 87-36 00 Todd red MD CLIA: [id number] Not Available [facility] (Lab Registration) [address] [place], [address], 04/01/2025 14:22:36 04/01/20 25 04/01/2025 C-CONNIE CTIVE PROTE IN C-reactive protein, quant 2.40 mg/dL 0.05-0 .300 high Not Available [facility] (Lab Registration) [address] [place], [address], 04/01/2025 14:22:38 04/01/20 25 04/01/2025 C-CONNIE CTIVE PROTE IN note Unles teofilo other perez noted testi ng perfo rmed at: [facility] [address] [place] [address] [phone] 87-36 00 Todd red MD CLIA: [id number] Not Available [facility] (Lab Registration) [address] [place], [address], 04/01/2025 14:22:38 04/01/20 25 04/01/2025 SEDIM ENTAT ION RATE sedimentatio n rate 23 mm/HR 0-20 high Not Available [facility] (Lab Registration) [address] [place], [address], 04/01/2025 15:13:23 04/01/20 25 04/01/2025 SEDIM ENTAT ION RATE note Unles s other perez noted testi ng perfo rmed at: [facility] [address] [place] [address] [phone] 87-36 00 Todd red MD CLIA: [id number] Not Available [facility] (Lab Registration) [address], [place], [address], 04/01/2025 15:13:23 03/13/20 25 03/13/2025 XR, chest , 2 view No observ ation record ed. [facility] [address], [place], [place], [address], 03/13/2025 16:17:57 03/20/20 25 03/20/2025 XR, chest , 2 view No observ ation record ed. [facility] [address], [place], [place], [address], 03/22/2025 20:20:21 03/25/20 25 03/25/2025 XR, chest , 2 view No observ ation record ed. [facility] [address], [place], [place], [address], 03/25/2025 14:08:15 03/27/20 25 03/26/2025 imagi ng inter preta tion No observ ation record ed. [address], [place], [place], [address], 03/27/2025 10:59:48 03/27/20 25 03/26/2025 imagi ng inter preta tion No observ ation record ed. [address], [place], [place], [address], 03/27/2025 10:59:28 04/07/20 25 04/06/2025 XR, chest , 2 view [facility] [address] [place] [address] Phone: Fax: Name: TRICE GRAYSON Exam Date: : [birth year] Age 44 years Gender : F Access ion: [id number] Physic bradly: AMBURG EY, TAFFAN Y Fac[place] ty: [place] Facili ty HSV: Outpat ient Exam: CHEST [...] Ross Pat Thank you for referr ing DONNIE SAINITRICE to [facility]. Legall y authen ticate d by NANCY REILLY MD 2024-0 04-06 15:35: 14 CC'ed Logic: Orderi ng Provid er: AMBURG EY TAFFAN Y CC Provid er: AMBURG EY TAFFAN Y Attend ing Provid er: AMBURG EY TAFFAN Y Referr ing Provid er: AMBURG EY TAFFAN Y Admitt ing Provid er: AMBURG EY TAFFAN Y [email or web address] [facility] (Radiology) [place], [address], 04/08/2025 10:36:29 04/20/20 25 04/13/2025 CT, chest , w/ contr ast [facility] [address] [place] [address] Phone: Fax: Name: TRICE GRAYSON Exam Date: 025 : [birth year] Age 44 years Gender : F Access ion: [id number] Physic bradly: CESAR GARRISON Facili ty: [facility] Facili ty HSV: Outpat ient Exam: [...] e dedica omid imagin g follow -up. [id number] . CLINIC AL INDICA TION: Female , [...] ing TRICE GRAYSON to [facility]. Legall y authen ticate d by SAHARA Mcfadden MD 04-13 11:08: 00 CC'ed Logic: Orderi ng Provid er: AMBKELLY GREEN Y CC Provid er: MAGGY GREEN Y Attend ing Provid er: AMBURG DYLON GREEN Y Referr ing Provid er: YESSENIA Rutledge Admitt ing Provid er: AMBKELLY GREEN Y [email or web address] [facility] (Radiology) [address] [place], [address], 04/21/2025 10:40:34 04/28/20 25 04/13/2025 home sleep study No observ ation record ed. LOUISE [facility] (Sleep Lab) [address] [place], [address], 04/30/2025 09:25:02 05/06/20 25 05/06/2025 MAMMO , scree heriberto, digit al, bilat eral [facility] [address] [place] [address] Phone: Fax: Name: TRICE GRAYSON Exam Date: : [birth year] Age 45 years Gender : F Access ion: [id number] Physic bradly: AMBURG EY, TAFFAN Y Facili ty: [place] Fac[place] ty HSV: Outpat ient Exam: NATIVIDAD [...] ing TRICE GRAYSON to [facility]. Legall y authen ticate d by AIME SAL MD 05-06 11:02: 10 CC'ed Logic: Orderi ng Provid er: AMBURG EY TAFFAN Y CC Provid er: AMBURG EY TAFFAN Y Attend ing Provid er: AMBURG EY TAFFAN Y Referr ing Provid er: AMBURG EY TAFFAN Y Admitt ing Provid er: AMBURG EY TAFFAN Y [email or web address] [facility] (Radiology) [address] , [place], [address], 05/07/2025 12:12:31 05/12/20 25 05/12/2025 XR, chest , 2 view No observ ation record ed. [facility] [address], [place], [address], 05/12/2025 17:00:06 Result Notes None recorded. Problems Name Problem SNOMED Code Status Onset Date Resolution Date Notes Provider Name and Address Organization Details Recorded Time Obesity 760014726 Active Sriram Mock null, [place] [facility] [place] [facility] [place] 11:34:03 Excessive thirst 60384005 Active Sriram Mock [place], [place] [facility] [place] [facility] [place] 11:34:11 Infection of skin and/or subcutaneou s tissue 53327624 Active Sriram Mock [place], [place] [facility] [place] [facility] [place] 11:33:23 Sialoadenit is 86123565 Active Sriram Mock [place] [facility] [place] [facility] [place] 11:32:44 Chronic pain 40120586 Active Sriram Mock null, [place] [facility] [place] [facility] [place] 11:34:56 Generalized epilepsy 19666686 Active Sriram Mock null, [place] [facility] [place] [facility] [place] 11:33:28 Dizziness 919343467 Active Sriram Mock null, [place] [facility] [place] [facility] [place] 11:34:24 Allergic rhinitis caused by pollen 21554890 Active DASHA Monterroso [place] [facility] [place] 5 11:34:47 Disorder of skin and/or subcutaneou s tissue 21847605 Active DASHA Monter[place]so [place] [facility] [place] 5 11:34:28 Acute back pain with sciatica 967579810 Active DASHA Monterroso [facility] & [place] 5 11:34:54 Dysplastic nevus of trunk 9109312543088 08 Active DASHA Monterroso [facility] & [place] 5 11:34:22 Diarrhea of presumed infectious origin 95175407 Active DASHA [place] [facility] [place] 5 11:34:31 Postoperati ve visit 607060660 Active DASHA [place] [facility] [place] 5 11:32:58 Lumbar spondylolis thesis 2982357495794 02 Active DASHA Monterroso [facility] & [place] 5 11:33:16 Loss of taste 12103000 Active DASHA Monterroso [facility] & [place] 5 11:33:42 Moderate asthma 607329589 Active DASHA Monterroso [facility] & [place] 5 11:33:11 Liver enzymes level above reference range 374012120 Active DASHA [place] [facility] [place] 5 11:33:20 Nicotine dependence 27103240 Active DASHA [place]ter[place] [facility] [place] 5 11:33:04 Lumbago with sciatica 910253291 Active DASHA [place] [facility] [place] 5 11:33:45 Submandibul ar sialolithia sis 724854537 Active DASHA Monter[place]so [facility] & [place] 5 11:32:39 Essential hypertensio n [id number] Desirae DILLARD NP [address] [place] [address], [id number] [facility] [place] 5 14:34:25 Moderate persistent asthma 032743428 Active Sriram anthony, [place] RENE [facility] & [place] 5 11:33:09 Allergic rhinitis 19361398 Active Sriram Mock null, [place] RENE [facility] & [place] 5 11:34:49 Surgical follow-up 789644638 Active Sriram Abdullahiles null, [place] RENE [facility] & [place] 5 11:32:37 Acute exacerbatio n of moderate persistent asthma Active Sriram Mock null, [place] RENE [facility] & [place] 5 11:34:51 Non-alcohol ic fatty liver 290121152 Active Sriram Abdullahiles null, [place] RENE [facility] & [place] 5 11:34:00 Seizure disorder 384550216 Active Sriram Mock null, [place] Corrigan RITESH [facility] & [place] 5 11:32:47 Chronic obstructive pulmonary disease 42111038 Active Sriram Abdullahiles null, [facility] [facility] [place] 5 11:34:44 Cauda equina syndrome 199812281 Active Sriram Abdullahiles null, [place] Corrigan RITESH [facility] & [place] 5 11:34:37 History of endocrine disorder 728888481 Active Sriram Mock null, [place] RENE [facility] & [place] 5 11:33:36 Fatigue 98830091 Active Sriram Mock null, [place] RENE [facility] & [place] 5 11:34:09 Gastroesoph ageal reflux disease 553998846 Active Sriram Mock null, [place] Corrigan RITESH [facility] & [place] 5 11:35:14 Loss of sense of smell 83066440 Active Sriram Abdullahiles null, [place] RENE [facility] & [place] 5 11:33:39 Plantar wart of left foot 0367498635522 9102 Active Sriram Mock null, [place] R[place] [facility] & 5 11:33:00 Cobalamin deficiency 770245383 Active Sriram Mock [place] [facility] [place] & 5 11:35:05 Sebaceous cyst of skin 032991535 Active Srir[place] Mock [place] [facility] [place] & 5 11:32:50 Mild intermitten t asthma 749470212 Active Sriram Mock [place] [facility] [place] & [place] 5 11:33:13 Constipatio n 04700420 Active Sr[place] Mock [place] [facility] [place] 5 11:35:01 Dyspnea on exertion 70510201 Active 2021 Sriram Mock [place] [facility] [place] & 5 11:35:11 Nicotine dependence with current use 628217275 Active 2021 Sriram Mock [place] [facility] [place] & 5 11:33:55 Nodule of lung 763937477 Active 2021 Sriram Mock [place] [facility] [place] & 5 11:33:58 Overweight 884484864 Active 2021 Sr[place]am [place] [facility] [place] & 5 11:34:07 Asthma 039750081 Active 2023 Sriram Mock null[place] [facility] [place] [facility] [place] 5 11:34:39 Heart disease 47734006 Active 2023 Sriram Mock null[place] [facility] [place] [facility] [place] 5 11:33:30 Spinal cord disease 66721540 Active 2023 Sriram Mock [place] [facility] [place] [facility] [place] 5 11:32:41 Lumbar discogenic pain 380371603 Active 2023 Sriram Mock null[place] [facility] [place] [facility] [place] 5 11:33:49 Degeneratio n of lumbar interverteb ral disc 67100607 Active 2023 Sriram Mock null[place] [facility] [place] [facility] [place] 5 11:35:08 Myofascial pain 933422720 Active 2023 Sriram Mock null[place] [facility] [place] 5 11:33:07 Radicular pain 28581629 Active 2023 Sriram Mock null[place] [facility] [place] 5 11:32:52 Severe persistent asthma 769980855 Active 2024 SANDRINE DILLARD NP [address] [place], [address], [place] [facility] [place] [facility] [place] 14:34:23 Body mass index 30+ - obesity 702140418 Active 2024 SANDRINE DILLARD NP [address] [place], [address], [place] [facility] [place] [facility] [place] 14:36:49 At increased risk of cardiovascu lar disease 4655295890190 9108 Active 2024 SANDRINE DILLARD NP [address] [place], [address], [place] [facility] [place] [facility] [place] 14:36:51 Notes:Some problems listed i n Document: #[id number] could not be added to this patient's chart. Please review this document and add these problems to the patient's chart manually as needed. Problem Notes None recorded. Procedures Surgical History Date Name Laterality Status Provider Name and Address Organization Details Recorded Time 10/22/19 24 Other completed Carmen Ramos [place] [facility] [place] [facility] [place] 04/08/2024 10:14:33 10/22/19 23 Other completed Juju Mckeon [place] [facility] [place] [facility] [place] 03/02/2023 11:03:02 06/22/20 20 removal of foreign body completed Patricia LOU - [facility] [place] [facility] [place] 08/15/2022 08:30:49 07/22/20 18 excision of submandibular gland completed Patricia LOU - [facility] [place] [facility] [place] 08/15/2022 08:29:56 10/22/18 95 Appendectomy completed Juju LOU - [facility] & [place] 03/02/2023 11:03:02 cholecystectomy completed Henrietta LOU [facility] & [place] 07/24/2024 10:33:32 Cholecystectomy completed Patricia Corrigan NT [facility] & [place] 08/15/2022 08:28:49 [facility] tunnel [facility] [place] 08/15/2022 08:28:58 Appendectomy completed Patricia LOU [facility] & [place] 08/15/2022 08:29:05 ligation of fallopian tube completed [facility] [place] 08/15/2022 08:29:15 operation on uterus completed Patricia LOU [facility] & [place] 08/15/2022 08:29:26 Exc excessive skin arm completed [facility] [place] 08/15/2022 08:30:28 Imaging Results None recorded. Procedure Notes None recorded. Medical Equipment None Reported. Allergies Allergen ID Allergen Name Allergen Category Reaction Reaction Severity Criticality Documentation Date Start Date Code Code System Note Provider Name and Address Organization Details Recorded Time 164200 Effexor medicatio n seizure Not available Not available 07/24/2024 25270 2 RxNorm Henrietta Liang [facility], [facility] & [place] 4 10:09:50 [id number] Levaquin medicatio n dizziness Not available Not available 07/24/2024 67452 2 RxNorm Ears ringi ng Bailey Colon null, [facility] & [place] 5 16:49:41 505757 venlafaxi ne medicatio n Not available Not available Not available 04/07/2025 96760 RxNorm Other react ions and sever ities : 'Adve rse react ion to subst ance' . SANDRINE DILLARD NP [address] [place] [address], [phone] [place], [place] [address]NT [facility] & [place] 5 19:23:34 585557 levofloxa chris medicatio n Not available Not available Not available 04/07/2025 02705 RxNorm Other react ions and sever ities : 'Adve rse react ion to subst ance' . Asif Hutchinso n null, [place] - [place]NT [facility] & [place] 5 14:09:12 565451 Geodon medicatio n Not available Not available Not available 04/15/2025 41318 4 RxNorm Bailey Colon null, [place] - [place] - [place] & [place] 5 10:45:27 667652 Seroquel medicatio n other Not available Not available 04/15/2025 73948 RxNorm Depre ssion Bailey Colon null, [place] - [place] - [place] & [place] 5 10:45:53 957215 Tegretol medicatio n hives Not available Not available 04/15/2025 48091 9 RxNorm Bailey Colon null, [place] - [place] - [place] & [place] 5 10:46:10 9947 carbamaze pine medicatio n hives Not available Not available 07/03/20222001 RxNorm Gerard Troncoso null, [place] - [place] - [place] & [place] 2 14:47:51 9948 ziprasido ne Not available hives Not available Not available 07/03/2022 48525 8 RxNorm Gerard Troncoso null, [place] - [place] - [place] & [place] 2 14:47:51 9949 quetiapin e medicatio n Not available Not available Not available 07/03/2022 99933 RxNorm Other react ions and sever ities : 'Adve rse react ion to subst ance' . SANDRINE DILLARD NP [address] [place] [address], [phone] [place] [address] - LPNT [facility] & [place] 5 19:23:34 Medications Name [...] Updated DateTime 5 167.64 cm 36.6 kg/m2 742382. 47 g 98.6 [degF] 96 % 96 % 84 /min 18 /min 128/87 mm[Hg] Sriram RENE [facility] & [place] 5 11:30:45 Social History Question Answer Notes LastModified by Organizat ion Details LastModified Time Tobacco Smoking Status Current Every Day Smoker DASHA Ramirez [facility] [place] 08/15/2022 08:28:40 Do You Have An Advance Directive? No Information not available 03/02/2023 Do You Wear A Helmet When Biking? Yes [email or web address] Information not available 04/01/2025 Are You Blind Or Do You Have Difficulty Seeing? No Information not available 03/02/2023 What Is Your Level Of Caffeine Consumption? Occasional [email or web address] Information not available 12/04/2023 In The 14 Days Before Symptom Onset, Have You Had Close Contact With A Laboratory-confir med COVID-19 While That Case Was Ill? No [email or web address] Information not available 04/01/2025 In The 14 Days Before Symptom Onset, Have You Had Close Contact With A Person Who Is Under Investigation For COVID-19 While That Person Was Ill? No ubvpzmuv72 Information not available 04/01/2025 Have You Been To An Area Known To Be High Risk For COVID-19? No [email or web address] Information not available 04/01/2025 Are You Deaf Or Do You Have Serious Difficulty Hearing? No [email or web address] Information not available 04/01/2025 What Type Of Diet Are You Following? REGULAR zhfolodv38 Information not available 04/01/2025 Have You Processed Blood Or Body Fluids From An Ebola Virus Disease Patient Without Appropriate PPE? No dujqclhv79 Information not available 04/01/2025 Do You Reside In Or Have You Traveled To An Area Where Ebola Virus Transmission Is Active? No smisqurw06 Information not available 04/01/2025 Have There Been Any Changes To Your Family Or Social Situation? No [email or web address] Information no t available 04/01/2025 What Is The Fluoride Status Of Your Home? Unknown meqaohfr45 Information not available 04/01/2025 Are There Any Guns Present In Your Home? No zdpjalhq33 Information not available 04/01/2025 Have You Recently Or Are You Planning To Travel To An Area With Zika Virus? No oxdvdizb31 Information not available 04/01/2025 Do You Use Insect Repellent Routinely? Yes eccazvxx47 Information not available 04/01/2025 Do You Feel Safe At Home? Yes oovbkqqn47 Information not available 04/01/2025 Do You Have A Medical Power Of Civil Attorney? No xlbukplj69 Information not available 04/01/2025 What Was The Date Of Your Most Recent Tobacco Screening? 04/21/2025 [email or web address] Information not available 04/21/2025 What Is Your Current Pack Years? 30ormorepackye ars Information not available 12/04/2023 Do You Have Any Pets? No [email or web address] Information not available 04/01/2025 Do You Use Your Seat Belt Or Car Seat Routinely? Yes rufuylpb34 Information not available 04/01/2025 Do You Have Smoke And Carbon Monoxide Detectors In Your Home? Yes Information not available 04/01/2025 At What Age Did You Start Smoking Tobacco? 12 riqskft78 Information not available 12/04/2023 Are You Passively Exposed To Smoke? Yes Information no t available 03/02/2023 How Much Tobacco Do You Smoke? 2 PPD [email or web address] Information not available 08/15/2022 Has Tobacco Cessation Counseling Been Provided? Yes mpzsoamx75 Information not available 04/01/2025 On What Date Was Tobacco Cessation Counseling Provided? 04/21/2025 ejkwipsujvk80 Information not available 04/21/2025 How Many Years Have You Smoked Tobacco? 30 nkeaqyr16 Information not available 08/15/2022 Do You Have Difficulty Walking Or Climbing Stairs? No mqlygjid40 Information not available 04/01/2025 Are You Currently In School? No bhjujajf80 Information not available 04/01/2025 Sex: Unknown Functional Status Question Answer Note LastModified by Organizat ion Details LastModified Time Do you use any illicit or recreational drugs? No sreiujk31 Information not available 08/15/2022 Do you or have you ever used any other forms of tobacco or nicotine? No jkkybhdn34 Information not available 04/01/2025 What is your level of alcohol consumption? Moderate Information not available 03/02/2023 Do you or have you ever used smokeless tobacco? [id number] Information n ot available 03/02/2023 Are you currently employed? Yes xowhyylu97 Information not available 04/01/2025 Are you able to walk? YESWOREST Information not available 04/01/2025 Do you have difficulty doing errands alone? No iegikivf63 Information not available 04/01/2025 Are you able to care for yourself independently? Yes dljrqwoj50 Information not available 04/01/2025 Do you have difficulty dressing, bathing, grooming, or toileting? No [email or web address] Information not available 04/01/2025 What is your exercise level? Occasional Information not available 03/02/2023 Mental Status Question Answer Note LastModified by Organizat ion Details LastModified Time Do you feel stressed (tense, restless, nervous, or anxious, or unable to sleep at night)? [id number] Information not available 03/02/2023 Do you have difficulty concentrating, remembering or making decisions? No squkvhuo99 Information no t available 04/01/2025 Family History Relationship Description Onset Age of this Age Resolved Age Notes LastModified by Organization Details LastModified Time Mother Infectious cirrhosis 55 zflckic19 Not available 2024 14:00:50 Mother Chronic obstructive pulmonary disease 55 lphviel20 Not available 2021 08:27:27 Mother Family member 55 vojjumr29 Not available 2024 14:00:50 Mother Disease of liver pt. added direct ly (03/05) API-13 Not available 03/05/2023 12:49:48 Mother Malignant neoplasm of prostate haczejr17 Not available 2024 14:00:50 Father Malignant neoplasm of prostate 57 rtobkts15 Not available 2024 14:00:50 Father Family member 57 qjavijq52 Not available 2024 14:00:50 Sister Malignant tumor of pharynx 3 vahduul59 Not available 2024 14:00:50 Sister Malignant tumor of pharynx 2 yllulnf37 Not available 2024 14:00:50 Medical History Condition [...] Carmen Ramos null, [place] - [place] & [place] 04/08/2024 10:08:00 COVID-19, mRNA, LNP-S, PF, 100 mcg/0.5mL dose or 50 mcg/0.25mL dose 02/17/2022 completed Carmen Ramos null[place] 04/08/2024 10:08:00 COVID-19, mRNA, LNP-S, PF, 100 mcg/0.5mL dose or 50 mcg/0.25mL dose 02/27/2021 completed Carmen Ramos [place] & [place] 04/08/2024 10:08:00 Influenza, split virus, quadrivalent, PF 08/09/2018 completed Carmen Ramos [place] 04/08/2024 10:08:00 Influenza, split virus, quadrivalent, PF 08/03/2021 completed SANDRINE DILLARD NP [address] [place] [address], [phone], [place] - [place] & [place] 12/04/2023 15:25:29 Influenza, MDCK, quadrivalent, PF 08/15/2022 completed SANDRINE DILLARD NP [address] [place] [address], [phone], [place] - [place] & [place] 12/04/2023 15:25:29 Influenza, split virus, quadrivalent, PF 07/10/2023 completed Carmen anthony, [place] - [place] [facility] [place] 04/08/2024 10:08:28 Past Encounters Encounter ID Performer Location Encounter Start Date Encounter Closed Date Diagnosis/Indication Diagnosis SNOMED-CT Code Diagnosis ICD10 Code Diagnosis Note [id number] SANDRINE DILLARD NP [facility] [address] [facility] [id number] 1 04/01/2025 11:15:07 04/01/2025 12:40:10 Dyspnea 696291917 R06.02 R79.89 reviewed ER records. X-ray showed [...] or symptoms arise or any changes Leukocytosis 287894498 D 72.829 elevated in ER at 17, could have been related to recent surgery earlier that day but in addition to elevated lactic acidosis and D-dimer needs further workup, repeat, denies any fever, chills, continues to have shortness of breath, denies any cough Lactic aci d level above reference range 6891104 R79.89 D-dimer ab ove reference range 580040261 R79.89 recheck lab work today Hypoxia 831922824 G47.34 oxygen dropping into the 80s with sleeping, needs home sleep study, order placed Plain X-ra y of chest abnormal 5940055514 R93.89 chest x-ray from [facility] shows moderate right basilar atelectasi s Health Concerns Section Related Observation LastModified by Organization Detai ls LastModified Time None Recorded Concern Status LastModified by Organization Details LastModified Time None Recorded Payers Encounter Date Sequence Insurance Name Policy Number Policy Rios Covered Member ID Rios Member ID Guarantor Name 04/01/2025 1 [facility] [facility] (MEDICAID HMO) Trice Tran [id number] Trice Tran OBGyn Episode No OBEpisode recorded.
--- OUTSIDE RECORDS SUMMARY | 2025-05-19 09:03 | XMS_ITS | Clinical Summary ---
Author Organization [facility] Address [address] [place] [address] Care Team Providers Care Vamp Throater Name Role Phone Provider, No Known Primary [...] or training? Not on file Preferred Language French 11/20/2023 Comments No Sex and Gender Information [...] history exists Medical Devices Implanted Type Area Cadence Specialists Device Identifier Shelf Expiration Date Model / Serial / Lot Anchr Tndn Regeneten Tiss/Sft Ea/8 - [id number] Implanted:Qty: 1 on 11/27/2023 by Clyde Galaviz Jr., MD at [facility] Implant Right: Shoulder SPENCER AND NEPHEW 03/01/2026 [id number] / / [id number] Sut/Anch Healixadvance Br Dynatape 4.5mm Blk - [id number] Implanted:Qty: 1 on 11/27/2023 by Clyde Galaviz Jr., MD at [facility] Implant Right: Shoulder DEPUY MITEK 11/21/2025 [id number] / / [id number] Tiss Synth Regeneten Bioinductive W/Del Dev Md - [id number] Implanted:Qty: 1 on 11/27/2023 by Cylde Galaviz Jr., MD at [facility] Implant Right: Shoulder SPENCER AND NEPHEW 04/21/2026 [id number] / / [id number] Anchr Bone Regeneten Adv W/Del Sys Ea/3 - [id number] Implanted:Qty: 1 on 11/27/2023 by Clyde Galaviz Jr., MD at [facility] Implant Right: Shoulder SPENCER AND NEPHEW 05/04/2026 [id number] / / [id number] Sut/Anch Knotlss Healicoil Regenesorb 5.5mm - [id number] Implanted:Qty: 1 on 11/27/2023 by Clyde Galaviz Jr., MD at [facility] Implant Right: Shoulder SPENCER AND NEPHEW 04/25/2026 [id number] / / [id number] Insurance [facility] Care Teams Vamp Throater Relationship Specialty Start Date End Date Provider, No Known [facility] [place] [address] PCP - General 11/20/23
[2025-05-19 11:35] LABS: Anion Gap 9.2 mEq/L (5-15); Blood Urea Nitrogen 18 mg/dl (7-17); Calcium 9.2 mg/dl (8.4-10.2); Carbon Dioxide 29 mmol/L (22.0-30.0); Chloride 105 mmol/L (98-107); Creatinine,Serum 0.70 mg/dl (0.52-1.04); Estimated Glomerular Filt Rate 90 ml/min (>60); GFR (African American) 109 ML/MIN (>60); Glucose 105 mg/dl (74-100); NT Pro Brain Natriuretic Pep. 45.0 pg/mL (0-125); Potassium 4.2 mmoL/L (3.5-5.1); Sodium 139 mmol/L (136-145)
== END 2025-05-19 23:59 | disposition home or self-care (01) ==
LOC: LAB 08:59
PROVIDERS: PCP Nurse Practitioner Family; Visit Provider Nurse Practitioner
DX: I15.0 Renovascular hypertension (principal); R06.09 Other forms of dyspnea
CPT/HCPCS: 36415; 80048; 83880

== ENCOUNTER 2025-05-21 08:00 | Outpatient (RCR) | payer OTHER, SELFPAY | END 2025-05-21 23:59 | disposition home or self-care (01) | LOC: OT 08:00 | PROVIDERS: PCP Nurse Practitioner Family; Visit Provider Physician Assistant | DX: M75.101 Unspecified rotator cuff tear or rupture of right shoulder, not specified as traumatic (principal) | CPT/HCPCS: 97014; 97032; 97035; 97110; 97140; 97168; G0283 ==

== ENCOUNTER 2025-06-18 08:00 | Outpatient (RCR) | payer OTHER, SELFPAY | END 2025-06-18 23:59 | disposition home or self-care (01) | LOC: OT 08:00 | PROVIDERS: PCP Nurse Practitioner Family; Visit Provider Physician Assistant | DX: M75.101 Unspecified rotator cuff tear or rupture of right shoulder, not specified as traumatic (principal) | CPT/HCPCS: 97014; 97035; 97110; 97140; G0283 ==

== ENCOUNTER 2025-06-19 07:47 | Outpatient (CLI) | payer OTHER, SELFPAY ==
--- OUTSIDE RECORDS SUMMARY | 2025-04-29 01:11 | XMS_ITS | Encounter Summary ---
Author Organization [place] [address] Care Team Providers Care Drier And Grinder Tender Name Role Phone Anh Kruse APRN Primary [...] EDT - 04/29/2025 2:[address] [facility] [place] [address] Alli Arana MD [address] [place] [address] [place] [address] Acute pain of right shoulder (Primary Dx) Discharge Disposition: Home or Self Care Social History Tobacco Use Types Packs/Day Years Used Date Smoking Tobacco: Every Day Cigarettes 2 33.7 Started: 1991 Smokeless Tobacco: Never Alcohol Use [...] 1:25 AM EDT Isis Tejeda RN * [place] Suicide Severity Rating Scale (Q shift for [...] new or worsening concerns. Tylenol or ibuprofen [id number] as directed. documented in this encounter Medications [...] Means Destination Comment s Home or Self Correction documented in this encounter ED Notes * [...] rotator cuff repair with Dr. Catherine in [place] on 03/26/2025. She denies any complications from [...] are given. Patient verbalizes understanding. I recommended [id number] Tylenol ibuprofen for pain control as directed. [...] office of the ordering clinician. Kari Bright [employer] ASSISTANT MANAGER IMG DIAGNOSTIC IMAGING ORDERA BLES Final Result [...] 0200 0201 (Given - Provid er: Shan Tejead RN) ondansetron (ZOFRAN) injection 4 mg (COMPLETED) 4 mg, Intramuscular, ONCE, 1 dose, On Sun04/29/25 at 0200 0202 (Given - Provid er: Shan Tejeda RN) documented in this encounter Care Teams Drier And Grinder Tender Relationship Specialty Start Date End Date Anh Kruse APRN [address] [address] PCP - General 07/09/24 documented as of this encounter
--- OUTSIDE RECORDS SUMMARY | 2025-06-19 07:51 | XMS_ITS | Clinical Summary ---
Author Organization [facility] Address [address] [place] [address] Care Team Providers Care Linux Administrator Name Role Phone Provider, No Known Primary [...] or training? Not on file Preferred Language Kazakh 11/20/2023 Comments No Sex and Gender Information [...] history exists Medical Devices Implanted Type Area Riverboat Master Device Identifier Shelf Expiration Date Model / Serial / Lot Anchr Tndn Regeneten Tiss/Sft Ea/8 - [id number] Implanted:Qty: 1 on 11/27/2023 by Clyde Galaviz Jr., MD at [facility] Implant Right: Shoulder SPENCER AND NEPHEW 03/01/2026 [id number] / / [id number] Sut/Anch Healixadvance Br Dynatape 4.5mm Blk - [id number] Implanted:Qty: 1 on 11/27/2023 by Clyde Galaviz Jr., MD at [facility] Implant Right: Shoulder DEPUY MITEK 11/21/2025 [id number] / / [id number] Tiss Synth Regeneten Bioinductive W/Del Dev Md - [id number] Implanted:Qty: 1 on 11/27/2023 by Clyde Galaviz Jr., MD at [facility] Implant Right: Shoulder SPENCER AND NEPHEW 04/21/2026 [id number] / / [id number] Anchr Bone Regeneten Adv W/Del Sys Ea/3 - [id number] Implanted:Qty: 1 on 11/27/2023 by Clyde Galaviz Jr., MD at [facility] Implant Right: Shoulder SPENCER AND NEPHEW 05/04/2026 [id number] / / [id number] Sut/Anch Knotlss Healicoil Regenesorb 5.5mm - [id number] Implanted:Qty: 1 on 11/27/2023 by Clyde Galaviz Jr., MD at [facility] Implant Right: Shoulder SPENCER AND NEPHEW 04/25/2026 [id number] / / [id number] Insurance [facility] Care Teams Linux Administrator Relationship Specialty Start Date End Date Provider, No Known [facility] [place] [address] PCP - General 11/20/23
--- OUTSIDE RECORDS SUMMARY | 2025-06-19 07:51 | XMS_ITS | Clinical Summary ---
Author Organization [employer] ([place], [place], [place], [place]) Address [address] [place] [address] Care Team Providers Care Cloth Printing Back Tender Name Role Phone Unavailable Primary Care Provider [...] Date Raymond rded Speak language other than Belarusian at home Not on file 11/09/2023 Want [...]
--- OUTSIDE RECORDS SUMMARY | 2025-06-19 07:51 | XMS_ITS | Encounter Summary ---
Author Organization [employer] ([place], [place], [place], [place]) Address [address] [place] [address] Care Team Providers Care Casino Shift Manager Name Role Phone Unavailable Primary Care Provider Unavailabl e Encounter Details Date Type Department Care Team (Late st Contact Info) Description 09/19/2021 Transcribed Document [facility] [place] [facility] [place] [address] ProviderNaveen MD [address] [place] [address] Social History Tobacco Use Types Packs/Day [...] - Naveen ProviderMD - 09/19/2021 6:47 PM ELEVATED MOTORMAN Patient: TRICE TRAN Age: 41 years Sex: [...] Now L lower back pain, seen at [facility] - c sciatica. No BM x 3 [...] with about tomorrow with pulmonology in [place], had an outpatient chest CT scan. . [...] EST Height Source Stated Height Entry Format [place] Height/Length, COLOMBIAN (ft) 5 ft Height/Length COLOMBIAN 6 Inch CLINICALHEIGHT 167.64 cm [place] Body Weight 58.88 kg Weight Source, ED Critical estimated dosing weight Weight Entry Format [place] Weight Hong Konger lb 225 lb CLINICALWEIGHT 102.27 kg Body [...] % 27.9 % Lymph # 3.15 x10(3)/uL [place] % 7.5 % [place] # 0.85 K/uL Eos % 1.5 % Eos # 0.17 x10(3)/uL Baso % 0.7 % Baso # 0.08 x10(3)/uL Slide Review No IG# 0.04 x10(3)/uL IG% 0.40 % Urine Type. U CleanCatch Urine Color Yellow Urine Appearance Cloudy Urine Specific [place] 1.011 Urine pH Dipstick *8.0 Urine Leukocyte [...] Radiology results: Radiology Results (Last 48 hours) [id number] -- 09/19/2021 13:11 CT Abdomen Pelvis W [...] 21:02 EST, Discharge to: Home. Prescriptions: Prescription Sawmill Production Worker Pharmacy: cyclobenzaprine 10 mg oral tablet (Prescribe): 1 Tab, Oral, TID, for 5 Day(s), PRN: as needed for spasm, 15 Tab, 0 Refill(s). Patient was given the following educational materials: Radicular Pain. Follow up with: UNKNOWN PHY Within 2 to 3 days Follow up with your perforating machine operator as scheduled tomorrow. Take medications as prescribed along with your pain medication at home. Return to ED if symptoms worsen., UNKNOWN PHY Within 2 to 3 days Follow up with your perforating machine operator as scheduled tomorrow. Take medications as prescribed along with your pain medication at home. Return to ED if symptoms worsen.. Counseled: Patient, Regarding diagnosis, Regarding diagnostic results, Regarding treatment plan, Patient indicated understanding of instructions. Notes: I certify that the Physician Electronic Equipment Repairer performed the services as delegated. I agree with the assessment, treatment plan and disposition of the patient as recorded by the Physician Electronic Equipment Repairer. This document was created with Progeniqation software and unidentified customs consultant errors may be present.. . Electronically signed by Bettie Ortega Conversion General Car Yard Supervisor Ebenezer at 02/04/2023 9:48 AM CDT documented in this encounter Plan of Treatment Not on file documented as of this encounter Visit Diagnoses Not on filedocumented in this encounter
--- OUTSIDE RECORDS SUMMARY | 2025-06-19 07:51 | XMS_ITS | Encounter Summary ---
Author Organization [employer] ([place], [place], [place], [place]) Address [address] [place] [address] Care Team Providers Care Consultative Sales Associate Name Role Phone Unavailable Primary Care Provider Unavailabl e Encounter Details Date Type Department Care Team (Late st Contact Info) Description 09/19/2021 Transcribed Document [facility] [place] [facility] [place] [address] ProviderNaveen MD [facility] [place] [address] Social History Tobacco Use Types [...] - Historical ProviderMD - 09/19/2021 9:04 PM BUSINESS OPERATIONS DIRECTOR ED Discharge Entered On: 09/19/2021 21:04 EST [...] - 09/19/2021 21:04 EST Electronically signed by [facility] Conversion Hydroelectric Systems Technician Cerner at 02/04/2023 10:00 AM CDT documented in this encounter Plan of Treatment Not on file documented as of this encounter Visit Diagnoses Not on filedocumented in this encounter
--- OUTSIDE RECORDS SUMMARY | 2025-06-19 07:51 | XMS_ITS | Referral Summary ---
Author Organization [employer] ([place], [place], [place], [place]) Address [address] [place] [address] Care Team Providers Care Employee Training Specialist Name Role Phone Unavailable Primary Care [...] Date Raymond rded Speak language other than Honduran at home Not on file 11/09/2023 Want [...]
--- OUTSIDE RECORDS SUMMARY | 2025-06-19 07:51 | XMS_ITS | Encounter Summary ---
Author Organization [employer] ([place], [place], [place], [place]) Address [address] [place] [address] Care Team Providers Care Marketing Account Executive Name Role Phone Unavailable Primary Care Provider Unavailabl e Encounter Details Date Type Department Care Team (Late st Contact Info) Description 09/19/2021 Transcribed Document [facility] [place] [facility] [place] [address] ProviderNaveen MD [address] [place] [address] Social History Tobacco Use Types [...] Naveen Nixon MD - 09/19/2021 9:[address] [facility] [place] [address] TRICE BARAHONA :1980 Visit [...] 3 days Comments Follow up with your blocker metal base as scheduled tomorrow. Take medications as prescribed [...] for spasm Duration: 5 Day(s) Pickup at [facility] Pharmacy Information [facility]: [address] [place] [address] [phone] The home medications listed are only as [...] range between ( 0.0 and 7.0 ) [place] #: 0.85 K/uL -- Normal range between ( 0.16 and 1.00 ) Eos #: 0.17 x10(3)/uL -- Normal range between ( 0.00 and 0.80 ) [place] %: 7.5 % -- Normal range between [...] ) Urine Bilirubin Dipstick: Negative Urine Specific [place]: 1.011 -- Normal range between ( 1.005 [...] and rising up. ??? Do strength and svdgg-dy-xnsrpi exercises only as told by your health care provider or physical therapist. General instructions ??? Take wmcq-eiz-nmxvvqh and prescription medicines only as told by [...] provider. Document Revised: 04/22/2019 Document Reviewed: 04/22/2019 [employer] Patient Education ?? 2020 Spl[employer]. Emergency Awareness and Preventative Care STROKE is [...] Assistance with quitting is available by contacting 9-020-LQTA-NOW. This is a free resource providing counseling, [...] was given the opportunity to ask questions. Patient/Digital Photographer Name: Patient/Digital Photographer Signature: Relationship to Patient: Clinician/Hospital Digital Photographer Signature: Please Provide a Telephone Number Where You Can Be Reached: Is it Permissible To Leave a Message? Date: Electronically signed by Interface, [facility] Conversion Freight Associate Ebenezer at 02/04/2023 9:44 AM CDT documented in this encounter Plan of Treatment Not on file documented as of this encounter Visit Diagnoses Not on filedocumented in this encounter
--- OUTSIDE RECORDS SUMMARY | 2025-06-19 07:51 | XMS_ITS | Encounter Summary ---
Author Organization [employer] ([place], [place], [place], [place]) Address [address] [place] [address] Care Team Providers Care Commercial Leasing Agent Name Role Phone Unavailable Primary Care Provider Unavailabl e Encounter Details Date Type Department Care Team (Late st Contact Info) Description 09/19/2021 Transcribed Document [facility] [place] [address] [place] [address] ProviderNaveen MD [address] [place] [address] Social History Tobacco Use Types [...] - Historical ProviderMD - 09/19/2021 1:11 PM FISHER TROLL LINE ED Assessment Entered On: 09/19/2021 16:17 EST Performed On: 09/19/2021 15:00 EST by India Betancur RN ED Quick Look Assessment Level of Consciousness : Alert, Awake Affect/Behavior : Appropriate, Calm, Cooperative Orientation : Oriented x 4 India Betancur RN - 09/19/2021 16:15 EST ED General-Functional Assess Communication Barrier : None Primary Language : Uruguayan Any Spiritual/Cultural Needs or Requests : No [...]
--- OUTSIDE RECORDS SUMMARY | 2025-06-19 07:51 | XMS_ITS | Encounter Summary ---
Author Organization [employer] ([place], [place], [place], [place]) Address [address] [place] [address] Care Team Providers Care Traffic Analyst Name Role Phone Unavailable Primary Care Provider Unavailabl e Encounter Details Date Type Department Care Team (Late st Contact Info) Description 09/19/2021 Transcribed Document [facility] [place] Family Medicine [facility] [place] [address] ProviderNaveen MD [address] [place] [address] Social History Tobacco Use Types [...] - Historical ProviderMD - 09/19/2021 1:11 PM SERVICE CENTER REPRESENTATIVE ED Triage Entered On: 09/19/2021 13:55 EST Performed On: 09/19/2021 13:49 EST by India Betancur RN ED Triage Across the Room Chief Complaint : L groin pain x 1 week, saw PCP, sched for US r/t inguinal hernia. Now L lower back pain, seen at [place] - dx c sciatica. No BM x 3 days, abdominal swelling, straining to pee. States now becoming numb from B/L feet up BLE. PCP advised to come to ED. Triage Date/Time : 09/19/2021 13:49 EST India Betancur RN - 09/19/2021 13:49 EST DCP GENERIC CODE Tracking Acuity : 3 - Urgent Tracking Group : [facility] ED India Betancur RN - 09/19/2021 [...] PNED ; Probability: 0 ; Diagnosis Code: [id number] Dysuria Date: 09/19/2021 ; Diagnosis Type: Reason For Visit ; Confirmation: Complaint of ; Clinical Dx: Dysuria ; Classification: Medical ; Clinical Service: Non-Specified ; Code: PNED ; Probability: 0 ; Diagnosis Code: [id number] ED Height and Weight Height Source : Stated Height Entry Format : [place] Height, Feet : 5 ft(Converted to: 152 cm, 60 Inch) Height, Inches : 6 Inch(Converted to: 0 ft 6 Inch, 15.24 cm) Clinical Height : 167.64 cm Weight Source, ED : Critical estimated dosing weight Weight Entry Format : [place] Weight, Pounds : 225 lb Clinical Dosing Weight : 102.27 kg Body Surface Area (BSA) : 2.1 m2 Body Mass Index : 36.4 kg/m2 (HI) [place] Body Weight (IBW) : 58.88 kg India Betancur RN - 09/19/2021 13:49 EST Pain Assessment Pain Assessment : Initial assessment Pain Scale Used : 0-10 Scale Inida Betancur RN - 09/19/2021 13:49 EST Pain Scale Intensity : 10 India Betacnur RN - 09/19/2021 13:49 EST Image 4 - Images currently included in the form version of this document have not been included in the text rendition version of the form. documented in this encounter Plan of Treatment Not on file documented as of this encounter Visit Diagnoses Not on filedocumented in this encounter
--- OUTSIDE RECORDS SUMMARY | 2025-06-19 07:51 | XMS_ITS | Encounter Summary ---
Author Organization [employer] ([place], [place], [place], [place]) Address [address] [place] [address] Care Team Providers Care Gas Generator Operator Name Role Phone Unavailable Primary Care Provider Unavailabl e Encounter Details Date Type Department Care Team (Late st Contact Info) Description 09/19/2021 Transcribed Document [facility] [place] [facility] [place] [address] ProviderNaveen MD [address] [place] [address] Social History Tobacco Use Types [...] - Historical ProviderMD - 09/19/2021 9:01 PM CERTIFIED LEGAL SECRETARY SPECIALIST Electronically signed by Jordan [facility] Conversion Asset Manager Cerner at 02/04/2023 9:58 AM CDT documented in this encounter Plan of Treatment Not on file documented as of this encounter Visit Diagnoses Not on filedocumented in this encounter
--- OUTSIDE RECORDS SUMMARY | 2025-06-19 07:51 | XMS_ITS | Encounter Summary ---
Author Organization [employer] ([place], [place], [place], [place]) Address [address] [place] [address] Care Team Providers Care Truck Crane Operator Helper Name Role Phone Unavailable Primary Care Provider Unavailabl e Encounter Details Date Type Department Care Team (Late st Contact Info) Description 09/19/2021 Transcribed Document [facility] Family Medicine [address] [place] [address] ProviderNaveen MD [address] [place] [address] Social History Tobacco Use Types [...] - Historical ProviderMD - 09/19/2021 2:59 PM STOCK DRIVER Pain Assessment Entered On: 09/19/2021 16:02 EST [...] of the form. Electronically signed by Jordan, [facility] Conversion Putty And Caulking Supervisor Cerner at 02/04/2023 9:36 AM CDT documented in this encounter Plan of Treatment Not on file documented as of this encounter Visit Diagnoses Not on filedocumented in this encounter
--- OUTSIDE RECORDS SUMMARY | 2025-06-19 07:51 | XMS_ITS | Clinical Summary ---
Author Organization [facility] Address [address] [facility] [facility] [address] [place], [place] [address] Phone Care Team Providers Care Credit Risk Review Officer Name Role Phone Anh Kruse APRN Primary [...] EDT - 04/29/2025 2:34 AM EDT Emergency [place] [facility] [place] [address] Alli Arana MD Acute pain of right shoulder (Primary Dx) Discharge Disposition: Home or Self Care from Last 3 Months Medical History Medical History Date Comments Lung nodules Hypertension Social History Tobacco Use Types Packs/Day Years Used Date Smoking Tobacco: Every Day Cigarettes 2 33.7 Started: 1991 Smokeless Tobacco: Never Tobacco Cessation:Ready [...] Final Result from Last 3 Months Insurance [facility] [id number] Care Teams Credit Risk Review Officer Relationship Specialty Start Date End Date Anh Kruse APRN [address] [facility] [address] [place] [id number] PCP - General 07/09/24
--- NOTE | 2025-06-19 08:00 | CT_ITS ---
FINAL REPORT TECHNIQUE: Postcontrast axial images of the abdomen were performed by computed tomography. Multiplanar reconstruction images were performed. This study was performed with techniques to keep radiation doses as low as reasonably achievable (ALARA). Individualized dose reduction techniques using automated exposure control or adjustment of mA and/or kV according to the patient's size were employed. CLINICAL HISTORY: early satiety, abdominal swelling, hx fatty liver unexplained 25 lbs weight loss COMPARISON: Chest CT dated 07/07/2024 FINDINGS: CT ABDOMEN WITH CONTRAST Limited images of the lung bases demonstrate multiple right lower lobe nodules. These are unchanged from chest CT from June 2024. The liver is homogeneous. The gallbladder is absent. The spleen, adrenal glands, and pancreas are without acute abnormality. There is a nonobstructing stone in the upper pole of the right kidney. There is no hydronephrosis. There is no renal mass. The GI tract demonstrates no acute abnormality. Please note the entire GI tract is not included on this exam. There is nonspecific abnormal attenuation in the abdominal wall. There is no fluid collection. There is no free fluid or adenopathy. No acute osseous changes are seen. IMPRESSION: Nonspecific abnormal attenuation within the abdominal wall of uncertain etiology. No acute abnormality in the abdomen. Stable right lower lobe pulmonary nodules. Reviewed, Interpreted and Dictated by Meghana Leal MD Transcribed by Abiola Lyn Authenticated and [facility]
[2025-06-19] MEDS: SODIUM CHLORIDE 0.9% 10ML SYR (RAD ONLY) 10 ML IV (08:19)
[2025-06-19] MEDS: IOPAMIDOL-370 (76%);100ML BOTTLE 75 ML IV (08:19)
== END 2025-06-19 23:59 | disposition home or self-care (01) ==
LOC: RAD 07:49
PROVIDERS: PCP Nurse Practitioner Family; Visit Provider Physician Assistant
DX: I15.0 Renovascular hypertension (principal); R94.31 Abnormal electrocardiogram [ECG] [EKG]; R06.09 Other forms of dyspnea; R60.0 Localized edema; R19.00 Intra-abdominal and pelvic swelling, mass and lump, unspecified site; R68.81 Early satiety
CPT/HCPCS: 74160; Q9967

== ENCOUNTER 2025-06-30 08:57 | Outpatient (RCR) | payer OTHER, SELFPAY | END 2025-06-30 23:59 | disposition home or self-care (01) | LOC: OT 08:57 | PROVIDERS: PCP Nurse Practitioner Family; Visit Provider Physician Assistant | DX: M75.101 Unspecified rotator cuff tear or rupture of right shoulder, not specified as traumatic (principal) | CPT/HCPCS: 97014; 97110; 97140; G0283 ==

== ENCOUNTER 2025-07-07 07:19 | Outpatient (CLI) | payer OTHER, SELFPAY ==
--- OUTSIDE RECORDS SUMMARY | 2025-07-07 07:22 | XMS_ITS | Clinical Summary ---
Author Organization [facility] Address [address] [facility] [address] [place] [address] Phone Care Team Providers Care Business Development Consultant Name Role Phone Anh Kruse APRN Primary [...] EDT - 04/29/2025 2:34 AM EDT Emergency [place] [facility] [place] [address] Alli Arana MD Acute pain of [...] Virtual Colonography 2024 COVID-19 Vaccine ( season) 2025 02/17/2022, 02/27/2021, 01/30/2021 Influenza Vaccine (#1) 2025 [...] Final Result from Last 3 Months Insurance [facility] [id number] Care Teams Business Development Consultant Relationship Specialty Start Date End Date Anh Kruse APRN [address] [facility] [address] [place] [phone] PCP - General 07/09/24
--- OUTSIDE RECORDS SUMMARY | 2025-07-07 07:22 | XMS_ITS | Encounter Summary ---
Author Organization [employer] ([place], [place], [place], [place]) Address [address] [place] [address] Care Team Providers Care Machine Shop Worker Name Role Phone Unavailable Primary Care Provider Unavailabl e Encounter Details Date Type Department Care Team (Late st Contact Info) Description 09/19/2021 Transcribed Document [facility] Family Medicine [facility] [place] [address] ProviderNaveen MD [address] [place] [address] Social History Tobacco Use Types [...] - Historical ProviderMD - 09/19/2021 9:01 PM ACCOUNTANT PROPERTY Electronically signed by Jordan [facility] Conversion Secretary Of Police Cerner at 02/04/2023 9:58 AM CDT documented in this encounter Plan of Treatment Not on file documented as of this encounter Visit Diagnoses Not on filedocumented in this encounter
--- OUTSIDE RECORDS SUMMARY | 2025-07-07 07:22 | XMS_ITS | Clinical Summary ---
Author Organization [facility] Address [address] [place] [address] Care Team Providers Care Fitting Room Maintenance Mechanic Name Role Phone Provider, No Known Primary [...] or training? Not on file Preferred Language Sami 11/20/2023 Comments No Sex and Gender Information [...] FIT Testing (1 year) 2024 COVID-19 Vaccine ( - 2024-2 6 season) 2025 02/17/2022, 02/27/2021, 01/30/2021 INFLUENZA VACCINE 07/22/2025 07/10/2023, , 08/03/2021, Additional history exists Medical Devices Implanted Type Area Hand Riveter Device Identifier Shelf Expiration Date Model / Serial / Lot Anchr Tndn Regeneten Tiss/Sft Ea/8 - [id number] Implanted:Qty: 1 on 11/27/2023 by Clyde Galaviz Jr., MD at [facility] Implant Right: Shoulder SPENCER AND NEPHEW 03/01/2026 [id number] / / [id number] Sut/Anch Healixadvance Br Dynatape 4.5mm Blk - [id number] Implanted:Qty: 1 on 11/27/2023 by Clyde Galaviz Jr., MD at [facility] Implant Right: Shoulder DEPUY MITEK 11/21/2025 [id number] / / [id number] Tiss Synth Regeneten Bioinductive W/Del Dev Md - [id number] Implanted:Qty: 1 on 11/27/2023 by Clyde Galaviz Jr., MD at [facility] Implant Right: Shoulder SPENCER AND NEPHEW 04/21/2026 [id number] / / [id number] Anchr Bone Regeneten Adv W/Del Sys Ea/3 - [id number] Implanted:Qty: 1 on 11/27/2023 by Clyde Galaviz Jr., MD at [facility] Implant Right: Shoulder SPENCER AND NEPHEW 05/04/2026 [id number] / / [id number] Sut/Anch Knotlss Healicoil Regenesorb 5.5mm - [id number] Implanted:Qty: 1 on 11/27/2023 by Clyde Galaviz Jr., MD at [facility] Implant Right: Shoulder SPENCER AND NEPHEW 04/25/2026 [id number] / / [id number] Insurance [facility] Care Teams Fitting Room Maintenance Mechanic Relationship Specialty Start Date End Date Provider, No Known [facility] [place] [place] [address] PCP - General 11/20/23
--- OUTSIDE RECORDS SUMMARY | 2025-07-07 07:22 | XMS_ITS | Encounter Summary ---
Author Organization [employer] ([place], [place], [place], [place]) Address [address] [place] [address] Care Team Providers Care Research Associate Molecular Biology Name Role Phone Unavailable Primary Care Provider Unavailabl e Encounter Details Date Type Department Care Team (Late st Contact Info) Description 09/19/2021 Transcribed Document [facility] Family Medicine [facility] [place] [address] ProviderNaveen MD [facility] [place] [address] Social History Tobacco Use Types [...] - Historical ProviderMD - 09/19/2021 9:04 PM STAKING ENGINEER ED Discharge Entered On: 09/19/2021 21:04 EST [...] - 09/19/2021 21:04 EST Electronically signed by [facility] Conversion Supervising Film Or Videotape Editor Cerner at 02/04/2023 10:00 AM CDT documented in this encounter Plan of Treatment Not on file documented as of this encounter Visit Diagnoses Not on filedocumented in this encounter
--- OUTSIDE RECORDS SUMMARY | 2025-07-07 07:22 | XMS_ITS | Encounter Summary ---
Author Organization [employer] ([place], [place], [place], [place]) Address [address] [place] [address] Care Team Providers Care Tire Center Supervisor Name Role Phone Unavailable Primary Care Provider Unavailabl e Encounter Details Date Type Department Care Team (Late st Contact Info) Description 09/19/2021 Transcribed Document [facility] [place] [facility] [place] [address] ProviderNaveen MD [address] [place] [address] Social History Tobacco Use Types [...] Naveen Nixon MD - 09/19/2021 9:05 PM POOL ATTENDANT [facility] [place] [address] TRICE BARAHONA :1980 Visit Time:09/19/2021 [...] 3 days Comments Follow up with your content specialist as scheduled tomorrow. Take medications as prescribed [...] for spasm Duration: 5 Day(s) Pickup at [facility] Pharmacy Information [facility]: [address] [place] [address] [phone] The home medications listed are only as [...] range between ( 0.0 and 7.0 ) Wake #: 0.85 K/uL -- Normal range between ( 0.16 and 1.00 ) Eos #: 0.17 x10(3)/uL -- Normal range between ( 0.00 and 0.80 ) Wake %: 7.5 % -- Normal range between [...] ) Urine Bilirubin Dipstick: Negative Urine Specific [place]: 1.011 -- Normal range between ( 1.005 [...] and rising up. ??? Do strength and wkqjn-ho-hntrtq exercises only as told by your health care provider or physical therapist. General instructions ??? Take dsdf-aiy-lclhxru and prescription medicines only as told by [...] provider. Document Revised: 04/22/2019 Document Reviewed: 04/22/2019 Content360 Patient Education ?? 2020 [employer]. Emergency Awareness and Preventative Care STROKE is [...] Assistance with quitting is available by contacting 6-423-GWEN-NOW. This is a free resource providing counseling, [...] was given the opportunity to ask questions. Patient/Sales Representative Adding Machines Name: Patient/Sales Representative Adding Machines Signature: Relationship to Patient: Clinician/Hospital Sales Representative Adding Machines Signature: Please Provide a Telephone Number Where You Can Be Reached: Is it Permissible To Leave a Message? Date: Electronically signed by Interface, [facility] Conversion Marketing Forecaster Ebenezer at 02/04/2023 9:44 AM CDT documented in this encounter Plan of Treatment Not on file documented as of this encounter Visit Diagnoses Not on filedocumented in this encounter
--- OUTSIDE RECORDS SUMMARY | 2025-07-07 07:22 | XMS_ITS | Encounter Summary ---
Author Organization [employer] ([place], [place], [place], [place]) Address [address] [place] [address] Care Team Providers Care Geothermal Hvac Technician Name Role Phone Unavailable Primary Care Provider Unavailabl e Encounter Details Date Type Department Care Team (Late st Contact Info) Description 09/19/2021 Transcribed Document [facility] Family Medicine [facility] [place] [address] ProviderNaveen MD [address] [place] [address] Social History Tobacco Use Types [...] - Historical ProviderMD - 09/19/2021 1:[address] SAFETY ENGINEER ED Triage Entered On: 09/19/2021 13:55 EST Performed On: 09/19/2021 13:49 EST by India Betancur RN ED Triage Across the Room Chief Complaint : L groin pain x 1 week, saw PCP, sched for US r/t inguinal hernia. Now L lower back pain, seen at [place] - dx c sciatica. No BM x 3 days, abdominal swelling, straining to pee. States now becoming numb from B/L feet up BLE. PCP advised to come to ED. Triage Date/Time : 09/19/2021 13:49 EST India Betancur RN - 09/19/2021 13:49 EST DCP GENERIC CODE Tracking Acuity : 3 - Urgent Tracking Group : [facility] ED India Betancur RN - 09/19/2021 [...] PNED ; Probability: 0 ; Diagnosis Code: [id number] Dysuria Date: 09/19/2021 ; Diagnosis Type: Reason For Visit ; Confirmation: Complaint of ; Clinical Dx: Dysuria ; Classification: Medical ; Clinical Service: Non-Specified ; Code: PNED ; Probability: 0 ; Diagnosis Code: [id number] ED Height and Weight Height Source : Stated Height Entry Format : [place] Height, Feet : 5 ft(Converted to: 152 cm, 60 Inch) Height, Inches : 6 Inch(Converted to: 0 ft 6 Inch, 15.24 cm) Clinical Height : 167.64 cm Weight Source, ED : Critical estimated dosing weight Weight Entry Format : [place] Weight, Pounds : 225 lb Clinical Dosing Weight : 102.27 kg Body Surface Area (BSA) : 2.1 m2 Body Mass Index : 36.4 kg/m2 (HI) Midnight Body Weight (IBW) : 58.88 kg India [...]
--- OUTSIDE RECORDS SUMMARY | 2025-07-07 07:22 | XMS_ITS | Encounter Summary ---
Author Organization [employer] ([place], [place], [place], [place]) Address [address] [place] [address] Care Team Providers Care Auto Leasing Manager Name Role Phone Unavailable Primary Care Provider Unavailabl e Encounter Details Date Type Department Care Team (Late st Contact Info) Description 09/19/2021 Transcribed Document [facility] Family Medicine [facility] [place] [address] ProviderNaveen MD [address] [place] [address] Social History Tobacco Use Types Packs/Day [...] - Naveen ProviderMD - 09/19/2021 6:47 PM ARCHITECTURAL RENDERER Patient: TRICE TRAN Age: 41 years Sex: [...] Now L lower back pain, seen at [place] - c sciatica. No BM x 3 [...] up with about tomorrow with pulmonology in [place], had an outpatient chest CT scan. . [...] EST Height Source Stated Height Entry Format Cannon Height/Length, WELSH (ft) 5 ft Height/Length WELSH 6 Inch CLINICALHEIGHT 167.64 cm [place] Body Weight 58.88 kg Weight Source, ED Critical estimated dosing weight Weight Entry Format Cannon Weight Citizen [place] lb 225 lb CLINICALWEIGHT 102.27 kg Body [...] % 27.9 % Lymph # 3.15 x10(3)/uL [place] % 7.5 % [place] # 0.85 K/uL Eos % 1.5 % Eos # 0.17 x10(3)/uL Baso % 0.7 % Baso # 0.08 x10(3)/uL Slide Review No IG# 0.04 x10(3)/uL IG% 0.40 % Urine Type. U CleanCatch Urine Color Yellow Urine Appearance Cloudy Urine Specific [place] 1.011 Urine pH Dipstick *8.0 Urine Leukocyte [...] Radiology results: Radiology Results (Last 48 hours) [id number] -- 09/19/2021 13:11 CT Abdomen Pelvis W [...] 21:02 EST, Discharge to: Home. Prescriptions: Prescription [facility]: cyclobenzaprine 10 mg oral tablet (Prescribe): 1 Tab, Oral, TID, for 5 Day(s), PRN: as needed for spasm, 15 Tab, 0 Refill(s). Patient was given the following educational materials: Radicular Pain. Follow up with: UNKNOWN PHY Within 2 to 3 days Follow up with your subject scientific research as scheduled tomorrow. Take medications as prescribed along with your pain medication at home. Return to ED if symptoms worsen., UNKNOWN PHY Within 2 to 3 days Follow up with your subject scientific research as scheduled tomorrow. Take medications as prescribed along with your pain medication at home. Return to ED if symptoms worsen.. Counseled: Patient, Regarding diagnosis, Regarding diagnostic results, Regarding treatment plan, Patient indicated understanding of instructions. Notes: I certify that the Physician Collar Band Creaser performed the services as delegated. I agree with the assessment, treatment plan and disposition of the patient as recorded by the Physician Collar Band Creaser. This document was created with [employer] software and unidentified lot boss errors may be present.. . documented in this encounter Plan of Treatment Not on file documented as of this encounter Visit Diagnoses Not on filedocumented in this encounter
--- OUTSIDE RECORDS SUMMARY | 2025-07-07 07:22 | XMS_ITS | Clinical Summary ---
Author Organization [employer] ([place], [place], [place], [place]) Address [address] [place] [address] Care Team Providers Care Lineman Apprentice Name Role Phone Unavailable Primary Care Provider [...] Date Raymond rded Speak language other than Maltese at home Not on file 11/09/2023 Want [...] Lipid Panel 2024 COVID-19 VACCINE (4 - 2024-2 6 season) 2025 02/17/2022, 02/27/2021, 01/30/2021 Influenza Vaccine (#1) 2025 Pneumococcal Vaccine: 0-49 Years Aged Out No longer eligible b ased on patient's age to complete this topic
--- OUTSIDE RECORDS SUMMARY | 2025-07-07 07:22 | XMS_ITS | Referral Summary ---
Author Organization [employer] ([place], [place], [place], [place]) Address [address] [place] [address] Care Team Providers Care Aws Architect Name Role Phone Unavailable Primary Care Provider [...] Date Raymond rded Speak language other than Lithuanian at home Not on file 11/09/2023 Want [...]
--- OUTSIDE RECORDS SUMMARY | 2025-07-07 07:22 | XMS_ITS | Encounter Summary ---
Author Organization [employer] ([place], [place], [place], [place]) Address [address] [place] [address] Care Team Providers Care Bank Vault Custodian Name Role Phone Unavailable Primary Care Provider Unavailabl e Encounter Details Date Type Department Care Team (Late st Contact Info) Description 09/19/2021 Transcribed Document [facility] [place] Medicine [address] [place] [address] ProviderNaveen MD [address] [place] [address] Social History Tobacco Use Types [...] - Historical ProviderMD - 09/19/2021 2:59 PM UROLOGY NURSE Pain Assessment Entered On: 09/19/2021 16:02 EST [...] of the form. Electronically signed by Jordan, [facility] Conversion Operations Architect Cerner at 02/04/2023 9:36 AM CDT documented in this encounter Plan of Treatment Not on file documented as of this encounter Visit Diagnoses Not on filedocumented in this encounter
--- OUTSIDE RECORDS SUMMARY | 2025-07-07 07:22 | XMS_ITS | Encounter Summary ---
Author Organization [employer] ([place], [place], [place], [place]) Address [address] [place] [address] Care Team Providers Care Chipper Feeder Name Role Phone Unavailable Primary Care Provider Unavailabl e Encounter Details Date Type Department Care Team (Late st Contact Info) Description 09/19/2021 Transcribed Document [facility] Family Medicine [address] [place] [address] ProviderNaveen MD [address] [id number] Social History Tobacco Use Types Packs/Day Years [...] - Historical ProviderMD - 09/19/2021 1:11 PM DRIER OPERATOR HELPER ED Assessment Entered On: 09/19/2021 16:17 EST Performed On: 09/19/2021 15:00 EST by India Betancur RN ED Quick Look Assessment Level of Consciousness : Alert, Awake Affect/Behavior : Appropriate, Calm, Cooperative Orientation : Oriented x 4 India Betancur RN - 09/19/2021 16:15 EST ED General-Functional Assess Communication Barrier : None Primary Language : Kuwaiti Any Spiritual/Cultural Needs or Requests : No [...]
--- NOTE | 2025-07-07 07:30 | US_ITS ---
FINAL REPORT TECHNIQUE: Multiple transverse and longitudinal images CLINICAL HISTORY: history fatty liver/alcohol abuse/BLE edema COMPARISON: CT 06/19/2025 FINDINGS: Status post cholecystectomy. No evidence of biliary obstruction. No fluid collections are seen. Increased echogenicity of the liver compatible with fatty change. Limited portions of the right kidney are unremarkable. Pancreas is largely obscured. IMPRESSION: Fatty liver. Reviewed, Interpreted and Dictated by Gifty Otto MD Transcribed by Ping Perdue Authenticated and [facility]
[2025-07-07] MEDS: ALBUTEROL 0.083% 2.5 MG/3 ML NEB IH (08:12)
--- NOTE | 2025-07-07 08:12 | PC.NURSE ---
Pre and Post Spirometry completed without incident. Albuterol 0.083% given via HHN, per written protocol, Pt tolerated tx well. 6 Minute Walk Test completed.
[2025-07-07 09:14] LABS: Hematocrit 41.2 % (37.0-47.0); Hemoglobin 15.0 g/dL (12.2-16.2); Immature Granulocytes % 0.2 %; Mean Corpuscular HGB Conc 36.4 g/dL (31.8-35.4); Mean Corpuscular Hemoglobin 31.3 pg (27.0-31.2); Mean Corpuscular Volume 85.8 fl (81-99); Nucleated Red Blood Cells % 0 %; Platelet Count 258 K/mm3 (142-424); Red Blood Count 4.80 M/mm3 (4.20-5.40); Red Cell Distribution Width-SD 38.6 fL; White Blood Count 12.9 K/mm3 (4.8-10.8)
[2025-07-07 09:21] LABS: INR 0.97 (0.9-1.1); Prothrombin Time 10.8 seconds (10.1-12.5)
[2025-07-07 09:36] LABS: Alanine Aminotransferase 19 U/L (12-78); Albumin Level 4.0 g/dl (3.5-5.0); Albumin/Globulin Ratio 1.6 (1.1-1.8); Alkaline Phosphatase 64 U/L (38-126); Anion Gap 7.0 mEq/L (5-15); Aspartate Amino Transferase 20 U/L (14-36); Bilirubin,Total 0.5 mg/dl (0.2-1.3); Blood Urea Nitrogen 22 mg/dl (7-17); Calcium 9.2 mg/dl (8.4-10.2); Carbon Dioxide 29 mmol/L (22.0-30.0); Chloride 106 mmol/L (98-107); Creatinine,Serum 0.50 mg/dl (0.52-1.04); Estimated Glomerular Filt Rate 133 ml/min (>60); GFR (African American) 161 ML/MIN (>60); Globulin 2.5 g/dL (1.3-3.2); Glucose 103 mg/dl (74-100); Potassium 4.0 mmoL/L (3.5-5.1); Sodium 138 mmol/L (136-145); Total Protein,Serum 6.5 g/dl (6.3-8.2)
[2025-07-07 10:25] LABS: Vitamin B12 255 pg/mL (239-931)
[2025-07-07 12:11] LABS: Iron 87 ug/dL (37-170)
[2025-07-07 12:19] LABS: Folate 8.50 ng/mL
[2025-07-07 12:20] LABS: Total Iron Binding Capacity 323 ug/dL (265-497)
[2025-07-07 12:46] LABS: Ferritin 38.6 ng/ml (6.24-137)
[2025-07-08 08:37] LABS: Immunoglobulin A, Qn 222 mg/dL (87-352); Immunoglobulin G, Qn 986 mg/dL (586-1602); Immunoglobulin M, Qn 80 mg/dL (26-217)
[2025-07-08 13:13] LABS: Antinuclear Antibodies (ANA) Negative (Negative)
[2025-07-08 14:12] LABS: Deamidated Gliadin Abs, IgA 4 units (0-19); Deamidated Gliadin Abs, IgG 2 units (0-19)
[2025-07-10 04:08] LABS: ALT (SGPT) P5P 17 IU/L (0-40); AST (SGOT) P5P 15 IU/L (0-40); Alpha 2-Macroglobulins, Qn 125 mg/dL (110-276); Bilirubin, Total <0.2 mg/dL (0.0-1.2); Cholesterol, Total 154 mg/dL (100-199); GGT 17 IU/L (0-60); Glucose 104 mg/dL (70-99); Triglycerides 199 mg/dL (0-149)
== END 2025-07-07 23:59 | disposition home or self-care (01) ==
LOC: RAD 07:20
PROVIDERS: PCP Nurse Practitioner Family; Visit Provider Nurse Practitioner Family
DX: K76.0 Fatty (change of) liver, not elsewhere classified (principal); F10.11 Alcohol abuse, in remission; R94.2 Abnormal results of pulmonary function studies; R06.09 Other forms of dyspnea; R06.02 Shortness of breath; Z80.0 Family history of malignant neoplasm of digestive organs; Z83.79 Family history of other diseases of the digestive system
CPT/HCPCS: 36415; 76705; 80053; 80074; 81256; 82103; 82104; 82164; 82172; 82247; 82390; 82465; 82607; 82728; 82746; 82784; 82947; 82977; 83010; 83521; 83540; 83550; 84425; 84450; 84460; 84478; 85025; 85610; 86015; 86038; 86231; 86256; 86258; 86364; 86376; 86381; 94010; 94618

== ENCOUNTER 2025-07-13 12:30 | Emergency (ER) | payer OTHER, SELFPAY ==
[2025-07-13 12:35] VITALS: BP 163/96; PULSE 80; RESP 18; TEMP 36.5; O2SAT 99; BMI 35.5
--- NOTE | 2025-07-13 12:46 | HMH.EDGENADL ---
Discharge Plan Disposition Patient Disposition: Home, Self-Care Prescriptions Prescriptions: No Action carvedilol 12.5 mg tablet 12.5 mg PO BID Qty: 180 2RF Rx Instructions: must administer with a meal/food losartan 100 mg tablet 100 mg PO DAILY Qty: 90 2RF nicotine [Nicoderm CQ] 14 mg/24 hr patch 24 hour 1 patch transdermal DAILY Qty: 28 0RF omeprazole 20 mg capsule,delayed release(DR/EC) 20 mg PO DAILY lamotrigine 100 mg tablet 100 mg PO DAILY albuterol sulfate 90 mcg/actuation HFA aerosol inhaler 2 inh inhalation Q6H PRN (Reason: shortness of breath or wheezing) 90 Days Qty: 8.5 1RF meloxicam 15 mg tablet 15 mg PO DAILY Dulera 200-5 mcg/actuation HFA aerosol inhaler 2 puff inhalation BID 90 Days Qty: 13 2RF hydrochlorothiazide 25 mg tablet 25 mg PO DAILY furosemide [Lasix] 40 mg tablet 40 mg PO DAILY Qty: 30 3RF nicotine 21 mg/24 hr patch 24 hour 1 patch transdermal Q24H Qty: 28 0RF colestipol 1 gram tablet 1 g PO DAILY Qty: 90 3RF montelukast [Singulair] 10 mg tablet 10 mg PO DAILY Qty: 90 2RF ipratropium-albuterol 0.5 mg-3 mg(2.5 mg base)/3 mL solution for nebulization 3 ml inhalation Q6H PRN (Reason: shortness of breath or wheezing) Qty: 180 3RF cetirizine 10 mg tablet 10 mg PO DAILY fexofenadine 180 mg tablet 180 mg PO DAILY Referrals Follow up/Referrals: Todd Kruse APRN [Primary Care Provider, Medical] - See instructions Activity Restrictions/Add. Instructions Additional Instructions/Restrictions: Follow-up with your tutoring manager as well as recovery coach as scheduled. If you develop any new or worsening symptoms, or if you become concerned for your health for any reason, return to the emergency department for evaluation Clinical Impressions Clinical Impression: Localized swelling of both lower legs Instructions Patient Instructions: DI for Low Back Pain Print Language Print Language: Kittitian Discharge ED Provider: Alfredo Samano General Adult HPI <Alfredo Samano MD - Last Filed: 07/13/25 17:12> General Chief complaint: Back Pain/Injury Stated complaint: Swelling and pain in both feet Time Seen by Provider: 07/13/25 12:49 Mode of Arrival: Ambulatory Source of Information: Patient Description of Symptoms (Recalled from ER Triage Doc. by RN): pt c/o R lower back pain that was sudden onset last night. pt states the pain is 10/10 pressure like someone is digging their elbow in her back. pt is unable to sit still due to the severe pain and states she feels like she needs to hold her breathe it is so bad. pt denies injury. pt denies N/V/D, chest pain, abd pain or urinary symptoms. pt has not taken anything for pain today. pt also reports she is currently being worked up by GI and was recently cleared by cards. pt states she is being worked up for liver issues. History of Present Illness HPI narrative: This patient presents to the emergency department with right flank pain. She reports no radicular symptoms, no numbness, no tingling. The patient reports a history of a right sided nonobstructive kidney stone, mild cirrhosis, lower extremity swelling. She was recently placed on Lasix 40 mg in an attempt to improve her lower extremity swelling, it is only been moderately successful. She also reports significant discomfort in her lower extremities from her edema. She has no shortness of breath, no orthopnea, and is hemodynamically stable while in the emergency department today. Related Data Home Medications ?Medication ?Instructions ?Recorded ?Confirmed lamotrigine 100 mg tablet 100 mg PO DAILY seizures 12/06/22 06/30/25 omeprazole 20 mg capsule,delayed 20 mg PO DAILY stomach 12/06/22 06/30/25 release cetirizine 10 mg tablet 10 mg PO DAILY 04/27/24 06/30/25 fexofenadine 180 mg tablet 180 mg PO DAILY 04/27/24 06/30/25 meloxicam 15 mg tablet 15 mg PO DAILY 03/12/25 06/30/25 hydrochlorothiazide 25 mg tablet 25 mg PO DAILY 05/12/25 06/30/25 Previous Rx's ?Medication ?Instructions ?Recorded albuterol sulfate 90 mcg/actuation 2 inh inhalation Q6H PRN shortness 12/06/22 aerosol inhaler of breath or wheezing 90 days #8.5 grams montelukast 10 mg tablet 10 mg PO DAILY #90 tabs 08/14/24 (Singulair) carvedilol 12.5 mg tablet 12.5 mg PO BID #180 tabs 11/10/24 losartan 100 mg tablet 100 mg PO DAILY #90 tabs 11/10/24 ipratropium 0.5 mg-albuterol 3 mg 3 ml inhalation Q6H PRN shortness 12/05/24 (2.5 mg base)/3 mL nebulization of breath or wheezing #180 mL soln mometasone-formoterol HFA 200 2 puff inhalation BID 90 days #13 03/13/25 mcg-5 mcg/actuation aerosol grams inhaler (Dulera) furosemide 40 mg tablet (Lasix) 40 mg PO DAILY #30 tabs 05/12/25 nicotine 21 mg/24 hr daily 1 patch transdermal Q24H #28 ea 05/12/25 transdermal patch nicotine 14 mg/24 hr daily 1 patch transdermal DAILY #28 ea 05/26/25 transdermal patch (Nicoderm CQ) colestipol 1 gram tablet 1 g PO DAILY #90 tabs 06/30/25 Allergies Allergy/AdvReac Type Severity Reaction Status Date / Time carbamazepine (From Tegretol) Allergy Hives Verified 06/30/25 15:10 levofloxacin (From Levaquin) Allergy Other Verified 06/30/25 15:10 quetiapine (From Seroquel) Allergy Hives Verified 06/30/25 15:10 venlafaxine (From Effexor) Allergy Seizure Verified 06/30/25 15:10 ziprasidone (From Geodon) Allergy Other Verified 06/30/25 15:10 [facility] <Alfredo Samano MD - Last Filed: 07/13/25 17:12> [facility] Disclaimer: The information contained in this section may have been updated after the patient was seen, as this information can be updated by other users. Medical History (Updated 07/13/25 @ 16:01 by Carl Montoya MD) Fatty liver Allergic rhinitis Seizure HTN (hypertension) Endobronchial mass Solid nodule of lung greater than 8 mm in diameter Multiple lung nodules on CT Smoking greater than 30 pack years Asthma Dyspnea on exertion Surgical History History of bronchoscopy History of surgery of uterus History of rotator cuff surgery History of carpal tunnel release of both wrists History of tubal ligation History of cholecystectomy History of appendectomy Family History Other COPD (chronic obstructive pulmonary disease) Cancer Hypertension Social History Smoking Status: Current every day smoker tobacco type: cigarettes packs per day: 1 alcohol intake: former substance use type: marijuana current occupational status: employed Travel in the last 8 weeks?: None Have you lived/traveled outside US in past 30 days?: No Contact w/someone who lives/traveled outside US past 30 days?: No Exposure to someone with infectious disease in past 14 days?: No Do you have a fever (greater than 100.4 F or 38 C)?: No Have you tested positive for COVID-19?: No Exposed to someone with COVID-19 in past 14 days?: No Do you have a sore throat?: No Do you have a cough?: No Do you have any weakness?: No Do you have any diarrhea?: No Are you experiencing any unusual bleeding?: No Do you have any muscle aches/pain?: No Do you have any abdominal pain?: No Are you experiencing loss of taste or smell?: No Other Medical History Have you received the Flu Vaccine for this season: No Have you received the Pneumonia Vaccine: No <Alfredo Samano MD - Last Filed: 07/13/25 17:12> ROS Obtained: Yes All systems reviewed & no additional complaints except as documented Physical Exam <Alfredo Samano MD - Last Filed: 07/13/25 17:12> General General appearance: alert and in no apparent distress Head Head exam: atraumatic and normocephalic Eye Eye exam: Present normal appearance, PERRL and EOMI ENT ENT exam: Present normal exam and normal external ear exam Neck Neck exam: Present normal inspection, full ROM and trachea midline Chest Chest inspection: Present normal inspection and symmetric chest wall rise; Absent tenderness Respiratory Respiratory exam: Absent respiratory distress Cardiovascular Cardiovascular exam: Present regular rate, normal rhythm and other (appears warm and well perfused) Abdominal Exam Abdominal exam: Absent distention or tenderness Extremities Exam Extremities exam: Present normal inspection and full ROM Neurological Exam Neurological exam: Present alert and oriented X3 Psychiatric Psychiatric exam: Present normal affect Skin Skin exam: Present warm and dry Medical Decision Making <Alfredo Samano MD - Last Filed: 07/13/25 17:12> Medical Records Medical records reviewed: Yes I reviewed the patient's medical records. Screening: Per USPSTF and CDC recommendations, given the prevalence of disease in our region, it is our hospital?s policy to screen for HIV and viral Hepatitis for all patients aged 18 and over and those with ongoing risk factors. Raymundo Inquiry Pt receiving controlled substance: No Raymundo was queried for this patient: No Vital Signs: 07/13/25 12:35 07/13/25 15:12 07/13/25 15:30 Temperature 97.7 F Temperature Source Oral Pulse Rate 66 64 Pulse Rate [Left] 80 Respiratory Rate 18 22 23 Blood Pressure 131/80 135/68 Blood Pressure [Right Arm] 163/96 H Blood Pressure Mean [Right Arm] 118 Blood Pressure Source Blood Pressure Source [Right Arm] Automatic Cuff Blood Pressure Position Blood Pressure Position [Right Arm] Sitting 02 Sat by Pulse Oximetry 99 99 97 Oxygen Delivery Method Room Air 07/13/25 16:12 Temperature 98.1 F Temperature Source Oral Pulse Rate 66 Pulse Rate [Left] Respiratory Rate 16 Blood Pressure 126/72 Blood Pressure [Right Arm] Blood Pressure Mean [Right Arm] Blood Pressure Source Automatic Cuff Blood Pressure Source [Right Arm] Blood Pressure Position Sitting Blood Pressure Position [Right Arm] 02 Sat by Pulse Oximetry Oxygen Delivery Method Room Air Lab Data Lab results reviewed: Yes I reviewed the patient's lab results. Lab Results 07/13/25 12:44: Urine Color Yellow, Urine Appearance Clear, Urine pH 7.5, Ur Specific [place] 1.010, Urine Protein Negative, Urine Glucose (UA) Negative, Urine Ketones Negative, Urine Blood Negative, Urine Nitrate Negative, Urine Bilirubin Negative, Urine Urobilinogen 0.2, Ur Leukocyte Esterase Negative, Urine RBC None, Urine WBC Occasional, Ur Squamous Epith Cells Occasional, Urine Bacteria Trace 07/13/25 13:25: WBC 12.4 H, RBC 4.81, Hgb 14.7, Hct 42.1, MCV 87.5, MCH 30.6, MCHC 34.9, RDW 12.4, Plt Count 269, MPV 10.6 H, Neut % (Auto) 62.3, Lymph % (Auto) 27.2, [place] % (Auto) 8.2, Eos % (Auto) 1.5, Baso % (Auto) 0.6, Neut # (Auto) 7.7, Lymph # (Auto) 3.4, [place] # (Auto) 1.0, Eos # (Auto) 0.2, Baso # (Auto) 0.1, Sodium 139, Potassium 4.3, Chloride 106, Carbon Dioxide 28, Anion Gap 9.3, BUN 13, Creatinine 0.60, Estimated Creat Clear 185, Estimated GFR 108, Est GFR ( Amer) 130, Glucose 109 H, Calcium 9.0, Total Bilirubin 0.5, AST 25, ALT 18, Alkaline Phosphatase 57, NT-Pro-B Natriuret Pep 27.7, Total Protein 6.6, Albumin 4.1, Globulin 2.5, Albumin/Globulin Ratio 1.6, HIV Ag/Ab Combo Qual Negative 07/13/25 13:25 07/13/25 13:25 Orders (Tests/Meds): ED MEDICATIONS Discontinued Medications Generic Name Dose Route Start Last Admin Trade Name Freq PRN Reason Stop Dose Admin Furosemide 40 mg 07/13/25 12:59 07/13/25 13:22 Furosemide 40mg/4ml Vial IV 07/13/25 13:00 40 mg ONCE ONE Administration Iopamidol 75 ml 07/13/25 13:43 07/13/25 13:44 Iopamidol-370 (76%);100ml Bottle IV 07/13/25 13:44 75 ml ONCE ONE Administration Ketorolac Tromethamine 15 mg 07/13/25 12:56 07/13/25 13:22 Ketorolac 15mg/Ml Vial IV 07/13/25 12:57 15 mg ONCE ONE Administration Morphine Sulfate 4 mg 07/13/25 12:56 07/13/25 13:23 Morphine 4mg/Ml Syringe IV 07/13/25 12:57 4 mg ONCE ONE Administration Ondansetron HCl 4 mg 07/13/25 12:56 07/13/25 13:22 Ondansetron 4mg/2ml Vial IV 07/13/25 12:57 4 mg ONCE ONE Administration Sodium Chloride 10 ml 07/13/25 13:43 07/13/25 13:44 Sodium Chloride 0.9% 10ml Syr (Rad Only) IV 07/13/25 13:44 10 ml ONCE ONE Administration ORDERS Category Date Time Status CT abdomen pelvis w con Stat Cat Scan 07/13/25 13:26 Completed BNP [NT Pro Brain Natriuretic Pep.] Stat Lab 07/13/25 13:25 Completed CBC w/Auto Diff [Complete Blood Count Auto Diff] Stat Lab 07/13/25 13:25 Completed CMP [Comprehensive Metabolic Panel] Stat Lab 07/13/25 13:25 Completed HIV Combo Stat Lab 07/13/25 13:25 Completed UA [Urinalysis and Microscopic] Stat Lab 07/13/25 12:44 Completed Medical Decision Narrative: This patient is a 45-year-old female who presented to the emergency department with right-sided flank pain. Differential diagnosis includes kidney stone, pyelonephritis, urinary tract infection, soft tissue contusion, mesenteric ischemia, pancreatitis, cholecystitis, cholangitis, retroperitoneal hemorrhage. Based on these concerns I performed a comprehensive laboratory and imaging workup. Laboratory workup personally interpreted by me showed no significant leukocytosis, no significant anemia, no major metabolic abnormalities, no sign of urinary tract infection or hematuria. Unfortunately before the CT scan could be finalized by the radiologist, the care of this patient was signed out to the oncoming resident. Carl Montoya MD At the time my assumption of care, plan was to follow-up patient's CT imaging and reassess Ultimately, patient's workup and imaging were interpreted by me personally. CT abdomen pelvis shows no acute findings. There is anasarca noted previously and may be worse than previous but otherwise unremarkable. Patient also noted to have right lower lobe nodular opacities unchanged from previous exam. On reassessment, patient reports improvement in her symptoms. She is aware that she has pulmonary nodules and is followed by the pulmonology clinic. She is followed by GI here for her cirrhosis. Her laboratory workup is unremarkable nonactionable. I encouraged her to follow-up with GI and pulmonology. Return precautions were given. All questions were answered. She was then discharged from the emergency department in stable condition. <Carl Montoya MD - Last Filed: 07/13/25 16:08> Vital Signs: 07/13/25 12:35 07/13/25 15:12 07/13/25 15:30 Temperature 97.7 F Temperature Source Oral Pulse Rate 66 64 Pulse Rate [Left] 80 Respiratory Rate 18 22 23 Blood Pressure 131/80 135/68 Blood Pressure [Right Arm] 163/96 H Blood Pressure Mean [Right Arm] 118 Blood Pressure Source Blood Pressure Source [Right Arm] Automatic Cuff Blood Pressure Position Blood Pressure Position [Right Arm] Sitting 02 Sat by Pulse Oximetry 99 99 97 Oxygen Delivery Method Room Air 07/13/25 16:12 Temperature 98.1 F Temperature Source Oral Pulse Rate 66 Pulse Rate [Left] Respiratory Rate 16 Blood Pressure 126/72 Blood Pressure [Right Arm] Blood Pressure Mean [Right Arm] Blood Pressure Source Automatic Cuff Blood Pressure Source [Right Arm] Blood Pressure Position Sitting Blood Pressure Position [Right Arm] 02 Sat by Pulse Oximetry Oxygen Delivery Method Room Air Lab Data Lab Results 07/13/25 12:44: Urine Color Yellow, Urine Appearance Clear, Urine pH 7.5, Ur Specific [place] 1.010, Urine Protein Negative, Urine Glucose (UA) Negative, Urine Ketones Negative, Urine Blood Negative, Urine Nitrate Negative, Urine Bilirubin Negative, Urine Urobilinogen 0.2, Ur Leukocyte Esterase Negative, Urine RBC None, Urine WBC Occasional, Ur Squamous Epith Cells Occasional, Urine Bacteria Trace 07/13/25 13:25: WBC 12.4 H, RBC 4.81, Hgb 14.7, Hct 42.1, MCV 87.5, MCH 30.6, MCHC 34.9, RDW 12.4, Plt Count 269, MPV 10.6 H, Neut % (Auto) 62.3, Lymph % (Auto) 27.2, [place] % (Auto) 8.2, Eos % (Auto) 1.5, Baso % (Auto) 0.6, Neut # (Auto) 7.7, Lymph # (Auto) 3.4, [place] # (Auto) 1.0, Eos # (Auto) 0.2, Baso # (Auto) 0.1, Sodium 139, Potassium 4.3, Chloride 106, Carbon Dioxide 28, Anion Gap 9.3, BUN 13, Creatinine 0.60, Estimated Creat Clear 185, Estimated GFR 108, Est GFR ( Amer) 130, Glucose 109 H, Calcium 9.0, Total Bilirubin 0.5, AST 25, ALT 18, Alkaline Phosphatase 57, NT-Pro-B Natriuret Pep 27.7, Total Protein 6.6, Albumin 4.1, Globulin 2.5, Albumin/Globulin Ratio 1.6, HIV Ag/Ab Combo Qual Negative Orders (Tests/Meds): ED MEDICATIONS Discontinued Medications Generic Name Dose Route Start Last Admin Trade Name Freq PRN Reason Stop Dose Admin Furosemide 40 mg 07/13/25 12:59 07/13/25 13:22 Furosemide 40mg/4ml Vial IV 07/13/25 13:00 40 mg ONCE ONE Administration Iopamidol 75 ml 07/13/25 13:43 07/13/25 13:44 Iopamidol-370 (76%);100ml Bottle IV 07/13/25 13:44 75 ml ONCE ONE Administration Ketorolac Tromethamine 15 mg 07/13/25 12:56 07/13/25 13:22 Ketorolac 15mg/Ml Vial IV 07/13/25 12:57 15 mg ONCE ONE Administration Morphine Sulfate 4 mg 07/13/25 12:56 07/13/25 13:23 Morphine 4mg/Ml Syringe IV 07/13/25 12:57 4 mg ONCE ONE Administration Ondansetron HCl 4 mg 07/13/25 12:56 07/13/25 13:22 Ondansetron 4mg/2ml Vial IV 07/13/25 12:57 4 mg ONCE ONE Administration Sodium Chloride 10 ml 07/13/25 13:43 07/13/25 13:44 Sodium Chloride 0.9% 10ml Syr (Rad Only) IV 07/13/25 13:44 10 ml ONCE ONE Administration ORDERS Category Date Time Status CT abdomen pelvis w con Stat Cat Scan 07/13/25 13:26 Completed BNP [NT Pro Brain Natriuretic Pep.] Stat Lab 07/13/25 13:25 Completed CBC w/Auto Diff [Complete Blood Count Auto Diff] Stat Lab 07/13/25 13:25 Completed CMP [Comprehensive Metabolic Panel] Stat Lab 07/13/25 13:25 Completed HIV Combo Stat Lab 07/13/25 13:25 Completed UA [Urinalysis and Microscopic] Stat Lab 07/13/25 12:44 Completed Medical Decision Narrative: Carl Montoya MD At the time my assumption of care, plan was to follow-up patient's CT imaging and reassess Ultimately, patient's workup and imaging were interpreted by me personally. CT abdomen pelvis shows no acute findings. There is anasarca noted previously and may be worse than previous but otherwise unremarkable. Patient also noted to have right lower lobe nodular opacities unchanged from previous exam. On reassessment, patient reports improvement in her symptoms. She is aware that she has pulmonary nodules and is followed by the pulmonology clinic. She is followed by GI here for her cirrhosis. Her laboratory workup is unremarkable nonactionable. I encouraged her to follow-up with GI and pulmonology. Return precautions were given. All questions were answered. She was then discharged from the emergency department in stable condition. Critical Care <Carl Montoya MD - Last Filed: 07/13/25 16:08> Critical Care Time Critical Care Time: No
--- OUTSIDE RECORDS SUMMARY | 2025-07-13 12:52 | XMS_ITS | Clinical Summary ---
Author Organization [facility] Address [address] [place] [address] Care Team Providers Care Hunting And Fishing Guide Name Role Phone Provider, No Known Primary [...] or training? Not on file Preferred Language Guatemalan 11/20/2023 Comments No Sex and Gender Information [...] TEST 2024 FIT Testing (1 year) 2024 INFLUENZA VACCINE 05/22/2025 07/10/2023, , 08/03/2021, Additional history exists Medical Devices Implanted Type Area Toy Stuffer Device Identifier Shelf Expiration Date Model / Serial / Lot Anchr Tndn Regeneten Tiss/Sft Ea/8 - [id number] Implanted:Qty: 1 on 11/27/2023 by Clyde Galaviz Jr., MD at [facility] Implant Right: Shoulder SPENCER [employer] NEPHEW 03/01/2026 [id number] / / [id number] Sut/Anch Healixadvance Br Dynatape 4.5mm Blk - [id number] Implanted:Qty: 1 on 11/27/2023 by Clyde Galaviz Jr., MD at [facility] Implant Right: Shoulder DEPUY MITEK 11/21/2025 [id number] / / [id number] Tiss Synth Regeneten Bioinductive W/Del Dev Md - [id number] Implanted:Qty: 1 on 11/27/2023 by Clyde Galaviz Jr., MD at [facility] Implant Right: Shoulder SPENCER [employer] NEPHEW 04/21/2026 [id number] / / [id number] Anchr Bone Regeneten Adv W/Del Sys Ea/3 - [id number] Implanted:Qty: 1 on 11/27/2023 by Clyde Galaviz Jr., MD at [facility] Implant Right: Shoulder SPENCER [employer] NEPHEW 05/04/2026 [id number] / / [id number] Sut/Anch Knotlss Healicoil Regenesorb 5.5mm - [id number] Implanted:Qty: 1 on 11/27/2023 by Clyde Galaviz Jr., MD at [facility] Implant Right: Shoulder SPENCER [employer] NEPHEW 04/25/2026 [id number] / / [id number] Insurance [facility] Care Teams Hunting And Fishing Guide Relationship Specialty Start Date End Date Provider, [place] [id number] PCP - General 11/20/23
--- OUTSIDE RECORDS SUMMARY | 2025-07-13 12:52 | XMS_ITS | Clinical Summary ---
Author Organization [facility] Address [address] [facility] [address] [place] [address] Phone Care Team Providers Care Folder Seamer Name Role Phone Anh Kruse APRN Primary [...] EDT - 04/29/2025 2:34 AM EDT Emergency [place] [facility] [place] [address] Alli Arana MD Acute pain of [...] Final Result from Last [address] [facility] [id number] Care Teams Folder Seamer Relationship Specialty Start Date End Date Anh Kruse APRN [address] [facility] [address] [place] [phone] PCP - General 07/09/24
[2025-07-13 12:56] LABS: Microscopic, Urine URINE MICROSCOPIC (MICROSCOPIC)
[2025-07-13 13:05] LABS: Bilirubin,Urine Negative (Negative); Color,Urine YELLOW (Yellow); Glucose,Urine (UA) Negative (Negative); Ketones,Urine Negative (Negative); Leukocyte Esterase,Urine Negative (Negative); PH,Urine 7.5 (5.0-8.5); Protein,Urine Negative (Negative); Specific Gravity, Urine 1.010 (1.005-1.030); Urobilinogen,Urine 0.2 EU/dl (0.2)
[2025-07-13] MEDS: ONDANSETRON 4MG/2ML VIAL 4 MG IV (13:22)
[2025-07-13] MEDS: FUROSEMIDE 40MG/4ML VIAL 40 MG IV (13:22)
[2025-07-13] MEDS: KETOROLAC 15MG/ML VIAL 15 MG IV (13:22)
[2025-07-13] MEDS: MORPHINE 4MG/ML SYRINGE 4 MG IV (13:23)
--- NOTE | 2025-07-13 13:26 | CT_ITS ---
FINAL REPORT TECHNIQUE: Thin section axial images are obtained through the abdomen and pelvis after intravenous contrast. Reconstruction images were obtained from the axial data. Exam was performed using dose reduction techniques. This study was performed with techniques to keep radiation doses as low as reasonably achievable (ALARA). Individualized dose reduction techniques using automated exposure control or adjustment of mA and/or kV according to the patient's size were employed. CLINICAL HISTORY: flank pain, hx of fatty liver and kidney stones COMPARISON: CT of the abdomen 06/19/2025 FINDINGS: LUNG BASES: Multiple right lower lobe nodular opacities remain unchanged since the prior CT of 06/19/2025. Heart size is normal. LIVER: Homogeneous. No focal lesion. GALLBLADDER/BILIARY SYSTEM: The gallbladder is absent. No biliary dilatation. SPLEEN: Unremarkable. PANCREAS: Unremarkable. ADRENALS: Unremarkable. KIDNEYS/URETERS/BLADDER: No hydronephrosis, renal mass, or renal stone. Unremarkable urinary bladder. GI TRACT: No small bowel obstruction or dilatation. The appendix is likely surgically absent. No acute colon abnormality. PELVIC ORGANS: Bladder wall thickening is present, which may be secondary to incomplete distention or possibly cystitis. LYMPH NODES/RETROPERITONEUM/MESENTERY: No lymphadenopathy. No abdominal aortic aneurysm. ABDOMINAL WALL: Body wall anasarca is noted, slightly increased when compared to the prior exam, nonspecific. FREE FLUID: No ascites. BONES: No acute osseous abnormality. IMPRESSION: 1. Bladder wall thickening, that may be secondary to incomplete distention or cystitis. 2. Body wall anasarca has slightly increased since the prior exam. 3. The right lower lobe nodular opacities remain present and are unchanged since the prior exam of 06/19/2025. Reviewed, Interpreted and Dictated by Meghana Leal MD Transcribed by Erika Grossman Authenticated and [facility]
[2025-07-13 13:33] LABS: Hematocrit 42.1 % (37.0-47.0); Hemoglobin 14.7 g/dL (12.2-16.2); Immature Granulocytes % 0.2 %; Mean Corpuscular HGB Conc 34.9 g/dL (31.8-35.4); Mean Corpuscular Hemoglobin 30.6 pg (27.0-31.2); Mean Corpuscular Volume 87.5 fl (81-99); Nucleated Red Blood Cells % 0 %; Platelet Count 269 K/mm3 (142-424); Red Blood Count 4.81 M/mm3 (4.20-5.40); Red Cell Distribution Width-SD 40.0 fL; White Blood Count 12.4 K/mm3 (4.8-10.8)
[2025-07-13 13:41] LABS: Albumin Level 4.1 g/dl (3.5-5.0); Chloride 106 mmol/L (98-107); Sodium 139 mmol/L (136-145)
[2025-07-13 13:42] LABS: Potassium 4.3 mmoL/L (3.5-5.1)
[2025-07-13 13:44] LABS: Alanine Aminotransferase 18 U/L (12-78); Albumin/Globulin Ratio 1.6 (1.1-1.8); Alkaline Phosphatase 57 U/L (38-126); Anion Gap 9.3 mEq/L (5-15); Aspartate Amino Transferase 25 U/L (14-36); Bilirubin,Total 0.5 mg/dl (0.2-1.3); Blood Urea Nitrogen 13 mg/dl (7-17); Carbon Dioxide 28 mmol/L (22.0-30.0); Creatinine Clearance Estimated 185 mL/min (50-200); Creatinine,Serum 0.60 mg/dl (0.52-1.04); Estimated Glomerular Filt Rate 108 ml/min (>60); GFR (African American) 130 ML/MIN (>60); Globulin 2.5 g/dL (1.3-3.2); Total Protein,Serum 6.6 g/dl (6.3-8.2)
[2025-07-13] MEDS: IOPAMIDOL-370 (76%);100ML BOTTLE 75 ML IV (13:44)
[2025-07-13] MEDS: SODIUM CHLORIDE 0.9% 10ML SYR (RAD ONLY) 10 ML IV (13:44)
[2025-07-13 13:45] LABS: Calcium 9.0 mg/dl (8.4-10.2); Glucose 109 mg/dl (74-100)
[2025-07-13 13:54] LABS: NT Pro Brain Natriuretic Pep. 27.7 pg/mL (0-125)
[2025-07-13 14:31] LABS: Bacteria,Urine Trace /lpf; Squamous Epithelial Cell,Urine Occasional #/hpf (0-5); WBC,Urine Occasional #/hpf (0-3)
[2025-07-13 15:12] VITALS: BP 131/80; PULSE 66; RESP 22; O2SAT 99
[2025-07-13 15:30] VITALS: BP 135/68; PULSE 64; RESP 23; O2SAT 97
[2025-07-13 16:12] VITALS: BP 126/72; PULSE 66; RESP 16; TEMP 36.7; O2SAT 99
== END 2025-07-13 16:13 | disposition home or self-care (01) ==
PROVIDERS: Emergency Provider Student in an Organized Health Care Education/Training Program; PCP Nurse Practitioner Family
DX: R22.43 Localized swelling, mass and lump, lower limb, bilateral (principal); M54.59 Other low back pain; M79.604 Pain in right leg; M79.605 Pain in left leg; F17.210 Nicotine dependence, cigarettes, uncomplicated
CPT/HCPCS: 74177; 80053; 81001; 83880; 85025; 87389; 96374; 96375; 99283; 99284; J1885; J1938; J2270; J2405; Q9967

== ENCOUNTER 2025-07-20 16:32 | Outpatient (CLI) | payer OTHER, SELFPAY ==
--- OUTSIDE RECORDS SUMMARY | 2025-07-20 16:37 | XMS_ITS | Clinical Summary ---
Author Organization [facility] Address [address] [facility] [address] [address] [place] [address] Phone Care Team Providers Care Cyanide Furnace Operator Name Role Phone Anh Kruse APRN [...] EDT - 04/29/2025 2:34 AM EDT Emergency [place] [facility] [place] [address] Alli Arana MD Acute pain of [...] Final Result from Last 3 Months Insurance [facility] [address] [place] [address] Care Teams Cyanide Furnace Operator Relationship Specialty Start Date End Date Anh Kruse APRN [address] [place] [phone] PCP - General 07/09/24
--- OUTSIDE RECORDS SUMMARY | 2025-07-20 16:37 | XMS_ITS | Clinical Summary ---
Author Organization [facility] Address [address] [place] [address] Care Team Providers Care Mining Technician Name Role Phone Provider, No Known Primary [...] or training? Not on file Preferred Language Puerto Rican 11/20/2023 Comments No Sex and Gender Information [...] history exists Medical Devices Implanted Type Area Grades 1 6 Tutor Device Identifier Shelf Expiration Date Model / Serial / Lot Anchr Tndn Regeneten Tiss/Sft Ea/8 - [id number] Implanted:Qty: 1 on 11/27/2023 by Clyde Galaviz Jr., MD at [facility] Implant Right: Shoulder SPENCER AND NEPHEW 03/01/2026 [id number] / / [id number] Sut/Anch Healixadvance Br Dynatape 4.5mm Blk - [id number] Implanted:Qty: 1 on 11/27/2023 by Clyde Galaviz Jr., MD at [facility] Implant Right: Shoulder DEPUY MITEK 11/21/2025 [id number] / / [id number] Tiss Synth Regeneten Bioinductive W/Del Dev Md - [id number] Implanted:Qty: 1 on 11/27/2023 by Clyde Galaviz Jr., MD at [facility] Implant Right: Shoulder SPENCER AND NEPHEW 04/21/2026 [id number] / / [id number] Anchr Bone Regeneten Adv W/Del Sys Ea/3 - [id number] Implanted:Qty: 1 on 11/27/2023 by Clyde Galaviz Jr., MD at [facility] Implant Right: Shoulder SPENCER AND NEPHEW 05/04/2026 [id number] / / [id number] Sut/Anch Knotlss Healicoil Regenesorb 5.5mm - [id number] Implanted:Qty: 1 on 11/27/2023 by Clyde Galaviz Jr., MD at [facility] Implant Right: Shoulder SPENCER AND NEPHEW 04/25/2026 [id number] / / [id number] Insurance [facility] Care Teams Mining Technician Relationship Specialty Start Date End Date Provider, [place] [address] PCP - General 11/20/23
--- NOTE | 2025-07-20 16:42 | XR_ITS ---
PROCEDURE INFORMATION: Exam: XR Cervical Spine Exam date and time: 07/20/2025 4:42 PM Age: 45 years old Clinical indication: Neck pain TECHNIQUE: Imaging protocol: Radiologic exam of the cervical spine. Views: 2 or 3 views. COMPARISON: PT P.E.T./CT SKULL BASE TO MID-THIGH 12/11/2022 12:44 PM FINDINGS: Bones/joints: Normal. No acute fracture. Normal alignment. Soft tissues: Unremarkable. IMPRESSION: No acute findings.
--- NOTE | 2025-07-20 16:42 | XR_ITS ---
PROCEDURE INFORMATION: Exam: XR Right Shoulder Exam date and time: 07/20/2025 4:42 PM Age: 45 years old Clinical indication: Pain; Shoulder; Right; Prior surgery; Surgery date: 1-6 months; Surgery type: Rotator cuff repair March 26 TECHNIQUE: Imaging protocol: Radiologic exam of the right shoulder. Views: 2 or more views. COMPARISON: MR SHOULDER RT WO CON 11/03/2022 3:42 PM FINDINGS: Bones/joints: Normal. Soft tissues: Normal. IMPRESSION: No acute findings.
== END 2025-07-20 23:59 | disposition home or self-care (01) ==
LOC: RAD 16:36
PROVIDERS: PCP Nurse Practitioner Family; Visit Provider Orthopaedic Surgery
DX: M75.100 Unspecified rotator cuff tear or rupture of unspecified shoulder, not specified as traumatic (principal); M54.10 Radiculopathy, site unspecified; M54.2 Cervicalgia; Z98.890 Other specified postprocedural states
CPT/HCPCS: 72040; 73030

== ENCOUNTER 2025-09-30 10:53 | Outpatient (CLI) | payer OTHER, SELFPAY ==
[2025-09-30 11:54] LABS: Alanine Aminotransferase 23 U/L (12-78); Albumin Level 3.8 g/dl (3.5-5.0); Albumin/Globulin Ratio 1.5 (1.1-1.8); Alkaline Phosphatase 58 U/L (38-126); Anion Gap 10.0 mEq/L (5-15); Aspartate Amino Transferase 22 U/L (14-36); Bilirubin,Total 0.9 mg/dl (0.2-1.3); Blood Urea Nitrogen 18 mg/dl (7-17); Calcium 8.7 mg/dl (8.4-10.2); Carbon Dioxide 26 mmol/L (22.0-30.0); Chloride 111 mmol/L (98-107); Creatinine,Serum 0.70 mg/dl (0.52-1.04); Estimated Glomerular Filt Rate 90 ml/min (>60); GFR (African American) 109 ML/MIN (>60); Globulin 2.5 g/dL (1.3-3.2); Glucose 117 mg/dl (74-100); Potassium 4.0 mmoL/L (3.5-5.1); Sodium 143 mmol/L (136-145); Total Protein,Serum 6.3 g/dl (6.3-8.2)
--- NOTE | 2025-09-30 11:57 | XR_ITS ---
FINAL REPORT CLINICAL HISTORY: chest congestion COMPARISON: 05/12/2025 FINDINGS: 2 views of the chest were obtained . The heart is normal in size. The mediastinum is within normal limits. There is redemonstration of a rounded, well-circumscribed nodular opacity in the right lower lobe measuring 1.5 cm. This is not well-seen on the lateral view. There is no pneumothorax. Osseous structures are unremarkable. IMPRESSION: Nodular opacity in the right lower lobe measuring 1.5 cm. Again, recommend chest CT for further evaluation. Reviewed, Interpreted and Dictated by Brando Lala MD Transcribed by Vibha Pagan Authenticated and . [facility]
== END 2025-09-30 23:59 | disposition home or self-care (01) ==
PROVIDERS: PCP Nurse Practitioner Family; Visit Provider Nurse Practitioner Family
DX: K76.0 Fatty (change of) liver, not elsewhere classified (principal); R91.8 Other nonspecific abnormal finding of lung field; R09.89 Other specified symptoms and signs involving the circulatory and respiratory systems
CPT/HCPCS: 36415; 71046; 80053

== ENCOUNTER 2025-10-14 14:05 | Emergency (ER) | payer OTHER, SELFPAY ==
[2025-10-14 14:09] VITALS: BP 138/84; PULSE 83; RESP 20; TEMP 36.8; O2SAT 97; BMI 39.2
--- OUTSIDE RECORDS SUMMARY | 2025-10-14 14:14 | XMS_ITS | Encounter Summary ---
Author Organization [employer] ([place], [place], [place], [place], [place]) Address [address] [place] [address] Care Team Providers Care Hob Mill Operator Name Role Phone Unavailable Primary Care Provider Unavailabl e Encounter Details Date Type Department Care Team (Late st Contact Info) Description 09/19/2021 Transcribed Document [facility] [place] [facility] [place] [address] ProviderNaveen MD [address] [place] [address] Social History Tobacco Use Types Packs/Day [...] - Historical ProviderMD - 09/19/2021 9:04 PM LOOM OPERATOR APPRENTICE ED Discharge Entered On: 09/19/2021 21:04 EST [...] - 09/19/2021 21:04 EST Electronically signed by Jordan [facility] Conversion Radio Control Crane Operator Cerner at 02/04/2023 10:00 AM CDT documented in this encounter Plan of Treatment Not on file documented as of this encounter Visit Diagnoses Not on filedocumented in this encounter
--- NOTE | 2025-10-14 14:15 | XR_ITS ---
FINAL REPORT TECHNIQUE: Right shoulder 3 views CLINICAL HISTORY: pain r shoulder COMPARISON: None FINDINGS: RIGHT SHOULDER: 3 images of the right shoulder were obtained. There is no evidence of fracture or dislocation. Mild acromioclavicular arthropathy is present. There is no soft tissue abnormality identified. IMPRESSION: Mild acromioclavicular arthropathy, with no acute bony abnormality. Reviewed, Interpreted and Dictated by Gifty Otto MD Transcribed by Erika Grossman Authenticated and . [facility]
--- OUTSIDE RECORDS SUMMARY | 2025-10-14 14:15 | XMS_ITS | Encounter Summary ---
Author Organization [employer] ([place], [place], [place], [place], [place]) Address [address] [place] [address] Care Team Providers Care Grease Press Helper Name Role Phone Unavailable Primary Care Provider Unavailabl e Encounter Details Date Type Department Care Team (Late st Contact Info) Description 09/19/2021 Transcribed Document [facility] [place] Medicine [facility] [place] [address] ProviderNaveen MD [address] [place] [address] Social History Tobacco Use Types [...] - Historical ProviderMD - 09/19/2021 1:11 PM SUPERVISOR ASBESTOS REMOVAL ED Triage Entered On: 09/19/2021 13:55 EST Performed On: 09/19/2021 13:49 EST by India Betancur RN ED Triage Across the Room Chief Complaint : L groin pain x 1 week, saw PCP, sched for US r/t inguinal hernia. Now L lower back pain, seen at [place] - dx c sciatica. No BM x 3 days, abdominal swelling, straining to pee. States now becoming numb from B/L feet up BLE. PCP advised to come to ED. Triage Date/Time : 09/19/2021 13:49 EST India Betancur RN - 09/19/2021 13:49 EST DCP GENERIC CODE Tracking Acuity : 3 - Urgent Tracking Group : [facility] ED India Betancru RN - 09/19/2021 13:49 EST Mode of [...] PNED ; Probability: 0 ; Diagnosis Code: [id number] Dysuria Date: 09/19/2021 ; Diagnosis Type: Reason For Visit ; Confirmation: Complaint of ; Clinical Dx: Dysuria ; Classification: Medical ; Clinical Service: Non-Specified ; Code: PNED ; Probability: 0 ; Diagnosis Code: [id number] ED Height and Weight Height Source : Stated Height Entry Format : [place] Height, Feet : 5 ft(Converted to: 152 cm, 60 Inch) Height, Inches : 6 Inch(Converted to: 0 ft 6 Inch, 15.24 cm) Clinical Height : 167.64 cm Weight Source, ED : Critical estimated dosing weight Weight Entry Format : [place] Weight, Pounds : 225 lb Clinical Dosing Weight : 102.27 kg Body Surface Area (BSA) : 2.1 m2 Body Mass Index : 36.4 kg/m2 (HI) [place] Body Weight (IBW) : 58.88 kg [place] [...]
--- OUTSIDE RECORDS SUMMARY | 2025-10-14 14:15 | XMS_ITS | Encounter Summary ---
Author Organization [employer] ([place], [place], [place], [place], [place]) Address [address] [place] [address] Care Team Providers Care Tool Radial Drill Press Set Up Operator Name Role Phone Unavailable Primary Care Provider Unavailabl e Encounter Details Date Type Department Care Team (Late st Contact Info) Description 09/19/2021 Transcribed Document [facility] [place] [facility] [place] [address] ProviderNaveen MD [address] [place] [id number] Social History Tobacco Use Types Packs/Day Years [...] - Historical ProviderMD - 09/19/2021 1:11 PM INFRASTRUCTURE SOFTWARE ENGINEER ED Assessment Entered On: 09/19/2021 16:17 EST Performed On: 09/19/2021 15:00 EST by India Betancur RN ED Quick Look Assessment Level of Consciousness : Alert, Awake Affect/Behavior : Appropriate, Calm, Cooperative Orientation : Oriented x 4 India Betancur RN - 09/19/2021 16:15 EST ED General-Functional Assess Communication Barrier : None Primary Language : Estonian Any Spiritual/Cultural Needs or Requests : No [...] Assessment WDL : WDL India Betancur RN 09/19/2021 16:15 EST Gastrointestinal ED Gastrointestinal Assessment [...] ) India Betancur RN 09/19/2021 16:15 EST documented in this encounter Plan of Treatment Not on file documented as of this encounter Visit Diagnoses Not on filedocumented in this encounter
--- OUTSIDE RECORDS SUMMARY | 2025-10-14 14:15 | XMS_ITS | Encounter Summary ---
Author Organization [employer] ([place], [place], [place], [place], [place]) Address [address] [place] [address] Care Team Providers Care Shirt Closer Name Role Phone Unavailable Primary Care Provider Unavailabl e Encounter Details Date Type Department Care Team (Late st Contact Info) Description 09/19/2021 Transcribed Document [facility] [place] [facility] [place] [address] ProviderNaveen MD [address] [place] [address] Social History Tobacco Use Types [...] - Historical ProviderMD - 09/19/2021 2:59 PM NUCLEAR POWERPLANT MECHANIC Pain Assessment Entered On: 09/19/2021 16:02 EST [...] of the form. Electronically signed by Jordan, Bettie Conversion Transmission Systems Operator Cerner at 02/04/2023 9:36 AM CDT documented in this encounter Plan of Treatment Not on file documented as of this encounter Visit Diagnoses Not on filedocumented in this encounter
--- OUTSIDE RECORDS SUMMARY | 2025-10-14 14:15 | XMS_ITS | Clinical Summary ---
Author Organization [facility] Address [address] [place] [address] Care Team Providers Care Offal Separator Name Role Phone Provider, No Known Primary [...] or training? Not on file Preferred Language Citizen Of [place] 11/20/2023 Comments No Sex and Gender Information [...] history exists Medical Devices Implanted Type Area Business Process Manager Device Identifier Shelf Expiration Date Model / Serial / Lot Anchr Tndn Regeneten Tiss/Sft Ea/8 - [id number] Implanted:Qty: 1 on 11/27/2023 by Clyde Galaviz Jr., MD at [facility] Implant Right: Shoulder SPENCER AND NEPHEW 03/01/2026 [id number] / / [id number] Sut/Anch Healixadvance Br Dynatape 4.5mm Blk - [id number] Implanted:Qty: 1 on 11/27/2023 by Clyde Galaviz Jr., MD at [facility] Implant Right: Shoulder DEPUY MITEK 11/21/2025 [id number] / / [id number] Tiss Synth Regeneten Bioinductive W/Del Dev Md - [id number] Implanted:Qty: 1 on 11/27/2023 by Clyde Galaviz Jr., MD at [facility] Implant Right: Shoulder SPENCER AND NEPHEW 04/21/2026 [id number] / / [id number] Anchr Bone Regeneten Adv W/Del Sys Ea/3 - [id number] Implanted:Qty: 1 on 11/27/2023 by Clyde Galaviz Jr., MD at [facility] Implant Right: Shoulder SPENCER AND NEPHEW 05/04/2026 [id number] / / [id number] Sut/Anch Knotlss Healicoil Regenesorb 5.5mm - [id number] Implanted:Qty: 1 on 11/27/2023 by Clyde Galaviz Jr., MD at [facility] Implant Right: Shoulder SPENCER AND NEPHEW 04/25/2026 [id number] / / [id number] Insurance [facility] Care Teams Offal Separator Relationship Specialty Start Date End Date Provider, [place] [address] PCP - General 11/20/23
--- OUTSIDE RECORDS SUMMARY | 2025-10-14 14:15 | XMS_ITS | Encounter Summary ---
Author Organization [employer] ([place], [place], [place], [place]) Address [address] [place] [address] Care Team Providers Care Home School Teacher Name Role Phone Unavailable Primary Care Provider Unavailabl e Encounter Details Date Type Department Care Team (Late st Contact Info) Description 09/19/2021 Transcribed Document [facility] [place] [facility] [address] ProviderNaveen MD [address] [place] [address] Social History Tobacco Use Types [...] Naveen Nixon MD - 09/19/2021 9:05 PM COMMERCIAL LEASING AGENT [place] [address] TRICE TRAN :1980 Visit Time:09/19/2021 Your Visit Summary Your [...] 3 days Comments Follow up with your traverse rod assembler as scheduled tomorrow. Take medications as prescribed [...] for spasm Duration: 5 Day(s) Pickup at [facility] [address] [facility]: [address] [place] [address] [phone] The home medications listed are only as [...] range between ( 0.0 and 7.0 ) [place] #: 0.85 K/uL -- Normal range between ( 0.16 and 1.00 ) Eos #: 0.17 x10(3)/uL -- Normal range between ( 0.00 and 0.80 ) [place] %: 7.5 % -- Normal range between [...] ) Urine Bilirubin Dipstick: Negative Urine Specific Echo: 1.011 -- Normal range between ( 1.005 [...] and rising up. ??? Do strength and cuzuc-ql-pxtima exercises only as told by your health care provider or physical therapist. General instructions ??? Take yino-aut-fuslwqm and prescription medicines only as told by [...] provider. Document Revised: 04/22/2019 Document Reviewed: 04/22/2019 [employer] Patient Education ?? 2020 [employer]. Emergency Awareness and Preventative Care STROKE is [...] Assistance with quitting is available by contacting [phone]-IYRJ-NOW. This is a free resource providing counseling, [...] including: emergency, radiology, or pathology physicians. Patient Name:TRICE TRAN I have received this information and was given the opportunity to ask questions. Patient/Remelt Furnace Expediter Name: Patient/Remelt Furnace Expediter Signature: Relationship to Patient: Clinician/Hospital Remelt Furnace Expediter Signature: Please Provide a Telephone Number Where You Can Be Reached: Is it Permissible To Leave a Message? Date: documented in this encounter Plan of Treatment Not on file documented as of this encounter Visit Diagnoses Not on filedocumented in this encounter
--- OUTSIDE RECORDS SUMMARY | 2025-10-14 14:15 | XMS_ITS | Encounter Summary ---
Author Organization [employer] ([place], [place], [place], [place], [place]) Address [address] [place] [address] Care Team Providers Care Reinforcing Steel Erector Name Role Phone Unavailable Primary Care Provider Unavailabl e Encounter Details Date Type Department Care Team (Late st Contact Info) Description 09/19/2021 Transcribed Document [facility] [place] [facility] [place] [address] ProviderNaveen MD [address] [place] [address] Social History Tobacco Use Types Packs/Day [...] Conversion Note - Historical ProviderMD - 09/19/2021 6:47 PM CHILD CARE NURSE Patient: TRICE TRAN Age: 41 years Sex: [...] Now L lower back pain, seen at [facility] - c sciatica. No BM x 3 [...] up with about tomorrow with pulmonology in [place], had an outpatient chest CT scan. . [...] EST Height Source Stated Height Entry Format [place] Height/Length, SAUDI ARABIAN (ft) 5 ft Height/Length SAUDI ARABIAN 6 Inch CLINICALHEIGHT 167.64 cm [place] Body Weight 58.88 kg Weight Source, ED Critical estimated dosing weight Weight Entry Format [place] Weight Cuban lb 225 lb CLINICALWEIGHT 102.27 kg Body [...] % 27.9 % Lymph # 3.15 x10(3)/uL [place] % 7.5 % [place] # 0.85 K/uL Eos % 1.5 % Eos # 0.17 x10(3)/uL Baso % 0.7 % Baso # 0.08 x10(3)/uL Slide Review No IG# 0.04 x10(3)/uL IG% 0.40 % Urine Type. U CleanCatch Urine Color Yellow Urine Appearance Cloudy Urine Specific [place] 1.011 Urine pH Dipstick *8.0 Urine Leukocyte [...] Radiology results: Radiology Results (Last 48 hours) [id number] -- 09/19/2021 13:11 CT Abdomen Pelvis W [...] 21:02 EST, Discharge to: Home. Prescriptions: Prescription Manager Product Support Pharmacy: cyclobenzaprine 10 mg oral tablet (Prescribe): 1 Tab, Oral, TID, for 5 Day(s), PRN: as needed for spasm, 15 Tab, 0 Refill(s). Patient was given the following educational materials: Radicular Pain. Follow up with: UNKNOWN PHY Within 2 to 3 days Follow up with your shaving machine operator as scheduled tomorrow. Take medications as prescribed along with your pain medication at home. Return to ED if symptoms worsen., UNKNOWN PHY Within 2 to 3 days Follow up with your shaving machine operator as scheduled tomorrow. Take medications as prescribed along with your pain medication at home. Return to ED if symptoms worsen.. Counseled: Patient, Regarding diagnosis, Regarding diagnostic results, Regarding treatment plan, Patient indicated understanding of instructions. Notes: I certify that the Physician Associate Account Director performed the services as delegated. I agree with the assessment, treatment plan and disposition of the patient as recorded by the Physician Associate Account Director. This document was created with [employer] software and unidentified pipe buffer errors may be present.. . documented in this encounter Plan of Treatment Not on file documented as of this encounter Visit Diagnoses Not on filedocumented in this encounter
--- OUTSIDE RECORDS SUMMARY | 2025-10-14 14:15 | XMS_ITS | Referral Summary ---
Author Organization [employer] ([place], [place], [place], [place], [place]) Address [address] [place] [address] Care Team Providers Care Cardiac Nurse Name Role Phone Unavailable Primary Care Provider [...] Date Raymond rded Speak language other than Surinamese at home Not on file 11/09/2023 Want [...]
--- OUTSIDE RECORDS SUMMARY | 2025-10-14 14:15 | XMS_ITS | Clinical Summary ---
Author Organization [facility] Address [facility] [address] [place], [place] [address] Phone Care Team Providers Care Payroll Accounting Manager Name Role Phone Anh Kruse APRN [...] 6 hours as needed for Wheezing. Active Medical History Medical History Date Comments Lung nodules Hypertension Social History Tobacco Use Types Packs/Day Years Used Date Smoking Tobacco: Every Day Cigarettes 2 34 Started: 1992 Smokeless Tobacco: Never Tobacco Cessation:Ready [...] on patient's age to complete this topic Insurance [facility] [address] [place] [address] Care Teams Payroll Accounting Manager Relationship Specialty Start Date End Date Anh Kruse APRN [address] [place] [address] [address] [place] [phone] PCP - General 07/09/24
--- OUTSIDE RECORDS SUMMARY | 2025-10-14 14:15 | XMS_ITS | Clinical Summary ---
Author Organization [employer] ([place], [place], [place], [place], [place]) Address [address] [place] [address] Care Team Providers Care Education Director Name Role Phone Unavailable Primary Care Provider [...] Date Raymond rded Speak language other than South African at home Not on file 11/09/2023 Want [...] 2019 Lipid Panel 2024 COVID-19 VACCINE (4 2024-2 6 season) 2025 02/17/2022, 02/27/2021, 01/30/2021 Influenza Vaccine (#1) 2025 Pneumococcal Vaccine: 0-49 Years Aged Out No longer eligible b ased on patient's age to complete this topic
--- OUTSIDE RECORDS SUMMARY | 2025-10-14 14:15 | XMS_ITS | Encounter Summary ---
Author Organization [employer] ([place], [place], [place], [place], [place]) Address [address] [place] [address] Care Team Providers Care Semiconductor Lab Technician Name Role Phone Unavailable Primary Care Provider Unavailabl e Encounter Details Date Type Department Care Team (Late st Contact Info) Description 09/19/2021 Transcribed Document [facility] [place] [facility] [place] [address] ProviderNaveen MD [address] [place], [place] [phone] Social History Tobacco Use Types Packs/Day Years [...] - Historical ProviderMD - 09/19/2021 9:01 PM DIAPER MACHINE TENDER Electronically signed by Jordan [facility] Conversion [employer] Nurse Billiener at 02/04/2023 9:58 AM CDT documented in this encounter Plan of Treatment Not on file documented as of this encounter Visit Diagnoses Not on filedocumented in this encounter
--- NOTE | 2025-10-14 14:24 | ED_ITS ---
<Statement entered by Carl Montoya MD - 10/14/25 15:48> Carl Montoya MD: I was consulted by the JANEEN, and we discussed the complexity of the problems being addressed. I approve the treatment and management plan for this patient's care in the emergency department, thus performing a substantive portion of the medical decision making. Discharge Plan Disposition Patient Disposition: Home, Self-Care Prescriptions Prescriptions: New methocarbamol 500 mg tablet 500 mg PO .tid prn Qty: 30 0RF ibuprofen 800 mg tablet 800 mg PO .tid prn Qty: 20 0RF No Action carvedilol 12.5 mg tablet 12.5 mg PO BID Qty: 180 2RF Rx Instructions: must administer with a meal/food nicotine (polacrilex) 2 mg lozenge 2 mg buccal Q4H PRN (Reason: nicotine cravings) Qty: 108 2RF tiotropium bromide [Spiriva with HandiHaler] 18 mcg capsule, w/inhalation device 1 cap inhalation DAILY Qty: 90 2RF Rx Instructions: puncture 1 cap using device; one dose = 2 inhalations albuterol sulfate 90 mcg/actuation HFA aerosol inhaler 2 inh inhalation Q6H PRN (Reason: shortness of breath or wheezing) 90 Days Qty: 8.5 1RF colestipol 1 gram tablet 1 g PO BID Qty: 180 3RF doxycycline hyclate 100 mg capsule 100 mg PO BID 10 Days Qty: 20 0RF methylprednisolone [Medrol (Cooper)] 4 mg tablets,dose pack See Rx Instructions PO PER PKG DIR Qty: 21 0RF Rx Instructions: PO PER PKG DIR for 6 days guaifenesin [Mucinex] 1,200 mg tablet extended release 12hr 1,200 mg PO BID Qty: 20 0RF omeprazole 20 mg capsule,delayed release(DR/EC) 20 mg PO DAILY lamotrigine 100 mg tablet 100 mg PO DAILY meloxicam 15 mg tablet 15 mg PO DAILY Dulera 200-5 mcg/actuation HFA aerosol inhaler 2 puff inhalation BID 90 Days Qty: 13 2RF hydrochlorothiazide 25 mg tablet 25 mg PO DAILY montelukast [Singulair] 10 mg tablet 10 mg PO DAILY Qty: 90 2RF ipratropium-albuterol 0.5 mg-3 mg(2.5 mg base)/3 mL solution for nebulization 3 ml inhalation Q6H PRN (Reason: shortness of breath or wheezing) Qty: 180 3RF furosemide [Lasix] 40 mg tablet 40 mg PO DAILY Qty: 30 3RF losartan 100 mg tablet 100 mg PO DAILY Qty: 90 1RF cetirizine 10 mg tablet 10 mg PO DAILY fexofenadine 180 mg tablet 180 mg PO DAILY Referrals Follow up/Referrals: Todd Kruse APRN [Primary Care Provider, Medical] - See instructions Activity Restrictions/Add. Instructions Additional Instructions/Restrictions: You were seen in the emergency room today and were diagnosed with a right shoulder sprain. Motrin and Robaxin have been called into your local pharmacy for pain control. You should follow-up closely with your surgeon who is scheduled to perform an operation on you on November 03. Okay to wear the [employer] sling as needed for comfort. Remember to complete range of motion exercises so as to not let your shoulder get stiff from immobility. Follow-up with your primary care provider as needed. Clinical Impressions Clinical Impression: Shoulder sprain Print Language Print Language: [place] Discharge ED Provider: Carl Montoya General Adult HPI General Chief complaint: PAIN Stated complaint: AO Fall morning 10/14/25 right shoulder pain/back Time Seen by Provider: 10/14/25 14:09 Mode of Arrival: Ambulatory Source of Information: Patient Description of Symptoms (Recalled from ER Triage Doc. by RN): patient here after a fall out of her bed. patient has 10/10 in the right shoulder. patient has history of grafts, patches, hardware in that same shoulder. patient also stated she hit her head, no noticeable abrasion's or ecchymosis noted on the head. History of Present Illness HPI narrative: Adriana Tran is a 45-year-old female who presents emergency room today with complaints of right shoulder pain. Ms. Tran apparently rolled out of her bed this morning. States that she fell onto the right shoulder. Noted significant pain in her right shoulder. Has a very extensive history of multiple surgeries in her right shoulder with hardware and grafts. States that she called her surgeon in the office but they were closing early for the holidays. Pain is currently rated at a 10/10. States that she has had issues with her anchor coming out . He is scheduled for another surgery on November 03 for a redo due to tearing all of her tendons out again . Unsure if she hit her head, no headache noted, no bruising noted, no abrasion or trauma noted. No LOC. No neck or back pain. Only complaining of shoulder pain. Is not on any blood thinners. Denies any cough, fever, chest pain, shortness of breath, abdominal pain, bowel or bladder dysfunction. No other complaints at this time other than her shoulder pain. Please note that the above description of symptoms, and this electronic medical record under categorization of recalled from ER triage doctor by RN are reflective of an initial nursing assessment, however, is not reflective of my full history and physical exam that was personally taken and clarified. Consequentially, this proceeding description of symptoms, which may include the patient's cauterized chief complaint in the EMR, do not reflect my personal clinical impression, and the ultimate description of the history of present illness stated complaints should be deferred to this section of this note. Unless stated otherwise were congruent with the section of the note, additional signs, symptoms, or incongruence can be interpreted as in or accurate with my clinical impression. Related Data Home Medications ?Medication ?Instructions ?Recorded ?Confirmed lamotrigine 100 mg tablet 100 mg PO DAILY seizures 09/30/25 omeprazole 20 mg capsule,delayed 20 mg PO DAILY stomac h 12/06/22 09/30/25 release cetirizine 10 mg tablet 10 mg PO DAILY 04/27/2409/21 fexofenadine 180 mg tablet 180 mg PO DAILY 04/27/24 meloxicam 15 mg tablet 15 mg PO DAILY 03/12/2509/21 hydrochlorothiazide 25 mg tablet 25 mg PO DAILY 09/30/25 Previous Rx's ?Medication ?Instructions ?Recorded montelukast 10 mg tablet 10 mg PO DAILY #90 tabs 07/23 02/12 (Singulair) carvedilol 12.5 mg tablet 12.5 mg PO BID #180 tabs ipratropium 0.5 mg-albuterol 3 mg 3 ml inhalation Q6H PRN shortness 12/05/24 (2.5 mg base)/3 mL nebulization of breath or wheezing #180 mL soln mometasone-formoterol HFA 200 2 puff inhalation BID 90 days #13 03/13/25 mcg-5 mcg/actuation aerosol grams inhaler (Dulera) Spiriva with HandiHaler 18 mcg and 1 cap inhalation DA YULY #90 caps 07/29/25 inhalation capsules (tiotropium bromide) albuterol sulfate 90 mcg/actuation 2 inh inhalation Q6 H PRN shortness 07/29/25 aerosol inhaler of breath or wheezing 90 day s #8.5 grams nicotine (polacrilex) 2 mg buccal 2 mg buccal Q4H PRN nicotine 07/29/25 lozenge cravings #108 ea furosemide 40 mg tablet (Lasix) 40 mg PO DAILY #30 tab s 08/21/25 losartan 100 mg tablet 100 mg PO DAILY #90 tabs 07/16 colestipol 1 gram tablet 1 g PO BID #180 tabs 5 doxycycline hyclate 100 mg capsule 100 mg PO BID 10 da ys #20 caps 09/30/25 guaifenesin 1,200 mg tablet, 1,200 mg PO BID #20 tabs 09/30/25 extended release 12 hr (Mucinex) methylprednisolone 4 mg tablets in See Rx Instructions PO PER PKG DIR 09/30/25 a dose pack (Medrol (Cooper)) #21 tabs ibuprofen 800 mg tablet 800 mg PO .tid prn #20 tabs 10/14/25 methocarbamol 500 mg tablet 500 mg PO .tid prn #30 tab s 10/14/25 Allergies Allergy/AdvReac Type Severity Reaction Status Date / Time carbamazepine (From Tegretol) Allergy Hives Verified 09/30/25 11:24 levofloxacin (From Levaquin) Allergy Other Verified 09/30/25 11:24 quetiapine (From Seroquel) Allergy Hives Verified 09/30/25 11:24 venlafaxine (From Effexor) Allergy Seizure Verified 09/30/25 11:24 ziprasidone (From Geodon) Allergy Other Verified 09/30/25 11:24 PFSH PFSH Disclaimer: The information contained in this section may have been updated after the patient was seen, as this information can be updated by other users. Medical History (Updated 10/14/25 @ 15:33 by Tere Ace APRN) Bronchitis Chest congestion Fatty liver Allergic rhinitis Seizure HTN (hypertension) Endobronchial mass Solid nodule of lung greater than 8 mm in diameter Multiple lung nodules on CT Smoking greater than 30 pack years Asthma Dyspnea on exertion Surgical History History of bronchoscopy History of surgery of uterus History of rotator cuff surgery History of carpal tunnel release of both wrists History of tubal ligation History of cholecystectomy History of appendectomy Family History (Reviewed 09/30/25 @ 11: by Nanda Coleman RN) Other COPD (chronic obstructive pulmonary disease) Cancer Hypertension Social History (Reviewed 09/30/25 @ : by Nanda Coleman RN) Smoking Status: Never smoker alcohol intake: former substance use type: marijuana current occupational status: employed Travel in the last 8 weeks?: None Have you lived/traveled outside [place] in past 30 days?: No Contact w/someone who lives/traveled outside [place] past 30 days?: No Exposure to someone with infectious disease in past 14 days?: No Do you have a fever (greater than 100.4 F or 38 C)?: No Have you tested positive for COVID-19?: No Exposed to someone with COVID-19 in past 14 days?: No Do you have a sore throat?: No Do you have a cough?: No Do you have any weakness?: No Do you have any diarrhea?: No Are you experiencing any unusual bleeding?: No Do you have any muscle aches/pain?: No Do you have any abdominal pain?: No Are you experiencing loss of taste or smell?: No Other Medical History Have you received the Flu Vaccine for this season: No Have you received the Pneumonia Vaccine: No ROS Obtained: Yes All systems reviewed & no additional complaints except as documented Physical Exam General General appearance: alert and in no apparent distress Head Head exam: atraumatic, normocephalic and normal inspection Eye Eye exam: Present normal appearance, PERRL and EOMI ENT ENT exam: Present normal exam, normal oropharynx, mucous membranes moist, TM's normal bilaterally and normal external ear exam Neck Neck exam: Present normal inspection, full ROM and trachea midline; Absent meningismus or lymphadenopathy Chest Chest inspection: Present normal inspection and symmetric chest wall rise; Absent tenderness Respiratory Respiratory exam: Present normal lung sounds bilaterally; Absent respiratory distress Cardiovascular Cardiovascular exam: Present regular rate and normal rhythm; Absent JVD Abdominal Exam Abdominal exam: Present soft and normal bowel sounds; Absent distention, tenderness or guarding Extremities Exam Extremities exam: Present normal inspection, tenderness and other (Right shoulder with significant pain limited range of motion. Extremity is pink, warm, dry, 2+ pulses, tender to palpation near the AC joint, no obvious dislocation noted) Back Exam Back exam: Present normal inspection; Absent tenderness Neurological Exam Neurological exam: Present alert and oriented X3 Psychiatric Psychiatric exam: Present normal affect and normal mood Skin Skin exam: Present warm, dry, intact and normal color Lymphatic Lymphatic Findings: no adenopathy Medical Decision Making Medical Records Screening: Per USPSTF and CDC recommendations, given the prevalence of disease in our region, it is our hospital?s policy to screen for HIV and viral Hepatitis for all patients aged 18 and over and those with ongoing risk factors. Raymundo Inquiry Pt receiving controlled substance: No Vital Signs: 10/14/25 14:09 Temperature 98.2 F Temperature Source Oral Pulse Rate [Right Radial] 83 Respiratory Rate 20 Blood Pressure [Right Arm] 138/84 Blood Pressure Mean [Right Arm] 102 Blood Pressure Source [Right Arm] Automatic Cuff Blood Pressure Position [Right Arm] Sitting 02 Sat by Pulse Oximetry 97 Oxygen Delivery Method Room Air Orders (Tests/Meds): ED MEDICATIONS Generic Name Dose Route Start Last Admin Trade Name Freq PRN Reason Stop Dose Admin Ketorolac Tromethamine 15 mg 10/14/25 15:27 10/14/25 15:37 Ketorolac 15mg/Ml Vial IM 10/14/25 15:28 15 mg ONCE ONE Administration Methocarbamol 500 mg 10/14/25 15:28 10/14/25 15:38 Methocarbamol 500mg Tablet PO 10/14/25 15:29 500 mg ONCE ONE Administration Discontinued Medications Generic Name Dose Route Start Last Admin Trade Name Freq PRN Reason Stop Dose Admin Hydrocodone Bitart/Acetaminophen 1 tab 10/14/25 14:15 10/14/25 14:29 Hydrocodone/Apap 5/325 Mg Tablet PO 10/14/25 14:16 1 tab ONCE ONE Administration ORDERS Category Date Time Status XR shoulder RT min 2V Stat Exams 10/14/25 14:15 Taken Medical Decision Narrative: In summary patient is an 45-year-old female who presents emergency department for evaluation of right shoulder pain after rolling out of bed. Patient is hemodynamically stable upon arrival, afebrile. Unremarkable nonfocal physical exam except for pain limited range of motion in the right shoulder, tender to palpation, extremity is pink, warm, dry, 2+ pulses. Pain is rated at a 10/10 at this time. No obvious dislocation noted. Differential diagnosis includes shoulder dislocation, scapular fracture, clavicle fracture. Initial workup will be conducted with x-ray of the right shoulder. Initial interventions include pain medications. Initial workup reviewed by me x-ray unremarkable for fracture or dislocation. Upon repeat evaluation patient still complaining of right shoulder pain, still rated at 8/10. Will give some IM Toradol and Robaxin for muscle relaxer patient does summating her right shoulder pain is mildly improved. Given this patient appropriate for discharge at this time. She has been given prescription for Robaxin and Motrin which have been called into her local pharmacy. She requested a shoulder sling which she was given. She can wear this as needed for comfort. She should complete range of motion exercises frequently throughout the day. She should follow-up with her orthopedic surgeon, is scheduled to have another procedure/surgery done November 03. She will call them for a follow-up appointment prior to this surgery date. She was given strict return precautions to the ER should she need to be evaluated again. Critical Care Critical Care Time Critical Care Time: No
[2025-10-14] MEDS: HYDROCODONE/APAP 5/325 MG TABLET 1 TAB PO (14:29)
[2025-10-14] MEDS: KETOROLAC 15MG/ML VIAL 15 MG IM (15:37)
[2025-10-14] MEDS: METHOCARBAMOL 500MG TABLET 500 MG PO (15:38)
[2025-10-14 15:40] VITALS: BP 118/75; PULSE 78; RESP 18; TEMP 36.6; O2SAT 97
== END 2025-10-14 16:05 | disposition home or self-care (01) ==
PROVIDERS: Emergency Provider Student in an Organized Health Care Education/Training Program; PCP Nurse Practitioner Family
DX: S43.401A Unspecified sprain of right shoulder joint, initial encounter (principal); W06.XXXA Fall from bed, initial encounter
CPT/HCPCS: 73030; 96372; 99283; J1885